=== PATIENT | male | born 1950 | race African-American/Black ===

== ENCOUNTER 2017-04-20 03:37 | Inpatient (IN) | payer MEDICARE, BC ==
[~2017-04-20] VITALS: Ht 170.2 cm; Wt 52.6 kg
[2017-04-20] VITALS (22 sets, daily range): BP systolic 77–125; BP diastolic 55–77
[~2017-04-20 03:37] MED LIST: ACET325T9 PO; ASPI325T8 GT; Baclofen PEG; CARV6.25 PO; CIPR500T94 PEG; FERR325T58 PO; Hydrocodone/Acetaminophen PEG; IBUP200C PO; IPRA3AMP NEB; MULT-658 PO; MULT1CAP15 GT; Metoprolol Tartrate PEG; NITR1PAT9 TD; NYST1POW2 PO; PANT40TA3 GT; PANT40TA5 PO; POTA20LI27 PO; QUET25TA PO; QUET25TA5 GT; Sulfamethoxazole/Trimethoprim PEG; TEMA15CA GT; TEMA15CA PO; TEMA22.5 PO; TEMA30CA GT; amlodipine besylate PEG; aspirin; baclofen; coreg; ferrous; hydrocodone PEG; protonix; seroquel; vistaril
[2017-04-20] MEDS ORDERED: IV NORMAL SALINE 1000ML BAG 1,000 ML IV SCH (04:00)
[2017-04-20 04:03] LABS: BASO % 0 % (0-3); EOS % 0 % (0-3); HEMATOCRIT 37.4 % (39.0-53.0); HEMOGLOBIN 12.1 g/dL (13.0-17.5); LYMPH # 0.6 x10^3/uL (1.0-4.8); LYMPH % 3 % (24-48); MEAN CORPUSCULAR HEMOGLOBIN 27 pg (25-35); MEAN CORPUSCULAR HGB CONC 32 g/dL (31-37); MEAN CORPUSCULAR VOLUME 84 fL (79-100); MONO % 7 % (0-9); NEUT % 90 % (31-73); PLATELET COUNT 348 x10^3/uL (140-400); RED BLOOD COUNT 4.45 x10^6/uL (4.30-5.70); RED CELL DISTRIBUTION WIDTH 16.5 % (11.5-14.5)
[2017-04-20 04:07] LABS: BILIRUBIN,URINE NEGATIVE (NEG); GLUCOSE,URINE NEGATIVE (NEG); NITRITE,URINE NEGATIVE (NEG); PH,URINE 6.5; PROTEIN,URINE 30 mg/dL (NEG-TRACE); UROBILINOGEN,URINE 0.2 mg/dL (0.2 mg/dL)
[2017-04-20 04:12] LABS: CALCIUM 9.8 mg/dL (8.5-10.1); CREATININE 1.1 mg/dL (0.7-1.3); GFR 81.5; POTASSIUM 4.9 mmol/L (3.5-5.1)
[2017-04-20 04:13] LABS: INR 1.2 (0.8-1.1); PROTHROMBIN TIME PATIENT 14.8 SEC (11.7-14.0)
[2017-04-20 04:17] LABS: BACTERIA,URINE MANY /HPF (0-FEW); SQUAMOUS EPITHELIAL CELL,UR OCC /LPF; WBC,URINE >40 /HPF (0-4)
[2017-04-20 04:18] LABS: ALBUMIN 3.1 g/dL (3.4-5.0); ALBUMIN/GLOBULIN RATIO 0.5 (1.0-1.7); TOTAL BILIRUBIN 0.5 mg/dL (0.2-1.0); TOTAL PROTEIN 9.3 g/dL (6.4-8.2)
[2017-04-20] MEDS ORDERED: VANCOMYCIN PER PHARMACY MC PRN (04:30)
[2017-04-20] MEDS ORDERED: IV NORMAL SALINE 500ML BAG 500 ML IV ONE (04:30)
[2017-04-20] MEDS ORDERED: VANCOMYCIN 1.25 GM in IV NORMAL SALINE 500ML BAG 500 ML IV ONE (05:00)
[2017-04-20 06:36] LABS: PLT ESTIMATE ADEQUATE (ADEQUATE)
[2017-04-20] MEDS ORDERED: NOREPINEPHRIN PREMIX 250 ML IV PRN (06:45)
[2017-04-20] MEDS ORDERED: IV DEXTROSE 5% - 0.9 % NACL 1,000 ML IV SCH (07:00)
--- NOTE | 2017-04-20 07:38 | RAD ---
Indication difficulty breathing. A single view of the chest was obtained. Comparison is made to an examination 11/15/2015. The heart and pulmonary vessels appear normal. The lungs are clear. There is no pleural fluid or pneumothorax. A right Port-A-Cath is noted. IMPRESSION: No acute or focal process is seen in the chest
--- NOTE | 2017-04-20 08:21 | PDOC2 ---
IM Consult Referring physician Dr Black for sepsis Date of Admission DATE: 04/20/17 TIME: 08:09 Chief Complaint Chief Complaint 66 yr o AA male with anoxic brain injury with persistant veg state, who is being taken care of by at home. She noted him to be having fever for 3 days , cough and then stopped breathing, she did brief CPR and he started breathing and was transported through ambulance. Had fever, leukocytosis, uti, lactic acidosis. Started on vanc, levaquin and now I added cefepime. D/w and d/w ER . Problems: Past Medical History Cardiovascular: AFIB, HTN, PR, Hyperlipidemia Pulmonary: No pertinent hx CENTRAL NERVOUS SYSTEM: CVA, Other GI: Other Heme/Onc: Other Musculoskeletal: Osteoarthritis, Other Rheumatologic: Other Renal/: UTI (anoxic brain injury/persistant veg state), Benign prostatic enlarg. Past Surgical History Past Surgical History: Colectomy, Other (rt aka) Past Family History Family History: Family History Unknown Past Social History PSH total care, done by at home Review of Symptoms Review of Symptoms unable to do Medications Current Medications Dextrose/Sodium Chloride 1,000 ml @ 150 mls/hr Q6H40M IV Last administered on 04/20/17 07:03; Start 04/20/17 at 07:00 Levofloxacin/ Dextrose 150 ml @ 100 mls/hr 1X ONCE IV Last administered on 04:34; Start 04/20/17 at 05:00; Stop 04/20/17 at 06:29; Status DC Norepinephrine Bitartrate 250 ml @ 0 mls/hr CONT PRN IV SEE I/O RECORD Last administered on 04/20/17 07:02; Start 04/20/17 at 06:45 Sodium Chloride 500 ml @ 500 mls/hr 1X ONCE IV Last administered on 04:34; Start 04/20/17 at 04:30; Stop 04/20/17 at 05:29; Status DC Sodium Chloride 1,000 ml @ 1,000 mls/hr Q1H IV Last administered on 04/20/17 03:45; Start 04/20/17 at 04:00; Stop 04/20/17 at 04:59; Status DC Vancomycin HCl 1 each 1X ONCE MC ; Start 04/22/17 at 04:30; Stop 04/22/17 at 04 :31 Vancomycin HCl (Vanco Per Pharmacy) 1 each PRN DAILY PRN MC SEE COMMENTS Last administered on 04/20/17 06:12; Start 04/20/17 at 04:30 Vancomycin HCl 1.25 gm/Sodium Chloride 500 ml @ 250 mls/hr 1X ONCE IV Last administered on 04/20/17 05:10; Start 04/20/17 at 05:00; Stop 04/20/17 at 06:59 ; Status DC Vancomycin HCl 750 mg/Sodium Chloride 250 ml @ 250 mls/hr Q24H IV ; Start 04/21 at 05:00 Allergy Allergies Coded Allergies Type Severity Reaction Last Updated Verified Penicillins Allergy Intermediate Hives, swelling, Can tolerate meropenem Yes simvastatin Allergy Intermediate per and Dr Black 11/12/15 Yes I S O L A T I O N *CONTACT* Allergy Unknown 11/12/15 Yes Iodinated Contrast- Oral and IV Dye Adverse Reaction Severe caregiver reports pt goes into renal failure 11/12/15 Yes Physical Exam Physical Exam General appearance - unresponsive not in distress Mental Status - unresponsive Head - normal Chest - clear to auscultation, no wheezes, rales or rhonchi, symmetric air entry Heart - S1 and S2 normal Abdomen - soft, nontender, nondistended, no masses or organomegaly Neurological - unresponsive Musculoskeletal - no muscular tenderness noted Extremities - no pedal edema Skin - warm and dry, minor breakdown at sacral area IV cv line at rt upper chest Labs Laboratory Tests Test 04/20/17 03:50 White Blood Count 23.0 x10^3/uL (4.0-11.0) Red Blood Count 4.45 x10^6/uL (4.30-5.70) Hemoglobin 12.1 g/dL (13.0-17.5) Hematocrit 37.4 % (39.0-53.0) Mean Corpuscular Volume 84 fL (79-100) Mean Corpuscular Hemoglobin 27 pg (25-35) Mean Corpuscular Hemoglobin Concent 32 g/dL (31-37) Red Cell Distribution Width 16.5 % (11.5-14.5) Platelet Count 348 x10^3/uL (140-400) Neutrophils (%) (Auto) 90 % (31-73) Lymphocytes (%) (Auto) 3 % (24-48) Monocytes (%) (Auto) 7 % (0-9) Eosinophils (%) (Auto) 0 % (0-3) Basophils (%) (Auto) 0 % (0-3) Neutrophils # (Auto) 20.7 x10^3uL (1.8-7.7) Lymphocytes # (Auto) 0.6 x10^3/uL (1.0-4.8) Monocytes # (Auto) 1.6 x10^3/uL (0.0-1.1) Eosinophils # (Auto) 0.1 x10^3/uL (0.0-0.7) Basophils # (Auto) 0.0 x10^3/uL (0.0-0.2) Segmented Neutrophils % 86 % (35-66) Band Neutrophils % 2 % (0-9) Lymphocytes % 6 % (24-48) Monocytes % 6 % (0-10) Platelet Estimate Adequate (ADEQUATE) Prothrombin Time 14.8 SEC (11.7-14.0) Prothromb Time International Ratio 1.2 (0.8-1.1) Activated Partial Thromboplast Time 32 SEC (24-38) Urine Collection Type U cath Urine Color Yellow Urine Clarity Cloudy Urine pH 6.5 Urine Specific [place] 1.020 Urine Protein 30 mg/dL (NEG-TRACE) Urine Glucose (UA) Negative mg/dL (NEG) Urine Ketones (Stick) Negative mg/dL (NEG) Urine Blood Moderate (NEG) Urine Nitrite Negative (NEG) Urine Bilirubin Negative (NEG) Urine Urobilinogen Dipstick 0.2 mg/dL (0.2 mg/dL) Urine Leukocyte Esterase Large (NEG) Urine RBC 1-2 /HPF (0-2) Urine WBC >40 /HPF (0-4) Urine Squamous Epithelial Cells Occ /LPF Urine Bacteria Many /HPF (0-FEW) Urine Hyaline Casts Occasional /HPF Sodium Level 136 mmol/L (136-145) Potassium Level 4.9 mmol/L (3.5-5.1) Chloride Level 101 mmol/L (98-107) Carbon Dioxide Level 20 mmol/L (21-32) Anion Gap 15 (6-14) Blood Urea Nitrogen 36 mg/dL (8-26) Creatinine 1.1 mg/dL (0.7-1.3) Estimated GFR (Cockcroft-Gault) 81.5 BUN/Creatinine Ratio 33 (6-20) Glucose Level 109 mg/dL (70-99) Lactic Acid Level 2.9 mmol/L (0.4-2.0) Calcium Level 9.8 mg/dL (8.5-10.1) Total Bilirubin 0.5 mg/dL (0.2-1.0) Aspartate Amino Transf (AST/SGOT) 30 U/L (15-37) Alanine Aminotransferase (ALT/SGPT) 32 U/L (16-63) Alkaline Phosphatase 107 U/L (46-116) Total Protein 9.3 g/dL (6.4-8.2) Albumin 3.1 g/dL (3.4-5.0) Albumin/Globulin Ratio 0.5 (1.0-1.7) Laboratory Tests Test 04/20/17 03:50 White Blood Count 23.0 x10^3/uL (4.0-11.0) Red Blood Count 4.45 x10^6/uL (4.30-5.70) Hemoglobin 12.1 g/dL (13.0-17.5) Hematocrit 37.4 % (39.0-53.0) Mean Corpuscular Volume 84 fL (79-100) Mean Corpuscular Hemoglobin 27 pg (25-35) Mean Corpuscular Hemoglobin Concent 32 g/dL (31-37) Red Cell Distribution Width 16.5 % (11.5-14.5) Platelet Count 348 x10^3/uL (140-400) Neutrophils (%) (Auto) 90 % (31-73) Lymphocytes (%) (Auto) 3 % (24-48) Monocytes (%) (Auto) 7 % (0-9) Eosinophils (%) (Auto) 0 % (0-3) Basophils (%) (Auto) 0 % (0-3) Neutrophils # (Auto) 20.7 x10^3uL (1.8-7.7) Lymphocytes # (Auto) 0.6 x10^3/uL (1.0-4.8) Monocytes # (Auto) 1.6 x10^3/uL (0.0-1.1) Eosinophils # (Auto) 0.1 x10^3/uL (0.0-0.7) Basophils # (Auto) 0.0 x10^3/uL (0.0-0.2) Segmented Neutrophils % 86 % (35-66) Band Neutrophils % 2 % (0-9) Lymphocytes % 6 % (24-48) Monocytes % 6 % (0-10) Platelet Estimate Adequate (ADEQUATE) Prothrombin Time 14.8 SEC (11.7-14.0) Prothromb Time International Ratio 1.2 (0.8-1.1) Activated Partial Thromboplast Time 32 SEC (24-38) Urine Collection Type U cath Urine Color Yellow Urine Clarity Cloudy Urine pH 6.5 Urine Specific [place] 1.020 Urine Protein 30 mg/dL (NEG-TRACE) Urine Glucose (UA) Negative mg/dL (NEG) Urine Ketones (Stick) Negative mg/dL (NEG) Urine Blood Moderate (NEG) Urine Nitrite Negative (NEG) Urine Bilirubin Negative (NEG) Urine Urobilinogen Dipstick 0.2 mg/dL (0.2 mg/dL) Urine Leukocyte Esterase Large (NEG) Urine RBC 1-2 /HPF (0-2) Urine WBC >40 /HPF (0-4) Urine Squamous Epithelial Cells Occ /LPF Urine Bacteria Many /HPF (0-FEW) Urine Hyaline Casts Occasional /HPF Sodium Level 136 mmol/L (136-145) Potassium Level 4.9 mmol/L (3.5-5.1) Chloride Level 101 mmol/L (98-107) Carbon Dioxide Level 20 mmol/L (21-32) Anion Gap 15 (6-14) Blood Urea Nitrogen 36 mg/dL (8-26) Creatinine 1.1 mg/dL (0.7-1.3) Estimated GFR (Cockcroft-Gault) 81.5 BUN/Creatinine Ratio 33 (6-20) Glucose Level 109 mg/dL (70-99) Lactic Acid Level 2.9 mmol/L (0.4-2.0) Calcium Level 9.8 mg/dL (8.5-10.1) Total Bilirubin 0.5 mg/dL (0.2-1.0) Aspartate Amino Transf (AST/SGOT) 30 U/L (15-37) Alanine Aminotransferase (ALT/SGPT) 32 U/L (16-63) Alkaline Phosphatase 107 U/L (46-116) Total Protein 9.3 g/dL (6.4-8.2) Albumin 3.1 g/dL (3.4-5.0) Albumin/Globulin Ratio 0.5 (1.0-1.7) U/A noted CXR neg Vitals Vital Signs Date Time Temp Pulse Resp B/P (MAP) Pulse Ox O2 Delivery O2 Flow Rate FiO2 04/20/17 07:00 82 16 79/64 (69) 97 Room Air 04/20/17 06:15 97.9 97.9 Assessment Assessment UTI with sepsis Fever Leukocytosis Anoxic brain injury Persistent veg state Plan Plan vanc, levaquin and cefepime check cultures and adjust supportive care fluids d/w in detail CATHY ELIAS MD Apr 20, 2017 08:21
[2017-04-20] MEDS ORDERED: IV NORMAL SALINE 1000ML BAG 1,000 ML IV ONE (09:00)
[2017-04-20] MEDS: CEFEPIME HCL 1 GM in IV NORMAL SALINE 50ML 50 ML IV SCH ×3 (09:26→21:48)
[2017-04-20] MEDS ORDERED: HYDR-2758 GT (10:26)
[2017-04-20] MEDS ORDERED: FERR-26 GT (10:26)
[2017-04-20] MEDS ORDERED: QUET25TA5 GT (10:26)
[2017-04-20] MEDS ORDERED: MUPI22OI2 TP (10:26)
[2017-04-20] MEDS ORDERED: ERYT1OIN6 OP (10:26)
[2017-04-20] MEDS ORDERED: QUEtiapine 25 MG TABLET. GT PRN (11:45)
[2017-04-20] MEDS: ASPIRIN 325 MG TABLET GT SCH (12:20)
[2017-04-20] MEDS ORDERED: FERROUS SULFATE 325 MG TABLET. PO SCH (12:30)
--- NOTE | 2017-04-20 12:46 | PDOC ---
Provider Note Provider Note history and physical dictated # [id number] ADRIANE ALAN MD Apr 20, 2017 12:46
--- NOTE | 2017-04-20 13:49 | EKG ---
[facility] [address] [place] [address] Test Date: 2017-04-20 Test Time: 13:44:34 Pat Name: TENA SCHAFFER Department: Room: 110 1 Gender: M Brush Sander: JUANITA : 1950 Requested By: ADRIANE ALAN Order Number: [id number] Reading MD: Clint Bates Measurements Intervals Amanda Rate: 63 P: 38 ME: 166 QRS: -53 QRSD: 108 T: -48 QT: 464 QTc: 478 Interpretive Statements SINUS RHYTHM ABNORMAL LEFT AXIS DEVIATION LEFT ANTERIOR FASCICULAR BLOCK LVH WITH REPOLARIZATION ABNORMALITY PROLONGED QT ABNORMAL ECG Electronically Signed On 04-30-2017 14:44:01 CDT by Clint Bates
[2017-04-20] MEDS ORDERED: BACLOFEN 10 MG TABLET. GT SCH (14:00)
[2017-04-20] MEDS: BACLOFEN 10 MG TABLET. GT SCH ×2 (16:03→20:46)
[2017-04-20] MEDS: IV NORMAL SALINE 1000ML BAG 1,000 ML IV SCH ×2 (16:51→20:46)
--- NOTE | 2017-04-20 19:07 | PHYS DOC ---
Past Medical History Past Medical History: Coagulopathy, Hypertension, NH, Seizure, Other Additional Past Medical Histor: metabolic encephalopathy, short bowel syndrome , lupus Past Surgical History: Colectomy, Other Additional Past Surgical Histo: g-tube placement, ileostomy Alcohol Use: None Drug Use: None Social History Pt currently resides at home with caring for pt. Last Hospitalization and infection with antibiotic was in 12/16 Adult General Chief Complaint Chief Complaint: SHORTNESS OF BREATH HPI HPI Patient is a 66 year old male with HX post cardiac arrest cerebral anoxic brain injury. Pt is nonverbal and history taken from EMS and family. cares for pt at home. who presents with hypoxic episode at home and stopped breathing per . She performed CPR for less that 1 min when EMS arrived. Pt was found at baseline mentation and no hypoxia but hypotension with initial pressure 84/55. Pt transported to ER. Per hx of elevated WBC out pt last week but no signs of infection then noticed yesterday poss purulent discharge from urethra. Pt hx of pulmonary mucous plugging in past. Review of Systems Review of Systems ROS from as pt is nonverbal Constitutional: Denies fever or chills HENT: Denies nasal congestion Respiratory: possible recent coughing episodes and hypoxia/resp arrest tonight Cardiovascular: No additional information not addressed in HPI GI: NO, vomiting, bloody stools, stool in colostomy bag normal/baseline :no hematuria, purulent discharge from urethra Integument: Pt has had skin breakdown area near portacath and presacral area, and L heel Neurologic:baseline mentation per Current Medications Current Medications Current Medications Medications (Trade) Dose Ordered Sig/Baljeet Start Time Stop Time Status Last Admin Dose Admin Sodium Chloride 500 ml @ 500 mls/hr 1X ONCE 04/20/17 04:30 04/20/17 05:29 DC 04/20/17 04:34 500 MLS/HR Vancomycin HCl (Vanco Per Pharmacy) 1 each PRN DAILY PRN 04/20/17 04:30 04/20/17 12:59 DC 04/20/17 06:12 1 EACH Allergies Allergies Allergies Coded Allergies Type Severity Reaction Last Updated Verified Penicillins Allergy Intermediate Hives, swelling, Can tolerate meropenem Yes simvastatin Allergy Intermediate per and Dr Black 11/12/15 Yes I S O L A T I O N *CONTACT* Allergy Unknown 11/12/15 Yes Iodinated Contrast- Oral and IV Dye Adverse Reaction Severe caregiver reports pt goes into renal failure 11/12/15 Yes Physical Exam Physical Exam Constitutional: Pt cachetic, neck flexed forward (baseline) nonverbal appears ill HENT: atraumatic, oropharynx dry mucous membranes no oral exudates, nose normal. [] Eyes: PERRLA, conjunctiva normal, no discharge. Neck: Neck flexed forward Cardiovascular: Tachycardic, no murmur Lungs & Thorax: Bilateral breath sounds clear to auscultation Portacath in place and inferior area open wound, no discharge but mild erythema Abdomen: Bowel sounds normal, soft, no tenderness, no masses, no pulsatile masses. Skin: Warm, dry, presacral decub and healing pressure sore heel of L foot Back: No tenderness, no CVA tenderness. Extremities: No tenderness, no cyanosis, AKA R leg Neurologic: Pt nonverbal non responsive but at baseline per Current Patient Data Vital Signs Vital Signs Date Time Temp Pulse Resp B/P (MAP) Pulse Ox O2 Delivery O2 Flow Rate FiO2 04/20/17 04:15 104 87/57 (67) 95 Room Air 04/20/17 03:38 102.0 20 102.0 Lab Values Laboratory Tests Test 04/20/17 03:50 White Blood Count 23.0 x10^3/uL (4.0-11.0) H Red Blood Count 4.45 x10^6/uL (4.30-5.70) Hemoglobin 12.1 g/dL (13.0-17.5) L Hematocrit 37.4 % (39.0-53.0) L Mean Corpuscular Volume 84 fL (79-100) Mean Corpuscular Hemoglobin 27 pg (25-35) Mean Corpuscular Hemoglobin Concent 32 g/dL (31-37) Red Cell Distribution Width 16.5 % (11.5-14.5) H Platelet Count 348 x10^3/uL (140-400) Neutrophils (%) (Auto) 90 % (31-73) H Lymphocytes (%) (Auto) 3 % (24-48) L Monocytes (%) (Auto) 7 % (0-9) Eosinophils (%) (Auto) 0 % (0-3) Basophils (%) (Auto) 0 % (0-3) Neutrophils # (Auto) 20.7 x10^3uL (1.8-7.7) H Lymphocytes # (Auto) 0.6 x10^3/uL (1.0-4.8) L Monocytes # (Auto) 1.6 x10^3/uL (0.0-1.1) H Eosinophils # (Auto) 0.1 x10^3/uL (0.0-0.7) Basophils # (Auto) 0.0 x10^3/uL (0.0-0.2) Segmented Neutrophils % 86 % (35-66) H Band Neutrophils % 2 % (0-9) Lymphocytes % 6 % (24-48) L Monocytes % 6 % (0-10) Platelet Estimate Adequate (ADEQUATE) Prothrombin Time 14.8 SEC (11.7-14.0) H Prothrombin Time INR 1.2 (0.8-1.1) H PTT 32 SEC (24-38) Urine Collection Type U cath Urine Color Yellow Urine Clarity Cloudy Urine pH 6.5 Urine Specific [place] 1.020 Urine Protein 30 mg/dL (NEG-TRACE) Urine Glucose (UA) Negative mg/dL (NEG) Urine Ketones (Stick) Negative mg/dL (NEG) Urine Blood Moderate (NEG) Urine Nitrite Negative (NEG) Urine Bilirubin Negative (NEG) Urine Urobilinogen Dipstick 0.2 mg/dL (0.2 mg/dL) Urine Leukocyte Esterase Large (NEG) Urine RBC 1-2 /HPF (0-2) Urine WBC >40 /HPF (0-4) Urine Squamous Epithelial Cells Occ /LPF Urine Bacteria Many /HPF (0-FEW) Urine Hyaline Casts Occasional /HPF Sodium Level 136 mmol/L (136-145) Potassium Level 4.9 mmol/L (3.5-5.1) Chloride Level 101 mmol/L (98-107) Carbon Dioxide Level 20 mmol/L (21-32) L Anion Gap 15 (6-14) H Blood Urea Nitrogen 36 mg/dL (8-26) H Creatinine 1.1 mg/dL (0.7-1.3) Estimated GFR (Cockcroft-Gault) 81.5 BUN/Creatinine Ratio 33 (6-20) H Glucose Level 109 mg/dL (70-99) H Lactic Acid Level 2.9 mmol/L (0.4-2.0) H Calcium Level 9.8 mg/dL (8.5-10.1) Total Bilirubin 0.5 mg/dL (0.2-1.0) Aspartate Amino Transferase (AST) 30 U/L (15-37) Alanine Aminotransferase (ALT) 32 U/L (16-63) Alkaline Phosphatase 107 U/L (46-116) Total Protein 9.3 g/dL (6.4-8.2) H Albumin 3.1 g/dL (3.4-5.0) L Albumin/Globulin Ratio 0.5 (1.0-1.7) L Laboratory Tests 04/20/17 03:50 Laboratory Tests 04/20/17 03:50 Microbiology 04/20/17 Blood Culture - Final, Complete EKG EKG [] Radiology/Procedures Radiology/Procedures Chest Xray portable AP--wet read when evaluated pt ---no consolidation, no CHF Impressions: Impression----Septic Shock with UTI, decub presacral area Admit to ICU discussed with Dr. Black and called in consult for Dr. Aburto (ID ) Pt elevated lactic acid and WBC with metabolic acidosi Pt given fluid bolus 30cc/kg approx 1500cc of NS in ER with some improvement of systolic BP to 102 on transfer to ICU Pt started on LEvaquin and VAncomycin in ER Pt allergy to PCN per is throat swelling Critical care time on management by me in ER with reviewing test and discussing pt care was 30 min. critical care Course & Med Decision Making Course & Med Decision Making Pertinent Labs and Imaging studies reviewed. (See chart for details) [] Dragon Disclaimer Dragon Disclaimer This electronic medical record was generated, in whole or in part, using a voice recognition dictation system. Departure Departure Impression: Primary Impression: Septic shock Additional Impression: UTI (urinary tract infection) Disposition: ADMITTED INPATIENT Admitting Physician: Shailesh Black Condition: CRITICAL Problem Qualifiers [place] BARNARD MD Apr 20, 2017 19:07
--- NOTE | 2017-04-20 19:58 | HP ---
ADMIT DATE: 04/20/2017 LOCATION: Intensive Care Unit in room 110. HISTORY OF PRESENT ILLNESS The patient is a 66-year-old -D[place] male with a history of an anoxic encephalopathy from a previous cardiopulmonary arrest with spastic quadriparesis and oropharyngeal dysphagia, maintained on gastrostomy tube feedings, who also had a small bowel resection in the past due to ischemia and has a short bowel syndrome and an ileostomy maintained on IV fluids at home as well as a gastrostomy tube feeding and who has a history of a right above-knee amputation, he is cared for by his at home, was admitted to [facility] through the Emergency Room on 04/20/2017 with 3-day history of fever and noted to have an episode of apnea at home. The did some CPR and he started breathing again and he was sent by EMT to the [facility] Emergency Room where he was noted to be in septic shock. His systolic blood pressure was low down to 79/64. He received IV fluid boluses. He is noted to have a leukocytosis and an elevated lactic acid and pyuria consistent with sepsis with shock: The patient is a full code. He was admitted to the Intensive Care Unit and was started on Levophed drip. History is obtained from the Emergency Room physician and also from the patient's . He is therefore admitted for further evaluation and treatment of his septic shock and suspected urinary tract infection. ALLERGIES AND INTOLERANCES: IV IODINE AND ORAL IODINE, PENICILLIN, AND SIMVASTATIN. MEDICATIONS: Prior to admission include aspirin 325 mg every day, baclofen 10 mg t.i.d., ferrous sulfate 325 mg every day, multiple vitamin once a day, [place] 10/325 one every day p.r.n., Seroquel 25 mg at bedtime and 12.5 mg every day p.r.n. for agitation and he is also on temazepam 45 mg at bedtime, Fibersource 110 mL an hour through his gastrostomy tube, water 250 mL every 6 hours through his gastrostomy tube and IV normal saline 125 mL an hour from 7 p.m. to 7 a.m. daily. PAST MEDICAL HISTORY: Significant for anoxic encephalopathy due to out of hospital cardiopulmonary arrest several years ago. He also has spastic quadriparesis and he is aphasic and has oropharyngeal dysphagia, maintained on gastrostomy tube feedings. He had ischemic bowel, requiring small bowel resection, leaving him with short bowel syndrome and also has an ileostomy. 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 He does have a gastrostomy tube. He had upper and lower extremity contractures and a colon polypectomy in the past. He had an antiphospholipid syndrome in the past and repeat test was negative subsequent to that. He had a cerebrovascular accident in 2013 with right-sided hemiparesis. SOCIAL HISTORY: He does not drink alcohol nor does he smoke cigarettes. He is cared for by his . FAMILY HISTORY: Noncontributory. REVIEW OF SYSTEMS: Unobtainable as the patient is aphasic. PHYSICAL EXAMINATION: VITAL SIGNS: Temperature is 97.9 degrees, apical pulse 82, respiratory rate is 20, blood pressure was 79/64 earlier, ____ was 102 systolic, on a Levophed drip, oxygen saturation 97% on room air. HEENT: Eyes are closed. He is in a contracted position with spastic quadriparesis. HEART: Reveals an S1, S2. There is no S3 or murmur. LUNGS: Clear anteriorly. ABDOMEN: Soft. He has got a gastrostomy tube and an ileostomy. EXTREMITIES: Lower extremity has got a right above-knee amputation. He is got a stage II very small superficial wound involving his left heel. SKIN: No rashes. LABORATORY DATA: His white count was 23,000, hemoglobin 12.1 with a platelet count 348,000, 90 polys and 3 lymphocytes and white cell differential. His INR was 1.2 with a PTT of 32. Serum sodium 136, potassium 4.9, chloride 101, total CO2 was 20, BUN 26, creatinine 1.1, blood sugar 109. Lactic acid level is 2.9. His albumin level is 3.1. Urinalysis showed greater than 40 white blood cells. He had a chest x-ray done which showed no acute abnormality, he has a Port-A-Cath in the right side. Electrocardiogram was not on the chart. ASSESSMENT: 1. Sepsis with shock. 2. Pyuria, suspected urinary tract infection. 3. Metabolic encephalopathy on top of anoxic encephalopathy. 4. Leukocytosis. 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 7. Ileostomy. 8. Oropharyngeal dysphagia, maintained on gastrostomy tube feedings. 9. Right above-knee amputation. 10. Aphasic. PLAN: At this time is to wait for blood and urine culture results. He has been seen by the Infectious Disease professional benefits sales consultant. We will continue with IV vancomycin, cefepime and Levaquin. Recheck his labs tomorrow. Continue with Levophed. Also continue with the IV normal saline. ADRIANE ALAN MD DR: MARILY/abram JOB#: [id number] / [id number]
[2017-04-20] MEDS ORDERED: FAMOTIDINE 20 MG TABLET. PEG SCH (21:00)
[2017-04-21] VITALS (20 sets, daily range): BP systolic 92–145; BP diastolic 57–83
--- NOTE | 2017-04-21 00:13 | ACF ---
Admission Forms Criteria URINARY COMPLICATIONS Clinical Indications for Inpatient Care (Place 'X' for any and all applicable criteria): Ongoing inpatient care may be indicated for urinary complications with ANY ONE of the following: [X]I. Urinary tract infection requiring inpatient care as indicated by ANY ONE of the following(8)(19)(20): [ ]a) Severe symptoms (eg, high fever, severe pain) [ ]b) Vomiting or dehydration requiring ongoing inpatient care [X]c) IV antibiotic needs that cannot be managed at lower level of care [ ]d) Hemodynamic instability [ ]e) Obstruction of collecting system by stone or tumor [ ]II. Urinary retention requiring drainage or surgery (3)(4)(5)(17)(18) [ ]III. Renal failure (Use Renal Failure Criteria for further information.) [ ]IV. Oliguria(30) [ ]V. Post obstructive diuresis requiring close monitoring of urine output and intravenous compensation for excessive fluid losses(33) Extended stay beyond goal length of stay for primary condition may be needed until ALL of the following are present(3)(4)(5)(8): [ ]a) Renal function (creatinine) at baseline, or daily decreases in creatinine consistent with renal function return [ ]b) Voiding adequately or with urinary catheter or percutaneous suprapubic tube and management regimen in place that is performable at lower level of care. [ ]c) Urine output adequate [ ]d) Fever absent or resolving [ ]e) Infection absent or treatable at next level of care The original [employer] content created by [employer] has been revised. The portions of the content which have been revised are identified through the use of italic text or in bold, and [facility] has neither reviewed nor approved the modified material. All other unmodified content is copyright [employer] Please see references footnoted in the original [employer] edition 2016 Admission Criteria Met?: Yes CAROLYN PAZ Apr 21, 2017 00:13
[2017-04-21] MEDS ORDERED: VANCOMYCIN 750 MG in IV NORMAL SALINE 250ML 250 ML IV SCH (05:00)
[2017-04-21] MEDS: CEFEPIME HCL 1 GM in IV NORMAL SALINE 50ML 50 ML IV SCH ×3 (05:46→21:06)
[2017-04-21] MEDS: IV NORMAL SALINE 1000ML BAG 1,000 ML IV SCH ×2 (05:46→21:06)
[2017-04-21 06:18] LABS: CALCIUM 8.5 mg/dL (8.5-10.1); CREATININE 0.6 mg/dL (0.7-1.3); GFR 164.1; POTASSIUM 3.7 mmol/L (3.5-5.1)
[2017-04-21 06:52] LABS: BASO % 0 % (0-3); EOS % 4 % (0-3); HEMATOCRIT 29.7 % (39.0-53.0); HEMOGLOBIN 9.6 g/dL (13.0-17.5); LYMPH # 1.1 x10^3/uL (1.0-4.8); LYMPH % 10 % (24-48); MEAN CORPUSCULAR HEMOGLOBIN 27 pg (25-35); MEAN CORPUSCULAR HGB CONC 33 g/dL (31-37); MEAN CORPUSCULAR VOLUME 84 fL (79-100); MONO % 8 % (0-9); NEUT % 78 % (31-73); PLATELET COUNT 275 x10^3/uL (140-400); RED BLOOD COUNT 3.52 x10^6/uL (4.30-5.70); RED CELL DISTRIBUTION WIDTH 16.7 % (11.5-14.5); WHITE BLOOD COUNT 10.9 x10^3/uL (4.0-11.0)
--- NOTE | 2017-04-21 08:21 | PDOC ---
Infectious Disease Note Subjective Subjective unresponsive ROS ROS unable to do Vital Sign Vital Signs Vital Signs Date Time Temp Pulse Resp B/P (MAP) Pulse Ox O2 Delivery O2 Flow Rate FiO2 04/21/17 08:00 99.3 77 17 115/72 (86) 97 Room Air 99.3 Physical Exam PHYSICAL EXAM General appearance - unresponsive not in distress Mental Status - unresponsive Head - normal Chest - clear to auscultation, no wheezes, rales or rhonchi, symmetric air entry Heart - S1 and S2 normal Abdomen - soft, nontender, nondistended, no masses or organomegaly Neurological - unresponsive Musculoskeletal - no muscular tenderness noted Extremities - no pedal edema Skin - warm and dry, minor breakdown at sacral area IV cv line at rt upper chest Labs Lab Laboratory Tests Test 04/20/17 09:10 04/20/17 17:15 04/21/17 05:00 Lactic Acid Level 1.3 mmol/L (0.4-2.0) 1.0 mmol/L (0.4-2.0) White Blood Count 10.9 x10^3/uL (4.0-11.0) Red Blood Count 3.52 x10^6/uL (4.30-5.70) Hemoglobin 9.6 g/dL (13.0-17.5) Hematocrit 29.7 % (39.0-53.0) Mean Corpuscular Volume 84 fL (79-100) Mean Corpuscular Hemoglobin 27 pg (25-35) Mean Corpuscular Hemoglobin Concent 33 g/dL (31-37) Red Cell Distribution Width 16.7 % (11.5-14.5) Platelet Count 275 x10^3/uL (140-400) Neutrophils (%) (Auto) 78 % (31-73) Lymphocytes (%) (Auto) 10 % (24-48) Monocytes (%) (Auto) 8 % (0-9) Eosinophils (%) (Auto) 4 % (0-3) Basophils (%) (Auto) 0 % (0-3) Neutrophils # (Auto) 8.6 x10^3uL (1.8-7.7) Lymphocytes # (Auto) 1.1 x10^3/uL (1.0-4.8) Monocytes # (Auto) 0.8 x10^3/uL (0.0-1.1) Eosinophils # (Auto) 0.4 x10^3/uL (0.0-0.7) Basophils # (Auto) 0.0 x10^3/uL (0.0-0.2) Sodium Level 145 mmol/L (136-145) Potassium Level 3.7 mmol/L (3.5-5.1) Chloride Level 112 mmol/L (98-107) Carbon Dioxide Level 22 mmol/L (21-32) Anion Gap 11 (6-14) Blood Urea Nitrogen 12 mg/dL (8-26) Creatinine 0.6 mg/dL (0.7-1.3) Estimated GFR (Cockcroft-Gault) 164.1 Glucose Level 111 mg/dL (70-99) Calcium Level 8.5 mg/dL (8.5-10.1) Micro BC with G neg viktoria Objective Assessment UTI with sepsis Fever Leukocytosis Anoxic brain injury Persistent veg state Sepsis G neg viktoria bacteremia Plan Plan of Care cont cefepime and levaquin for now check ID on G neg viktoria and adjust vanc d/c CATHY Lai MD Apr 21, 2017 08:21
[2017-04-21] MEDS ORDERED: FERROUS SULFATE ORAL 300 MG/5 ML SOLUTION. PO SCH (09:00)
[2017-04-21] MEDS: FERROUS SULFATE ORAL 300 MG/5 ML SOLUTION. GT SCH (09:13)
[2017-04-21] MEDS: MULTIVITAMINS,THERAPEUTIC 5 ML ORAL LIQUID. GT SCH (09:13)
[2017-04-21] MEDS: BACLOFEN 10 MG TABLET. GT SCH ×3 (09:13→21:05)
[2017-04-21] MEDS: ASPIRIN 325 MG TABLET GT SCH (09:13)
[2017-04-21] MEDS: FAMOTIDINE 20 MG TABLET. PEG SCH ×2 (09:18→21:05)
--- NOTE | 2017-04-21 10:55 | PDOC ---
PROGRESS NOTES Subjective Subjective discussed with family. more alert. off of levophed. labs reviewed. blood culture positive for GNR. urine culture pending. tolerates tube feeding Objective Objective Vital Signs Date Time Temp Pulse Resp B/P (MAP) Pulse Ox O2 Delivery O2 Flow Rate FiO2 04/21/17 10:00 68 16 109/70 (83) 96 Room Air 04/21/17 08:00 99.3 99.3 Intake and Output 04/21/17 07:00 Intake Total 6571 ml Output Total 425 ml Balance 6146 ml Intake IV Total 5537 ml Tube Feeding 834 ml Other 200 ml Output Stool Total 350 ml Gastric Drainage Total 75 ml # Voids 11 Physical Exam Abdomen: Soft, Other (g tube and ileostomy ) Heart: Regular rate, Normal S1, Normal S2 Extremities: No edema, Other (right AKA) General: Alert HEENT: Atraumatic Lungs: Clear to auscultation Neuro: Other (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 shock resolved 2. Pyuria, suspected urinary tract infection. urine culture pending 3. Metabolic encephalopathy improved on top of anoxic encephalopathy. 4. Leukocytosis. 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 7. Ileostomy. 8. Oropharyngeal dysphagia, maintained on gastrostomy tube feedings. 9. Right above-knee amputation. 10. Aphasic. Medical Problems: (1) Septic shock Status: Acute (2) UTI (urinary tract infection) Status: Acute Plan Plan of Care continue iv vancomycin and levaquin and cefepime decrease iv fluids increase tube feeding may transfer to monitored bed on medical floor if okay with ID await blood culture results labs tomorrow Comment Review of Relevant I have reviewed the following items ramon (where applicable) has been applied. Labs Laboratory Tests Test 04/20/17 03:50 04/20/17 06:20 04/20/17 09:10 04/20/17 17:15 White Blood Count 23.0 x10^3/uL (4.0-11.0) Red Blood Count 4.45 x10^6/uL (4.30-5.70) Hemoglobin 12.1 g/dL (13.0-17.5) Hematocrit 37.4 % (39.0-53.0) Mean Corpuscular Volume 84 fL (79-100) Mean Corpuscular Hemoglobin 27 pg (25-35) Mean Corpuscular Hemoglobin Concent 32 g/dL (31-37) Red Cell Distribution Width 16.5 % (11.5-14.5) Platelet Count 348 x10^3/uL (140-400) Neutrophils (%) (Auto) 90 % (31-73) Lymphocytes (%) (Auto) 3 % (24-48) Monocytes (%) (Auto) 7 % (0-9) Eosinophils (%) (Auto) 0 % (0-3) Basophils (%) (Auto) 0 % (0-3) Neutrophils # (Auto) 20.7 x10^3uL (1.8-7.7) Lymphocytes # (Auto) 0.6 x10^3/uL (1.0-4.8) Monocytes # (Auto) 1.6 x10^3/uL (0.0-1.1) Eosinophils # (Auto) 0.1 x10^3/uL (0.0-0.7) Basophils # (Auto) 0.0 x10^3/uL (0.0-0.2) Segmented Neutrophils % 86 % (35-66) Band Neutrophils % 2 % (0-9) Lymphocytes % 6 % (24-48) Monocytes % 6 % (0-10) Platelet Estimate Adequate (ADEQUATE) Prothrombin Time 14.8 SEC (11.7-14.0) Prothromb Time International Ratio 1.2 (0.8-1.1) Activated Partial Thromboplast Time 32 SEC (24-38) Urine Collection Type U cath Urine Color Yellow Urine Clarity Cloudy Urine pH 6.5 Urine Specific [place] 1.020 Urine Protein 30 mg/dL (NEG-TRACE) Urine Glucose (UA) Negative mg/dL (NEG) Urine Ketones (Stick) Negative mg/dL (NEG) Urine Blood Moderate (NEG) Urine Nitrite Negative (NEG) Urine Bilirubin Negative (NEG) Urine Urobilinogen Dipstick 0.2 mg/dL (0.2 mg/dL) Urine Leukocyte Esterase Large (NEG) Urine RBC 1-2 /HPF (0-2) Urine WBC >40 /HPF (0-4) Urine Squamous Epithelial Cells Occ /LPF Urine Bacteria Many /HPF (0-FEW) Urine Hyaline Casts Occasional /HPF Sodium Level 136 mmol/L (136-145) Potassium Level 4.9 mmol/L (3.5-5.1) Chloride Level 101 mmol/L (98-107) Carbon Dioxide Level 20 mmol/L (21-32) Anion Gap 15 (6-14) Blood Urea Nitrogen 36 mg/dL (8-26) Creatinine 1.1 mg/dL (0.7-1.3) Estimated GFR (Cockcroft-Gault) 81.5 BUN/Creatinine Ratio 33 (6-20) Glucose Level 109 mg/dL (70-99) Lactic Acid Level 2.9 mmol/L (0.4-2.0) 1.3 mmol/L (0.4-2.0) 1.0 mmol/L (0.4-2.0) Calcium Level 9.8 mg/dL (8.5-10.1) Total Bilirubin 0.5 mg/dL (0.2-1.0) Aspartate Amino Transf (AST/SGOT) 30 U/L (15-37) Alanine Aminotransferase (ALT/SGPT) 32 U/L (16-63) Alkaline Phosphatase 107 U/L (46-116) Total Protein 9.3 g/dL (6.4-8.2) Albumin 3.1 g/dL (3.4-5.0) Albumin/Globulin Ratio 0.5 (1.0-1.7) Nasal Screen MRSA (PCR) Negative (Negative) Test 04/21/17 05:00 White Blood Count 10.9 x10^3/uL (4.0-11.0) Red Blood Count 3.52 x10^6/uL (4.30-5.70) Hemoglobin 9.6 g/dL (13.0-17.5) Hematocrit 29.7 % (39.0-53.0) Mean Corpuscular Volume 84 fL (79-100) Mean Corpuscular Hemoglobin 27 pg (25-35) Mean Corpuscular Hemoglobin Concent 33 g/dL (31-37) Red Cell Distribution Width 16.7 % (11.5-14.5) Platelet Count 275 x10^3/uL (140-400) Neutrophils (%) (Auto) 78 % (31-73) Lymphocytes (%) (Auto) 10 % (24-48) Monocytes (%) (Auto) 8 % (0-9) Eosinophils (%) (Auto) 4 % (0-3) Basophils (%) (Auto) 0 % (0-3) Neutrophils # (Auto) 8.6 x10^3uL (1.8-7.7) Lymphocytes # (Auto) 1.1 x10^3/uL (1.0-4.8) Monocytes # (Auto) 0.8 x10^3/uL (0.0-1.1) Eosinophils # (Auto) 0.4 x10^3/uL (0.0-0.7) Basophils # (Auto) 0.0 x10^3/uL (0.0-0.2) Sodium Level 145 mmol/L (136-145) Potassium Level 3.7 mmol/L (3.5-5.1) Chloride Level 112 mmol/L (98-107) Carbon Dioxide Level 22 mmol/L (21-32) Anion Gap 11 (6-14) Blood Urea Nitrogen 12 mg/dL (8-26) Creatinine 0.6 mg/dL (0.7-1.3) Estimated GFR (Cockcroft-Gault) 164.1 Glucose Level 111 mg/dL (70-99) Calcium Level 8.5 mg/dL (8.5-10.1) Laboratory Tests Test 04/20/17 17:15 04/21/17 05:00 Lactic Acid Level 1.0 mmol/L (0.4-2.0) White Blood Count 10.9 x10^3/uL (4.0-11.0) Red Blood Count 3.52 x10^6/uL (4.30-5.70) Hemoglobin 9.6 g/dL (13.0-17.5) Hematocrit 29.7 % (39.0-53.0) Mean Corpuscular Volume 84 fL (79-100) Mean Corpuscular Hemoglobin 27 pg (25-35) Mean Corpuscular Hemoglobin Concent 33 g/dL (31-37) Red Cell Distribution Width 16.7 % (11.5-14.5) Platelet Count 275 x10^3/uL (140-400) Neutrophils (%) (Auto) 78 % (31-73) Lymphocytes (%) (Auto) 10 % (24-48) Monocytes (%) (Auto) 8 % (0-9) Eosinophils (%) (Auto) 4 % (0-3) Basophils (%) (Auto) 0 % (0-3) Neutrophils # (Auto) 8.6 x10^3uL (1.8-7.7) Lymphocytes # (Auto) 1.1 x10^3/uL (1.0-4.8) Monocytes # (Auto) 0.8 x10^3/uL (0.0-1.1) Eosinophils # (Auto) 0.4 x10^3/uL (0.0-0.7) Basophils # (Auto) 0.0 x10^3/uL (0.0-0.2) Sodium Level 145 mmol/L (136-145) Potassium Level 3.7 mmol/L (3.5-5.1) Chloride Level 112 mmol/L (98-107) Carbon Dioxide Level 22 mmol/L (21-32) Anion Gap 11 (6-14) Blood Urea Nitrogen 12 mg/dL (8-26) Creatinine 0.6 mg/dL (0.7-1.3) Estimated GFR (Cockcroft-Gault) 164.1 Glucose Level 111 mg/dL (70-99) Calcium Level 8.5 mg/dL (8.5-10.1) Microbiology 04/20/17 Blood Culture - Preliminary, Resulted NO GROWTH AFTER 1 DAY Medications Current Medications Sodium Chloride 1,000 ml @ 1,000 mls/hr Q1H IV Last administered on 04/20/17 03:45; Start 04/20/17 at 04:00; Stop 04/20/17 at 04:59; Status DC Sodium Chloride 500 ml @ 500 mls/hr 1X ONCE IV Last administered on 04:34; Start 04/20/17 at 04:30; Stop 04/20/17 at 05:29; Status DC Levofloxacin/ Dextrose 150 ml @ 100 mls/hr 1X ONCE IV Last administered on 04:34; Start 04/20/17 at 05:00; Stop 04/20/17 at 06:29; Status DC Vancomycin HCl 1.25 gm/Sodium Chloride 500 ml @ 250 mls/hr 1X ONCE IV Last administered on 04/20/17 05:10; Start 04/20/17 at 05:00; Stop 04/20/17 at 12:59 ; Status DC Vancomycin HCl (Vanco Per Pharmacy) 1 each PRN DAILY PRN MC SEE COMMENTS Last administered on 04/20/17 06:12; Start 04/20/17 at 04:30; Stop 04/20/17 at 12:59 ; Status DC Vancomycin HCl 750 mg/Sodium Chloride 250 ml @ 250 mls/hr Q24H IV ; Start 04/21 at 05:00; Stop 04/21/17 at 05:00; Status DC Vancomycin HCl 1 each 1X ONCE MC ; Start 04/22/17 at 04:30; Stop 04/22/17 at 04 :30; Status DC Dextrose/Sodium Chloride 1,000 ml @ 150 mls/hr Q6H40M IV Last administered on 04/20/17 07:03; Start 04/20/17 at 07:00; Stop 04/20/17 at 12:37; Status DC Norepinephrine Bitartrate 250 ml @ 0 mls/hr CONT PRN IV SEE I/O RECORD Last administered on 04/20/17 07:02; Start 04/20/17 at 06:45 Cefepime HCl 1 gm/ Sodium Chloride 50 ml @ 100 mls/hr Q8HRS IV Last administered on 04/21/17 05:46; Start 04/20/17 at 09:00 Sodium Chloride 1,000 ml @ 1,000 mls/hr 1X ONCE IV Last administered on 09:26; Start 04/20/17 at 09:00; Stop 04/20/17 at 09:59; Status DC Levofloxacin/ Dextrose 150 ml @ 100 mls/hr Q24H IV Last administered on 06:36; Start 04/21/17 at 07:00 Aspirin (Laura Aspirin) 325 mg DAILY GT Last administered on 04/21/17 09:13; Start 04/20/17 at 12:30 Ferrous Sulfate (Feosol) 325 mg DAILY PO Last administered on 04/20/17 12:20; Start 04/20/17 at 12:30; Stop 04/21/17 at 08:38; Status DC Quetiapine Fumarate (SEROquel) 25 mg PRN QHS PRN GT INSOMNIA; Start 04/20/17 at 11:45 Multivitamins (Thera-Plus) 5 ml DAILY GT Last administered on 04/21/17 09:13; Start 04/21/17 at 09:00 Baclofen (Lioresal) 5 mg TID GT ; Start 04/20/17 at 14:00; Stop 04/20/17 at 14: 00; Status DC Baclofen (Lioresal) 10 mg TID GT Last administered on 04/21/17 09:13; Start at 14:00 Sodium Chloride 1,000 ml @ 125 mls/hr Q8H IV Last administered on 04/21/17 05 :46; Start 04/20/17 at 12:30 Acetaminophen (Tylenol) 650 mg PRN Q6HRS PRN PEG MILD PAIN / TEMP; Start at 12:30 Famotidine (Pepcid) 20 mg QHS PEG Last administered on 04/20/17 20:46; Start 04/20/17 at 21:00; Stop 04/21/17 at 08:36; Status DC Famotidine (Pepcid) 20 mg BID PEG Last administered on 04/21/17 09:18; Start 04/21/17 at 09:00 Ferrous Sulfate 300 mg DAILY PO ; Start 04/21/17 at 09:00; Stop 04/21/17 at 09: 00; Status DC Ferrous Sulfate 300 mg DAILY GT Last administered on 04/21/17 09:13; Start at 09:00 Active Scripts Active [Baclofen] 10 MG Tablet 5 Mg PEG TID Reported Seroquel (Quetiapine Fumarate) 25 Mg Tablet 1.5 Tab GT QHS Mupirocin Ointment (Mupirocin) 22 Gm Oint...g. 1 Elena TP BID Hydrocodone-Apap 5-325 (Hydrocodone Bit/Acetaminophen) 1 Each Tablet 1 Tab GT PRN Q6HRS PRN Ferrous Sulfate 325 Mg Tablet 1 Tab GT DAILY Erythromycin (Erythromycin Base) 1 Gm Oint...g. 1 Gm OP Q6HRS Temazepam 30 Mg Capsule 30 Mg GT HS PRN Seroquel (Quetiapine Fumarate) 25 Mg Tablet 0.5 Tab GT PRN PRN Protonix (Pantoprazole Sodium) 40 Mg Tablet.dr 1 Tab GT DAILY Duoneb 0.5-3(2.5) Mg/3 Ml (Albuterol/Ipratropium) 3 Ml Ampul.neb 3 Ml NEB QID Multivitamins (Multivitamin) 1 Each Capsule 1 Each GT DAILY Temazepam 15 Mg Capsule 1 Cap GT QHS NITRO-DUR 0.4mg/hr (Nitroglycerin) 1 Each Patch.td24 1 Each TD Tylenol (Acetaminophen) 325 Mg Tablet 325 Mg PO Q4HRS PRN Aspirin 325 Mg Tablet 325 Mg GT DAILY Vitals/I & O Vital Sign - Last 24 Hours 04/20/17 04/20/17 04/20/17 04/20/17 11:00 12:00 12:00 13:00 Temp 99.1 99.1 Pulse 60 74 60 Resp 18 15 17 B/P (MAP) 118/73 (88) 99/65 (76) 112/77 (89) Pulse Ox 99 98 97 O2 Delivery Room Air Room Air Room Air Room Air 04/20/17 04/20/17 04/20/17 04/20/17 14:00 15:00 16:00 16:00 Temp 97.4 97.4 Pulse 64 63 Resp 21 15 B/P (MAP) 99/64 (76) 125/75 (92) Pulse Ox 98 99 O2 Delivery Room Air Room Air Room Air 04/20/17 04/20/17 04/20/17 04/20/17 16:00 17:00 18:00 19:00 Pulse 54 60 52 56 Resp 18 18 16 16 B/P (MAP) 119/71 (87) 83/55 (64) 104/66 (79) 123/71 (88) Pulse Ox 100 100 100 98 O2 Delivery Room Air Room Air Room Air Room Air 04/20/17 04/20/17 04/20/17 04/20/17 20:00 20:00 20:15 21:00 Temp 97.0 97.0 Pulse 54 56 Resp 14 15 B/P (MAP) 121/62 (81) 92/64 (73) 113/69 (84) Pulse Ox 99 99 O2 Delivery Room Air Room Air Room Air 04/20/17 04/20/17 04/20/17 04/20/17 21:30 22:00 23:00 23:59 Pulse 71 63 Resp 19 14 B/P (MAP) 87/60 (69) 89/64 (72) 101/64 (76) Pulse Ox 97 99 O2 Delivery Room Air Room Air Room Air 04/21/17 04/21/17 04/21/17 04/21/17 00:00 01:00 02:00 03:00 Temp 98.1 98.1 Pulse 65 64 67 64 Resp 16 15 14 16 B/P (MAP) 111/72 (85) 96/64 (75) 109/69 (82) 114/70 (85) Pulse Ox 100 98 97 98 O2 Delivery Room Air Room Air Room Air Room Air 04/21/17 04/21/17 04/21/17 04/21/17 04:00 04:00 04:30 05:00 Temp 98.4 98.4 Pulse 75 75 Resp 16 19 B/P (MAP) 107/69 (82) 109/82 (91) 137/83 (101) Pulse Ox 97 96 O2 Delivery Room Air Room Air Room Air 04/21/17 04/21/17 04/21/17 04/21/17 06:00 07:00 08:00 09:00 Temp 99.3 99.3 Pulse 82 76 77 83 Resp 18 16 17 20 B/P (MAP) 102/70 (81) 116/70 (85) 115/72 (86) 132/79 (96) Pulse Ox 97 97 97 97 O2 Delivery Room Air Room Air Room Air Room Air 04/21/17 10:00 Pulse 68 Resp 16 B/P (MAP) 109/70 (83) Pulse Ox 96 O2 Delivery Room Air Intake and Output 04/20/17 04/20/17 04/21/17 15:00 23:00 07:00 Intake Total 250 ml 4452 ml 1869 ml Output Total 75 ml 350 ml Balance 250 ml 4377 ml 1519 ml Nutrition Consultation Dietary Evaluation: Comments: Rec. resume home TF order as medically appropriate: Fibersource HN, goal rate 110 ml/hr Flushes 250 cc q6h P/U to the coccyx- rec. a daily MVT and 500 mg Vitamin C/day to aide with wound healing Expected Outcomes/Goals: TF initiation tolerate TF's at goal rate Malnutrition Findings: Weight Status: Underweight ADRIANE ALAN MD Apr 21, 2017 10:55
[2017-04-22] VITALS (7 sets, daily range): BP systolic 95–144; BP diastolic 52–81
[2017-04-22] MEDS: CEFEPIME HCL 1 GM in IV NORMAL SALINE 50ML 50 ML IV SCH ×3 (05:58→20:56)
[2017-04-22 06:31] LABS: CREATININE 0.6 mg/dL (0.7-1.3); GFR 164.1; POTASSIUM 3.4 mmol/L (3.5-5.1)
[2017-04-22 06:42] LABS: BASO % 1 % (0-3); EOS % 4 % (0-3); HEMATOCRIT 26.9 % (39.0-53.0); HEMOGLOBIN 8.9 g/dL (13.0-17.5); LYMPH # 1.2 x10^3/uL (1.0-4.8); LYMPH % 14 % (24-48); MEAN CORPUSCULAR HEMOGLOBIN 27 pg (25-35); MEAN CORPUSCULAR HGB CONC 33 g/dL (31-37); MEAN CORPUSCULAR VOLUME 83 fL (79-100); MONO % 7 % (0-9); NEUT % 74 % (31-73); PLATELET COUNT 280 x10^3/uL (140-400); RED BLOOD COUNT 3.25 x10^6/uL (4.30-5.70); RED CELL DISTRIBUTION WIDTH 17.1 % (11.5-14.5); WHITE BLOOD COUNT 8.6 x10^3/uL (4.0-11.0)
[2017-04-22] MEDS: FERROUS SULFATE ORAL 300 MG/5 ML SOLUTION. GT SCH (08:22)
[2017-04-22] MEDS: BACLOFEN 10 MG TABLET. GT SCH ×3 (08:22→20:18)
[2017-04-22] MEDS: FAMOTIDINE 20 MG TABLET. PEG SCH ×2 (08:22→20:18)
[2017-04-22] MEDS: ASPIRIN 325 MG TABLET GT SCH (08:22)
[2017-04-22] MEDS: MULTIVITAMINS,THERAPEUTIC 5 ML ORAL LIQUID. GT SCH (08:22)
--- NOTE | 2017-04-22 09:55 | PDOC ---
PROGRESS NOTES Subjective Subjective he is alert and slept poorly. discussed with his . tolerates tube feeding. afebrile. lab reviewed. urine culture grew 25-50K staph aureus and blood culture growing GNR. Objective Objective Vital Signs Date Time Temp Pulse Resp B/P (MAP) Pulse Ox O2 Delivery O2 Flow Rate FiO2 04/22/17 07:40 Room Air 04/22/17 07:37 98.2 67 16 102/62 (75) 96 98.2 Intake and Output 04/22/17 06:59 Intake Total 4340.1 ml Output Total 650 ml Balance 3690.1 ml Intake Oral 0 ml IV Total 2012.1 ml Tube Feeding 2078 ml Other 250 ml Output Stool Total 650 ml Gastric Drainage Total 0 ml # Voids 5 Physical Exam Abdomen: Soft, Other (peg and ileostomy) Heart: Regular rate, Normal S1, Normal S2 Extremities: No edema, Other (right AKA) General: Alert HEENT: Atraumatic Lungs: Clear to auscultation Neuro: Other (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 sepsis and shock resolved 2. staph aureus in urine 3. Metabolic encephalopathy improved on top of anoxic encephalopathy. 4. Leukocytosis.resolved 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 7. Ileostomy. 8. Oropharyngeal dysphagia, maintained on gastrostomy tube feedings. 9. Right above-knee amputation. 10. Aphasic. Medical Problems: (1) Septic shock Status: Acute (2) UTI (urinary tract infection) Status: Acute Plan Plan of Care antibiotics per ID continue iv zosyn and levaquin increase tube feeding decrease iv fluids resume hs seroquel and temazepam transfer to medical floor Comment Review of Relevant I have reviewed the following items ramon (where applicable) has been applied. Labs Laboratory Tests Test 04/20/17 17:15 04/21/17 05:00 04/21/17 07:25 04/22/17 06:00 Lactic Acid Level 1.0 mmol/L (0.4-2.0) White Blood Count 10.9 x10^3/uL (4.0-11.0) 8.6 x10^3/uL (4.0-11.0) Red Blood Count 3.52 x10^6/uL (4.30-5.70) 3.25 x10^6/uL (4.30-5.70) Hemoglobin 9.6 g/dL (13.0-17.5) 8.9 g/dL (13.0-17.5) Hematocrit 29.7 % (39.0-53.0) 26.9 % (39.0-53.0) Mean Corpuscular Volume 84 fL (79-100) 83 fL (79-100) Mean Corpuscular Hemoglobin 27 pg (25-35) 27 pg (25-35) Mean Corpuscular Hemoglobin Concent 33 g/dL (31-37) 33 g/dL (31-37) Red Cell Distribution Width 16.7 % (11.5-14.5) 17.1 % (11.5-14.5) Platelet Count 275 x10^3/uL (140-400) 280 x10^3/uL (140-400) Neutrophils (%) (Auto) 78 % (31-73) 74 % (31-73) Lymphocytes (%) (Auto) 10 % (24-48) 14 % (24-48) Monocytes (%) (Auto) 8 % (0-9) 7 % (0-9) Eosinophils (%) (Auto) 4 % (0-3) 4 % (0-3) Basophils (%) (Auto) 0 % (0-3) 1 % (0-3) Neutrophils # (Auto) 8.6 x10^3uL (1.8-7.7) 6.4 x10^3uL (1.8-7.7) Lymphocytes # (Auto) 1.1 x10^3/uL (1.0-4.8) 1.2 x10^3/uL (1.0-4.8) Monocytes # (Auto) 0.8 x10^3/uL (0.0-1.1) 0.6 x10^3/uL (0.0-1.1) Eosinophils # (Auto) 0.4 x10^3/uL (0.0-0.7) 0.3 x10^3/uL (0.0-0.7) Basophils # (Auto) 0.0 x10^3/uL (0.0-0.2) 0.0 x10^3/uL (0.0-0.2) Sodium Level 145 mmol/L (136-145) 146 mmol/L (136-145) Potassium Level 3.7 mmol/L (3.5-5.1) 3.4 mmol/L (3.5-5.1) Chloride Level 112 mmol/L (98-107) 114 mmol/L (98-107) Carbon Dioxide Level 22 mmol/L (21-32) 23 mmol/L (21-32) Anion Gap 11 (6-14) 9 (6-14) Blood Urea Nitrogen 12 mg/dL (8-26) 8 mg/dL (8-26) Creatinine 0.6 mg/dL (0.7-1.3) 0.6 mg/dL (0.7-1.3) Estimated GFR (Cockcroft-Gault) 164.1 164.1 Glucose Level 111 mg/dL (70-99) 113 mg/dL (70-99) Calcium Level 8.5 mg/dL (8.5-10.1) 8.0 mg/dL (8.5-10.1) Nasal Screen MRSA (PCR) Negative (Negative) Laboratory Tests Test 04/22/17 06:00 White Blood Count 8.6 x10^3/uL (4.0-11.0) Red Blood Count 3.25 x10^6/uL (4.30-5.70) Hemoglobin 8.9 g/dL (13.0-17.5) Hematocrit 26.9 % (39.0-53.0) Mean Corpuscular Volume 83 fL (79-100) Mean Corpuscular Hemoglobin 27 pg (25-35) Mean Corpuscular Hemoglobin Concent 33 g/dL (31-37) Red Cell Distribution Width 17.1 % (11.5-14.5) Platelet Count 280 x10^3/uL (140-400) Neutrophils (%) (Auto) 74 % (31-73) Lymphocytes (%) (Auto) 14 % (24-48) Monocytes (%) (Auto) 7 % (0-9) Eosinophils (%) (Auto) 4 % (0-3) Basophils (%) (Auto) 1 % (0-3) Neutrophils # (Auto) 6.4 x10^3uL (1.8-7.7) Lymphocytes # (Auto) 1.2 x10^3/uL (1.0-4.8) Monocytes # (Auto) 0.6 x10^3/uL (0.0-1.1) Eosinophils # (Auto) 0.3 x10^3/uL (0.0-0.7) Basophils # (Auto) 0.0 x10^3/uL (0.0-0.2) Sodium Level 146 mmol/L (136-145) Potassium Level 3.4 mmol/L (3.5-5.1) Chloride Level 114 mmol/L (98-107) Carbon Dioxide Level 23 mmol/L (21-32) Anion Gap 9 (6-14) Blood Urea Nitrogen 8 mg/dL (8-26) Creatinine 0.6 mg/dL (0.7-1.3) Estimated GFR (Cockcroft-Gault) 164.1 Glucose Level 113 mg/dL (70-99) Calcium Level 8.0 mg/dL (8.5-10.1) Microbiology 04/20/17 Blood Culture - Preliminary, Resulted 04/20/17 Blood Culture Result 1 (JAMISON) - Preliminary, Resulted 04/20/17 Urine Culture - Preliminary, Resulted 04/20/17 Urine Culture Result 1 (JAMISON) - Preliminary, Resulted Medications Current Medications Sodium Chloride 1,000 ml @ 1,000 mls/hr Q1H IV Last administered on 04/20/17 03:45; Start 04/20/17 at 04:00; Stop 04/20/17 at 04:59; Status DC Sodium Chloride 500 ml @ 500 mls/hr 1X ONCE IV Last administered on 04:34; Start 04/20/17 at 04:30; Stop 04/20/17 at 05:29; Status DC Levofloxacin/ Dextrose 150 ml @ 100 mls/hr 1X ONCE IV Last administered on 04:34; Start 04/20/17 at 05:00; Stop 04/20/17 at 06:29; Status DC Vancomycin HCl 1.25 gm/Sodium Chloride 500 ml @ 250 mls/hr 1X ONCE IV Last administered on 04/20/17 05:10; Start 04/20/17 at 05:00; Stop 04/20/17 at 12:59 ; Status DC Vancomycin HCl (Vanco Per Pharmacy) 1 each PRN DAILY PRN MC SEE COMMENTS Last administered on 04/20/17 06:12; Start 04/20/17 at 04:30; Stop 04/20/17 at 12:59 ; Status DC Vancomycin HCl 750 mg/Sodium Chloride 250 ml @ 250 mls/hr Q24H IV ; Start 04/21 at 05:00; Stop 04/21/17 at 05:00; Status DC Vancomycin HCl 1 each 1X ONCE MC ; Start 04/22/17 at 04:30; Stop 04/22/17 at 04 :30; Status DC Dextrose/Sodium Chloride 1,000 ml @ 150 mls/hr Q6H40M IV Last administered on 04/20/17 07:03; Start 04/20/17 at 07:00; Stop 04/20/17 at 12:37; Status DC Norepinephrine Bitartrate 250 ml @ 0 mls/hr CONT PRN IV SEE I/O RECORD Last administered on 04/20/17 07:02; Start 04/20/17 at 06:45; Stop 04/21/17 at 10:56 ; Status DC Cefepime HCl 1 gm/ Sodium Chloride 50 ml @ 100 mls/hr Q8HRS IV Last administered on 04/22/17 05:58; Start 04/20/17 at 09:00 Sodium Chloride 1,000 ml @ 1,000 mls/hr 1X ONCE IV Last administered on 09:26; Start 04/20/17 at 09:00; Stop 04/20/17 at 09:59; Status DC Levofloxacin/ Dextrose 150 ml @ 100 mls/hr Q24H IV Last administered on 08:22; Start 04/21/17 at 07:00 Aspirin (Laura Aspirin) 325 mg DAILY GT Last administered on 04/22/17 08:22; Start 04/20/17 at 12:30 Ferrous Sulfate (Feosol) 325 mg DAILY PO Last administered on 04/20/17 12:20; Start 04/20/17 at 12:30; Stop 04/21/17 at 08:38; Status DC Quetiapine Fumarate (SEROquel) 25 mg PRN QHS PRN GT INSOMNIA Last administered on 04/21/17 21:05; Start 04/20/17 at 11:45 Multivitamins (Thera-Plus) 5 ml DAILY GT Last administered on 04/22/17 08:22; Start 04/21/17 at 09:00 Baclofen (Lioresal) 5 mg TID GT ; Start 04/20/17 at 14:00; Stop 04/20/17 at 14: 00; Status DC Baclofen (Lioresal) 10 mg TID GT Last administered on 04/22/17 08:22; Start at 14:00 Sodium Chloride 1,000 ml @ 80 mls/hr [id number] IV Last administered on 21:06; Start 04/20/17 at 12:30 Acetaminophen (Tylenol) 650 mg PRN Q6HRS PRN PEG MILD PAIN / TEMP; Start at 12:30 Famotidine (Pepcid) 20 mg QHS PEG Last administered on 04/20/17 20:46; Start 04/20/17 at 21:00; Stop 04/21/17 at 08:36; Status DC Famotidine (Pepcid) 20 mg BID PEG Last administered on 04/22/17 08:22; Start 04/21/17 at 09:00 Ferrous Sulfate 300 mg DAILY PO ; Start 04/21/17 at 09:00; Stop 04/21/17 at 09: 00; Status DC Ferrous Sulfate 300 mg DAILY GT Last administered on 04/22/17 08:22; Start at 09:00 Active Scripts Active [Baclofen] 10 MG Tablet 5 Mg PEG TID Reported Seroquel (Quetiapine Fumarate) 25 Mg Tablet 1.5 Tab GT QHS Mupirocin Ointment (Mupirocin) 22 Gm Oint...g. 1 Elena TP BID Hydrocodone-Apap 5-325 (Hydrocodone Bit/Acetaminophen) 1 Each Tablet 1 Tab GT PRN Q6HRS PRN Ferrous Sulfate 325 Mg Tablet 1 Tab GT DAILY Erythromycin (Erythromycin Base) 1 Gm Oint...g. 1 Gm OP Q6HRS Temazepam 30 Mg Capsule 30 Mg GT HS PRN Seroquel (Quetiapine Fumarate) 25 Mg Tablet 0.5 Tab GT PRN PRN Protonix (Pantoprazole Sodium) 40 Mg Tablet. 1 Tab GT DAILY Duoneb 0.5-3(2.5) Mg/3 Ml (Albuterol/Ipratropium) 3 Ml Ampul.neb 3 Ml NEB QID Multivitamins (Multivitamin) 1 Each Capsule 1 Each GT DAILY Temazepam 15 Mg Capsule 1 Cap GT QHS NITRO-DUR 0.4mg/hr (Nitroglycerin) 1 Each Patch.td24 1 Each TD Tylenol (Acetaminophen) 325 Mg Tablet 325 Mg PO Q4HRS PRN Aspirin 325 Mg Tablet 325 Mg GT DAILY Vitals/I & O Vital Sign - Last 24 Hours 04/21/17 04/21/17 04/21/17 04/21/17 10:00 11:00 12:00 13:00 Pulse 68 57 74 66 Resp 16 24 18 20 B/P (MAP) 109/70 (83) 145/57 (86) 114/74 (87) 97/62 (74) Pulse Ox 96 96 98 98 O2 Delivery Room Air Room Air Room Air Room Air 04/21/17 04/21/17 04/21/17 04/21/17 14:00 15:00 16:00 17:00 Temp 99.2 99.2 Pulse 66 64 66 68 Resp 12 15 15 14 B/P (MAP) 96/62 (73) 121/82 (95) 92/60 (71) 111/67 (82) Pulse Ox 98 98 98 98 O2 Delivery Room Air Room Air Room Air Room Air 04/21/17 04/22/17 04/22/17 04/22/17 20:00 00:00 04:00 07:37 Temp 98.8 98.2 98.4 98.2 98.8 98.2 98.4 98.2 Pulse 65 59 74 67 Resp 15 16 16 16 B/P (MAP) 106/63 (77) 101/63 (76) 95/60 (72) 102/62 (75) Pulse Ox 97 98 100 96 O2 Delivery Room Air Room Air Room Air Room Air 04/22/17 07:40 O2 Delivery Room Air Intake and Output 04/21/17 04/21/17 04/22/17 14:59 22:59 06:59 Intake Total 500 ml 1788 ml 2052.1 ml Output Total 400 ml 250 ml 0 ml Balance 100 ml 1538 ml 2052.1 ml Nutrition Consultation Dietary Evaluation: Comments: Rec. continue current TF order as medically appropriate and as tolerated: Fibersource HN, goal rate 40 ml/hr IVF's Rec. flushes of 175 cc q4h if no IVF's P/U to the coccyx- rec. continue the daily MVT and 500 mg Vitamin C/day to aide with wound healing Expected Outcomes/Goals: tolerate TF's at goal rate - met meet 75% estimated nutrition needs- met Malnutrition Findings: Weight Status: Underweight ADRIANE ALAN MD Apr 22, 2017 09:55
[2017-04-22] MEDS: ACETAMINOPHEN 650 MG/20.3 ML SOLUTION. PEG PRN ×2 (10:26→13:51)
--- NOTE | 2017-04-22 11:26 | PDOC ---
Infectious Disease Note Subjective Subjective None No fever ROS ROS unobtainable Vital Sign Vital Signs Vital Signs Date Time Temp Pulse Resp B/P (MAP) Pulse Ox O2 Delivery O2 Flow Rate FiO2 04/22/17 07:40 Room Air 04/22/17 07:37 98.2 67 16 102/62 (75) 96 98.2 Physical Exam PHYSICAL EXAM GENERAL: eyes are open, NAD LUNGS: Clear HEART: S1S2, no gallop, no murmur ABD: Soft, ostomy : Brief EXT: No edema, no cyanosis; Previous right AKA unremarkable ACCESS DEVELOPER: noncommunicative SKIN: No rash Port clean Labs Lab Laboratory Tests Test 04/22/17 06:00 White Blood Count 8.6 x10^3/uL (4.0-11.0) Red Blood Count 3.25 x10^6/uL (4.30-5.70) Hemoglobin 8.9 g/dL (13.0-17.5) Hematocrit 26.9 % (39.0-53.0) Mean Corpuscular Volume 83 fL (79-100) Mean Corpuscular Hemoglobin 27 pg (25-35) Mean Corpuscular Hemoglobin Concent 33 g/dL (31-37) Red Cell Distribution Width 17.1 % (11.5-14.5) Platelet Count 280 x10^3/uL (140-400) Neutrophils (%) (Auto) 74 % (31-73) Lymphocytes (%) (Auto) 14 % (24-48) Monocytes (%) (Auto) 7 % (0-9) Eosinophils (%) (Auto) 4 % (0-3) Basophils (%) (Auto) 1 % (0-3) Neutrophils # (Auto) 6.4 x10^3uL (1.8-7.7) Lymphocytes # (Auto) 1.2 x10^3/uL (1.0-4.8) Monocytes # (Auto) 0.6 x10^3/uL (0.0-1.1) Eosinophils # (Auto) 0.3 x10^3/uL (0.0-0.7) Basophils # (Auto) 0.0 x10^3/uL (0.0-0.2) Sodium Level 146 mmol/L (136-145) Potassium Level 3.4 mmol/L (3.5-5.1) Chloride Level 114 mmol/L (98-107) Carbon Dioxide Level 23 mmol/L (21-32) Anion Gap 9 (6-14) Blood Urea Nitrogen 8 mg/dL (8-26) Creatinine 0.6 mg/dL (0.7-1.3) Estimated GFR (Cockcroft-Gault) 164.1 Glucose Level 113 mg/dL (70-99) Calcium Level 8.0 mg/dL (8.5-10.1) Micro BLD CULT RESULT 1 Preliminary Pseudomonas species Recovered from aerobic bottle only. GROWTH IN 1 SET FROM LINE BLD CULT RESULT 1 Final Klebsiella pneumoniae Recovered from aerobic and anaerobic bottles. GROWTH IN 1 OF 2 SETS Antibiotic RSLT#1 Amoxicillin/Clavulanic Acid S Ampicillin R Cefepime S Ceftriaxone S Cefuroxime S Cephalothin S Ciprofloxacin S Ertapenem S Gentamicin S Imipenem S Levofloxacin S Nitrofurantoin I Piperacillin S Tetracycline S Tobramycin S Trimethoprim/Sulfa S URINE CULTURE RES 1 Preliminary Staphylococcus aureus 25,000-50,000 colony forming units per mL Objective Assessment PSA (line) and klebsiella sepsis, POA., 04/20 UTI POA, 04/20. Staph aureus in the urine, not typically a uropathogen Fever, improved Leukocytosis, improved Anoxic brain injury Persistent veg state Plan Plan of Care cont cefepime and Levaquin for now. Awaiting sensitivities Repeat BC for bacterial clearance The port will need to be removed. D/w Patient seen and examined. Chart reviewed. Case discussed with EARLY CHILDHOOD EDUCATION COORDINATOR. Agree with above plan. CATY JO APRN Apr 22, 2017 11:26 BRYAN ANGUIANO MD Apr 22, 2017 16:52
[2017-04-22] MEDS: QUEtiapine 25 MG TABLET. GT SCH (20:18)
[2017-04-22] MEDS: TEMAZEPAM 15 MG CAPSULE PO SCH (20:18)
[2017-04-22] MEDS: IV NORMAL SALINE 1000ML BAG 1,000 ML IV SCH (20:55)
[2017-04-23 03:02] VITALS: BP 112/61
[2017-04-23] MEDS: CEFEPIME HCL 1 GM in IV NORMAL SALINE 50ML 50 ML IV SCH ×3 (05:56→20:40)
[2017-04-23 06:19] LABS: BASO % 0 % (0-3); EOS % 5 % (0-3); HEMOGLOBIN 9.1 g/dL (13.0-17.5); LYMPH # 1.1 x10^3/uL (1.0-4.8); LYMPH % 14 % (24-48); MEAN CORPUSCULAR HEMOGLOBIN 27 pg (25-35); MEAN CORPUSCULAR HGB CONC 33 g/dL (31-37); MEAN CORPUSCULAR VOLUME 84 fL (79-100); MONO % 7 % (0-9); NEUT % 75 % (31-73); PLATELET COUNT 282 x10^3/uL (140-400); RED BLOOD COUNT 3.32 x10^6/uL (4.30-5.70); RED CELL DISTRIBUTION WIDTH 17.1 % (11.5-14.5); WHITE BLOOD COUNT 8.4 x10^3/uL (4.0-11.0)
[2017-04-23 06:33] LABS: CALCIUM 8.4 mg/dL (8.5-10.1); CREATININE 0.6 mg/dL (0.7-1.3); GFR 164.1; POTASSIUM 3.3 mmol/L (3.5-5.1)
[2017-04-23 08:00] VITALS: BP 131/52
[2017-04-23] MEDS: IV NORMAL SALINE 1000ML BAG 1,000 ML IV SCH ×2 (08:36→20:38)
[2017-04-23] MEDS: ASPIRIN 325 MG TABLET GT SCH (09:05)
[2017-04-23] MEDS: FERROUS SULFATE ORAL 300 MG/5 ML SOLUTION. GT SCH (09:05)
[2017-04-23] MEDS: FAMOTIDINE 20 MG TABLET. PEG SCH ×2 (09:05→20:42)
[2017-04-23] MEDS: MULTIVITAMINS,THERAPEUTIC 5 ML ORAL LIQUID. GT SCH (09:05)
[2017-04-23] MEDS: BACLOFEN 10 MG TABLET. GT SCH ×3 (09:05→20:42)
[2017-04-23] MEDS ORDERED: POTASSIUM CHLORIDE 20 MEQ/15 ML ORAL LIQUID. PEG ONE (09:30)
--- NOTE | 2017-04-23 09:35 | PDOC ---
PROGRESS NOTES Subjective Subjective discussed with afebrile. discussed bacteremia and port removal tomorrow. lab reviewed. potassium low Objective Objective Vital Signs Date Time Temp Pulse Resp B/P (MAP) Pulse Ox O2 Delivery O2 Flow Rate FiO2 04/23/17 08:00 98.1 66 20 131/52 (78) 99 Room Air 98.1 Intake and Output 04/23/17 07:00 Intake Total 7783 ml Output Total 2550 ml Balance 5233 ml Intake Oral 555 ml IV Total 1066 ml Tube Feeding 5812 ml Blood Product IV Normal Saline Flush 250 ml Other 100 ml Output Stool Total 2550 ml # Voids 5 Physical Exam Abdomen: Soft, Other (gastrostomy and ileostomy) Heart: Regular rate, Normal S1, Normal S2 Extremities: No edema, Other (right AKA) General: Alert HEENT: Atraumatic Lungs: Clear to auscultation Neuro: Other (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) Psych/Mental Status: Mood NL Skin: No rashes Assessment Assessment Problems klebisiella bacteremia pseudomonas bacteremia spastic quadriplegia oropharyngeal dysphagia maintained on gastrostomy tube feeding short bowel syndrome maintained on daily iv fluids at home ileostomy aphasia anoxic encephalopathy right AKA hypokalemia Medical Problems: (1) Septic shock Status: Acute (2) UTI (urinary tract infection) Status: Acute Plan Plan of Care continue iv cefepime and levaquin d/c port tomorrow via IR and will need peripheral IV will need port replaced when repeat blood cultures are negative continue tube feeding and iv fluids replete kcl Comment Review of Relevant I have reviewed the following items ramon (where applicable) has been applied. Labs Laboratory Tests Test 04/22/17 06:00 04/23/17 06:00 White Blood Count 8.6 x10^3/uL (4.0-11.0) 8.4 x10^3/uL (4.0-11.0) Red Blood Count 3.25 x10^6/uL (4.30-5.70) 3.32 x10^6/uL (4.30-5.70) Hemoglobin 8.9 g/dL (13.0-17.5) 9.1 g/dL (13.0-17.5) Hematocrit 26.9 % (39.0-53.0) 28.0 % (39.0-53.0) Mean Corpuscular Volume 83 fL (79-100) 84 fL (79-100) Mean Corpuscular Hemoglobin 27 pg (25-35) 27 pg (25-35) Mean Corpuscular Hemoglobin Concent 33 g/dL (31-37) 33 g/dL (31-37) Red Cell Distribution Width 17.1 % (11.5-14.5) 17.1 % (11.5-14.5) Platelet Count 280 x10^3/uL (140-400) 282 x10^3/uL (140-400) Neutrophils (%) (Auto) 74 % (31-73) 75 % (31-73) Lymphocytes (%) (Auto) 14 % (24-48) 14 % (24-48) Monocytes (%) (Auto) 7 % (0-9) 7 % (0-9) Eosinophils (%) (Auto) 4 % (0-3) 5 % (0-3) Basophils (%) (Auto) 1 % (0-3) 0 % (0-3) Neutrophils # (Auto) 6.4 x10^3uL (1.8-7.7) 6.2 x10^3uL (1.8-7.7) Lymphocytes # (Auto) 1.2 x10^3/uL (1.0-4.8) 1.1 x10^3/uL (1.0-4.8) Monocytes # (Auto) 0.6 x10^3/uL (0.0-1.1) 0.6 x10^3/uL (0.0-1.1) Eosinophils # (Auto) 0.3 x10^3/uL (0.0-0.7) 0.4 x10^3/uL (0.0-0.7) Basophils # (Auto) 0.0 x10^3/uL (0.0-0.2) 0.0 x10^3/uL (0.0-0.2) Sodium Level 146 mmol/L (136-145) 146 mmol/L (136-145) Potassium Level 3.4 mmol/L (3.5-5.1) 3.3 mmol/L (3.5-5.1) Chloride Level 114 mmol/L (98-107) 113 mmol/L (98-107) Carbon Dioxide Level 23 mmol/L (21-32) 26 mmol/L (21-32) Anion Gap 9 (6-14) 7 (6-14) Blood Urea Nitrogen 8 mg/dL (8-26) 8 mg/dL (8-26) Creatinine 0.6 mg/dL (0.7-1.3) 0.6 mg/dL (0.7-1.3) Estimated GFR (Cockcroft-Gault) 164.1 164.1 Glucose Level 113 mg/dL (70-99) 112 mg/dL (70-99) Calcium Level 8.0 mg/dL (8.5-10.1) 8.4 mg/dL (8.5-10.1) Laboratory Tests Test 04/23/17 06:00 White Blood Count 8.4 x10^3/uL (4.0-11.0) Red Blood Count 3.32 x10^6/uL (4.30-5.70) Hemoglobin 9.1 g/dL (13.0-17.5) Hematocrit 28.0 % (39.0-53.0) Mean Corpuscular Volume 84 fL (79-100) Mean Corpuscular Hemoglobin 27 pg (25-35) Mean Corpuscular Hemoglobin Concent 33 g/dL (31-37) Red Cell Distribution Width 17.1 % (11.5-14.5) Platelet Count 282 x10^3/uL (140-400) Neutrophils (%) (Auto) 75 % (31-73) Lymphocytes (%) (Auto) 14 % (24-48) Monocytes (%) (Auto) 7 % (0-9) Eosinophils (%) (Auto) 5 % (0-3) Basophils (%) (Auto) 0 % (0-3) Neutrophils # (Auto) 6.2 x10^3uL (1.8-7.7) Lymphocytes # (Auto) 1.1 x10^3/uL (1.0-4.8) Monocytes # (Auto) 0.6 x10^3/uL (0.0-1.1) Eosinophils # (Auto) 0.4 x10^3/uL (0.0-0.7) Basophils # (Auto) 0.0 x10^3/uL (0.0-0.2) Sodium Level 146 mmol/L (136-145) Potassium Level 3.3 mmol/L (3.5-5.1) Chloride Level 113 mmol/L (98-107) Carbon Dioxide Level 26 mmol/L (21-32) Anion Gap 7 (6-14) Blood Urea Nitrogen 8 mg/dL (8-26) Creatinine 0.6 mg/dL (0.7-1.3) Estimated GFR (Cockcroft-Gault) 164.1 Glucose Level 112 mg/dL (70-99) Calcium Level 8.4 mg/dL (8.5-10.1) Microbiology 04/20/17 Blood Culture - Preliminary, Resulted 04/20/17 Blood Culture Result 1 (JAMISON) - Preliminary, Resulted 04/20/17 Urine Culture - Final, Complete 04/20/17 Urine Culture Result 1 (JAMISON) - Final, Complete 04/20/17 Urine Culture Result 2 (JAMISON) - Final, Complete 04/20/17 Antimicrobic Susceptibility - Final, Complete Medications Current Medications Sodium Chloride 1,000 ml @ 1,000 mls/hr Q1H IV Last administered on 04/20/17 03:45; Start 04/20/17 at 04:00; Stop 04/20/17 at 04:59; Status DC Sodium Chloride 500 ml @ 500 mls/hr 1X ONCE IV Last administered on 04:34; Start 04/20/17 at 04:30; Stop 04/20/17 at 05:29; Status DC Levofloxacin/ Dextrose 150 ml @ 100 mls/hr 1X ONCE IV Last administered on 04:34; Start 04/20/17 at 05:00; Stop 04/20/17 at 06:29; Status DC Vancomycin HCl 1.25 gm/Sodium Chloride 500 ml @ 250 mls/hr 1X ONCE IV Last administered on 04/20/17 05:10; Start 04/20/17 at 05:00; Stop 04/20/17 at 12:59 ; Status DC Vancomycin HCl (Vanco Per Pharmacy) 1 each PRN DAILY PRN MC SEE COMMENTS Last administered on 04/20/17 06:12; Start 04/20/17 at 04:30; Stop 04/20/17 at 12:59 ; Status DC Vancomycin HCl 750 mg/Sodium Chloride 250 ml @ 250 mls/hr Q24H IV ; Start 04/21 at 05:00; Stop 04/21/17 at 05:00; Status DC Vancomycin HCl 1 each 1X ONCE MC ; Start 04/22/17 at 04:30; Stop 04/22/17 at 04 :30; Status DC Dextrose/Sodium Chloride 1,000 ml @ 150 mls/hr Q6H40M IV Last administered on 04/20/17 07:03; Start 04/20/17 at 07:00; Stop 04/20/17 at 12:37; Status DC Norepinephrine Bitartrate 250 ml @ 0 mls/hr CONT PRN IV SEE I/O RECORD Last administered on 04/20/17 07:02; Start 04/20/17 at 06:45; Stop 04/21/17 at 10:56 ; Status DC Cefepime HCl 1 gm/ Sodium Chloride 50 ml @ 100 mls/hr Q8HRS IV Last administered on 04/23/17 05:56; Start 04/20/17 at 09:00 Sodium Chloride 1,000 ml @ 1,000 mls/hr 1X ONCE IV Last administered on 09:26; Start 04/20/17 at 09:00; Stop 04/20/17 at 09:59; Status DC Levofloxacin/ Dextrose 150 ml @ 100 mls/hr Q24H IV Last administered on 05:56; Start 04/21/17 at 07:00 Aspirin (Laura Aspirin) 325 mg DAILY GT Last administered on 04/23/17 09:05; Start 04/20/17 at 12:30 Ferrous Sulfate (Feosol) 325 mg DAILY PO Last administered on 04/20/17 12:20; Start 04/20/17 at 12:30; Stop 04/21/17 at 08:38; Status DC Quetiapine Fumarate (SEROquel) 25 mg PRN QHS PRN GT INSOMNIA Last administered on 04/21/17 21:05; Start 04/20/17 at 11:45; Stop 04/22/17 at 21:00; Status DC Multivitamins (Thera-Plus) 5 ml DAILY GT Last administered on 04/23/17 09:05; Start 04/21/17 at 09:00 Baclofen (Lioresal) 5 mg TID GT ; Start 04/20/17 at 14:00; Stop 04/20/17 at 14: 00; Status DC Baclofen (Lioresal) 10 mg TID GT Last administered on 04/23/17 09:05; Start at 14:00 Sodium Chloride 1,000 ml @ 60 mls/hr [id number] IV Last administered on 20:55; Start 04/20/17 at 12:30 Acetaminophen (Tylenol) 650 mg PRN Q6HRS PRN PEG MILD PAIN / TEMP Last administered on 04/22/17 13:51; Start 04/20/17 at 12:30 Famotidine (Pepcid) 20 mg QHS PEG Last administered on 04/20/17 20:46; Start 04/20/17 at 21:00; Stop 04/21/17 at 08:36; Status DC Famotidine (Pepcid) 20 mg BID PEG Last administered on 04/23/17 09:05; Start 04/21/17 at 09:00 Ferrous Sulfate 300 mg DAILY PO ; Start 04/21/17 at 09:00; Stop 04/21/17 at 09: 00; Status DC Ferrous Sulfate 300 mg DAILY GT Last administered on 04/23/17 09:05; Start at 09:00 Quetiapine Fumarate (SEROquel) 25 mg QHS GT Last administered on 04/22/17 20: 18; Start 04/22/17 at 21:00 Temazepam (Restoril) 45 mg QHS PO Last administered on 04/22/17 20:18; Start 04/22/17 at 21:00 Active Scripts Active [Baclofen] 10 MG Tablet 5 Mg PEG TID Reported Seroquel (Quetiapine Fumarate) 25 Mg Tablet 1.5 Tab GT QHS Mupirocin Ointment (Mupirocin) 22 Gm Oint...g. 1 Elena TP BID Hydrocodone-Apap 5-325 (Hydrocodone Bit/Acetaminophen) 1 Each Tablet 1 Tab GT PRN Q6HRS PRN Ferrous Sulfate 325 Mg Tablet 1 Tab GT DAILY Erythromycin (Erythromycin Base) 1 Gm Oint...g. 1 Gm OP Q6HRS Temazepam 30 Mg Capsule 30 Mg GT HS PRN Seroquel (Quetiapine Fumarate) 25 Mg Tablet 0.5 Tab GT PRN PRN Protonix (Pantoprazole Sodium) 40 Mg Tablet. 1 Tab GT DAILY Duoneb 0.5-3(2.5) Mg/3 Ml (Albuterol/Ipratropium) 3 Ml Ampul.neb 3 Ml NEB QID Multivitamins (Multivitamin) 1 Each Capsule 1 Each GT DAILY Temazepam 15 Mg Capsule 1 Cap GT QHS NITRO-DUR 0.4mg/hr (Nitroglycerin) 1 Each Patch.td24 1 Each TD Tylenol (Acetaminophen) 325 Mg Tablet 325 Mg PO Q4HRS PRN Aspirin 325 Mg Tablet 325 Mg GT DAILY Vitals/I & O Vital Sign - Last 24 Hours 04/22/17 04/22/17 04/22/17 04/22/17 12:00 16:15 19:00 20:00 Temp 98.1 98.1 98.6 98.1 98.1 98.6 Pulse 49 56 68 Resp 16 16 18 B/P (MAP) 96/52 (67) 110/52 (71) 144/81 (102) Pulse Ox 92 92 95 O2 Delivery Room Air Room Air Room Air Room Air 04/22/17 04/23/17 04/23/17 23:00 03:02 08:00 Temp 98.6 97.5 98.1 98.6 97.5 98.1 Pulse 61 64 66 Resp 18 18 20 B/P (MAP) 103/61 (75) 112/61 (78) 131/52 (78) Pulse Ox 96 97 99 O2 Delivery Room Air Room Air Room Air Intake and Output 04/22/17 04/22/17 04/23/17 15:00 23:00 07:00 Intake Total 210 ml 4775 ml 2798 ml Output Total 1450 ml 1100 ml Balance -1240 ml 3675 ml 2798 ml Nutrition Consultation Dietary Evaluation: Comments: Rec. continue current TF order as medically appropriate and as tolerated: Fibersource HN, goal rate 40 ml/hr IVF's Rec. flushes of 175 cc q4h if no IVF's P/U to the coccyx- rec. continue the daily MVT and 500 mg Vitamin C/day to aide with wound healing Expected Outcomes/Goals: tolerate TF's at goal rate - met meet 75% estimated nutrition needs- met Malnutrition Findings: Weight Status: Underweight ADRIANE ALAN MD Apr 23, 2017 09:35
[2017-04-23 11:00] VITALS: BP 124/75
--- NOTE | 2017-04-23 11:03 | PDOC ---
Infectious Disease Note Subjective Subjective Transferred to med floor No fever Vital Sign Vital Signs Vital Signs Date Time Temp Pulse Resp B/P (MAP) Pulse Ox O2 Delivery O2 Flow Rate FiO2 04/23/17 08:00 98.1 66 20 131/52 (78) 99 Room Air 98.1 Physical Exam PHYSICAL EXAM GENERAL: eyes are open, NAD LUNGS: Clear HEART: S1S2, no gallop, no murmur ABD: Soft, ostomy : Brief EXT: No edema, no cyanosis; Previous right AKA unremarkable TITLE AGENT: noncommunicative SKIN: No rash Port clean Labs Lab Laboratory Tests Test 04/23/17 06:00 White Blood Count 8.4 x10^3/uL (4.0-11.0) Red Blood Count 3.32 x10^6/uL (4.30-5.70) Hemoglobin 9.1 g/dL (13.0-17.5) Hematocrit 28.0 % (39.0-53.0) Mean Corpuscular Volume 84 fL (79-100) Mean Corpuscular Hemoglobin 27 pg (25-35) Mean Corpuscular Hemoglobin Concent 33 g/dL (31-37) Red Cell Distribution Width 17.1 % (11.5-14.5) Platelet Count 282 x10^3/uL (140-400) Neutrophils (%) (Auto) 75 % (31-73) Lymphocytes (%) (Auto) 14 % (24-48) Monocytes (%) (Auto) 7 % (0-9) Eosinophils (%) (Auto) 5 % (0-3) Basophils (%) (Auto) 0 % (0-3) Neutrophils # (Auto) 6.2 x10^3uL (1.8-7.7) Lymphocytes # (Auto) 1.1 x10^3/uL (1.0-4.8) Monocytes # (Auto) 0.6 x10^3/uL (0.0-1.1) Eosinophils # (Auto) 0.4 x10^3/uL (0.0-0.7) Basophils # (Auto) 0.0 x10^3/uL (0.0-0.2) Sodium Level 146 mmol/L (136-145) Potassium Level 3.3 mmol/L (3.5-5.1) Chloride Level 113 mmol/L (98-107) Carbon Dioxide Level 26 mmol/L (21-32) Anion Gap 7 (6-14) Blood Urea Nitrogen 8 mg/dL (8-26) Creatinine 0.6 mg/dL (0.7-1.3) Estimated GFR (Cockcroft-Gault) 164.1 Glucose Level 112 mg/dL (70-99) Calcium Level 8.4 mg/dL (8.5-10.1) Micro BLD CULT RESULT 1 Preliminary Pseudomonas species Recovered from aerobic bottle only. GROWTH IN 1 SET FROM LINE BLD CULT RESULT 1 Final Klebsiella pneumoniae Recovered from aerobic and anaerobic bottles. GROWTH IN 1 OF 2 SETS Antibiotic RSLT#1 Amoxicillin/Clavulanic Acid S Ampicillin R Cefepime S Ceftriaxone S Cefuroxime S Cephalothin S Ciprofloxacin S Ertapenem S Gentamicin S Imipenem S Levofloxacin S Nitrofurantoin I Piperacillin S Tetracycline S Tobramycin S Trimethoprim/Sulfa S URINE CULTURE RES 1 Preliminary Staphylococcus aureus 25,000-50,000 colony forming units per mL Objective Assessment PSA (line) and klebsiella sepsis, POA., 04/20 UTI POA, 04/20. MRSA in the urine, not typically a uropathogen Fever, improved Leukocytosis, improved Anoxic brain injury Persistent veg state Plan Plan of Care cont cefepime and Levaquin for now. Awaiting sensitivities Repeat BC for bacterial clearance pending The port scheduled to be removed tomorrow D/w Patient seen and examined. Chart reviewed in detail. Case discussed with SUPERVISOR ELECTRIC. Agree with above CATY JO APRN Apr 23, 2017 11:03 BRYAN ANGUIANO MD Apr 23, 2017 17:46
[2017-04-23] MEDS: ACETAMINOPHEN 650 MG/20.3 ML SOLUTION. PEG PRN (13:05)
[2017-04-23 15:00] VITALS: BP 106/54
[2017-04-23 19:00] VITALS: BP 130/79
[2017-04-23] MEDS: QUEtiapine 25 MG TABLET. GT SCH (20:41)
[2017-04-23] MEDS: TEMAZEPAM 15 MG CAPSULE PO SCH (20:42)
[2017-04-23 23:00] VITALS: BP 102/61
[2017-04-24 03:00] VITALS: BP 135/79
[2017-04-24 04:54] LABS: BASO % 1 % (0-3); EOS % 5 % (0-3); HEMATOCRIT 28.5 % (39.0-53.0); HEMOGLOBIN 9.3 g/dL (13.0-17.5); LYMPH # 1.5 x10^3/uL (1.0-4.8); LYMPH % 17 % (24-48); MEAN CORPUSCULAR HEMOGLOBIN 28 pg (25-35); MEAN CORPUSCULAR HGB CONC 33 g/dL (31-37); MEAN CORPUSCULAR VOLUME 85 fL (79-100); MONO % 7 % (0-9); NEUT % 71 % (31-73); PLATELET COUNT 300 x10^3/uL (140-400); RED BLOOD COUNT 3.37 x10^6/uL (4.30-5.70); RED CELL DISTRIBUTION WIDTH 17.4 % (11.5-14.5); WHITE BLOOD COUNT 8.9 x10^3/uL (4.0-11.0)
[2017-04-24] MEDS: CEFEPIME HCL 1 GM in IV NORMAL SALINE 50ML 50 ML IV SCH ×3 (05:05→20:54)
[2017-04-24 05:15] LABS: CALCIUM 7.9 mg/dL (8.5-10.1); CREATININE 0.6 mg/dL (0.7-1.3); GFR 164.1; MAGNESIUM 1.5 mg/dL (1.8-2.4); POTASSIUM 3.7 mmol/L (3.5-5.1)
[2017-04-24 07:00] VITALS: BP 131/77
[2017-04-24] MEDS: FAMOTIDINE 20 MG TABLET. PEG SCH ×2 (09:00→20:55)
[2017-04-24] MEDS: ASPIRIN 325 MG TABLET GT SCH (09:00)
[2017-04-24] MEDS: FERROUS SULFATE ORAL 300 MG/5 ML SOLUTION. GT SCH (09:00)
[2017-04-24] MEDS: MULTIVITAMINS,THERAPEUTIC 5 ML ORAL LIQUID. GT SCH (09:00)
[2017-04-24] MEDS: BACLOFEN 10 MG TABLET. GT SCH ×3 (09:00→20:55)
[2017-04-24] MEDS ORDERED: LIDOCAINE 1%/EPI 1:100,000 20 ML VIAL. ONE ×2 (09:03→12:11)
--- NOTE | 2017-04-24 09:03 | PDOC ---
PROGRESS NOTES Subjective Subjective sleeping. discussed with . lab reviewed. magnesium level low 1.5. sodium level 147. Objective Objective Vital Signs Date Time Temp Pulse Resp B/P (MAP) Pulse Ox O2 Delivery O2 Flow Rate FiO2 04/24/17 07:00 96.4 66 18 131/77 (95) 99 Room Air 96.4 Intake and Output 04/24/17 07:00 Intake Total 4124 ml Output Total 650 ml Balance 3474 ml Intake Oral 0 ml Tube Feeding 3874 ml Other 250 ml Output Stool Total 650 ml Gastric Drainage Total 0 ml # Voids 6 # Bowel Movements 1 Physical Exam Abdomen: Soft Heart: Regular rate, Normal S1, Normal S2 Extremities: No edema, Other (rigiht AKA) General: Alert HEENT: Atraumatic Lungs: Clear to auscultation Neuro: Other (sleeping) Psych/Mental Status: Other (sleeping) Skin: No rashes Assessment Assessment Problems klebisiella bacteremia pseudomonas bacteremia spastic quadriplegia oropharyngeal dysphagia maintained on gastrostomy tube feeding short bowel syndrome maintained on daily iv fluids at home ileostomy aphasia anoxic encephalopathy right AKA right hypernatremia hypomagnesemia Medical Problems: (1) Septic shock Status: Acute (2) UTI (urinary tract infection) Status: Acute Plan Plan of Care iv magneisium change IV to 1/2 NS d/c port continue iv antibiotics continue tube feeding Comment Review of Relevant I have reviewed the following items ramon (where applicable) has been applied. Labs Laboratory Tests Test 04/23/17 06:00 04/24/17 03:40 White Blood Count 8.4 x10^3/uL (4.0-11.0) 8.9 x10^3/uL (4.0-11.0) Red Blood Count 3.32 x10^6/uL (4.30-5.70) 3.37 x10^6/uL (4.30-5.70) Hemoglobin 9.1 g/dL (13.0-17.5) 9.3 g/dL (13.0-17.5) Hematocrit 28.0 % (39.0-53.0) 28.5 % (39.0-53.0) Mean Corpuscular Volume 84 fL (79-100) 85 fL (79-100) Mean Corpuscular Hemoglobin 27 pg (25-35) 28 pg (25-35) Mean Corpuscular Hemoglobin Concent 33 g/dL (31-37) 33 g/dL (31-37) Red Cell Distribution Width 17.1 % (11.5-14.5) 17.4 % (11.5-14.5) Platelet Count 282 x10^3/uL (140-400) 300 x10^3/uL (140-400) Neutrophils (%) (Auto) 75 % (31-73) 71 % (31-73) Lymphocytes (%) (Auto) 14 % (24-48) 17 % (24-48) Monocytes (%) (Auto) 7 % (0-9) 7 % (0-9) Eosinophils (%) (Auto) 5 % (0-3) 5 % (0-3) Basophils (%) (Auto) 0 % (0-3) 1 % (0-3) Neutrophils # (Auto) 6.2 x10^3uL (1.8-7.7) 6.4 x10^3uL (1.8-7.7) Lymphocytes # (Auto) 1.1 x10^3/uL (1.0-4.8) 1.5 x10^3/uL (1.0-4.8) Monocytes # (Auto) 0.6 x10^3/uL (0.0-1.1) 0.6 x10^3/uL (0.0-1.1) Eosinophils # (Auto) 0.4 x10^3/uL (0.0-0.7) 0.4 x10^3/uL (0.0-0.7) Basophils # (Auto) 0.0 x10^3/uL (0.0-0.2) 0.0 x10^3/uL (0.0-0.2) Sodium Level 146 mmol/L (136-145) 147 mmol/L (136-145) Potassium Level 3.3 mmol/L (3.5-5.1) 3.7 mmol/L (3.5-5.1) Chloride Level 113 mmol/L (98-107) 113 mmol/L (98-107) Carbon Dioxide Level 26 mmol/L (21-32) 25 mmol/L (21-32) Anion Gap 7 (6-14) 9 (6-14) Blood Urea Nitrogen 8 mg/dL (8-26) 10 mg/dL (8-26) Creatinine 0.6 mg/dL (0.7-1.3) 0.6 mg/dL (0.7-1.3) Estimated GFR (Cockcroft-Gault) 164.1 164.1 Glucose Level 112 mg/dL (70-99) 80 mg/dL (70-99) Calcium Level 8.4 mg/dL (8.5-10.1) 7.9 mg/dL (8.5-10.1) Magnesium Level 1.5 mg/dL (1.8-2.4) Laboratory Tests Test 04/24/17 03:40 White Blood Count 8.9 x10^3/uL (4.0-11.0) Red Blood Count 3.37 x10^6/uL (4.30-5.70) Hemoglobin 9.3 g/dL (13.0-17.5) Hematocrit 28.5 % (39.0-53.0) Mean Corpuscular Volume 85 fL (79-100) Mean Corpuscular Hemoglobin 28 pg (25-35) Mean Corpuscular Hemoglobin Concent 33 g/dL (31-37) Red Cell Distribution Width 17.4 % (11.5-14.5) Platelet Count 300 x10^3/uL (140-400) Neutrophils (%) (Auto) 71 % (31-73) Lymphocytes (%) (Auto) 17 % (24-48) Monocytes (%) (Auto) 7 % (0-9) Eosinophils (%) (Auto) 5 % (0-3) Basophils (%) (Auto) 1 % (0-3) Neutrophils # (Auto) 6.4 x10^3uL (1.8-7.7) Lymphocytes # (Auto) 1.5 x10^3/uL (1.0-4.8) Monocytes # (Auto) 0.6 x10^3/uL (0.0-1.1) Eosinophils # (Auto) 0.4 x10^3/uL (0.0-0.7) Basophils # (Auto) 0.0 x10^3/uL (0.0-0.2) Sodium Level 147 mmol/L (136-145) Potassium Level 3.7 mmol/L (3.5-5.1) Chloride Level 113 mmol/L (98-107) Carbon Dioxide Level 25 mmol/L (21-32) Anion Gap 9 (6-14) Blood Urea Nitrogen 10 mg/dL (8-26) Creatinine 0.6 mg/dL (0.7-1.3) Estimated GFR (Cockcroft-Gault) 164.1 Glucose Level 80 mg/dL (70-99) Calcium Level 7.9 mg/dL (8.5-10.1) Magnesium Level 1.5 mg/dL (1.8-2.4) Microbiology 04/23/17 Blood Culture - Preliminary, Resulted NO GROWTH AFTER 1 DAY 04/20/17 Urine Culture - Final, Complete 04/20/17 Urine Culture Result 1 (JAMISON) - Final, Complete 04/20/17 Urine Culture Result 2 (JAMISON) - Final, Complete 04/20/17 Antimicrobic Susceptibility - Final, Complete Medications Current Medications Sodium Chloride 1,000 ml @ 1,000 mls/hr Q1H IV Last administered on 04/20/17 03:45; Start 04/20/17 at 04:00; Stop 04/20/17 at 04:59; Status DC Sodium Chloride 500 ml @ 500 mls/hr 1X ONCE IV Last administered on 04:34; Start 04/20/17 at 04:30; Stop 04/20/17 at 05:29; Status DC Levofloxacin/ Dextrose 150 ml @ 100 mls/hr 1X ONCE IV Last administered on 04:34; Start 04/20/17 at 05:00; Stop 04/20/17 at 06:29; Status DC Vancomycin HCl 1.25 gm/Sodium Chloride 500 ml @ 250 mls/hr 1X ONCE IV Last administered on 04/20/17 05:10; Start 04/20/17 at 05:00; Stop 04/20/17 at 12:59 ; Status DC Vancomycin HCl (Vanco Per Pharmacy) 1 each PRN DAILY PRN MC SEE COMMENTS Last administered on 04/20/17 06:12; Start 04/20/17 at 04:30; Stop 04/20/17 at 12:59 ; Status DC Vancomycin HCl 750 mg/Sodium Chloride 250 ml @ 250 mls/hr Q24H IV ; Start 04/21 at 05:00; Stop 04/21/17 at 05:00; Status DC Vancomycin HCl 1 each 1X ONCE MC ; Start 04/22/17 at 04:30; Stop 04/22/17 at 04 :30; Status DC Dextrose/Sodium Chloride 1,000 ml @ 150 mls/hr Q6H40M IV Last administered on 04/20/17 07:03; Start 04/20/17 at 07:00; Stop 04/20/17 at 12:37; Status DC Norepinephrine Bitartrate 250 ml @ 0 mls/hr CONT PRN IV SEE I/O RECORD Last administered on 04/20/17 07:02; Start 04/20/17 at 06:45; Stop 04/21/17 at 10:56 ; Status DC Cefepime HCl 1 gm/ Sodium Chloride 50 ml @ 100 mls/hr Q8HRS IV Last administered on 04/24/17 05:05; Start 04/20/17 at 09:00 Sodium Chloride 1,000 ml @ 1,000 mls/hr 1X ONCE IV Last administered on 09:26; Start 04/20/17 at 09:00; Stop 04/20/17 at 09:59; Status DC Levofloxacin/ Dextrose 150 ml @ 100 mls/hr Q24H IV Last administered on 05:05; Start 04/21/17 at 07:00 Aspirin (Laura Aspirin) 325 mg DAILY GT Last administered on 04/23/17 09:05; Start 04/20/17 at 12:30 Ferrous Sulfate (Feosol) 325 mg DAILY PO Last administered on 04/20/17 12:20; Start 04/20/17 at 12:30; Stop 04/21/17 at 08:38; Status DC Quetiapine Fumarate (SEROquel) 25 mg PRN QHS PRN GT INSOMNIA Last administered on 04/21/17 21:05; Start 04/20/17 at 11:45; Stop 04/22/17 at 21:00; Status DC Multivitamins (Thera-Plus) 5 ml DAILY GT Last administered on 04/23/17 09:05; Start 04/21/17 at 09:00 Baclofen (Lioresal) 5 mg TID GT ; Start 04/20/17 at 14:00; Stop 04/20/17 at 14: 00; Status DC Baclofen (Lioresal) 10 mg TID GT Last administered on 04/23/17 20:42; Start at 14:00 Sodium Chloride 1,000 ml @ 60 mls/hr [id number] IV Last administered on 20:38; Start 04/20/17 at 12:30 Acetaminophen (Tylenol) 650 mg PRN Q6HRS PRN PEG MILD PAIN / TEMP Last administered on 04/23/17 13:05; Start 04/20/17 at 12:30 Famotidine (Pepcid) 20 mg QHS PEG Last administered on 04/20/17 20:46; Start 04/20/17 at 21:00; Stop 04/21/17 at 08:36; Status DC Famotidine (Pepcid) 20 mg BID PEG Last administered on 04/23/17 20:42; Start 04/21/17 at 09:00 Ferrous Sulfate 300 mg DAILY PO ; Start 04/21/17 at 09:00; Stop 04/21/17 at 09: 00; Status DC Ferrous Sulfate 300 mg DAILY GT Last administered on 04/23/17 09:05; Start at 09:00 Quetiapine Fumarate (SEROquel) 25 mg QHS GT Last administered on 04/23/17 20: 41; Start 04/22/17 at 21:00 Temazepam (Restoril) 45 mg QHS PO Last administered on 04/23/17 20:42; Start 04/22/17 at 21:00 Potassium Chloride (KCl Oral Soln) 40 meq 1X ONCE PEG Last administered on 13:05; Start 04/23/17 at 09:30; Stop 04/23/17 at 09:36; Status DC Active Scripts Active [Baclofen] 10 MG Tablet 5 Mg PEG TID Reported Seroquel (Quetiapine Fumarate) 25 Mg Tablet 1.5 Tab GT QHS Mupirocin Ointment (Mupirocin) 22 Gm Oint...g. 1 Elena TP BID Hydrocodone-Apap 5-325 (Hydrocodone Bit/Acetaminophen) 1 Each Tablet 1 Tab GT PRN Q6HRS PRN Ferrous Sulfate 325 Mg Tablet 1 Tab GT DAILY Erythromycin (Erythromycin Base) 1 Gm Oint...g. 1 Gm OP Q6HRS Temazepam 30 Mg Capsule 30 Mg GT HS PRN Seroquel (Quetiapine Fumarate) 25 Mg Tablet 0.5 Tab GT PRN PRN Protonix (Pantoprazole Sodium) 40 Mg Tablet.dr 1 Tab GT DAILY Duoneb 0.5-3(2.5) Mg/3 Ml (Albuterol/Ipratropium) 3 Ml Ampul.neb 3 Ml NEB QID Multivitamins (Multivitamin) 1 Each Capsule 1 Each GT DAILY Temazepam 15 Mg Capsule 1 Cap GT QHS NITRO-DUR 0.4mg/hr (Nitroglycerin) 1 Each Patch.td24 1 Each TD Tylenol (Acetaminophen) 325 Mg Tablet 325 Mg PO Q4HRS PRN Aspirin 325 Mg Tablet 325 Mg GT DAILY Vitals/I & O Vital Sign - Last 24 Hours 04/23/17 04/23/17 04/23/17 04/23/17 11:00 15:00 19:00 20:00 Temp 98.3 97.5 98.4 98.3 97.5 98.4 Pulse 62 63 68 Resp 20 20 20 B/P (MAP) 124/75 (91) 106/54 (71) 130/79 (96) Pulse Ox 96 98 91 O2 Delivery Room Air Room Air Room Air Room Air 04/23/17 04/24/17 04/24/17 23:00 03:00 07:00 Temp 98.9 97.9 96.4 98.9 97.9 96.4 Pulse 71 72 66 Resp 20 20 18 B/P (MAP) 102/61 (75) 135/79 (97) 131/77 (95) Pulse Ox 92 93 99 O2 Delivery Room Air Room Air Room Air Intake and Output 04/23/17 04/23/17 04/24/17 15:00 23:00 07:00 Intake Total 1000 ml 2174 ml 950 ml Output Total 0 ml 200 ml 450 ml Balance 1000 ml 1974 ml 500 ml Nutrition Consultation Dietary Evaluation: Comments: Rec. continue current TF order as medically appropriate and as tolerated: Fibersource HN, goal rate 40 ml/hr IVF's Rec. flushes of 175 cc q4h if no IVF's P/U to the coccyx- rec. continue the daily MVT and 500 mg Vitamin C/day to aide with wound healing Expected Outcomes/Goals: tolerate TF's at goal rate - met meet 75% estimated nutrition needs- met Malnutrition Findings: Weight Status: Underweight ADRIANE ALAN MD Apr 24, 2017 09:03
[2017-04-24] MEDS ORDERED: MAGNESIUM SULFATE 2GM 50 ML IV ONE (09:15)
--- NOTE | 2017-04-24 10:59 | PDOC ---
Infectious Disease Note Subjective Subjective No acute changes No fever Vital Sign Vital Signs Vital Signs Date Time Temp Pulse Resp B/P (MAP) Pulse Ox O2 Delivery O2 Flow Rate FiO2 04/24/17 07:00 96.4 66 18 131/77 (95) 99 Room Air 96.4 Physical Exam PHYSICAL EXAM GENERAL: NAD LUNGS: Clear HEART: S1S2 ABD: Soft, ostomy EXT: No edema, no cyanosis; Previous right AKA unremarkable STABLE ATTENDANT: noncommunicative SKIN: No rash Port clean Labs Lab Laboratory Tests Test 04/24/17 03:40 White Blood Count 8.9 x10^3/uL (4.0-11.0) Red Blood Count 3.37 x10^6/uL (4.30-5.70) Hemoglobin 9.3 g/dL (13.0-17.5) Hematocrit 28.5 % (39.0-53.0) Mean Corpuscular Volume 85 fL (79-100) Mean Corpuscular Hemoglobin 28 pg (25-35) Mean Corpuscular Hemoglobin Concent 33 g/dL (31-37) Red Cell Distribution Width 17.4 % (11.5-14.5) Platelet Count 300 x10^3/uL (140-400) Neutrophils (%) (Auto) 71 % (31-73) Lymphocytes (%) (Auto) 17 % (24-48) Monocytes (%) (Auto) 7 % (0-9) Eosinophils (%) (Auto) 5 % (0-3) Basophils (%) (Auto) 1 % (0-3) Neutrophils # (Auto) 6.4 x10^3uL (1.8-7.7) Lymphocytes # (Auto) 1.5 x10^3/uL (1.0-4.8) Monocytes # (Auto) 0.6 x10^3/uL (0.0-1.1) Eosinophils # (Auto) 0.4 x10^3/uL (0.0-0.7) Basophils # (Auto) 0.0 x10^3/uL (0.0-0.2) Sodium Level 147 mmol/L (136-145) Potassium Level 3.7 mmol/L (3.5-5.1) Chloride Level 113 mmol/L (98-107) Carbon Dioxide Level 25 mmol/L (21-32) Anion Gap 9 (6-14) Blood Urea Nitrogen 10 mg/dL (8-26) Creatinine 0.6 mg/dL (0.7-1.3) Estimated GFR (Cockcroft-Gault) 164.1 Glucose Level 80 mg/dL (70-99) Calcium Level 7.9 mg/dL (8.5-10.1) Magnesium Level 1.5 mg/dL (1.8-2.4) Micro BLD CULT RESULT 1 Preliminary Pseudomonas aeruginosa Recovered from aerobic bottle only. GROWTH IN 1 SET FROM LINE Antibiotic RSLT#1 Amikacin S Cefepime S Ceftazidime S Ciprofloxacin S Gentamicin S Imipenem S Levofloxacin S Meropenem S Piperacillin S Ticarcillin S Tobramycin S BLD CULT RESULT 1 Final Klebsiella pneumoniae Recovered from aerobic and anaerobic bottles. GROWTH IN 1 OF 2 SETS Antibiotic RSLT#1 Amoxicillin/Clavulanic Acid S Ampicillin R Cefepime S Ceftriaxone S Cefuroxime S Cephalothin S Ciprofloxacin S Ertapenem S Gentamicin S Imipenem S Levofloxacin S Nitrofurantoin I Piperacillin S Tetracycline S Tobramycin S Trimethoprim/Sulfa S URINE CULTURE RES 1 Preliminary Staphylococcus aureus 25,000-50,000 colony forming units per mL Objective Assessment PSA (line) and klebsiella sepsis, POA., 04/20. Repeat BC from 04/23 NGTD UTI POA, 04/20. MRSA in the urine, not typically considered an uropathogen Fever, improved Leukocytosis, improved Anoxic brain injury Persistent veg state Plan Plan of Care Cefepime and Levaquin Await port removal today f/u BC D/w Attending Co-Sign The patient was seen and interviewed as well as examined at the bedside. The chart was reviewed. The case was discussed. Agree with the plan of care. CATY JO APRN Apr 24, 2017 10:59 CATHY ELIAS MD Apr 24, 2017 16:02
[2017-04-24 11:00] VITALS: BP 118/178
[2017-04-24] MEDS: IV 1/2 NORMAL SALINE 1,000 ML IV SCH (11:22)
[2017-04-24] MEDS ORDERED: LIDOCAINE 1%/EPI 1:100,000 20 ML VIAL. INJ ONE (13:00)
--- NOTE | 2017-04-24 13:44 | RAD ---
Removal of right internal jugular power port 04/24/2017 Indication: Possible port infection Comparison study: Chest radiograph April 20, 2017 Consent: The procedure was explained in its entirety to the patient or the patients designated dealer compliance representative by a member of the treatment team, including a discussion of the risks, benefits and commonly accepted alternatives to the procedure, as well as the expected consequences of no therapy whatsoever. Discussion of the risks included, but was not limited to, those that are most frequent and those that are rare but possibly severe or life-threatening, as well as the possibility of unforeseen complications. Sterility: All elements of maximal sterile barrier technique including the use of a cap, mask, sterile gown, sterile gloves, large sterile sheet, appropriate hand hygiene, and 2% chlorhexidine for cutaneous antisepsis (or acceptable alternative antiseptic per current guidelines) were followed for this procedure. Technique and Findings: Following informed consent, the patient was prepped and draped in the usual sterile fashion. A timeout procedure was performed. 1% lidocaine with epinephrine was administered overlying the port reservoir. A small incision overlying the reservoir was made. Using sharp and blunt dissection the reservoir and catheter were freed and removed intact. This was confirmed with fluoroscopy. Balloon was closed in layers using 4-0 Vicryl suture. A sterile dressing was applied. No complications were identified. Fluoroscopy time 0.1 minutes Dose area product 0.4 Gycm2 Exposures: 2 Impression: Successful removal of right internal jugular power port. Catheter tip was sent for culture per ordering physician request.
[2017-04-24 15:00] VITALS: BP 115/76
[2017-04-24 19:00] VITALS: BP 157/77
[2017-04-24] MEDS: TEMAZEPAM 15 MG CAPSULE PO SCH (20:55)
[2017-04-24] MEDS: QUEtiapine 25 MG TABLET. GT SCH (20:55)
[2017-04-24] MEDS: ACETAMINOPHEN 650 MG/20.3 ML SOLUTION. PEG PRN (20:55)
[2017-04-24 23:00] VITALS: BP 86/60
[2017-04-25 03:09] VITALS: BP 111/70
[2017-04-25] MEDS: CEFEPIME HCL 1 GM in IV NORMAL SALINE 50ML 50 ML IV SCH ×3 (05:00→21:25)
[2017-04-25] MEDS: IV 1/2 NORMAL SALINE 1,000 ML IV SCH ×2 (05:00→18:35)
[2017-04-25 06:19] LABS: BASO % 1 % (0-3); EOS % 4 % (0-3); HEMATOCRIT 29.1 % (39.0-53.0); HEMOGLOBIN 9.6 g/dL (13.0-17.5); LYMPH # 1.7 x10^3/uL (1.0-4.8); LYMPH % 16 % (24-48); MEAN CORPUSCULAR HEMOGLOBIN 27 pg (25-35); MEAN CORPUSCULAR HGB CONC 33 g/dL (31-37); MEAN CORPUSCULAR VOLUME 83 fL (79-100); MONO % 6 % (0-9); NEUT % 73 % (31-73); PLATELET COUNT 312 x10^3/uL (140-400); RED BLOOD COUNT 3.51 x10^6/uL (4.30-5.70); RED CELL DISTRIBUTION WIDTH 17.2 % (11.5-14.5); WHITE BLOOD COUNT 10.4 x10^3/uL (4.0-11.0)
[2017-04-25 06:42] LABS: CALCIUM 8.5 mg/dL (8.5-10.1); CREATININE 0.6 mg/dL (0.7-1.3); GFR 164.1; MAGNESIUM 1.9 mg/dL (1.8-2.4); POTASSIUM 3.7 mmol/L (3.5-5.1)
[2017-04-25 07:45] VITALS: BP 129/78
[2017-04-25] MEDS: FERROUS SULFATE ORAL 300 MG/5 ML SOLUTION. GT SCH (09:22)
[2017-04-25] MEDS: ASPIRIN 325 MG TABLET GT SCH (09:22)
[2017-04-25] MEDS: BACLOFEN 10 MG TABLET. GT SCH ×3 (09:22→21:25)
[2017-04-25] MEDS: FAMOTIDINE 20 MG TABLET. PEG SCH ×2 (09:23→21:25)
[2017-04-25] MEDS: MULTIVITAMINS,THERAPEUTIC 5 ML ORAL LIQUID. GT SCH (09:23)
--- NOTE | 2017-04-25 09:50 | PDOC ---
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 ASSOCIATE: Awake SKIN: No rash Previous port site-bandaged Labs Lab Laboratory Tests Test 04/25/17 05:20 White Blood Count 10.4 x10^3/uL (4.0-11.0) Red Blood Count 3.51 x10^6/uL (4.30-5.70) Hemoglobin 9.6 g/dL (13.0-17.5) Hematocrit 29.1 % (39.0-53.0) Mean Corpuscular Volume 83 fL (79-100) Mean Corpuscular Hemoglobin 27 pg (25-35) Mean Corpuscular Hemoglobin Concent 33 g/dL (31-37) Red Cell Distribution Width 17.2 % (11.5-14.5) Platelet Count 312 x10^3/uL (140-400) Neutrophils (%) (Auto) 73 % (31-73) Lymphocytes (%) (Auto) 16 % (24-48) Monocytes (%) (Auto) 6 % (0-9) Eosinophils (%) (Auto) 4 % (0-3) Basophils (%) (Auto) 1 % (0-3) Neutrophils # (Auto) 7.6 x10^3uL (1.8-7.7) Lymphocytes # (Auto) 1.7 x10^3/uL (1.0-4.8) Monocytes # (Auto) 0.6 x10^3/uL (0.0-1.1) Eosinophils # (Auto) 0.4 x10^3/uL (0.0-0.7) Basophils # (Auto) 0.0 x10^3/uL (0.0-0.2) Sodium Level 141 mmol/L (136-145) Potassium Level 3.7 mmol/L (3.5-5.1) Chloride Level 108 mmol/L (98-107) Carbon Dioxide Level 26 mmol/L (21-32) Anion Gap 7 (6-14) Blood Urea Nitrogen 13 mg/dL (8-26) Creatinine 0.6 mg/dL (0.7-1.3) Estimated GFR (Cockcroft-Gault) 164.1 Glucose Level 121 mg/dL (70-99) Calcium Level 8.5 mg/dL (8.5-10.1) Magnesium Level 1.9 mg/dL (1.8-2.4) Micro 04/23. BLOOD CULTURE Preliminary NO GROWTH AFTER 2 DAYS BLD CULT RESULT 1 Preliminary Pseudomonas aeruginosa Recovered from aerobic bottle only. GROWTH IN 1 SET FROM LINE Antibiotic RSLT#1 Amikacin S Cefepime S Ceftazidime S Ciprofloxacin S Gentamicin S Imipenem S Levofloxacin S Meropenem S Piperacillin S Ticarcillin S Tobramycin S BLD CULT RESULT 1 Final Klebsiella pneumoniae Recovered from aerobic and anaerobic bottles. GROWTH IN 1 OF 2 SETS Antibiotic RSLT#1 Amoxicillin/Clavulanic Acid S Ampicillin R Cefepime S Ceftriaxone S Cefuroxime S Cephalothin S Ciprofloxacin S Ertapenem S Gentamicin S Imipenem S Levofloxacin S Nitrofurantoin I Piperacillin S Tetracycline S Tobramycin S Trimethoprim/Sulfa S URINE CULTURE RES 1 Preliminary Staphylococcus aureus 25,000-50,000 colony forming units per mL Objective Assessment PSA (line) and klebsiella sepsis, POA., 04/20. Repeat BC from 04/23 NGTD UTI POA, 04/20. MRSA in the urine, not typically considered an uropathogen Fever, improved Leukocytosis, improved Anoxic brain injury Persistent veg state Plan Plan of Care Cefepime and Levaquin for now- deescalate to g-tube soon anticipate port placement tomorrow Repeat BC from 04/23 no growth so far D/w Attending Co-Sign The patient was seen and interviewed as well as examined at the bedside. The chart was reviewed. The case was discussed. Agree with the plan of care. CATY JO APRN Apr 25, 2017 09:50 CATHY ELIAS MD Apr 25, 2017 14:48
[2017-04-25 10:30] VITALS: BP 110/72
--- NOTE | 2017-04-25 10:35 | PDOC ---
PROGRESS NOTES Subjective Subjective discussed with . afebrile. lab reviewed. doing well. port removed yesterday. repeat blood cultures neg so far,. 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) Psych/Mental Status: Mood NL Skin: No rashes Assessment Assessment Problemsroblems klebisiella bacteremia pseudomonas bacteremia spastic quadriplegia oropharyngeal dysphagia maintained on gastrostomy tube feeding short bowel syndrome maintained on daily iv fluids at home ileostomy aphasia anoxic encephalopathy right AKA hypernatremia resolved hypomagnesemia treated Medical Problems: (1) Septic shock Status: Acute (2) UTI (urinary tract infection) Status: Acute Plan Plan of Care continue iv cefepime and levaquin new port tomorrow continue tube feeding continue iv fluids Comment Review of Relevant I have reviewed the following items ramon (where applicable) has been applied. Labs Laboratory Tests Test 04/24/17 03:40 04/25/17 05:20 White Blood Count 8.9 x10^3/uL (4.0-11.0) 10.4 x10^3/uL (4.0-11.0) Red Blood Count 3.37 x10^6/uL (4.30-5.70) 3.51 x10^6/uL (4.30-5.70) Hemoglobin 9.3 g/dL (13.0-17.5) 9.6 g/dL (13.0-17.5) Hematocrit 28.5 % (39.0-53.0) 29.1 % (39.0-53.0) Mean Corpuscular Volume 85 fL (79-100) 83 fL (79-100) Mean Corpuscular Hemoglobin 28 pg (25-35) 27 pg (25-35) Mean Corpuscular Hemoglobin Concent 33 g/dL (31-37) 33 g/dL (31-37) Red Cell Distribution Width 17.4 % (11.5-14.5) 17.2 % (11.5-14.5) Platelet Count 300 x10^3/uL (140-400) 312 x10^3/uL (140-400) Neutrophils (%) (Auto) 71 % (31-73) 73 % (31-73) Lymphocytes (%) (Auto) 17 % (24-48) 16 % (24-48) Monocytes (%) (Auto) 7 % (0-9) 6 % (0-9) Eosinophils (%) (Auto) 5 % (0-3) 4 % (0-3) Basophils (%) (Auto) 1 % (0-3) 1 % (0-3) Neutrophils # (Auto) 6.4 x10^3uL (1.8-7.7) 7.6 x10^3uL (1.8-7.7) Lymphocytes # (Auto) 1.5 x10^3/uL (1.0-4.8) 1.7 x10^3/uL (1.0-4.8) Monocytes # (Auto) 0.6 x10^3/uL (0.0-1.1) 0.6 x10^3/uL (0.0-1.1) Eosinophils # (Auto) 0.4 x10^3/uL (0.0-0.7) 0.4 x10^3/uL (0.0-0.7) Basophils # (Auto) 0.0 x10^3/uL (0.0-0.2) 0.0 x10^3/uL (0.0-0.2) Sodium Level 147 mmol/L (136-145) 141 mmol/L (136-145) Potassium Level 3.7 mmol/L (3.5-5.1) 3.7 mmol/L (3.5-5.1) Chloride Level 113 mmol/L (98-107) 108 mmol/L (98-107) Carbon Dioxide Level 25 mmol/L (21-32) 26 mmol/L (21-32) Anion Gap 9 (6-14) 7 (6-14) Blood Urea Nitrogen 10 mg/dL (8-26) 13 mg/dL (8-26) Creatinine 0.6 mg/dL (0.7-1.3) 0.6 mg/dL (0.7-1.3) Estimated GFR (Cockcroft-Gault) 164.1 164.1 Glucose Level 80 mg/dL (70-99) 121 mg/dL (70-99) Calcium Level 7.9 mg/dL (8.5-10.1) 8.5 mg/dL (8.5-10.1) Magnesium Level 1.5 mg/dL (1.8-2.4) 1.9 mg/dL (1.8-2.4) Laboratory Tests Test 04/25/17 05:20 White Blood Count 10.4 x10^3/uL (4.0-11.0) Red Blood Count 3.51 x10^6/uL (4.30-5.70) Hemoglobin 9.6 g/dL (13.0-17.5) Hematocrit 29.1 % (39.0-53.0) Mean Corpuscular Volume 83 fL (79-100) Mean Corpuscular Hemoglobin 27 pg (25-35) Mean Corpuscular Hemoglobin Concent 33 g/dL (31-37) Red Cell Distribution Width 17.2 % (11.5-14.5) Platelet Count 312 x10^3/uL (140-400) Neutrophils (%) (Auto) 73 % (31-73) Lymphocytes (%) (Auto) 16 % (24-48) Monocytes (%) (Auto) 6 % (0-9) Eosinophils (%) (Auto) 4 % (0-3) Basophils (%) (Auto) 1 % (0-3) Neutrophils # (Auto) 7.6 x10^3uL (1.8-7.7) Lymphocytes # (Auto) 1.7 x10^3/uL (1.0-4.8) Monocytes # (Auto) 0.6 x10^3/uL (0.0-1.1) Eosinophils # (Auto) 0.4 x10^3/uL (0.0-0.7) Basophils # (Auto) 0.0 x10^3/uL (0.0-0.2) Sodium Level 141 mmol/L (136-145) Potassium Level 3.7 mmol/L (3.5-5.1) Chloride Level 108 mmol/L (98-107) Carbon Dioxide Level 26 mmol/L (21-32) Anion Gap 7 (6-14) Blood Urea Nitrogen 13 mg/dL (8-26) Creatinine 0.6 mg/dL (0.7-1.3) Estimated GFR (Cockcroft-Gault) 164.1 Glucose Level 121 mg/dL (70-99) Calcium Level 8.5 mg/dL (8.5-10.1) Magnesium Level 1.9 mg/dL (1.8-2.4) Microbiology 04/23/17 Blood Culture - Preliminary, Resulted NO GROWTH AFTER 2 DAYS 04/20/17 Urine Culture - Final, Complete 04/20/17 Urine Culture Result 1 (JAMISON) - Final, Complete 04/20/17 Urine Culture Result 2 (JAMISON) - Final, Complete 04/20/17 Antimicrobic Susceptibility - Final, Complete 04/24/17 Gram Stain - Final, Complete Medications Current Medications Sodium Chloride 1,000 ml @ 1,000 mls/hr Q1H IV Last administered on 04/20/17 03:45; Start 04/20/17 at 04:00; Stop 04/20/17 at 04:59; Status DC Sodium Chloride 500 ml @ 500 mls/hr 1X ONCE IV Last administered on 04:34; Start 04/20/17 at 04:30; Stop 04/20/17 at 05:29; Status DC Levofloxacin/ Dextrose 150 ml @ 100 mls/hr 1X ONCE IV Last administered on 04:34; Start 04/20/17 at 05:00; Stop 04/20/17 at 06:29; Status DC Vancomycin HCl 1.25 gm/Sodium Chloride 500 ml @ 250 mls/hr 1X ONCE IV Last administered on 04/20/17 05:10; Start 04/20/17 at 05:00; Stop 04/20/17 at 12:59 ; Status DC Vancomycin HCl (Vanco Per Pharmacy) 1 each PRN DAILY PRN MC SEE COMMENTS Last administered on 04/20/17 06:12; Start 04/20/17 at 04:30; Stop 04/20/17 at 12:59 ; Status DC Vancomycin HCl 750 mg/Sodium Chloride 250 ml @ 250 mls/hr Q24H IV ; Start 04/21 at 05:00; Stop 04/21/17 at 05:00; Status DC Vancomycin HCl 1 each 1X ONCE MC ; Start 04/22/17 at 04:30; Stop 04/22/17 at 04 :30; Status DC Dextrose/Sodium Chloride 1,000 ml @ 150 mls/hr [id number] IV Last administered on 04/20/17 07:03; Start 04/20/17 at 07:00; Stop 04/20/17 at 12:37; Status DC Norepinephrine Bitartrate 250 ml @ 0 mls/hr CONT PRN IV SEE I/O RECORD Last administered on 04/20/17 07:02; Start 04/20/17 at 06:45; Stop 04/21/17 at 10:56 ; Status DC Cefepime HCl 1 gm/ Sodium Chloride 50 ml @ 100 mls/hr Q8HRS IV Last administered on 04/25/17 05:00; Start 04/20/17 at 09:00 Sodium Chloride 1,000 ml @ 1,000 mls/hr 1X ONCE IV Last administered on 09:26; Start 04/20/17 at 09:00; Stop 04/20/17 at 09:59; Status DC Levofloxacin/ Dextrose 150 ml @ 100 mls/hr Q24H IV Last administered on 05:45; Start 04/21/17 at 07:00 Aspirin (Laura Aspirin) 325 mg DAILY GT Last administered on 04/25/17 09:22; Start 04/20/17 at 12:30 Ferrous Sulfate (Feosol) 325 mg DAILY PO Last administered on 04/20/17 12:20; Start 04/20/17 at 12:30; Stop 04/21/17 at 08:38; Status DC Quetiapine Fumarate (SEROquel) 25 mg PRN QHS PRN GT INSOMNIA Last administered on 04/21/17 21:05; Start 04/20/17 at 11:45; Stop 04/22/17 at 21:00; Status DC Multivitamins (Thera-Plus) 5 ml DAILY GT Last administered on 04/25/17 09:23; Start 04/21/17 at 09:00 Baclofen (Lioresal) 5 mg TID GT ; Start 04/20/17 at 14:00; Stop 04/20/17 at 14: 00; Status DC Baclofen (Lioresal) 10 mg TID GT Last administered on 04/25/17 09:22; Start at 14:00 Sodium Chloride 1,000 ml @ 60 mls/hr [id number] IV Last administered on 20:38; Start 04/20/17 at 12:30; Stop 04/24/17 at 09:05; Status DC Acetaminophen (Tylenol) 650 mg PRN Q6HRS PRN PEG MILD PAIN / TEMP Last administered on 04/24/17 20:55; Start 04/20/17 at 12:30 Famotidine (Pepcid) 20 mg QHS PEG Last administered on 04/20/17 20:46; Start 04/20/17 at 21:00; Stop 04/21/17 at 08:36; Status DC Famotidine (Pepcid) 20 mg BID PEG Last administered on 04/25/17 09:23; Start 04/21/17 at 09:00 Ferrous Sulfate 300 mg DAILY PO ; Start 04/21/17 at 09:00; Stop 04/21/17 at 09: 00; Status DC Ferrous Sulfate 300 mg DAILY GT Last administered on 04/25/17 09:22; Start at 09:00 Quetiapine Fumarate (SEROquel) 25 mg QHS GT Last administered on 04/24/17 20: 55; Start 04/22/17 at 21:00 Temazepam (Restoril) 45 mg QHS PO Last administered on 04/24/17 20:55; Start 04/22/17 at 21:00 Potassium Chloride (KCl Oral Soln) 40 meq 1X ONCE PEG Last administered on 13:05; Start 04/23/17 at 09:30; Stop 04/23/17 at 09:36; Status DC Lidocaine/ Epinephrine (Xylocaine 1%-Epi 1:100,000) 20 ml STK-MED ONCE .ROUTE ; Start 04/24/17 at 09:03; Stop 04/24/17 at 09:04; Status DC Magnesium Sulfate/ Dextrose 50 ml @ 25 mls/hr 1X ONCE IV Last administered on 04/24/17 11:22; Start 04/24/17 at 09:15; Stop 04/24/17 at 11:14; Status DC Sodium Chloride 1,000 ml @ 60 mls/hr [id number] IV Last administered on 05:00; Start 04/24/17 at 09:15 Lidocaine/ Epinephrine (Xylocaine 1%-Epi 1:100,000) 20 ml STK-MED ONCE .ROUTE ; Start 04/24/17 at 12:11; Stop 04/24/17 at 12:12; Status DC Lidocaine/ Epinephrine (Xylocaine 1%-Epi 1:100,000) 20 ml 1X ONCE INJ Last administered on 04/24/17 12:50; Start 04/24/17 at 13:00; Stop 04/24/17 at 13:01 ; Status DC Active Scripts Active [Baclofen] 10 MG Tablet 5 Mg PEG TID Reported Seroquel (Quetiapine Fumarate) 25 Mg Tablet 1.5 Tab GT QHS Mupirocin Ointment (Mupirocin) 22 Gm Oint...g. 1 Elena TP BID Hydrocodone-Apap 5-325 (Hydrocodone Bit/Acetaminophen) 1 Each Tablet 1 Tab GT PRN Q6HRS PRN Ferrous Sulfate 325 Mg Tablet 1 Tab GT DAILY Erythromycin (Erythromycin Base) 1 Gm Oint...g. 1 Gm OP Q6HRS Temazepam 30 Mg Capsule 30 Mg GT HS PRN Seroquel (Quetiapine Fumarate) 25 Mg Tablet 0.5 Tab GT PRN PRN Protonix (Pantoprazole Sodium) 40 Mg Tablet.dr 1 Tab GT DAILY Duoneb 0.5-3(2.5) Mg/3 Ml (Albuterol/Ipratropium) 3 Ml Ampul.neb 3 Ml NEB QID Multivitamins (Multivitamin) 1 Each Capsule 1 Each GT DAILY Temazepam 15 Mg Capsule 1 Cap GT QHS NITRO-DUR 0.4mg/hr (Nitroglycerin) 1 Each Patch.td24 1 Each TD Tylenol (Acetaminophen) 325 Mg Tablet 325 Mg PO Q4HRS PRN Aspirin 325 Mg Tablet 325 Mg GT DAILY Vitals/I & O Vital Sign - Last 24 Hours 04/24/17 04/24/17 04/24/17 04/24/17 11:00 15:00 19:00 20:00 Temp 99.2 98.3 99.0 99.2 98.3 99.0 Pulse 65 65 81 Resp 16 16 20 B/P (MAP) 118/178 (158) 115/76 (89) 157/77 (103) Pulse Ox 94 99 98 O2 Delivery Room Air Room Air Room Air Room Air 04/24/17 04/25/17 04/25/17 04/25/17 23:00 03:09 07:45 08:00 Temp 98.5 98.2 97.9 98.5 98.2 97.9 Pulse 73 65 78 Resp 20 20 20 B/P (MAP) 86/60 (69) 111/70 (84) 129/78 (95) Pulse Ox 96 98 96 O2 Delivery Room Air Nasal Cannula Room Air Room Air Intake and Output 04/24/17 04/24/17 04/25/17 14:59 22:59 06:59 Intake Total 310 ml 310 ml 2826 ml Output Total 0 ml 800 ml Balance 310 ml 310 ml 2026 ml Nutrition Consultation Dietary Evaluation: Comments: Rec. continue TF order as medically appropriate and as tolerated: increase TF 10 ml q 8 hr to goal rate of 60 ml/hr REC Flushes of 100 cc q6h if no IVF's running left foot wound: rec. continue the daily MVI and 500 mg Vitamin C/day to aide with wound healing Expected Outcomes/Goals: tolerate TF's at goal rate - on going - goal increased improved left foot wound Malnutrition Findings: Body Fat Depletion (Non Severe: Mod to Severe Weight Status: Underweight ADRIANE ALAN MD Apr 25, 2017 10:35
[2017-04-25 14:42] VITALS: BP 117/71
[2017-04-25] MEDS: ACETAMINOPHEN 650 MG/20.3 ML SOLUTION. PEG PRN (18:25)
[2017-04-25] MEDS ORDERED: HYDROcodone/APAP 10/325 1 TAB TABLET PO PRN (20:45)
[2017-04-25] MEDS: QUEtiapine 25 MG TABLET. GT SCH (21:25)
[2017-04-25] MEDS: TEMAZEPAM 15 MG CAPSULE PO SCH (21:25)
[2017-04-25 23:00] VITALS: BP 91/61
[2017-04-26 03:00] VITALS: BP 110/78
[2017-04-26] MEDS: CEFEPIME HCL 1 GM in IV NORMAL SALINE 50ML 50 ML IV SCH ×3 (05:36→20:51)
[2017-04-26 06:04] LABS: BASO % 0 % (0-3); EOS % 4 % (0-3); HEMATOCRIT 29.1 % (39.0-53.0); HEMOGLOBIN 9.4 g/dL (13.0-17.5); LYMPH # 1.8 x10^3/uL (1.0-4.8); LYMPH % 14 % (24-48); MEAN CORPUSCULAR HEMOGLOBIN 27 pg (25-35); MEAN CORPUSCULAR HGB CONC 32 g/dL (31-37); MEAN CORPUSCULAR VOLUME 85 fL (79-100); MONO % 5 % (0-9); NEUT % 77 % (31-73); PLATELET COUNT 290 x10^3/uL (140-400); RED BLOOD COUNT 3.44 x10^6/uL (4.30-5.70); WHITE BLOOD COUNT 12.5 x10^3/uL (4.0-11.0)
[2017-04-26 06:18] LABS: CALCIUM 8.6 mg/dL (8.5-10.1); CREATININE 0.6 mg/dL (0.7-1.3); GFR 164.1
[2017-04-26 07:00] VITALS: BP 105/60
[2017-04-26] MEDS: BACLOFEN 10 MG TABLET. GT SCH ×3 (09:00→20:50)
[2017-04-26] MEDS: ASPIRIN 325 MG TABLET GT SCH (09:00)
--- NOTE | 2017-04-26 09:06 | PDOC ---
PROGRESS NOTES Subjective Subjective sleeping. afebrile. lab reviewed. 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) Psych/Mental Status: Mood NL, Other Skin: No rashes Assessment Assessment Problems klebisiella bacteremia pseudomonas bacteremia spastic quadriplegia oropharyngeal dysphagia maintained on gastrostomy tube feeding short bowel syndrome maintained on daily iv fluids at home ileostomy aphasia anoxic encephalopathy right AKA hypernatremia resolved hypomagnesemia treated Medical Problems: (1) Septic shock Status: Acute (2) UTI (urinary tract infection) Status: Acute Plan Plan of Care replace port today continue iv levaquin and cefepime continue tube feeding and iv fluids lab tomorrow Comment Review of Relevant I have reviewed the following items ramon (where applicable) has been applied. Labs Laboratory Tests Test 04/25/17 05:20 04/26/17 05:50 White Blood Count 10.4 x10^3/uL (4.0-11.0) 12.5 x10^3/uL (4.0-11.0) Red Blood Count 3.51 x10^6/uL (4.30-5.70) 3.44 x10^6/uL (4.30-5.70) Hemoglobin 9.6 g/dL (13.0-17.5) 9.4 g/dL (13.0-17.5) Hematocrit 29.1 % (39.0-53.0) 29.1 % (39.0-53.0) Mean Corpuscular Volume 83 fL (79-100) 85 fL (79-100) Mean Corpuscular Hemoglobin 27 pg (25-35) 27 pg (25-35) Mean Corpuscular Hemoglobin Concent 33 g/dL (31-37) 32 g/dL (31-37) Red Cell Distribution Width 17.2 % (11.5-14.5) 17.0 % (11.5-14.5) Platelet Count 312 x10^3/uL (140-400) 290 x10^3/uL (140-400) Neutrophils (%) (Auto) 73 % (31-73) 77 % (31-73) Lymphocytes (%) (Auto) 16 % (24-48) 14 % (24-48) Monocytes (%) (Auto) 6 % (0-9) 5 % (0-9) Eosinophils (%) (Auto) 4 % (0-3) 4 % (0-3) Basophils (%) (Auto) 1 % (0-3) 0 % (0-3) Neutrophils # (Auto) 7.6 x10^3uL (1.8-7.7) 9.5 x10^3uL (1.8-7.7) Lymphocytes # (Auto) 1.7 x10^3/uL (1.0-4.8) 1.8 x10^3/uL (1.0-4.8) Monocytes # (Auto) 0.6 x10^3/uL (0.0-1.1) 0.6 x10^3/uL (0.0-1.1) Eosinophils # (Auto) 0.4 x10^3/uL (0.0-0.7) 0.5 x10^3/uL (0.0-0.7) Basophils # (Auto) 0.0 x10^3/uL (0.0-0.2) 0.0 x10^3/uL (0.0-0.2) Sodium Level 141 mmol/L (136-145) 140 mmol/L (136-145) Potassium Level 3.7 mmol/L (3.5-5.1) 4.0 mmol/L (3.5-5.1) Chloride Level 108 mmol/L (98-107) 107 mmol/L (98-107) Carbon Dioxide Level 26 mmol/L (21-32) 25 mmol/L (21-32) Anion Gap 7 (6-14) 8 (6-14) Blood Urea Nitrogen 13 mg/dL (8-26) 10 mg/dL (8-26) Creatinine 0.6 mg/dL (0.7-1.3) 0.6 mg/dL (0.7-1.3) Estimated GFR (Cockcroft-Gault) 164.1 164.1 Glucose Level 121 mg/dL (70-99) 79 mg/dL (70-99) Calcium Level 8.5 mg/dL (8.5-10.1) 8.6 mg/dL (8.5-10.1) Magnesium Level 1.9 mg/dL (1.8-2.4) Laboratory Tests Test 04/26/17 05:50 White Blood Count 12.5 x10^3/uL (4.0-11.0) Red Blood Count 3.44 x10^6/uL (4.30-5.70) Hemoglobin 9.4 g/dL (13.0-17.5) Hematocrit 29.1 % (39.0-53.0) Mean Corpuscular Volume 85 fL (79-100) Mean Corpuscular Hemoglobin 27 pg (25-35) Mean Corpuscular Hemoglobin Concent 32 g/dL (31-37) Red Cell Distribution Width 17.0 % (11.5-14.5) Platelet Count 290 x10^3/uL (140-400) Neutrophils (%) (Auto) 77 % (31-73) Lymphocytes (%) (Auto) 14 % (24-48) Monocytes (%) (Auto) 5 % (0-9) Eosinophils (%) (Auto) 4 % (0-3) Basophils (%) (Auto) 0 % (0-3) Neutrophils # (Auto) 9.5 x10^3uL (1.8-7.7) Lymphocytes # (Auto) 1.8 x10^3/uL (1.0-4.8) Monocytes # (Auto) 0.6 x10^3/uL (0.0-1.1) Eosinophils # (Auto) 0.5 x10^3/uL (0.0-0.7) Basophils # (Auto) 0.0 x10^3/uL (0.0-0.2) Sodium Level 140 mmol/L (136-145) Potassium Level 4.0 mmol/L (3.5-5.1) Chloride Level 107 mmol/L (98-107) Carbon Dioxide Level 25 mmol/L (21-32) Anion Gap 8 (6-14) Blood Urea Nitrogen 10 mg/dL (8-26) Creatinine 0.6 mg/dL (0.7-1.3) Estimated GFR (Cockcroft-Gault) 164.1 Glucose Level 79 mg/dL (70-99) Calcium Level 8.6 mg/dL (8.5-10.1) Microbiology 04/23/17 Blood Culture - Preliminary, Resulted NO GROWTH AFTER 3 DAYS 04/20/17 Urine Culture - Final, Complete 04/20/17 Urine Culture Result 1 (JAMISON) - Final, Complete 04/20/17 Urine Culture Result 2 (JAMISON) - Final, Complete 04/20/17 Antimicrobic Susceptibility - Final, Complete 04/24/17 Gram Stain - Final, Complete Medications Current Medications Sodium Chloride 1,000 ml @ 1,000 mls/hr Q1H IV Last administered on 04/20/17 03:45; Start 04/20/17 at 04:00; Stop 04/20/17 at 04:59; Status DC Sodium Chloride 500 ml @ 500 mls/hr 1X ONCE IV Last administered on 04:34; Start 04/20/17 at 04:30; Stop 04/20/17 at 05:29; Status DC Levofloxacin/ Dextrose 150 ml @ 100 mls/hr 1X ONCE IV Last administered on 04:34; Start 04/20/17 at 05:00; Stop 04/20/17 at 06:29; Status DC Vancomycin HCl 1.25 gm/Sodium Chloride 500 ml @ 250 mls/hr 1X ONCE IV Last administered on 04/20/17 05:10; Start 04/20/17 at 05:00; Stop 04/20/17 at 12:59 ; Status DC Vancomycin HCl (Vanco Per Pharmacy) 1 each PRN DAILY PRN MC SEE COMMENTS Last administered on 04/20/17 06:12; Start 04/20/17 at 04:30; Stop 04/20/17 at 12:59 ; Status DC Vancomycin HCl 750 mg/Sodium Chloride 250 ml @ 250 mls/hr Q24H IV ; Start 04/21 at 05:00; Stop 04/21/17 at 05:00; Status DC Vancomycin HCl 1 each 1X ONCE MC ; Start 04/22/17 at 04:30; Stop 04/22/17 at 04 :30; Status DC Dextrose/Sodium Chloride 1,000 ml @ 150 mls/hr Q6H40M IV Last administered on 04/20/17 07:03; Start 04/20/17 at 07:00; Stop 04/20/17 at 12:37; Status DC Norepinephrine Bitartrate 250 ml @ 0 mls/hr CONT PRN IV SEE I/O RECORD Last administered on 04/20/17 07:02; Start 04/20/17 at 06:45; Stop 04/21/17 at 10:56 ; Status DC Cefepime HCl 1 gm/ Sodium Chloride 50 ml @ 100 mls/hr Q8HRS IV Last administered on 04/26/17 05:36; Start 04/20/17 at 09:00 Sodium Chloride 1,000 ml @ 1,000 mls/hr 1X ONCE IV Last administered on 09:26; Start 04/20/17 at 09:00; Stop 04/20/17 at 09:59; Status DC Levofloxacin/ Dextrose 150 ml @ 100 mls/hr Q24H IV Last administered on 06:15; Start 04/21/17 at 07:00 Aspirin (Laura Aspirin) 325 mg DAILY GT Last administered on 04/25/17 09:22; Start 04/20/17 at 12:30 Ferrous Sulfate (Feosol) 325 mg DAILY PO Last administered on 04/20/17 12:20; Start 04/20/17 at 12:30; Stop 04/21/17 at 08:38; Status DC Quetiapine Fumarate (SEROquel) 25 mg PRN QHS PRN GT INSOMNIA Last administered on 04/21/17 21:05; Start 04/20/17 at 11:45; Stop 04/22/17 at 21:00; Status DC Multivitamins (Thera-Plus) 5 ml DAILY GT Last administered on 04/25/17 09:23; Start 04/21/17 at 09:00 Baclofen (Lioresal) 5 mg TID GT ; Start 04/20/17 at 14:00; Stop 04/20/17 at 14: 00; Status DC Baclofen (Lioresal) 10 mg TID GT Last administered on 04/25/17 21:25; Start at 14:00 Sodium Chloride 1,000 ml @ 60 mls/hr [id number] IV Last administered on 20:38; Start 04/20/17 at 12:30; Stop 04/24/17 at 09:05; Status DC Acetaminophen (Tylenol) 650 mg PRN Q6HRS PRN PEG MILD PAIN / TEMP Last administered on 04/25/17 18:25; Start 04/20/17 at 12:30 Famotidine (Pepcid) 20 mg QHS PEG Last administered on 04/20/17 20:46; Start 04/20/17 at 21:00; Stop 04/21/17 at 08:36; Status DC Famotidine (Pepcid) 20 mg BID PEG Last administered on 04/25/17 21:25; Start 04/21/17 at 09:00 Ferrous Sulfate 300 mg DAILY PO ; Start 04/21/17 at 09:00; Stop 04/21/17 at 09: 00; Status DC Ferrous Sulfate 300 mg DAILY GT Last administered on 04/25/17 09:22; Start at 09:00 Quetiapine Fumarate (SEROquel) 25 mg QHS GT Last administered on 04/25/17 21: 25; Start 04/22/17 at 21:00 Temazepam (Restoril) 45 mg QHS PO Last administered on 04/25/17 21:25; Start 04/22/17 at 21:00 Potassium Chloride (KCl Oral Soln) 40 meq 1X ONCE PEG Last administered on 13:05; Start 04/23/17 at 09:30; Stop 04/23/17 at 09:36; Status DC Lidocaine/ Epinephrine (Xylocaine 1%-Epi 1:100,000) 20 ml STK-MED ONCE .ROUTE ; Start 04/24/17 at 09:03; Stop 04/24/17 at 09:04; Status DC Magnesium Sulfate/ Dextrose 50 ml @ 25 mls/hr 1X ONCE IV Last administered on 04/24/17 11:22; Start 04/24/17 at 09:15; Stop 04/24/17 at 11:14; Status DC Sodium Chloride 1,000 ml @ 60 mls/hr [id number] IV Last administered on 18:35; Start 04/24/17 at 09:15 Lidocaine/ Epinephrine (Xylocaine 1%-Epi 1:100,000) 20 ml STK-MED ONCE .ROUTE ; Start 04/24/17 at 12:11; Stop 04/24/17 at 12:12; Status DC Lidocaine/ Epinephrine (Xylocaine 1%-Epi 1:100,000) 20 ml 1X ONCE INJ Last administered on 04/24/17 12:50; Start 04/24/17 at 13:00; Stop 04/24/17 at 13:01 ; Status DC Acetaminophen/ Hydrocodone Bitart (Lortab 10/325) 1 tab PRN Q6HRS PRN PO SEVERE PAIN Last administered on 04/25/17 21:25; Start 04/25/17 at 20:45 Active Scripts Active [Baclofen] 10 MG Tablet 5 Mg PEG TID Reported Seroquel (Quetiapine Fumarate) 25 Mg Tablet 1.5 Tab GT QHS Mupirocin Ointment (Mupirocin) 22 Gm Oint...g. 1 Elena TP BID Hydrocodone-Apap 5-325 (Hydrocodone Bit/Acetaminophen) 1 Each Tablet 1 Tab GT PRN Q6HRS PRN Ferrous Sulfate 325 Mg Tablet 1 Tab GT DAILY Erythromycin (Erythromycin Base) 1 Gm Oint...g. 1 Gm OP Q6HRS Temazepam 30 Mg Capsule 30 Mg GT HS PRN Seroquel (Quetiapine Fumarate) 25 Mg Tablet 0.5 Tab GT PRN PRN Protonix (Pantoprazole Sodium) 40 Mg Tablet.dr 1 Tab GT DAILY Duoneb 0.5-3(2.5) Mg/3 Ml (Albuterol/Ipratropium) 3 Ml Ampul.neb 3 Ml NEB QID Multivitamins (Multivitamin) 1 Each Capsule 1 Each GT DAILY Temazepam 15 Mg Capsule 1 Cap GT QHS NITRO-DUR 0.4mg/hr (Nitroglycerin) 1 Each Patch.td24 1 Each TD Tylenol (Acetaminophen) 325 Mg Tablet 325 Mg PO Q4HRS PRN Aspirin 325 Mg Tablet 325 Mg GT DAILY Vitals/I & O Vital Sign - Last 24 Hours 04/25/17 04/25/17 04/25/17 04/25/17 10:30 14:42 19:00 20:00 Temp 97.9 98.2 97.9 98.2 Pulse 69 20 Resp 20 20 B/P (MAP) 110/72 (85) 117/71 (86) Pulse Ox 98 99 O2 Delivery Room Air Room Air Room Air Room Air 04/25/17 04/25/17 04/25/17 04/26/17 21:25 22:25 23:00 03:00 Temp 97.3 97.5 97.3 97.5 Pulse 71 66 Resp 19 19 B/P (MAP) 91/61 (71) 110/78 (89) Pulse Ox 99 99 99 97 O2 Delivery Room Air Room Air Room Air Room Air 04/26/17 07:00 Temp 97.7 97.7 Pulse 56 Resp 18 B/P (MAP) 105/60 (75) Pulse Ox 99 O2 Delivery Room Air Intake and Output 04/25/17 04/25/17 04/26/17 15:00 23:00 07:00 Intake Total 250 ml 120 ml 710 ml Output Total 1150 ml Balance -900 ml 120 ml 710 ml Nutrition Consultation Dietary Evaluation: Comments: Rec. continue TF order as medically appropriate and as tolerated: increase TF 10 ml q 8 hr to goal rate of 60 ml/hr REC Flushes of 100 cc q6h if no IVF's running left foot wound: rec. continue the daily MVI and 500 mg Vitamin C/day to aide with wound healing Expected Outcomes/Goals: tolerate TF's at goal rate - on going - goal increased improved left foot wound Malnutrition Findings: Body Fat Depletion (Non Severe: Mod to Severe Weight Status: Underweight ADRIANE ALAN MD Apr 26, 2017 09:06
[2017-04-26 11:00] VITALS: BP 114/66
--- NOTE | 2017-04-26 11:23 | PDOC ---
Infectious Disease Note Subjective Subjective Noncommunicative No fever No increase ostomy output per Vital Sign Vital Signs Vital Signs Date Time Temp Pulse Resp B/P (MAP) Pulse Ox O2 Delivery O2 Flow Rate FiO2 04/26/17 07:00 97.7 56 18 105/60 (75) 99 Room Air 97.7 Physical Exam PHYSICAL EXAM GENERAL: NAD LUNGS: Clear anteriorly, nonlabored HEART: S1S2 ABD: Soft, g-tube, ostomy EXT: No edema, PERIODONTIST: Eyes closed SKIN: No rash Previous port site-bandaged Labs Lab Laboratory Tests Test 04/26/17 05:50 White Blood Count 12.5 x10^3/uL (4.0-11.0) Red Blood Count 3.44 x10^6/uL (4.30-5.70) Hemoglobin 9.4 g/dL (13.0-17.5) Hematocrit 29.1 % (39.0-53.0) Mean Corpuscular Volume 85 fL (79-100) Mean Corpuscular Hemoglobin 27 pg (25-35) Mean Corpuscular Hemoglobin Concent 32 g/dL (31-37) Red Cell Distribution Width 17.0 % (11.5-14.5) Platelet Count 290 x10^3/uL (140-400) Neutrophils (%) (Auto) 77 % (31-73) Lymphocytes (%) (Auto) 14 % (24-48) Monocytes (%) (Auto) 5 % (0-9) Eosinophils (%) (Auto) 4 % (0-3) Basophils (%) (Auto) 0 % (0-3) Neutrophils # (Auto) 9.5 x10^3uL (1.8-7.7) Lymphocytes # (Auto) 1.8 x10^3/uL (1.0-4.8) Monocytes # (Auto) 0.6 x10^3/uL (0.0-1.1) Eosinophils # (Auto) 0.5 x10^3/uL (0.0-0.7) Basophils # (Auto) 0.0 x10^3/uL (0.0-0.2) Sodium Level 140 mmol/L (136-145) Potassium Level 4.0 mmol/L (3.5-5.1) Chloride Level 107 mmol/L (98-107) Carbon Dioxide Level 25 mmol/L (21-32) Anion Gap 8 (6-14) Blood Urea Nitrogen 10 mg/dL (8-26) Creatinine 0.6 mg/dL (0.7-1.3) Estimated GFR (Cockcroft-Gault) 164.1 Glucose Level 79 mg/dL (70-99) Calcium Level 8.6 mg/dL (8.5-10.1) Micro 04/23. BLOOD CULTURE Preliminary NO GROWTH AFTER 3 DAYS Cath tip AEROBIC RES 1 Preliminary No growth in 48 hours. BLD CULT RESULT 1 Preliminary Pseudomonas aeruginosa Recovered from aerobic bottle only. GROWTH IN 1 SET FROM LINE Antibiotic RSLT#1 Amikacin S Cefepime S Ceftazidime S Ciprofloxacin S Gentamicin S Imipenem S Levofloxacin S Meropenem S Piperacillin S Ticarcillin S Tobramycin S BLD CULT RESULT 1 Final Klebsiella pneumoniae Recovered from aerobic and anaerobic bottles. GROWTH IN 1 OF 2 SETS Antibiotic RSLT#1 Amoxicillin/Clavulanic Acid S Ampicillin R Cefepime S Ceftriaxone S Cefuroxime S Cephalothin S Ciprofloxacin S Ertapenem S Gentamicin S Imipenem S Levofloxacin S Nitrofurantoin I Piperacillin S Tetracycline S Tobramycin S Trimethoprim/Sulfa S URINE CULTURE RES 1 MRSA Objective Assessment PSA (line) and klebsiella sepsis, POA., 04/20. Repeat BC from 04/23 NGTD UTI POA, 04/20. MRSA in the urine, not typically considered an uropathogen s/p port removal 04/24 Fever, improved Leukocytosis Anoxic brain injury Persistent veg state Plan Plan of Care Cefepime and Levaquin for now- deescalate to g-tube soon Await port placement today f/u am labs D/w D/w Dr. Black Attending Co-Sign The patient was seen and interviewed as well as examined at the bedside. The chart was reviewed. The case was discussed. Agree with the plan of care. CATY JO APRN Apr 26, 2017 11:23 CATHY ELIAS MD Apr 26, 2017 13:22
[2017-04-26] MEDS ORDERED: VANCOMYCIN 1GM IVPB FOR OMNI 250 ML ONE (12:43)
[2017-04-26] MEDS ORDERED: LIDOCAINE 1%/EPI 1:200,000 30 ML VIAL. ONE (12:43)
[2017-04-26] MEDS ORDERED: HEPARIN PF 500 UNIT/5 ML DISP.SYRIN. IV ONE ×2 (12:44→13:45)
[2017-04-26] MEDS ORDERED: CLINDAMYCIN 600MG PREMIX 50 ML IV ONE ×2 (13:01→13:45)
[2017-04-26] MEDS ORDERED: MIDAZOLAM HCL/PF 2 MG/2 ML VIAL. ONE (13:02)
[2017-04-26] MEDS ORDERED: fentaNYL PF VIAL 100 MCG/2 ML VIAL ONE (13:02)
[2017-04-26] MEDS ORDERED: MIDAZOLAM HCL/PF 2 MG/2 ML VIAL. IV ONE (13:45)
[2017-04-26] MEDS ORDERED: LIDOCAINE 1%/EPI 1:100,000 20 ML VIAL. INJ ONE (13:45)
[2017-04-26] MEDS ORDERED: fentaNYL PF VIAL 100 MCG/2 ML VIAL IV ONE (13:45)
[2017-04-26 15:00] VITALS: BP 105/69
[2017-04-26] MEDS: FERROUS SULFATE ORAL 300 MG/5 ML SOLUTION. GT SCH (15:20)
[2017-04-26] MEDS: FAMOTIDINE 20 MG TABLET. PEG SCH ×2 (15:21→20:50)
[2017-04-26] MEDS: MULTIVITAMINS,THERAPEUTIC 5 ML ORAL LIQUID. GT SCH (15:21)
--- NOTE | 2017-04-26 15:23 | RAD ---
Procedure: Ultrasound and fluoroscopically guided placement of right internal jugular power port.. 04/26/2017 3:17 PM Clinical Indication: care home ivf Sedation: Conscious sedation was administered for 30 minutes. The patient was monitored by a qualified independent observer throughout the time of sedation. Please refer to the medical record for exact doses of medications utilized to achieve moderate sedation. Fluoroscopy time: 10.9 minutes Dose area product: 11 Gycm2 Consent: The procedure was explained in its entirety to the patient or the patients designated renewals representative by a member of the treatment team, including a discussion of the risks, benefits and commonly accepted alternatives to the procedure, as well as the expected consequences of no therapy whatsoever. Discussion of the risks included, but was not limited to, those that are most frequent and those that are rare but possibly severe or life-threatening, as well as the possibility of unforeseen complications. Technique and Findings: All elements of maximal sterile barrier technique including the use of a cap, mask, sterile gown, sterile gloves, large sterile sheet, appropriate hand hygiene, and 2% chlorhexidine for cutaneous antisepsis (or acceptable alternative antiseptic per current guidelines) were followed for this procedure. Following informed consent, and a timeout procedure, the patient was prepped and draped in the usual sterile fashion. Ultrasound interrogation of the right neck revealed a small but apparently patent jugular vein. This vein was accessed with a micropuncture needle however the microwire would not extend inferiorly despite multiple attempts maneuvering. This access was abandoned. A large collateral vein, possibly an external jugular collateral was accessed using micropuncture technique, and a guidewire advanced into the inferior vena cava. A hard copy ultrasound image was recorded. The needle was exchanged over a wire for a sheath. A 1 inch incision was made several centimeters inferior to the sternotomy site. A catheter was tunneled from this site dermatotomy site in the neck. Catheter was advanced through peel-away sheath such that its tip was in the proximal right atrium with the patient supine. The catheter was trimmed to length and connected to the port reservoir. The port was found to flush and aspirate normally. The wound was closed in layers using 4-0 Vicryl suture. Sterile dressings were applied. Impression: Successful ultrasound and fluoroscopically guided placement of a right internal jugular PowerPort
[2017-04-26] MEDS: IV 1/2 NORMAL SALINE 1,000 ML IV SCH (16:24)
[2017-04-26 19:00] VITALS: BP 113/72
[2017-04-26] MEDS: TEMAZEPAM 15 MG CAPSULE PO SCH (20:50)
[2017-04-26] MEDS: QUEtiapine 25 MG TABLET. GT SCH (20:50)
[2017-04-26 23:00] VITALS: BP 94/62
[2017-04-27 03:00] VITALS: BP 95/77
[2017-04-27] MEDS: CEFEPIME HCL 1 GM in IV NORMAL SALINE 50ML 50 ML IV SCH (05:10)
[2017-04-27] MEDS: IV 1/2 NORMAL SALINE 1,000 ML IV SCH (06:15)
[2017-04-27 07:00] VITALS: BP 97/71
[2017-04-27 07:40] LABS: BASO % 0 % (0-3); EOS % 3 % (0-3); HEMATOCRIT 30.1 % (39.0-53.0); HEMOGLOBIN 9.8 g/dL (13.0-17.5); LYMPH # 1.3 x10^3/uL (1.0-4.8); LYMPH % 10 % (24-48); MEAN CORPUSCULAR HEMOGLOBIN 27 pg (25-35); MEAN CORPUSCULAR HGB CONC 32 g/dL (31-37); MEAN CORPUSCULAR VOLUME 84 fL (79-100); MONO % 5 % (0-9); NEUT % 82 % (31-73); PLATELET COUNT 308 x10^3/uL (140-400); RED BLOOD COUNT 3.57 x10^6/uL (4.30-5.70); RED CELL DISTRIBUTION WIDTH 17.5 % (11.5-14.5); WHITE BLOOD COUNT 12.5 x10^3/uL (4.0-11.0)
[2017-04-27 07:51] LABS: CREATININE 0.7 mg/dL (0.7-1.3); GFR 137.4; POTASSIUM 3.8 mmol/L (3.5-5.1)
[2017-04-27] MEDS: FAMOTIDINE 20 MG TABLET. PEG SCH (09:00)
[2017-04-27] MEDS: BACLOFEN 10 MG TABLET. GT SCH ×2 (09:00→13:09)
[2017-04-27] MEDS: FERROUS SULFATE ORAL 300 MG/5 ML SOLUTION. GT SCH (09:00)
[2017-04-27] MEDS: MULTIVITAMINS,THERAPEUTIC 5 ML ORAL LIQUID. GT SCH (09:00)
[2017-04-27] MEDS: ASPIRIN 325 MG TABLET GT SCH (09:00)
[2017-04-27 10:59] VITALS: BP 127/71
--- NOTE | 2017-04-27 11:37 | PDOC ---
PROGRESS NOTES Subjective Subjective power picc replaced. afebrile. discussed with . discussed with dr. florence walker and ready for dismissal.lab reviewed. 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) Psych/Mental Status: Mood NL Skin: No rashes Assessment Assessment Problems klebisiella bacteremia pseudomonas bacteremia spastic quadriplegia oropharyngeal dysphagia maintained on gastrostomy tube feeding 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 Labs Laboratory Tests Test 04/26/17 05:50 04/27/17 07:20 White Blood Count 12.5 x10^3/uL (4.0-11.0) 12.5 x10^3/uL (4.0-11.0) Red Blood Count 3.44 x10^6/uL (4.30-5.70) 3.57 x10^6/uL (4.30-5.70) Hemoglobin 9.4 g/dL (13.0-17.5) 9.8 g/dL (13.0-17.5) Hematocrit 29.1 % (39.0-53.0) 30.1 % (39.0-53.0) Mean Corpuscular Volume 85 fL (79-100) 84 fL (79-100) Mean Corpuscular Hemoglobin 27 pg (25-35) 27 pg (25-35) Mean Corpuscular Hemoglobin Concent 32 g/dL (31-37) 32 g/dL (31-37) Red Cell Distribution Width 17.0 % (11.5-14.5) 17.5 % (11.5-14.5) Platelet Count 290 x10^3/uL (140-400) 308 x10^3/uL (140-400) Neutrophils (%) (Auto) 77 % (31-73) 82 % (31-73) Lymphocytes (%) (Auto) 14 % (24-48) 10 % (24-48) Monocytes (%) (Auto) 5 % (0-9) 5 % (0-9) Eosinophils (%) (Auto) 4 % (0-3) 3 % (0-3) Basophils (%) (Auto) 0 % (0-3) 0 % (0-3) Neutrophils # (Auto) 9.5 x10^3uL (1.8-7.7) 10.2 x10^3uL (1.8-7.7) Lymphocytes # (Auto) 1.8 x10^3/uL (1.0-4.8) 1.3 x10^3/uL (1.0-4.8) Monocytes # (Auto) 0.6 x10^3/uL (0.0-1.1) 0.6 x10^3/uL (0.0-1.1) Eosinophils # (Auto) 0.5 x10^3/uL (0.0-0.7) 0.4 x10^3/uL (0.0-0.7) Basophils # (Auto) 0.0 x10^3/uL (0.0-0.2) 0.0 x10^3/uL (0.0-0.2) Sodium Level 140 mmol/L (136-145) 139 mmol/L (136-145) Potassium Level 4.0 mmol/L (3.5-5.1) 3.8 mmol/L (3.5-5.1) Chloride Level 107 mmol/L (98-107) 105 mmol/L (98-107) Carbon Dioxide Level 25 mmol/L (21-32) 26 mmol/L (21-32) Anion Gap 8 (6-14) 8 (6-14) Blood Urea Nitrogen 10 mg/dL (8-26) 13 mg/dL (8-26) Creatinine 0.6 mg/dL (0.7-1.3) 0.7 mg/dL (0.7-1.3) Estimated GFR (Cockcroft-Gault) 164.1 137.4 Glucose Level 79 mg/dL (70-99) 173 mg/dL (70-99) Calcium Level 8.6 mg/dL (8.5-10.1) 9.0 mg/dL (8.5-10.1) Laboratory Tests Test 04/27/17 07:20 White Blood Count 12.5 x10^3/uL (4.0-11.0) Red Blood Count 3.57 x10^6/uL (4.30-5.70) Hemoglobin 9.8 g/dL (13.0-17.5) Hematocrit 30.1 % (39.0-53.0) Mean Corpuscular Volume 84 fL (79-100) Mean Corpuscular Hemoglobin 27 pg (25-35) Mean Corpuscular Hemoglobin Concent 32 g/dL (31-37) Red Cell Distribution Width 17.5 % (11.5-14.5) Platelet Count 308 x10^3/uL (140-400) Neutrophils (%) (Auto) 82 % (31-73) Lymphocytes (%) (Auto) 10 % (24-48) Monocytes (%) (Auto) 5 % (0-9) Eosinophils (%) (Auto) 3 % (0-3) Basophils (%) (Auto) 0 % (0-3) Neutrophils # (Auto) 10.2 x10^3uL (1.8-7.7) Lymphocytes # (Auto) 1.3 x10^3/uL (1.0-4.8) Monocytes # (Auto) 0.6 x10^3/uL (0.0-1.1) Eosinophils # (Auto) 0.4 x10^3/uL (0.0-0.7) Basophils # (Auto) 0.0 x10^3/uL (0.0-0.2) Sodium Level 139 mmol/L (136-145) Potassium Level 3.8 mmol/L (3.5-5.1) Chloride Level 105 mmol/L (98-107) Carbon Dioxide Level 26 mmol/L (21-32) Anion Gap 8 (6-14) Blood Urea Nitrogen 13 mg/dL (8-26) Creatinine 0.7 mg/dL (0.7-1.3) Estimated GFR (Cockcroft-Gault) 137.4 Glucose Level 173 mg/dL (70-99) Calcium Level 9.0 mg/dL (8.5-10.1) Microbiology 04/23/17 Blood Culture - Preliminary, Resulted NO GROWTH AFTER 4 DAYS 04/20/17 Urine Culture - Final, Complete 04/20/17 Urine Culture Result 1 (JAMISON) - Final, Complete 04/20/17 Urine Culture Result 2 (JAMISON) - Final, Complete 04/20/17 Antimicrobic Susceptibility - Final, Complete 04/24/17 Gram Stain - Final, Complete Medications Current Medications Sodium Chloride 1,000 ml @ 1,000 mls/hr Q1H IV Last administered on 04/20/17 03:45; Start 04/20/17 at 04:00; Stop 04/20/17 at 04:59; Status DC Sodium Chloride 500 ml @ 500 mls/hr 1X ONCE IV Last administered on 04:34; Start 04/20/17 at 04:30; Stop 04/20/17 at 05:29; Status DC Levofloxacin/ Dextrose 150 ml @ 100 mls/hr 1X ONCE IV Last administered on 04:34; Start 04/20/17 at 05:00; Stop 04/20/17 at 06:29; Status DC Vancomycin HCl 1.25 gm/Sodium Chloride 500 ml @ 250 mls/hr 1X ONCE IV Last administered on 04/20/17 05:10; Start 04/20/17 at 05:00; Stop 04/20/17 at 12:59 ; Status DC Vancomycin HCl (Vanco Per Pharmacy) 1 each PRN DAILY PRN MC SEE COMMENTS Last administered on 04/20/17 06:12; Start 04/20/17 at 04:30; Stop 04/20/17 at 12:59 ; Status DC Vancomycin HCl 750 mg/Sodium Chloride 250 ml @ 250 mls/hr Q24H IV ; Start 04/21 at 05:00; Stop 04/21/17 at 05:00; Status DC Vancomycin HCl 1 each 1X ONCE MC ; Start 04/22/17 at 04:30; Stop 04/22/17 at 04 :30; Status DC Dextrose/Sodium Chloride 1,000 ml @ 150 mls/hr Q6H40M IV Last administered on 04/20/17 07:03; Start 04/20/17 at 07:00; Stop 04/20/17 at 12:37; Status DC Norepinephrine Bitartrate 250 ml @ 0 mls/hr CONT PRN IV SEE I/O RECORD Last administered on 04/20/17 07:02; Start 04/20/17 at 06:45; Stop 04/21/17 at 10:56 ; Status DC Cefepime HCl 1 gm/ Sodium Chloride 50 ml @ 100 mls/hr Q8HRS IV Last administered on 04/27/17 05:10; Start 04/20/17 at 09:00 Sodium Chloride 1,000 ml @ 1,000 mls/hr 1X ONCE IV Last administered on 09:26; Start 04/20/17 at 09:00; Stop 04/20/17 at 09:59; Status DC Levofloxacin/ Dextrose 150 ml @ 100 mls/hr Q24H IV Last administered on 06:15; Start 04/21/17 at 07:00 Aspirin (Laura Aspirin) 325 mg DAILY GT Last administered on 04/27/17 09:00; Start 04/20/17 at 12:30 Ferrous Sulfate (Feosol) 325 mg DAILY PO Last administered on 04/20/17 12:20; Start 04/20/17 at 12:30; Stop 04/21/17 at 08:38; Status DC Quetiapine Fumarate (SEROquel) 25 mg PRN QHS PRN GT INSOMNIA Last administered on 04/21/17 21:05; Start 04/20/17 at 11:45; Stop 04/22/17 at 21:00; Status DC Multivitamins (Thera-Plus) 5 ml DAILY GT Last administered on 04/27/17 09:00; Start 04/21/17 at 09:00 Baclofen (Lioresal) 5 mg TID GT ; Start 04/20/17 at 14:00; Stop 04/20/17 at 14: 00; Status DC Baclofen (Lioresal) 10 mg TID GT Last administered on 04/27/17 09:00; Start at 14:00 Sodium Chloride 1,000 ml @ 60 mls/hr [id number] IV Last administered on 20:38; Start 04/20/17 at 12:30; Stop 04/24/17 at 09:05; Status DC Acetaminophen (Tylenol) 650 mg PRN Q6HRS PRN PEG MILD PAIN / TEMP Last administered on 04/25/17 18:25; Start 04/20/17 at 12:30 Famotidine (Pepcid) 20 mg QHS PEG Last administered on 04/20/17 20:46; Start 04/20/17 at 21:00; Stop 04/21/17 at 08:36; Status DC Famotidine (Pepcid) 20 mg BID PEG Last administered on 04/27/17 09:00; Start 04/21/17 at 09:00 Ferrous Sulfate 300 mg DAILY PO ; Start 04/21/17 at 09:00; Stop 04/21/17 at 09: 00; Status DC Ferrous Sulfate 300 mg DAILY GT Last administered on 04/27/17 09:00; Start at 09:00 Quetiapine Fumarate (SEROquel) 25 mg QHS GT Last administered on 04/26/17 20: 50; Start 04/22/17 at 21:00 Temazepam (Restoril) 45 mg QHS PO Last administered on 04/26/17 20:50; Start 04/22/17 at 21:00 Potassium Chloride (KCl Oral Soln) 40 meq 1X ONCE PEG Last administered on 13:05; Start 04/23/17 at 09:30; Stop 04/23/17 at 09:36; Status DC Lidocaine/ Epinephrine (Xylocaine 1%-Epi 1:100,000) 20 ml STK-MED ONCE .ROUTE ; Start 04/24/17 at 09:03; Stop 04/24/17 at 09:04; Status DC Magnesium Sulfate/ Dextrose 50 ml @ 25 mls/hr 1X ONCE IV Last administered on 04/24/17 11:22; Start 04/24/17 at 09:15; Stop 04/24/17 at 11:14; Status DC Sodium Chloride 1,000 ml @ 60 mls/hr [id number] IV Last administered on 06:15; Start 04/24/17 at 09:15 Lidocaine/ Epinephrine (Xylocaine 1%-Epi 1:100,000) 20 ml STK-MED ONCE .ROUTE ; Start 04/24/17 at 12:11; Stop 04/24/17 at 12:12; Status DC Lidocaine/ Epinephrine (Xylocaine 1%-Epi 1:100,000) 20 ml 1X ONCE INJ Last administered on 04/24/17 12:50; Start 04/24/17 at 13:00; Stop 04/24/17 at 13:01 ; Status DC Acetaminophen/ Hydrocodone Bitart (Lortab 10/325) 1 tab PRN Q6HRS PRN PO SEVERE PAIN Last administered on 04/25/17 21:25; Start 04/25/17 at 20:45 Heparin Sodium/ Sodium Chloride 500 ml @ As Directed STK-MED ONCE .ROUTE ; Start 04/26/17 at 12:43; Stop 04/26/17 at 12:44; Status DC Vancomycin HCl 250 ml @ As Directed STK-MED ONCE .ROUTE ; Start 04/26/17 at 12: 43; Stop 04/26/17 at 12:44; Status DC Lidocaine/ Epinephrine (Xylocaine 1%-Epi 1:200,000) 30 ml STK-MED ONCE .ROUTE ; Start 04/26/17 at 12:43; Stop 04/26/17 at 12:44; Status DC Heparin Sodium (Porcine) (Hep Lock Adult) 500 unit STK-MED ONCE IV ; Start 04/26 at 12:44; Stop 04/26/17 at 12:45; Status DC Clindamycin Phosphate 50 ml @ As Directed STK-MED ONCE IV ; Start 04/26/17 at 13 :01; Stop 04/26/17 at 13:02; Status DC Fentanyl Citrate (Fentanyl 2ml Vial) 100 mcg STK-MED ONCE .ROUTE ; Start at 13:02; Stop 04/26/17 at 13:03; Status DC Midazolam HCl (Versed) 2 mg STK-MED ONCE .ROUTE ; Start 04/26/17 at 13:02; Stop 04/26/17 at 13:03; Status DC Heparin Sodium/ Sodium Chloride 1,000 unit 1X ONCE IART Last administered on 14:42; Start 04/26/17 at 13:45; Stop 04/26/17 at 13:46; Status DC Midazolam HCl (Versed) 2 mg 1X ONCE IV Last administered on 04/26/17 14:43; Start 04/26/17 at 13:45; Stop 04/26/17 at 13:46; Status DC Fentanyl Citrate (Fentanyl 2ml Vial) 100 mcg 1X ONCE IV Last administered on 14:44; Start 04/26/17 at 13:45; Stop 04/26/17 at 13:46; Status DC Lidocaine/ Epinephrine (Xylocaine 1%-Epi 1:100,000) 20 ml 1X ONCE INJ ; Start 04/26/17 at 13:45; Stop 04/26/17 at 13:46; Status DC Heparin Sodium (Porcine) (Hep Lock Adult) 500 unit 1X ONCE IV Last administered on 04/26/17 14:45; Start 04/26/17 at 13:45; Stop 04/26/17 at 13:46 ; Status DC Clindamycin Phosphate 50 ml @ 100 mls/hr 1X ONCE IV Last administered on 04/26 14:47; Start 04/26/17 at 13:45; Stop 04/26/17 at 14:14; Status DC Active Scripts Active [Baclofen] 10 MG Tablet 5 Mg PEG TID Reported Seroquel (Quetiapine Fumarate) 25 Mg Tablet 1.5 Tab GT QHS Mupirocin Ointment (Mupirocin) 22 Gm Oint...g. 1 Elena TP BID Hydrocodone-Apap 5-325 (Hydrocodone Bit/Acetaminophen) 1 Each Tablet 1 Tab GT PRN Q6HRS PRN Ferrous Sulfate 325 Mg Tablet 1 Tab GT DAILY Erythromycin (Erythromycin Base) 1 Gm Oint...g. 1 Gm OP Q6HRS Temazepam 30 Mg Capsule 30 Mg GT HS PRN Seroquel (Quetiapine Fumarate) 25 Mg Tablet 0.5 Tab GT PRN PRN Protonix (Pantoprazole Sodium) 40 Mg Tablet.dr 1 Tab GT DAILY Duoneb 0.5-3(2.5) Mg/3 Ml (Albuterol/Ipratropium) 3 Ml Ampul.neb 3 Ml NEB QID Multivitamins (Multivitamin) 1 Each Capsule 1 Each GT DAILY Temazepam 15 Mg Capsule 1 Cap GT QHS NITRO-DUR 0.4mg/hr (Nitroglycerin) 1 Each Patch.td24 1 Each TD Tylenol (Acetaminophen) 325 Mg Tablet 325 Mg PO Q4HRS PRN Aspirin 325 Mg Tablet 325 Mg GT DAILY Vitals/I & O Vital Sign - Last 24 Hours 04/26/17 04/26/17 04/26/17 04/26/17 14:44 15:00 19:00 19:41 Temp 97.7 98.7 97.7 98.7 Pulse 68 77 Resp 16 17 18 B/P (MAP) 105/69 (81) 113/72 (86) Pulse Ox 96 97 96 O2 Delivery Nasal Cannula Room Air Room Air Room Air O2 Flow Rate 4.0 4.0 04/26/17 04/27/17 04/27/17 04/27/17 23:00 03:00 07:00 08:00 Temp 98.0 97.9 98.5 98.0 97.9 98.5 Pulse 71 67 89 Resp 18 18 18 B/P (MAP) 94/62 (73) 95/77 (83) 97/71 (80) Pulse Ox 94 96 98 O2 Delivery Room Air Room Air Room Air Room Air 04/27/17 10:59 Temp 98.1 98.1 Pulse 78 Resp 18 B/P (MAP) 127/71 (89) O2 Delivery Room Air Intake and Output 04/26/17 04/26/17 04/27/17 15:00 23:00 07:00 Intake Total 550 ml 1525 ml Output Total 400 ml 350 ml Balance 150 ml 1175 ml Nutrition Consultation Dietary Evaluation: Comments: Rec. continue TF order as medically appropriate and as tolerated: increase TF 10 ml q 8 hr to goal rate of 60 ml/hr REC Flushes of 100 cc q6h if no IVF's running left foot wound: rec. continue the daily MVI and 500 mg Vitamin C/day to aide with wound healing Expected Outcomes/Goals: tolerate TF's at goal rate - on going - goal increased improved left foot wound Malnutrition Findings: Body Fat Depletion (Non Severe: Mod to Severe Weight Status: Underweight ADRIANE ALAN MD Apr 27, 2017 11:37
--- NOTE | 2017-04-27 11:43 | DISCH ---
DISCHARGE INSTRUCTIONS Condition on Discharge Condition on Discharge: Stable Activity After Discharge Activity Instructions for Disc: Resume previous activity Diet after Discharge Diet after Discharge: No Added Sugar Additional Diet Restrictions: npo. fibersource 110cc/hr.water 250cc q 6 hrs Contacting the DRSylvia after DC Call your doctor for: If your condition worsens Follow-Up Follow up with: dr. alan next week ADRIANE ALAN MD Apr 27, 2017 11:43
[2017-04-27] MEDS ORDERED: QUET25TA GT (11:47)
[2017-04-27] MEDS ORDERED: BACL10TA GT (11:47)
[2017-04-27] MEDS ORDERED: HYDR-2766 PO (11:47)
[2017-04-27] MEDS ORDERED: FAMO20TA5 PEG (11:47)
[2017-04-27] MEDS ORDERED: LEVO500T59 PEG (11:47)
--- NOTE | 2017-04-27 11:52 | PDOC ---
Provider Note Provider Note discharge summary dictated # [id number] ADRIANE ALAN MD Apr 27, 2017 11:52
--- NOTE | 2017-04-27 21:49 | DS ---
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 Markel Aburto. FINAL DIAGNOSES: 1. Sepsis with shock due to Klebsiella and pseudomonas bacteremia. The suspected source was the PICC line. 2. Pyuria, but no urinary tract infection. 3. Metabolic encephalopathy on top of anoxic encephalopathy. 4. Leukocytosis. 5. Short bowel syndrome with an ileostomy. 6. 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 7. Oropharyngeal dysphagia, maintained on gastrostomy tube feedings. 8. History of right above-knee amputation. 9. Aphasia. PROCEDURE: Removal of his port and replacement of the PowerPICC. HOSPITAL COURSE: The patient is a 66-year-old -[place] male with a history of anoxic encephalopathy from previous cardiopulmonary arrest outside the hospital with spastic quadriparesis and oropharyngeal dysphagia, maintained on gastrostomy tube feedings and aphasia who had a small bowel resection due to ischemia and has a short bowel syndrome and ileostomy, maintained on gastrostomy tube feedings and home IV fluids, who has a history of right above-knee amputation, cared for by his at home, admitted to [facility] through the Emergency Room on 04/20/2017 with 3-day history of fever and apnea at home. did some brief CPR and the patient was sent by EMT to the [facility] Emergency Room where he was noted to be in septic shock and received IV fluids and also was noted to have lactic acidosis and leukocytosis, started on IV antibiotics and he is a full code, also was started on pressors including Levophed drip. The patient eventually was weaned off the Levophed drip. His blood pressure normalized. He was started on his tube feedings, which was advanced. Blood cultures were positive for Klebsiella and pseudomonas and was felt it was from the PICC line or actually the port that he has. So, the Port-A-Cath was removed and his blood cultures were subsequently negative and his PowerPICC replaced. He did have some mild hypernatremia, also which was resolved with changing of IV fluids ____ normal saline. I discussed the case with Dr. Markel Aburto today and his IV antibiotics, which consisted of IV cefepime, IV Levaquin will be changed to Levaquin 500 mg daily for 7 days through gastrostomy tube that will be dismissed today with home health and have a CBC and BMP in one week and every 2 weeks. He will be dismissed on aspirin 325 mg every day, baclofen 10 mg t.i.d., ferrous sulfate 325 mg every day, multiple vitamin every day, [place] 10/325 one tablet everyday p.r.n., Seroquel 25 mg at bedtime and 12.5 mg every day p.r.n., temazepam 45 mg at bedtime, Fibersource at 110 mL an hour through his gastrostomy tube ____ mL every 6 hours through his gastrostomy tube. He will be dismissed on IV normal saline 125 mL an hour from 7 p.m. to 7 a.m. daily. The patient's was told to see Dr. Black in the office next week and will be followed by home health as mentioned. ADRIANE BLACK MD DR: MARILY/abram JOB#: [id number] / [id number]
== END 2017-04-27 14:40 | disposition home health service (06) | DRG 286 ==
LOC: ER 03:37 → 1 WEST ICU 04:38 → 5 NORTH 04-22 18:51
PROVIDERS: ADMIT Internal Medicine; ATTEND Internal Medicine
PROC: 05PYX3Z Removal of Infusion Device from Upper Vein, External Approach (ICD-10-PCS; 2017-04-23)
PROC: 0JPT3WZ Removal of Totally Implantable Vascular Access Device from Trunk Subcutaneous Tissue and Fascia, Percutaneous Approach (ICD-10-PCS; 2017-04-23)
PROC: 02H633Z Insertion of Infusion Device into Right Atrium, Percutaneous Approach (ICD-10-PCS; principal; 2017-04-26)
PROC: B2141ZZ Fluoroscopy of Right Heart using Low Osmolar Contrast (ICD-10-PCS; 2017-04-26)
PROC: B244ZZZ Ultrasonography of Right Heart (ICD-10-PCS; 2017-04-26)
DX: T80.211A Bloodstream infection due to central venous catheter, initial encounter (principal); G93.41 Metabolic encephalopathy; G82.50 Quadriplegia, unspecified; R65.21 Severe sepsis with septic shock; A41.52 Sepsis due to Pseudomonas; A41.89 Other specified sepsis; E87.0 Hyperosmolality and hypernatremia; G93.1 Anoxic brain damage, not elsewhere classified; N39.0 Urinary tract infection, site not specified; R40.3 Persistent vegetative state; I69.351 Hemiplegia and hemiparesis following cerebral infarction affecting right dominant side; K91.2 Postsurgical malabsorption, not elsewhere classified; R47.01 Aphasia; E87.6 Hypokalemia; I10 Essential (primary) hypertension; E83.42 Hypomagnesemia; R13.12 Dysphagia, oropharyngeal phase; M19.90 Unspecified osteoarthritis, unspecified site; R56.9 Unspecified convulsions; E78.5 Hyperlipidemia, unspecified; I48.91 Unspecified atrial fibrillation; Z79.82 Long term (current) use of aspirin; Z79.899 Other long term (current) drug therapy; Z86.74 Personal history of sudden cardiac arrest; Z89.611 Acquired absence of right leg above knee; Z93.1 Gastrostomy status; Z90.49 Acquired absence of other specified parts of digestive tract; Z88.0 Allergy status to penicillin; Z88.8 Allergy status to other drugs, medicaments and biological substances; Z91.041 Radiographic dye allergy status
CPT/HCPCS: 36415; 36561; 36590; 51701; 71010; 76937; 77001; 80048; 80053; 81001; 83605; 83735; 85007; 85027; 85610; 85730; 87040; 87070; 87086; 87186; 87205; 87641; 93005; 96361; 96365; 96368; 99152; 99153; C1751; C1769; C1892; C1894; J0692; J1644; J1956; J2250; J3010; J3370; J3490; J7030; J7040; J7042; J7060; 99285-25

== ENCOUNTER 2017-06-27 13:12 | Inpatient (IN) | payer MEDICARE, BC ==
[~2017-06-27] VITALS: Ht 188 cm; Wt 54.9 kg
[~2017-06-27 13:12] MED LIST changes: +BACL10TA GT; +ERYT1OIN6 OP; +FAMO20TA5 PEG; +FERR-26 GT; +HYDR-2758 GT; +HYDR-2766 PO; +LEVO500T59 PEG; +MUPI22OI2 TP; +QUET25TA GT
[2017-06-27] MEDS ORDERED: ACETAMINOPHEN 650 MG/20.3 ML SOLUTION. PEG ONE (13:30)
[2017-06-27] MEDS ORDERED: IV NORMAL SALINE 1000ML BAG 1,000 ML IV ONE ×2 (13:30→15:15)
[2017-06-27 13:35] LABS: BASO % 0 % (0-3); EOS % 2 % (0-3); HEMATOCRIT 34.3 % (39.0-53.0); HEMOGLOBIN 10.9 g/dL (13.0-17.5); LYMPH % 5 % (24-48); MEAN CORPUSCULAR HEMOGLOBIN 28 pg (25-35); MEAN CORPUSCULAR HGB CONC 32 g/dL (31-37); MEAN CORPUSCULAR VOLUME 89 fL (79-100); MONO % 8 % (0-9); NEUT % 85 % (31-73); PLATELET COUNT 268 x10^3/uL (140-400); RED BLOOD COUNT 3.87 x10^6/uL (4.30-5.70); RED CELL DISTRIBUTION WIDTH 16.2 % (11.5-14.5); WHITE BLOOD COUNT 19.8 x10^3/uL (4.0-11.0)
[2017-06-27 13:49] LABS: CALCIUM 8.6 mg/dL (8.5-10.1); CREATININE 0.8 mg/dL (0.7-1.3); GFR 117.4; POTASSIUM 3.9 mmol/L (3.5-5.1)
[2017-06-27 13:55] LABS: ALBUMIN 2.5 g/dL (3.4-5.0); ALBUMIN/GLOBULIN RATIO 0.5 (1.0-1.7); INR 1.2 (0.8-1.1); MAGNESIUM 1.7 mg/dL (1.8-2.4); PROTHROMBIN TIME PATIENT 14.4 SEC (11.7-14.0); TOTAL BILIRUBIN 0.4 mg/dL (0.2-1.0); TOTAL PROTEIN 7.9 g/dL (6.4-8.2)
[2017-06-27] MEDS ORDERED: CEFEPIME HCL 2 GM in IV NORMAL SALINE 100ML 100 ML IV SCH (14:00)
[2017-06-27] MEDS ORDERED: VANCOMYCIN PER PHARMACY MC PRN (14:00)
[2017-06-27] MEDS ORDERED: VANCOMYCIN 1.25 GM in IV NORMAL SALINE 250ML 250 ML IV ONE (14:00)
[2017-06-27] MEDS ORDERED: CEFEPIME HCL 2 GM in IV NORMAL SALINE 100ML 100 ML IV ONE (14:00)
--- NOTE | 2017-06-27 14:14 | RAD ---
EXAM: Chest, single view. HISTORY: Sepsis. COMPARISON: 04/20/2017. FINDINGS: A frontal view of the chest is obtained. There is no infiltrate, effusion or pneumothorax. The heart is normal in size. There is a port catheter with the tip in the superior vena cava. IMPRESSION: No acute pulmonary finding.
[2017-06-27 14:20] LABS: BILIRUBIN,URINE NEGATIVE (NEG); GLUCOSE,URINE NEGATIVE (NEG); NITRITE,URINE POSITIVE (NEG); PROTEIN,URINE NEGATIVE (NEG-TRACE); UROBILINOGEN,URINE 0.2 mg/dL (0.2 mg/dL)
[2017-06-27 14:42] LABS: RBC,URINE >40 /HPF (0-2)
[2017-06-27 14:43] LABS: BACTERIA,URINE MANY /HPF (0-FEW); WBC,URINE TNTC /HPF (0-4)
[2017-06-27 14:49] LABS: % EOS 2 % (0-5); PLT ESTIMATE ADEQUATE (ADEQUATE)
--- NOTE | 2017-06-27 15:14 | PHYS DOC ---
Past Medical History Past Medical History: Bronchitis, Coagulopathy, Hypertension, MA, Seizure, Other Additional Past Medical Histor: metabolic encephalopathy, short bowel syndrome , lupus, aphagia, tetraplegia Past Surgical History: Colectomy, Other Additional Past Surgical Histo: g-tube placement, ileostomy Alcohol Use: None Drug Use: None Adult General Chief Complaint Chief Complaint: SHORTNESS OF BREATH HPI HPI Patient is a 67 year old male who presents with reports of hypoxia at home. Pt with h/o CVA nonverbal lives with who total EMS she checked his O2 sat never was in the 80s. EMS reported that it was primarily in the mid to upper 90s. He otherwise had stable vitals with mild tachycardia. Upon arrival the patient shows no signs of distress, he does not answer any questions or follow any commands. Patient has a fever upon arrival is tachycardic. Review of Systems Review of Systems Unable to obtain due to medical condition Current Medications Current Medications Current Medications Medications (Trade) Dose Ordered Sig/Baljeet Start Time Stop Time Status Last Admin Dose Admin Acetaminophen (Tylenol) 650 mg 1X ONCE 06/27/17 13:30 06/27/17 13:31 DC 06/27/17 14:04 650 MG Cefepime HCl 2 gm/ Sodium Chloride 100 ml @ 200 mls/hr ONCE ONCE 06/27/17 14:00 06/27/17 14:29 DC 06/27/17 14:34 200 MLS/HR Sodium Chloride 1,000 ml @ 125 mls/hr 1X ONCE 06/27/17 15:15 06/27/17 23:14 Vancomycin HCl (Vanco Per Pharmacy) 1 each PRN DAILY PRN 06/27/17 14:00 UNV Vancomycin HCl 1.25 gm/Sodium Chloride 250 ml @ 166.667 mls/hr 1X ONCE 06/27/17 14:00 06/27/17 15:29 06/27/17 15:09 166.667 MLS/HR Allergies Allergies Allergies Coded Allergies Type Severity Reaction Last Updated Verified Penicillins Allergy Intermediate Hives, swelling, Can tolerate meropenem, CEFEPIME 06/27/17 Yes simvastatin Allergy Intermediate per and Dr Black 11/12/15 Yes Iodinated Contrast- Oral and IV Dye Adverse Reaction Severe caregiver reports pt goes into renal failure 11/12/15 Yes Physical Exam Physical Exam Constitutional: Elderly, thin, nonverbal, contracted extremities the upper extremities HENT: Normocephalic, atraumatic, bilateral external ears normal, oropharynx moist and drooling no oral exudates, nose normal. [] Eyes: PERRLA, EOMI, conjunctiva normal, no discharge. [] Neck: Pt with chronic stiff neck to the left and leaning Cardiovascular:Heart rate tachycardic with regular rhythm, no murmur [] Lungs & Thorax: Bilateral breath sounds no tachypnea or crackles appreciated. Abdomen: soft, no tenderness, no masses, no pulsatile masses, stool and air in colostomy back Skin: Warm, dry, no erythema, no rash. [] Back: No tenderness Extremities: No tenderness, no cyanosis, no clubbing, LLE amputee Neurologic: awake, chronic changes/weakness/contracted upper extremities, doesn' t follow commands. Current Patient Data Vital Signs Vital Signs Date Time Temp Pulse Resp B/P (MAP) Pulse Ox O2 Delivery O2 Flow Rate FiO2 06/27/17 15:12 87 20 95/61 (72) 96 Room Air 06/27/17 13:15 101.9 101.9 Lab Values Laboratory Tests Test 06/27/17 13:20 06/27/17 13:54 White Blood Count 19.8 x10^3/uL (4.0-11.0) H Red Blood Count 3.87 x10^6/uL (4.30-5.70) L Hemoglobin 10.9 g/dL (13.0-17.5) L Hematocrit 34.3 % (39.0-53.0) L Mean Corpuscular Volume 89 fL (79-100) Mean Corpuscular Hemoglobin 28 pg (25-35) Mean Corpuscular Hemoglobin Concent 32 g/dL (31-37) Red Cell Distribution Width 16.2 % (11.5-14.5) H Platelet Count 268 x10^3/uL (140-400) Neutrophils (%) (Auto) 85 % (31-73) H Lymphocytes (%) (Auto) 5 % (24-48) L Monocytes (%) (Auto) 8 % (0-9) Eosinophils (%) (Auto) 2 % (0-3) Basophils (%) (Auto) 0 % (0-3) Neutrophils # (Auto) 16.7 x10^3uL (1.8-7.7) H Lymphocytes # (Auto) 1.0 x10^3/uL (1.0-4.8) Monocytes # (Auto) 1.6 x10^3/uL (0.0-1.1) H Eosinophils # (Auto) 0.4 x10^3/uL (0.0-0.7) Basophils # (Auto) 0.0 x10^3/uL (0.0-0.2) Segmented Neutrophils % 86 % (35-66) H Band Neutrophils % 2 % (0-9) Lymphocytes % 6 % (24-48) L Monocytes % 4 % (0-10) Eosinophils % 2 % (0-5) Platelet Estimate Adequate (ADEQUATE) Prothrombin Time 14.4 SEC (11.7-14.0) H Prothrombin Time INR 1.2 (0.8-1.1) H Sodium Level 148 mmol/L (136-145) H Potassium Level 3.9 mmol/L (3.5-5.1) Chloride Level 113 mmol/L (98-107) H Carbon Dioxide Level 27 mmol/L (21-32) Anion Gap 8 (6-14) Blood Urea Nitrogen 17 mg/dL (8-26) Creatinine 0.8 mg/dL (0.7-1.3) Estimated GFR (Cockcroft-Gault) 117.4 BUN/Creatinine Ratio 21 (6-20) H Glucose Level 108 mg/dL (70-99) H Lactic Acid Level 2.2 mmol/L (0.4-2.0) H Calcium Level 8.6 mg/dL (8.5-10.1) Magnesium Level 1.7 mg/dL (1.8-2.4) L Total Bilirubin 0.4 mg/dL (0.2-1.0) Aspartate Amino Transferase (AST) 19 U/L (15-37) Alanine Aminotransferase (ALT) 26 U/L (16-63) Alkaline Phosphatase 73 U/L (46-116) Total Protein 7.9 g/dL (6.4-8.2) Albumin 2.5 g/dL (3.4-5.0) L Albumin/Globulin Ratio 0.5 (1.0-1.7) L Urine Collection Type U cath Urine Color Yellow Urine Clarity Clear Urine pH 6.0 Urine Specific [place] 1.015 Urine Protein Negative mg/dL (NEG-TRACE) Urine Glucose (UA) Negative mg/dL (NEG) Urine Ketones (Stick) Negative mg/dL (NEG) Urine Blood Large (NEG) Urine Nitrite Positive (NEG) Urine Bilirubin Negative (NEG) Urine Urobilinogen Dipstick 0.2 mg/dL (0.2 mg/dL) Urine Leukocyte Esterase Large (NEG) Urine RBC >40 /HPF (0-2) Urine WBC Tntc /HPF (0-4) Urine Bacteria Many /HPF (0-FEW) Laboratory Tests 06/27/17 13:20 Laboratory Tests 06/27/17 13:20 EKG EKG []threat monitoring analyst shows sinus tach in 110s Radiology/Procedures Radiology/Procedures CXR: IMPRESSION: No acute pulmonary finding. Course & Med Decision Making Course & Med Decision Making Pertinent Labs and Imaging studies reviewed. (See chart for details) Pt with fever, tachy, appears septic. Initiated IV fluids, blood cultures, lactic acid ordered. With reports of hypoxia, possible pneumonia and IV vanc and cefepime ordered. No clear pna on XRAy but pt has UTI. HR improved to 86, additional IV fluids ordered. contacted Dr. black for admission. Repeat lactic acid and consult for Dr. Aburto ordered. Dragon Disclaimer Dragon Disclaimer This electronic medical record was generated, in whole or in part, using a voice recognition dictation system. Departure Departure Impression: Primary Impression: Sepsis Additional Impression: UTI (urinary tract infection) Disposition: ADMITTED INPATIENT Admitting Physician: Shailesh Black Condition: GUARDED Referrals: SHAILESH BLACK MD (PCP) Problem Qualifiers SHAYNA CALLE MD Jun 27, 2017 15:14
[2017-06-27] MEDS ORDERED: ONDANSETRON PF 4 MG/2 ML VIAL. IV PRN (15:30)
[2017-06-27] MEDS ORDERED: ACETAMINOPHEN 650 MG/20.3 ML SOLUTION. PEG PRN (16:30)
[2017-06-27] MEDS ORDERED: HYDROcodone/APAP 10/325 1 TAB TABLET PEG PRN (16:30)
--- NOTE | 2017-06-27 16:52 | PDOC ---
Provider Note Provider Note history and physical dictated # [id number] ADRIANE ALAN MD Jun 27, 2017 16:52
[2017-06-27] MEDS ORDERED: MAGNESIUM SULFATE 2GM 50 ML IV ONE (17:00)
--- NOTE | 2017-06-27 17:28 | HP ---
ADMIT DATE: 06/27/2017 HISTORY OF PRESENT ILLNESS: The patient is a 67-year-old -[place] male with history of anoxic encephalopathy with oropharyngeal dysphagia, maintained on gastrostomy tube feedings with spastic quadriplegia and a right above-knee amputation and maintained on gastrostomy tube feedings at home and cared for by his . He was noted to be hypoxic at home and [facility] where he was not hypoxic, but he was noted to be febrile, tachycardic, has had a leukocytosis and pyuria consistent with urinary tract infection and sepsis. The patient received IV vancomycin and cefepime in the Emergency Room, blood and urine cultures were ordered. He received IV fluids and his sinus tachycardia resolved and he was maintaining sinus rhythm. He is a full code and the case was discussed with his at bedside. He has not had any cough. There has been no cough. He does not have a Llamas catheter. He is therefore admitted for further evaluation and treatment of his UTI and sepsis. ALLERGIES AND INTOLERANCES: Include IV IODINE and ORAL IODINE, PENICILLIN, SIMVASTATIN. MEDICATIONS: Prior to admission include aspirin 325 mg every day, baclofen 10 mg t.i.d., multiple vitamin once a day, hydrocodone 10/325 mg 1 every 6 hours p.r.n., Protonix 40 mg every day, Seroquel 37.5 mg at bedtime, temazepam 45 mg at bedtime, Jevity 1.2 at 110 mL an hour with water and 250 mL every 6 hours through his PEG and he receives IV normal saline, which was changed to 1/2 normal saline recently at 125 mL an hour from 7 p.m. to 7 a.m. PAST MEDICAL HISTORY: Significant for anoxic encephalopathy due to an out of hospital cardiac arrest and he also has oropharyngeal dysphagia, maintained on gastrostomy tube feedings and also has spastic quadriplegia. He also has a history of right above-knee amputation. He has had a small bowel resection and has a short bowel syndrome with an ileostomy maintained on IV fluids. In addition, he also has history of a gastrostomy tube as mentioned. He also has aphasia in addition to his oropharyngeal dysphagia related to the anoxic encephalopathy. He also has a history of an antiphospholipid antibody in the past. 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 As mentioned, he has a short gut syndrome. He has had hypertension and hyperlipidemia in the past. His blood pressure has not been an issue lately. SOCIAL HISTORY: He does not drink alcohol nor does he smoke cigarettes. He is confined to bed in a chair and is cared for by his . FAMILY HISTORY: Mother, diabetes mellitus; sister, diabetes mellitus. REVIEW OF SYSTEMS: Unobtainable due to his aphasia. PHYSICAL EXAMINATION: VITAL SIGNS: His temperature is 101.9 degrees, pulse 82, respiratory rate 20, blood pressure 110/71, oxygen saturation 95% on room air. HEENT: Eyes: Gaze is conjugate. Mouth is symmetrical. NECK: No cervical lymphadenopathy. HEART: Reveals an S1, S2. There is no S3 or murmur. LUNGS: Clear anteriorly. ABDOMEN: Soft. He has got an ileostomy that is functioning and a gastrostomy tube. Abdomen is not distended. EXTREMITIES: Lower extremities without edema. He has got a right above-knee amputation. He has got a stage 2 wound involving his left heel. SKIN: No rashes. NEUROLOGIC: He is aphasic with spastic quadriplegia. REVIEW OF HIS LABS: His white count is 19.8, hemoglobin 10.9, platelet count 268,000, 85 polys and 5 lymphocytes. INR 1.2. Sodium 148, potassium 3.9, chloride 113. Total CO2 27, BUN 17, creatinine 0.8, lactic acid was elevated at 2.2, magnesium level 1.7. Liver function tests were normal. Albumin was 2.5. Chest x-ray was unremarkable. There was no lung infiltrate and he apparently had an EKG, but I do not see it on the chart. Telemetry shows a heart rate of 84 when I was in the room, sinus rhythm. ASSESSMENT: 1. Urinary tract infection with sepsis. 2. Leukocytosis. 3. Hypernatremia. 4. Anoxic encephalopathy with aphasia. 5. Spastic quadriplegia. 6. Oropharyngeal dysphagia, maintained on gastrostomy tube feedings. 7. Short gut syndrome with an ileostomy. 8. Right above-knee amputation. 9. Left heel wound. 10. Hypomagnesemia. PLAN: At this time is to consult Dr. Markel Aburto. Wait for the blood and urine culture results. Continue with IV vancomycin and cefepime. I spoke with the pharmacist. We will decrease cefepime to 1 gram IV q.8 hours and continue with his home medications, tube feeding, water flushes. We will put him on some IV one-half normal saline at 60 an hour as serum sodium is 148. Given 2 g of magnesium sulfate IV. I will have the wound care nurse see him for his left heel wound. Wait for his blood and urine culture results to come back. Repeat a CBC, BMP and magnesium tomorrow. Continue with his home medications. He is a full code. ADRIANE ALAN MD DR: MARILY/abram JOB#: [id number] / [id number]
[2017-06-27 17:30] VITALS: BP 105/66
[2017-06-27 19:00] VITALS: BP 107/68
[2017-06-27] MEDS: IV 1/2 NORMAL SALINE 1,000 ML IV SCH (19:12)
[2017-06-27 20:33] VITALS: BP 105/66
--- NOTE | 2017-06-27 20:55 | EKG ---
[facility] [address] [place] [address] Test Date: 2017-06-27 Test Time: 20:51:12 Pat Name: TENA SCHAFFER Department: Room: 510 Gender: M Poly Area Supervisor: SONYA : 1950 Requested By: ADRIANE ALAN Order Number: [id number] Reading MD: Measurements Intervals [place] Rate: 91 P: 29 MA: 152 QRS: -64 QRSD: 124 T: 48 QT: 388 QTc: 479 Interpretive Statements SINUS RHYTHM ABNORMAL LEFT AXIS DEVIATION LEFT BUNDLE BRANCH BLOCK ABNORMAL ECG RI6.01 Unconfirmed report Compared to ECG 04/20/2017 13:44:34 Left bundle-branch block now present Left anterior fascicular block no longer present Left ventricular hypertrophy no longer present Early repolarization no longer present Prolonged QT interval no longer present
[2017-06-27] MEDS: TEMAZEPAM 15 MG CAPSULE PO SCH (21:08)
[2017-06-27] MEDS: QUEtiapine 25 MG TABLET. PEG SCH (21:08)
[2017-06-27] MEDS: BACLOFEN 10 MG TABLET. PEG SCH (21:08)
[2017-06-27] MEDS: CEFEPIME HCL 1 GM in IV NORMAL SALINE 50ML 50 ML IV SCH (21:09)
[2017-06-27 23:00] VITALS: BP 90/56
[2017-06-28 03:00] VITALS: BP 94/59
[2017-06-28] MEDS ORDERED: VANCOMYCIN 750 MG in IV NORMAL SALINE 250ML 250 ML IV SCH (03:00)
[2017-06-28] MEDS: CEFEPIME HCL 1 GM in IV NORMAL SALINE 50ML 50 ML IV SCH ×3 (05:48→21:00)
[2017-06-28 06:17] LABS: BASO % 0 % (0-3); EOS % 4 % (0-3); HEMATOCRIT 29.3 % (39.0-53.0); HEMOGLOBIN 9.6 g/dL (13.0-17.5); LYMPH # 1.2 x10^3/uL (1.0-4.8); LYMPH % 8 % (24-48); MEAN CORPUSCULAR HEMOGLOBIN 29 pg (25-35); MEAN CORPUSCULAR HGB CONC 33 g/dL (31-37); MEAN CORPUSCULAR VOLUME 88 fL (79-100); MONO % 7 % (0-9); NEUT % 81 % (31-73); PLATELET COUNT 260 x10^3/uL (140-400); RED BLOOD COUNT 3.33 x10^6/uL (4.30-5.70); RED CELL DISTRIBUTION WIDTH 16.5 % (11.5-14.5); WHITE BLOOD COUNT 14.8 x10^3/uL (4.0-11.0)
[2017-06-28 06:39] LABS: CALCIUM 8.1 mg/dL (8.5-10.1); CREATININE 0.7 mg/dL (0.7-1.3); GFR 136.9; MAGNESIUM 2.1 mg/dL (1.8-2.4); POTASSIUM 3.7 mmol/L (3.5-5.1)
[2017-06-28 07:00] VITALS: BP 101/57
--- NOTE | 2017-06-28 08:58 | PDOC ---
PROGRESS NOTES Subjective Subjective blood culture growing GNR. urine culture pending. sleeping.k wbc lower 14.8. serum sodium 145. discussed with .. afebrile Objective Objective Vital Signs Date Time Temp Pulse Resp B/P (MAP) Pulse Ox O2 Delivery O2 Flow Rate FiO2 06/28/17 07:00 98.8 84 22 101/57 (72) 97 Room Air 98.8 Physical Exam Abdomen: Soft, Other (g tube and ileostomy) Heart: Regular rate, Normal S1, Normal S2 Extremities: No edema, Other (right aka) General: Alert HEENT: Atraumatic Lungs: Clear to auscultation Neuro: Other (aphasic with spastic quadriplegia) Psych/Mental Status: Mood NL Skin: No rashes Assessment Assessment Problems Medical Problems:1. GNR bacteremia with pyuria. .suspect uti with sepsis 2. Leukocytosis. better 3. Hypernatremia. resolved 4. Anoxic encephalopathy with aphasia. 5. Spastic quadriplegia. 6. Oropharyngeal dysphagia, maintained on gastrostomy tube feedings. 7. Short gut syndrome with an ileostomy. 8. Right above-knee amputation. 9. Left heel wound. 10. Hypomagnesemia.treated (1) Sepsis Status: Acute (2) UTI (urinary tract infection) Status: Acute Plan Plan of Care continue iv cefepime d/c vancomycin await blood and urine cultures ID consult continue tube feeding continue iv fluids lab tomorrow Comment Review of Relevant I have reviewed the following items ramon (where applicable) has been applied. Labs Laboratory Tests Test 06/27/17 13:20 06/27/17 13:54 06/27/17 17:50 06/28/17 05:45 White Blood Count 19.8 x10^3/uL (4.0-11.0) 14.8 x10^3/uL (4.0-11.0) Red Blood Count 3.87 x10^6/uL (4.30-5.70) 3.33 x10^6/uL (4.30-5.70) Hemoglobin 10.9 g/dL (13.0-17.5) 9.6 g/dL (13.0-17.5) Hematocrit 34.3 % (39.0-53.0) 29.3 % (39.0-53.0) Mean Corpuscular Volume 89 fL (79-100) 88 fL (79-100) Mean Corpuscular Hemoglobin 28 pg (25-35) 29 pg (25-35) Mean Corpuscular Hemoglobin Concent 32 g/dL (31-37) 33 g/dL (31-37) Red Cell Distribution Width 16.2 % (11.5-14.5) 16.5 % (11.5-14.5) Platelet Count 268 x10^3/uL (140-400) 260 x10^3/uL (140-400) Neutrophils (%) (Auto) 85 % (31-73) 81 % (31-73) Lymphocytes (%) (Auto) 5 % (24-48) 8 % (24-48) Monocytes (%) (Auto) 8 % (0-9) 7 % (0-9) Eosinophils (%) (Auto) 2 % (0-3) 4 % (0-3) Basophils (%) (Auto) 0 % (0-3) 0 % (0-3) Neutrophils # (Auto) 16.7 x10^3uL (1.8-7.7) 12.0 x10^3uL (1.8-7.7) Lymphocytes # (Auto) 1.0 x10^3/uL (1.0-4.8) 1.2 x10^3/uL (1.0-4.8) Monocytes # (Auto) 1.6 x10^3/uL (0.0-1.1) 1.0 x10^3/uL (0.0-1.1) Eosinophils # (Auto) 0.4 x10^3/uL (0.0-0.7) 0.6 x10^3/uL (0.0-0.7) Basophils # (Auto) 0.0 x10^3/uL (0.0-0.2) 0.0 x10^3/uL (0.0-0.2) Segmented Neutrophils % 86 % (35-66) Band Neutrophils % 2 % (0-9) Lymphocytes % 6 % (24-48) Monocytes % 4 % (0-10) Eosinophils % 2 % (0-5) Platelet Estimate Adequate (ADEQUATE) Prothrombin Time 14.4 SEC (11.7-14.0) Prothromb Time International Ratio 1.2 (0.8-1.1) Sodium Level 148 mmol/L (136-145) 145 mmol/L (136-145) Potassium Level 3.9 mmol/L (3.5-5.1) 3.7 mmol/L (3.5-5.1) Chloride Level 113 mmol/L (98-107) 112 mmol/L (98-107) Carbon Dioxide Level 27 mmol/L (21-32) 27 mmol/L (21-32) Anion Gap 8 (6-14) 6 (6-14) Blood Urea Nitrogen 17 mg/dL (8-26) 15 mg/dL (8-26) Creatinine 0.8 mg/dL (0.7-1.3) 0.7 mg/dL (0.7-1.3) Estimated GFR (Cockcroft-Gault) 117.4 136.9 BUN/Creatinine Ratio 21 (6-20) Glucose Level 108 mg/dL (70-99) 109 mg/dL (70-99) Lactic Acid Level 2.2 mmol/L (0.4-2.0) 1.3 mmol/L (0.4-2.0) Calcium Level 8.6 mg/dL (8.5-10.1) 8.1 mg/dL (8.5-10.1) Magnesium Level 1.7 mg/dL (1.8-2.4) 2.1 mg/dL (1.8-2.4) Total Bilirubin 0.4 mg/dL (0.2-1.0) Aspartate Amino Transf (AST/SGOT) 19 U/L (15-37) Alanine Aminotransferase (ALT/SGPT) 26 U/L (16-63) Alkaline Phosphatase 73 U/L (46-116) Total Protein 7.9 g/dL (6.4-8.2) Albumin 2.5 g/dL (3.4-5.0) Albumin/Globulin Ratio 0.5 (1.0-1.7) Urine Collection Type U cath Urine Color Yellow Urine Clarity Clear Urine pH 6.0 Urine Specific [place] 1.015 Urine Protein Negative mg/dL (NEG-TRACE) Urine Glucose (UA) Negative mg/dL (NEG) Urine Ketones (Stick) Negative mg/dL (NEG) Urine Blood Large (NEG) Urine Nitrite Positive (NEG) Urine Bilirubin Negative (NEG) Urine Urobilinogen Dipstick 0.2 mg/dL (0.2 mg/dL) Urine Leukocyte Esterase Large (NEG) Urine RBC >40 /HPF (0-2) Urine WBC Tntc /HPF (0-4) Urine Bacteria Many /HPF (0-FEW) Laboratory Tests Test 06/27/17 13:20 06/27/17 13:54 06/27/17 17:50 06/28/17 05:45 White Blood Count 19.8 x10^3/uL (4.0-11.0) 14.8 x10^3/uL (4.0-11.0) Red Blood Count 3.87 x10^6/uL (4.30-5.70) 3.33 x10^6/uL (4.30-5.70) Hemoglobin 10.9 g/dL (13.0-17.5) 9.6 g/dL (13.0-17.5) Hematocrit 34.3 % (39.0-53.0) 29.3 % (39.0-53.0) Mean Corpuscular Volume 89 fL (79-100) 88 fL (79-100) Mean Corpuscular Hemoglobin 28 pg (25-35) 29 pg (25-35) Mean Corpuscular Hemoglobin Concent 32 g/dL (31-37) 33 g/dL (31-37) Red Cell Distribution Width 16.2 % (11.5-14.5) 16.5 % (11.5-14.5) Platelet Count 268 x10^3/uL (140-400) 260 x10^3/uL (140-400) Neutrophils (%) (Auto) 85 % (31-73) 81 % (31-73) Lymphocytes (%) (Auto) 5 % (24-48) 8 % (24-48) Monocytes (%) (Auto) 8 % (0-9) 7 % (0-9) Eosinophils (%) (Auto) 2 % (0-3) 4 % (0-3) Basophils (%) (Auto) 0 % (0-3) 0 % (0-3) Neutrophils # (Auto) 16.7 x10^3uL (1.8-7.7) 12.0 x10^3uL (1.8-7.7) Lymphocytes # (Auto) 1.0 x10^3/uL (1.0-4.8) 1.2 x10^3/uL (1.0-4.8) Monocytes # (Auto) 1.6 x10^3/uL (0.0-1.1) 1.0 x10^3/uL (0.0-1.1) Eosinophils # (Auto) 0.4 x10^3/uL (0.0-0.7) 0.6 x10^3/uL (0.0-0.7) Basophils # (Auto) 0.0 x10^3/uL (0.0-0.2) 0.0 x10^3/uL (0.0-0.2) Segmented Neutrophils % 86 % (35-66) Band Neutrophils % 2 % (0-9) Lymphocytes % 6 % (24-48) Monocytes % 4 % (0-10) Eosinophils % 2 % (0-5) Platelet Estimate Adequate (ADEQUATE) Prothrombin Time 14.4 SEC (11.7-14.0) Prothromb Time International Ratio 1.2 (0.8-1.1) Sodium Level 148 mmol/L (136-145) 145 mmol/L (136-145) Potassium Level 3.9 mmol/L (3.5-5.1) 3.7 mmol/L (3.5-5.1) Chloride Level 113 mmol/L (98-107) 112 mmol/L (98-107) Carbon Dioxide Level 27 mmol/L (21-32) 27 mmol/L (21-32) Anion Gap 8 (6-14) 6 (6-14) Blood Urea Nitrogen 17 mg/dL (8-26) 15 mg/dL (8-26) Creatinine 0.8 mg/dL (0.7-1.3) 0.7 mg/dL (0.7-1.3) Estimated GFR (Cockcroft-Gault) 117.4 136.9 BUN/Creatinine Ratio 21 (6-20) Glucose Level 108 mg/dL (70-99) 109 mg/dL (70-99) Lactic Acid Level 2.2 mmol/L (0.4-2.0) 1.3 mmol/L (0.4-2.0) Calcium Level 8.6 mg/dL (8.5-10.1) 8.1 mg/dL (8.5-10.1) Magnesium Level 1.7 mg/dL (1.8-2.4) 2.1 mg/dL (1.8-2.4) Total Bilirubin 0.4 mg/dL (0.2-1.0) Aspartate Amino Transf (AST/SGOT) 19 U/L (15-37) Alanine Aminotransferase (ALT/SGPT) 26 U/L (16-63) Alkaline Phosphatase 73 U/L (46-116) Total Protein 7.9 g/dL (6.4-8.2) Albumin 2.5 g/dL (3.4-5.0) Albumin/Globulin Ratio 0.5 (1.0-1.7) Urine Collection Type U cath Urine Color Yellow Urine Clarity Clear Urine pH 6.0 Urine Specific [place] 1.015 Urine Protein Negative mg/dL (NEG-TRACE) Urine Glucose (UA) Negative mg/dL (NEG) Urine Ketones (Stick) Negative mg/dL (NEG) Urine Blood Large (NEG) Urine Nitrite Positive (NEG) Urine Bilirubin Negative (NEG) Urine Urobilinogen Dipstick 0.2 mg/dL (0.2 mg/dL) Urine Leukocyte Esterase Large (NEG) Urine RBC >40 /HPF (0-2) Urine WBC Tntc /HPF (0-4) Urine Bacteria Many /HPF (0-FEW) Microbiology 06/27/17 Blood Culture - Final, Complete Medications Current Medications Acetaminophen (Tylenol) 650 mg 1X ONCE PEG Last administered on 06/27/17 14: 04; Start 06/27/17 at 13:30; Stop 06/27/17 at 13:31; Status DC Sodium Chloride 1,000 ml @ 1,000 mls/hr 1X ONCE IV Last administered on 14:01; Start 06/27/17 at 13:30; Stop 06/27/17 at 14:29; Status DC Vancomycin HCl (Vanco Per Pharmacy) 1 each PRN DAILY PRN MC SEE COMMENTS Last administered on 06/27/17 16:48; Start 06/27/17 at 14:00 Cefepime HCl 2 gm/ Sodium Chloride 100 ml @ 200 mls/hr Q8HRS IV ; Start at 14:00; Status UNV Vancomycin HCl 1.25 gm/Sodium Chloride 250 ml @ 166.667 mls/hr 1X ONCE IV Last administered on 06/27/17 15:09; Start 06/27/17 at 14:00; Stop 06/27/17 at 15:29; Status DC Cefepime HCl 2 gm/ Sodium Chloride 100 ml @ 200 mls/hr ONCE ONCE IV Last administered on 06/27/17 14:34; Start 06/27/17 at 14:00; Stop 06/27/17 at 14:29 ; Status DC Sodium Chloride 1,000 ml @ 125 mls/hr 1X ONCE IV Last administered on 15:15; Start 06/27/17 at 15:15; Stop 06/27/17 at 23:14; Status DC Ondansetron HCl (Zofran) 4 mg PRN Q8HRS PRN IV NAUSEA/VOMITING; Start 06/27/17 at 15:30; Stop 06/28/17 at 15:29 Magnesium Sulfate/ Dextrose 50 ml @ 25 mls/hr 1X ONCE IV Last administered on 06/27/17 19:13; Start 06/27/17 at 17:00; Stop 06/27/17 at 18:59; Status DC Sodium Chloride 1,000 ml @ 60 mls/hr [id number] IV Last administered on 19:12; Start 06/27/17 at 16:30 Temazepam (Restoril) 45 mg QHS PO Last administered on 06/27/17 21:08; Start 06/27/17 at 21:00 Quetiapine Fumarate (SEROquel) 37.5 mg QHS PEG Last administered on 06/27/17 21:08; Start 06/27/17 at 21:00 Lansoprazole (Prevacid) 30 mg DAILY PO ; Start 06/28/17 at 09:00 Acetaminophen/ Hydrocodone Bitart (Lortab 10/325) 1 tab PRN Q6HRS PRN PEG PAIN ; Start 06/27/17 at 16:30 Multivitamins (Thera-Plus) 5 ml DAILY PEG ; Start 06/28/17 at 09:00 Baclofen (Lioresal) 10 mg TID PEG Last administered on 06/27/17 21:08; Start 06/27/17 at 21:00 Aspirin (Laura Aspirin) 325 mg [id number] PEG ; Start 06/28/17 at 08:00 Acetaminophen (Tylenol) 650 mg Q4HRS PRN PEG MILD PAIN / TEMP; Start 06/27/17 at 16:30 Cefepime HCl 1 gm/ Sodium Chloride 50 ml @ 100 mls/hr Q8HRS IV Last administered on 06/28/17 05:48; Start 06/27/17 at 22:00 Vancomycin HCl 750 mg/Sodium Chloride 250 ml @ 250 mls/hr Q12H IV Last administered on 06/28/17 02:38; Start 06/28/17 at 03:00 Vancomycin HCl 1 each 1X ONCE MC ; Start 06/29/17 at 02:30; Stop 06/29/17 at 02 :31 Active Scripts Active Famotidine 20 Mg Tablet 20 Mg PEG BID 30 Days Hydrocodone-Apap 10-325 (Hydrocodone Bit/Acetaminophen) 1 Each Tablet 1 Tab PO PRN Q6HRS PRN 30 Days Quetiapine Fumarate 25 Mg Tablet 25 Mg GT QHS 30 Days Baclofen 10 Mg Tablet 10 Mg GT TID 30 Days Reported Ferrous Sulfate 325 Mg Tablet 1 Tab GT DAILY Temazepam 30 Mg Capsule 30 Mg GT HS PRN Multivitamins (Multivitamin) 1 Each Capsule 1 Each GT DAILY Temazepam 15 Mg Capsule 1 Cap GT QHS Tylenol (Acetaminophen) 325 Mg Tablet 325 Mg PO Q4HRS PRN Aspirin 325 Mg Tablet 325 Mg GT DAILY Vitals/I & O Vital Sign - Last 24 Hours 06/27/17 06/27/17 06/27/17 06/27/17 13:15 14:36 15:12 16:26 Temp 101.9 101.9 Pulse 107 95 87 82 Resp 18 20 20 20 B/P (MAP) 111/70 (84) 106/70 (82) 95/61 (72) 110/71 (84) Pulse Ox 96 96 96 95 O2 Delivery Room Air Room Air Room Air Room Air 06/27/17 06/27/17 06/27/17 06/27/17 17:30 19:00 19:51 20:00 Temp 98.2 98.2 98.2 98.2 Pulse 76 78 Resp 20 18 B/P (MAP) 105/66 (79) 107/68 (81) Pulse Ox 95 97 O2 Delivery Room Air Room Air Room Air Room Air 06/27/17 06/27/17 06/28/17 06/28/17 20:33 23:00 03:00 07:00 Temp 98.2 97.9 98.8 98.8 98.2 97.9 98.8 98.8 Pulse 76 73 78 84 Resp 20 18 18 22 B/P (MAP) 105/66 (79) 90/56 (67) 94/59 (71) 101/57 (72) Pulse Ox 95 97 98 97 O2 Delivery Room Air Room Air Room Air Room Air ADRIANE ALAN MD Jun 28, 2017 08:58
[2017-06-28] MEDS: LANSOPRAZOLE 30 MG TAB.RAP.DR PO SCH (09:01)
[2017-06-28] MEDS: MULTIVITAMINS,THERAPEUTIC 5 ML ORAL LIQUID. PEG SCH (09:01)
[2017-06-28] MEDS: ASPIRIN 325 MG TABLET PEG SCH (09:01)
[2017-06-28] MEDS: BACLOFEN 10 MG TABLET. PEG SCH ×3 (09:01→20:27)
--- NOTE | 2017-06-28 10:54 | PDOC ---
Infectious Disease Note Vital Sign Vital Signs Vital Signs Date Time Temp Pulse Resp B/P (MAP) Pulse Ox O2 Delivery O2 Flow Rate FiO2 06/28/17 08:30 Room Air 06/28/17 07:00 98.8 84 22 101/57 (72) 97 98.8 Labs Lab Laboratory Tests Test 06/27/17 13:20 06/27/17 13:54 06/27/17 17:50 06/28/17 05:45 White Blood Count 19.8 x10^3/uL (4.0-11.0) 14.8 x10^3/uL (4.0-11.0) Red Blood Count 3.87 x10^6/uL (4.30-5.70) 3.33 x10^6/uL (4.30-5.70) Hemoglobin 10.9 g/dL (13.0-17.5) 9.6 g/dL (13.0-17.5) Hematocrit 34.3 % (39.0-53.0) 29.3 % (39.0-53.0) Mean Corpuscular Volume 89 fL (79-100) 88 fL (79-100) Mean Corpuscular Hemoglobin 28 pg (25-35) 29 pg (25-35) Mean Corpuscular Hemoglobin Concent 32 g/dL (31-37) 33 g/dL (31-37) Red Cell Distribution Width 16.2 % (11.5-14.5) 16.5 % (11.5-14.5) Platelet Count 268 x10^3/uL (140-400) 260 x10^3/uL (140-400) Neutrophils (%) (Auto) 85 % (31-73) 81 % (31-73) Lymphocytes (%) (Auto) 5 % (24-48) 8 % (24-48) Monocytes (%) (Auto) 8 % (0-9) 7 % (0-9) Eosinophils (%) (Auto) 2 % (0-3) 4 % (0-3) Basophils (%) (Auto) 0 % (0-3) 0 % (0-3) Neutrophils # (Auto) 16.7 x10^3uL (1.8-7.7) 12.0 x10^3uL (1.8-7.7) Lymphocytes # (Auto) 1.0 x10^3/uL (1.0-4.8) 1.2 x10^3/uL (1.0-4.8) Monocytes # (Auto) 1.6 x10^3/uL (0.0-1.1) 1.0 x10^3/uL (0.0-1.1) Eosinophils # (Auto) 0.4 x10^3/uL (0.0-0.7) 0.6 x10^3/uL (0.0-0.7) Basophils # (Auto) 0.0 x10^3/uL (0.0-0.2) 0.0 x10^3/uL (0.0-0.2) Segmented Neutrophils % 86 % (35-66) Band Neutrophils % 2 % (0-9) Lymphocytes % 6 % (24-48) Monocytes % 4 % (0-10) Eosinophils % 2 % (0-5) Platelet Estimate Adequate (ADEQUATE) Prothrombin Time 14.4 SEC (11.7-14.0) Prothromb Time International Ratio 1.2 (0.8-1.1) Sodium Level 148 mmol/L (136-145) 145 mmol/L (136-145) Potassium Level 3.9 mmol/L (3.5-5.1) 3.7 mmol/L (3.5-5.1) Chloride Level 113 mmol/L (98-107) 112 mmol/L (98-107) Carbon Dioxide Level 27 mmol/L (21-32) 27 mmol/L (21-32) Anion Gap 8 (6-14) 6 (6-14) Blood Urea Nitrogen 17 mg/dL (8-26) 15 mg/dL (8-26) Creatinine 0.8 mg/dL (0.7-1.3) 0.7 mg/dL (0.7-1.3) Estimated GFR (Cockcroft-Gault) 117.4 136.9 BUN/Creatinine Ratio 21 (6-20) Glucose Level 108 mg/dL (70-99) 109 mg/dL (70-99) Lactic Acid Level 2.2 mmol/L (0.4-2.0) 1.3 mmol/L (0.4-2.0) Calcium Level 8.6 mg/dL (8.5-10.1) 8.1 mg/dL (8.5-10.1) Magnesium Level 1.7 mg/dL (1.8-2.4) 2.1 mg/dL (1.8-2.4) Total Bilirubin 0.4 mg/dL (0.2-1.0) Aspartate Amino Transf (AST/SGOT) 19 U/L (15-37) Alanine Aminotransferase (ALT/SGPT) 26 U/L (16-63) Alkaline Phosphatase 73 U/L (46-116) Total Protein 7.9 g/dL (6.4-8.2) Albumin 2.5 g/dL (3.4-5.0) Albumin/Globulin Ratio 0.5 (1.0-1.7) Urine Collection Type U cath Urine Color Yellow Urine Clarity Clear Urine pH 6.0 Urine Specific [place] 1.015 Urine Protein Negative mg/dL (NEG-TRACE) Urine Glucose (UA) Negative mg/dL (NEG) Urine Ketones (Stick) Negative mg/dL (NEG) Urine Blood Large (NEG) Urine Nitrite Positive (NEG) Urine Bilirubin Negative (NEG) Urine Urobilinogen Dipstick 0.2 mg/dL (0.2 mg/dL) Urine Leukocyte Esterase Large (NEG) Urine RBC >40 /HPF (0-2) Urine WBC Tntc /HPF (0-4) Urine Bacteria Many /HPF (0-FEW) Objective Assessment Fever Leukocytosis G neg bacteremia/sepsis Persistent veg state Plan Plan of Care cefepime d/c vanc supportive care check culture and adjust d/w CATHY ELIAS MD Jun 28, 2017 10:54
[2017-06-28 11:00] VITALS: BP 105/63
[2017-06-28 15:00] VITALS: BP 108/64
[2017-06-28] MEDS: IV 1/2 NORMAL SALINE 1,000 ML IV SCH (17:35)
[2017-06-28 19:00] VITALS: BP 99/68
[2017-06-28] MEDS: TEMAZEPAM 15 MG CAPSULE PO SCH (20:26)
[2017-06-28] MEDS: QUEtiapine 25 MG TABLET. PEG SCH (20:27)
[2017-06-28 23:00] VITALS: BP 88/62
--- NOTE | 2017-06-29 00:57 | CONS ---
DATE OF CONSULTATION: 06/28/2017 REQUESTING PHYSICIAN: Shailesh Black MD REASON FOR CONSULTATION: Sepsis. HISTORY OF PRESENT ILLNESS: This is a 67-year-old -[place] gentleman with persistent vegetative state, who was taken care of by who was brought in because he was breathing fast, was sweating and had a fever. The patient was found to have had leukocytosis, temperature up to 101.9 and the blood culture is positive with gram-negative viktoria. The patient has been put on cefepime and vancomycin and consult has been requested. The patient is not able to provide any information. All information was obtained through chart review and discussing with the patient's at the bedside. She does excellent job in taking care of him at home, although the patient is in a persistent vegetative state after anoxic brain injury. 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 SOCIAL HISTORY: Negative for smoking, alcohol, illicit drug use. The patient is total care taken care of by at home. ALLERGIES: Listed as allergic to PENICILLIN, unclear what happen. CURRENT MEDICATIONS: Reviewed. REVIEW OF SYSTEMS: As per HPI. All other systems reviewed are negative through the . PHYSICAL EXAMINATION: GENERAL: Unresponsive gentleman, not in distress. VITAL SIGNS: Stable, afebrile. HEENT: NAD. NECK: Supple. LUNGS: Clear. HEART: S1, S2 regular. ABDOMEN: Benign. EXTREMITIES: No edema or cyanosis. The patient has contractures. The patient has cachexia. PEG tube in place, ileostomy in place as well as a right above-knee amputation. SKIN: Rest of the skin examination even though patient has no muscle mass left is intact. The patient does have a port in the right upper chest. LABORATORY DATA: White count is 14,000. BUN and creatinine is normal. Urinalysis was abnormal with too numerous to count wbc's. Urine culture is pending. Blood culture is showing gram-negative viktoria. IMAGING: Chest x-ray, no acute findings. IMPRESSION: 1. Gram-negative viktoria bacteremia with sepsis. 2. Fever and leukocytosis. 3. Urinary tract infection with sepsis. 4. Persistent vegetative state. RECOMMENDATION: Would continue cefepime. We will discontinue vancomycin. The patient has had pansensitive pseudomonas about 2 months ago, and before then was Klebsiella. For the time being, we will continue with this and adjust as more information is available and we will continue to follow. Thank you very much, Dr. Black, for giving me the opportunity to participate in this patient's care. CATHY ELIAS MD DR: SKYLER/abram JOB#: [id number] / [id number]
[2017-06-29 03:00] VITALS: BP 99/74
[2017-06-29] MEDS: IV 1/2 NORMAL SALINE 1,000 ML IV SCH ×2 (05:14→21:53)
[2017-06-29] MEDS: CEFEPIME HCL 1 GM in IV NORMAL SALINE 50ML 50 ML IV SCH ×3 (05:14→21:37)
[2017-06-29 05:23] LABS: BASO % 0 % (0-3); EOS % 6 % (0-3); HEMOGLOBIN 9.9 g/dL (13.0-17.5); LYMPH # 1.9 x10^3/uL (1.0-4.8); LYMPH % 14 % (24-48); MEAN CORPUSCULAR HEMOGLOBIN 28 pg (25-35); MEAN CORPUSCULAR HGB CONC 32 g/dL (31-37); MEAN CORPUSCULAR VOLUME 88 fL (79-100); MONO % 7 % (0-9); NEUT % 72 % (31-73); PLATELET COUNT 295 x10^3/uL (140-400); RED BLOOD COUNT 3.51 x10^6/uL (4.30-5.70); RED CELL DISTRIBUTION WIDTH 16.1 % (11.5-14.5)
[2017-06-29 05:41] LABS: CALCIUM 8.6 mg/dL (8.5-10.1); CREATININE 0.7 mg/dL (0.7-1.3); GFR 136.9; MAGNESIUM 1.9 mg/dL (1.8-2.4)
[2017-06-29 07:00] VITALS: BP 126/81
[2017-06-29] MEDS: LANSOPRAZOLE 30 MG TAB.RAP.DR PO SCH (08:58)
[2017-06-29] MEDS: ASPIRIN 325 MG TABLET PEG SCH (08:58)
[2017-06-29] MEDS: MULTIVITAMINS,THERAPEUTIC 5 ML ORAL LIQUID. PEG SCH (08:58)
[2017-06-29] MEDS: BACLOFEN 10 MG TABLET. PEG SCH ×3 (08:58→21:40)
--- NOTE | 2017-06-29 10:31 | PDOC ---
Infectious Disease Note Subjective Subjective pt unchanged, breathing comfortably ROS ROS unable to do Vital Sign Vital Signs Vital Signs Date Time Temp Pulse Resp B/P (MAP) Pulse Ox O2 Delivery O2 Flow Rate FiO2 06/29/17 08:30 Room Air 06/29/17 07:00 97.9 80 18 126/81 (96) 98 97.9 Physical Exam PHYSICAL EXAM GENERAL: NAD, , contracted, unresponsive HEENT: PERRL, OC/OP NECK: Supple, no JVD, no LN LUNGS: Clear HEART: S1S2, no gallop, no murmur ABD: Soft, NT, no organomegaly, no rebound EXT: No edema, no cyanosis [employer]: unresponsive, contracted SKIN: No rash IV: ok Labs Lab Laboratory Tests Test 06/29/17 05:10 White Blood Count 13.0 x10^3/uL (4.0-11.0) Red Blood Count 3.51 x10^6/uL (4.30-5.70) Hemoglobin 9.9 g/dL (13.0-17.5) Hematocrit 31.0 % (39.0-53.0) Mean Corpuscular Volume 88 fL (79-100) Mean Corpuscular Hemoglobin 28 pg (25-35) Mean Corpuscular Hemoglobin Concent 32 g/dL (31-37) Red Cell Distribution Width 16.1 % (11.5-14.5) Platelet Count 295 x10^3/uL (140-400) Neutrophils (%) (Auto) 72 % (31-73) Lymphocytes (%) (Auto) 14 % (24-48) Monocytes (%) (Auto) 7 % (0-9) Eosinophils (%) (Auto) 6 % (0-3) Basophils (%) (Auto) 0 % (0-3) Neutrophils # (Auto) 9.4 x10^3uL (1.8-7.7) Lymphocytes # (Auto) 1.9 x10^3/uL (1.0-4.8) Monocytes # (Auto) 0.9 x10^3/uL (0.0-1.1) Eosinophils # (Auto) 0.8 x10^3/uL (0.0-0.7) Basophils # (Auto) 0.0 x10^3/uL (0.0-0.2) Sodium Level 144 mmol/L (136-145) Potassium Level 4.0 mmol/L (3.5-5.1) Chloride Level 109 mmol/L (98-107) Carbon Dioxide Level 27 mmol/L (21-32) Anion Gap 8 (6-14) Blood Urea Nitrogen 13 mg/dL (8-26) Creatinine 0.7 mg/dL (0.7-1.3) Estimated GFR (Cockcroft-Gault) 136.9 Glucose Level 119 mg/dL (70-99) Calcium Level 8.6 mg/dL (8.5-10.1) Magnesium Level 1.9 mg/dL (1.8-2.4) Micro BC g neg viktoria, id pending Objective Assessment Fever Leukocytosis G neg bacteremia/sepsis Persistent veg state Plan Plan of Care cefepime supportive care check culture and adjust d/w CATHY ELIAS MD Jun 29, 2017 10:31
[2017-06-29 11:00] VITALS: BP 109/74
--- NOTE | 2017-06-29 11:32 | PDOC ---
PROGRESS NOTES Subjective Subjective sleeping. lab reviewed. discussed with . Objective Objective Vital Signs Date Time Temp Pulse Resp B/P (MAP) Pulse Ox O2 Delivery O2 Flow Rate FiO2 06/29/17 11:00 97.9 82 18 109/74 (86) 98 Room Air 97.9 Intake and Output 06/30/17 07:00 Intake Total 1391 ml Output Total 300 ml Balance 1091 ml Tube Feeding 350 ml Other 1041 ml Stool Total 300 ml # Voids 1 Physical Exam Abdomen: Soft Heart: Normal S1, Normal S2 Extremities: No edema, Other (right AKA) General: Other (sleeping) HEENT: Atraumatic Lungs: Clear to auscultation Neuro: Other (spastic quadriplegia) Psych/Mental Status: Other (sleeping) Skin: No rashes Assessment Assessment Problems1. GNR bacteremia with pyuria. .suspect uti with sepsis 2. Leukocytosis. better 3. Hypernatremia. resolved 4. Anoxic encephalopathy with aphasia. 5. Spastic quadriplegia. 6. Oropharyngeal dysphagia, maintained on gastrostomy tube feedings. 7. Short gut syndrome with an ileostomy. 8. Right above-knee amputation. 9. Left heel wound. 10. Hypomagnesemia.treated Medical Problems: (1) Sepsis Status: Acute (2) UTI (urinary tract infection) Status: Acute Plan Plan of Care continue iv cefepime await blood culture and urine culture results continue tube feeding and iv fluids lab tomorrow Comment Review of Relevant I have reviewed the following items ramon (where applicable) has been applied. Labs Laboratory Tests Test 06/27/17 13:20 06/27/17 13:54 06/27/17 17:50 06/28/17 05:45 White Blood Count 19.8 x10^3/uL (4.0-11.0) 14.8 x10^3/uL (4.0-11.0) Red Blood Count 3.87 x10^6/uL (4.30-5.70) 3.33 x10^6/uL (4.30-5.70) Hemoglobin 10.9 g/dL (13.0-17.5) 9.6 g/dL (13.0-17.5) Hematocrit 34.3 % (39.0-53.0) 29.3 % (39.0-53.0) Mean Corpuscular Volume 89 fL (79-100) 88 fL (79-100) Mean Corpuscular Hemoglobin 28 pg (25-35) 29 pg (25-35) Mean Corpuscular Hemoglobin Concent 32 g/dL (31-37) 33 g/dL (31-37) Red Cell Distribution Width 16.2 % (11.5-14.5) 16.5 % (11.5-14.5) Platelet Count 268 x10^3/uL (140-400) 260 x10^3/uL (140-400) Neutrophils (%) (Auto) 85 % (31-73) 81 % (31-73) Lymphocytes (%) (Auto) 5 % (24-48) 8 % (24-48) Monocytes (%) (Auto) 8 % (0-9) 7 % (0-9) Eosinophils (%) (Auto) 2 % (0-3) 4 % (0-3) Basophils (%) (Auto) 0 % (0-3) 0 % (0-3) Neutrophils # (Auto) 16.7 x10^3uL (1.8-7.7) 12.0 x10^3uL (1.8-7.7) Lymphocytes # (Auto) 1.0 x10^3/uL (1.0-4.8) 1.2 x10^3/uL (1.0-4.8) Monocytes # (Auto) 1.6 x10^3/uL (0.0-1.1) 1.0 x10^3/uL (0.0-1.1) Eosinophils # (Auto) 0.4 x10^3/uL (0.0-0.7) 0.6 x10^3/uL (0.0-0.7) Basophils # (Auto) 0.0 x10^3/uL (0.0-0.2) 0.0 x10^3/uL (0.0-0.2) Segmented Neutrophils % 86 % (35-66) Band Neutrophils % 2 % (0-9) Lymphocytes % 6 % (24-48) Monocytes % 4 % (0-10) Eosinophils % 2 % (0-5) Platelet Estimate Adequate (ADEQUATE) Prothrombin Time 14.4 SEC (11.7-14.0) Prothromb Time International Ratio 1.2 (0.8-1.1) Sodium Level 148 mmol/L (136-145) 145 mmol/L (136-145) Potassium Level 3.9 mmol/L (3.5-5.1) 3.7 mmol/L (3.5-5.1) Chloride Level 113 mmol/L (98-107) 112 mmol/L (98-107) Carbon Dioxide Level 27 mmol/L (21-32) 27 mmol/L (21-32) Anion Gap 8 (6-14) 6 (6-14) Blood Urea Nitrogen 17 mg/dL (8-26) 15 mg/dL (8-26) Creatinine 0.8 mg/dL (0.7-1.3) 0.7 mg/dL (0.7-1.3) Estimated GFR (Cockcroft-Gault) 117.4 136.9 BUN/Creatinine Ratio 21 (6-20) Glucose Level 108 mg/dL (70-99) 109 mg/dL (70-99) Lactic Acid Level 2.2 mmol/L (0.4-2.0) 1.3 mmol/L (0.4-2.0) Calcium Level 8.6 mg/dL (8.5-10.1) 8.1 mg/dL (8.5-10.1) Magnesium Level 1.7 mg/dL (1.8-2.4) 2.1 mg/dL (1.8-2.4) Total Bilirubin 0.4 mg/dL (0.2-1.0) Aspartate Amino Transf (AST/SGOT) 19 U/L (15-37) Alanine Aminotransferase (ALT/SGPT) 26 U/L (16-63) Alkaline Phosphatase 73 U/L (46-116) Total Protein 7.9 g/dL (6.4-8.2) Albumin 2.5 g/dL (3.4-5.0) Albumin/Globulin Ratio 0.5 (1.0-1.7) Urine Collection Type U cath Urine Color Yellow Urine Clarity Clear Urine pH 6.0 Urine Specific [place] 1.015 Urine Protein Negative mg/dL (NEG-TRACE) Urine Glucose (UA) Negative mg/dL (NEG) Urine Ketones (Stick) Negative mg/dL (NEG) Urine Blood Large (NEG) Urine Nitrite Positive (NEG) Urine Bilirubin Negative (NEG) Urine Urobilinogen Dipstick 0.2 mg/dL (0.2 mg/dL) Urine Leukocyte Esterase Large (NEG) Urine RBC >40 /HPF (0-2) Urine WBC Tntc /HPF (0-4) Urine Bacteria Many /HPF (0-FEW) Test 06/29/17 05:10 White Blood Count 13.0 x10^3/uL (4.0-11.0) Red Blood Count 3.51 x10^6/uL (4.30-5.70) Hemoglobin 9.9 g/dL (13.0-17.5) Hematocrit 31.0 % (39.0-53.0) Mean Corpuscular Volume 88 fL (79-100) Mean Corpuscular Hemoglobin 28 pg (25-35) Mean Corpuscular Hemoglobin Concent 32 g/dL (31-37) Red Cell Distribution Width 16.1 % (11.5-14.5) Platelet Count 295 x10^3/uL (140-400) Neutrophils (%) (Auto) 72 % (31-73) Lymphocytes (%) (Auto) 14 % (24-48) Monocytes (%) (Auto) 7 % (0-9) Eosinophils (%) (Auto) 6 % (0-3) Basophils (%) (Auto) 0 % (0-3) Neutrophils # (Auto) 9.4 x10^3uL (1.8-7.7) Lymphocytes # (Auto) 1.9 x10^3/uL (1.0-4.8) Monocytes # (Auto) 0.9 x10^3/uL (0.0-1.1) Eosinophils # (Auto) 0.8 x10^3/uL (0.0-0.7) Basophils # (Auto) 0.0 x10^3/uL (0.0-0.2) Sodium Level 144 mmol/L (136-145) Potassium Level 4.0 mmol/L (3.5-5.1) Chloride Level 109 mmol/L (98-107) Carbon Dioxide Level 27 mmol/L (21-32) Anion Gap 8 (6-14) Blood Urea Nitrogen 13 mg/dL (8-26) Creatinine 0.7 mg/dL (0.7-1.3) Estimated GFR (Cockcroft-Gault) 136.9 Glucose Level 119 mg/dL (70-99) Calcium Level 8.6 mg/dL (8.5-10.1) Magnesium Level 1.9 mg/dL (1.8-2.4) Laboratory Tests Test 06/29/17 05:10 White Blood Count 13.0 x10^3/uL (4.0-11.0) Red Blood Count 3.51 x10^6/uL (4.30-5.70) Hemoglobin 9.9 g/dL (13.0-17.5) Hematocrit 31.0 % (39.0-53.0) Mean Corpuscular Volume 88 fL (79-100) Mean Corpuscular Hemoglobin 28 pg (25-35) Mean Corpuscular Hemoglobin Concent 32 g/dL (31-37) Red Cell Distribution Width 16.1 % (11.5-14.5) Platelet Count 295 x10^3/uL (140-400) Neutrophils (%) (Auto) 72 % (31-73) Lymphocytes (%) (Auto) 14 % (24-48) Monocytes (%) (Auto) 7 % (0-9) Eosinophils (%) (Auto) 6 % (0-3) Basophils (%) (Auto) 0 % (0-3) Neutrophils # (Auto) 9.4 x10^3uL (1.8-7.7) Lymphocytes # (Auto) 1.9 x10^3/uL (1.0-4.8) Monocytes # (Auto) 0.9 x10^3/uL (0.0-1.1) Eosinophils # (Auto) 0.8 x10^3/uL (0.0-0.7) Basophils # (Auto) 0.0 x10^3/uL (0.0-0.2) Sodium Level 144 mmol/L (136-145) Potassium Level 4.0 mmol/L (3.5-5.1) Chloride Level 109 mmol/L (98-107) Carbon Dioxide Level 27 mmol/L (21-32) Anion Gap 8 (6-14) Blood Urea Nitrogen 13 mg/dL (8-26) Creatinine 0.7 mg/dL (0.7-1.3) Estimated GFR (Cockcroft-Gault) 136.9 Glucose Level 119 mg/dL (70-99) Calcium Level 8.6 mg/dL (8.5-10.1) Magnesium Level 1.9 mg/dL (1.8-2.4) Microbiology 06/27/17 Blood Culture - Preliminary, Resulted 06/27/17 Blood Culture Result 1 (JAMISON) - Preliminary, Resulted Medications Current Medications Acetaminophen (Tylenol) 650 mg 1X ONCE PEG Last administered on 06/27/17 14: 04; Start 06/27/17 at 13:30; Stop 06/27/17 at 13:31; Status DC Sodium Chloride 1,000 ml @ 1,000 mls/hr 1X ONCE IV Last administered on 14:01; Start 06/27/17 at 13:30; Stop 06/27/17 at 14:29; Status DC Vancomycin HCl (Vanco Per Pharmacy) 1 each PRN DAILY PRN MC SEE COMMENTS Last administered on 06/27/17 16:48; Start 06/27/17 at 14:00; Stop 06/28/17 at 09:01 ; Status DC Cefepime HCl 2 gm/ Sodium Chloride 100 ml @ 200 mls/hr Q8HRS IV ; Start at 14:00; Status UNV Vancomycin HCl 1.25 gm/Sodium Chloride 250 ml @ 166.667 mls/hr 1X ONCE IV Last administered on 06/27/17 15:09; Start 06/27/17 at 14:00; Stop 06/27/17 at 15:29; Status DC Cefepime HCl 2 gm/ Sodium Chloride 100 ml @ 200 mls/hr ONCE ONCE IV Last administered on 06/27/17 14:34; Start 06/27/17 at 14:00; Stop 06/27/17 at 14:29 ; Status DC Sodium Chloride 1,000 ml @ 125 mls/hr 1X ONCE IV Last administered on 15:15; Start 06/27/17 at 15:15; Stop 06/27/17 at 23:14; Status DC Ondansetron HCl (Zofran) 4 mg PRN Q8HRS PRN IV NAUSEA/VOMITING; Start 06/27/17 at 15:30; Stop 06/28/17 at 15:29; Status DC Magnesium Sulfate/ Dextrose 50 ml @ 25 mls/hr 1X ONCE IV Last administered on 06/27/17 19:13; Start 06/27/17 at 17:00; Stop 06/27/17 at 18:59; Status DC Sodium Chloride 1,000 ml @ 60 mls/hr [id number] IV Last administered on 05:14; Start 06/27/17 at 16:30 Temazepam (Restoril) 45 mg QHS PO Last administered on 06/28/17 20:26; Start 06/27/17 at 21:00 Quetiapine Fumarate (SEROquel) 37.5 mg QHS PEG Last administered on 06/28/17 20:27; Start 06/27/17 at 21:00 Lansoprazole (Prevacid) 30 mg DAILY PO Last administered on 06/29/17 08:58; Start 06/28/17 at 09:00 Acetaminophen/ Hydrocodone Bitart (Lortab 10/325) 1 tab PRN Q6HRS PRN PEG PAIN ; Start 06/27/17 at 16:30 Multivitamins (Thera-Plus) 5 ml DAILY PEG Last administered on 06/29/17 08:58 ; Start 06/28/17 at 09:00 Baclofen (Lioresal) 10 mg TID PEG Last administered on 06/29/17 08:58; Start 06/27/17 at 21:00 Aspirin (Laura Aspirin) 325 mg [id number] PEG Last administered on 06/29/17 08 :58; Start 06/28/17 at 08:00 Acetaminophen (Tylenol) 650 mg Q4HRS PRN PEG MILD PAIN / TEMP; Start 06/27/17 at 16:30 Cefepime HCl 1 gm/ Sodium Chloride 50 ml @ 100 mls/hr Q8HRS IV Last administered on 06/29/17 05:14; Start 06/27/17 at 22:00 Vancomycin HCl 750 mg/Sodium Chloride 250 ml @ 250 mls/hr Q12H IV Last administered on 06/28/17 02:38; Start 06/28/17 at 03:00; Stop 06/28/17 at 09:00 ; Status DC Vancomycin HCl 1 each 1X ONCE MC ; Start 06/29/17 at 02:30; Stop 06/29/17 at 02 :30; Status DC Active Scripts Active Famotidine 20 Mg Tablet 20 Mg PEG BID 30 Days Hydrocodone-Apap 10-325 (Hydrocodone Bit/Acetaminophen) 1 Each Tablet 1 Tab PO PRN Q6HRS PRN 30 Days Quetiapine Fumarate 25 Mg Tablet 25 Mg GT QHS 30 Days Baclofen 10 Mg Tablet 10 Mg GT TID 30 Days Reported Ferrous Sulfate 325 Mg Tablet 1 Tab GT DAILY Temazepam 30 Mg Capsule 30 Mg GT HS PRN Multivitamins (Multivitamin) 1 Each Capsule 1 Each GT DAILY Temazepam 15 Mg Capsule 1 Cap GT QHS Tylenol (Acetaminophen) 325 Mg Tablet 325 Mg PO Q4HRS PRN Aspirin 325 Mg Tablet 325 Mg GT DAILY Vitals/I & O Vital Sign - Last 24 Hours 06/28/17 06/28/17 06/28/17 06/28/17 15:00 19:00 19:46 23:00 Temp 97.9 98.6 99.5 97.9 98.6 99.5 Pulse 78 79 77 Resp 20 20 20 B/P (MAP) 108/64 (79) 99/68 (78) 88/62 (71) Pulse Ox 98 91 95 O2 Delivery Room Air Room Air Room Air 06/29/17 06/29/17 06/29/17 06/29/17 03:00 07:00 08:30 11:00 Temp 99.1 97.9 97.9 99.1 97.9 97.9 Pulse 77 80 82 Resp 20 18 18 B/P (MAP) 99/74 (82) 126/81 (96) 109/74 (86) Pulse Ox 98 98 98 O2 Delivery Room Air Room Air Room Air Room Air Intake and Output 06/29/17 06/29/17 06/30/17 15:00 23:00 07:00 Intake Total 1391 ml Output Total 300 ml Balance 1091 ml Nutrition Consultation Dietary Evaluation: Comments: continue home regimen TF Expected Outcomes/Goals: to tolerate TF Malnutrition Findings: Body Fat Depletion (Non Severe: Mod to Severe Weight Status: Underweight ADRIANE ALAN MD Jun 29, 2017 11:32
[2017-06-29 15:00] VITALS: BP 115/79
[2017-06-29 19:00] VITALS: BP 110/67
[2017-06-29] MEDS: QUEtiapine 25 MG TABLET. PEG SCH (21:39)
[2017-06-29] MEDS: TEMAZEPAM 15 MG CAPSULE PO SCH (21:40)
[2017-06-29 23:00] VITALS: BP 95/66
[2017-06-30 03:05] VITALS: BP 93/72
[2017-06-30] MEDS: CEFEPIME HCL 1 GM in IV NORMAL SALINE 50ML 50 ML IV SCH (05:26)
[2017-06-30 05:52] LABS: BASO % 0 % (0-3); EOS % 6 % (0-3); HEMATOCRIT 30.3 % (39.0-53.0); HEMOGLOBIN 10.1 g/dL (13.0-17.5); LYMPH # 1.7 x10^3/uL (1.0-4.8); LYMPH % 16 % (24-48); MEAN CORPUSCULAR HEMOGLOBIN 29 pg (25-35); MEAN CORPUSCULAR HGB CONC 33 g/dL (31-37); MEAN CORPUSCULAR VOLUME 86 fL (79-100); MONO % 6 % (0-9); NEUT % 71 % (31-73); PLATELET COUNT 307 x10^3/uL (140-400); RED BLOOD COUNT 3.51 x10^6/uL (4.30-5.70); RED CELL DISTRIBUTION WIDTH 16.5 % (11.5-14.5); WHITE BLOOD COUNT 10.4 x10^3/uL (4.0-11.0)
[2017-06-30 06:48] LABS: CALCIUM 8.5 mg/dL (8.5-10.1); CREATININE 0.7 mg/dL (0.7-1.3); GFR 136.9; MAGNESIUM 1.8 mg/dL (1.8-2.4); POTASSIUM 3.9 mmol/L (3.5-5.1)
[2017-06-30 07:00] VITALS: BP 123/73
--- NOTE | 2017-06-30 08:49 | PDOC ---
PROGRESS NOTES Subjective Subjective blood culture grew klebsiella sensitive to levaquin. lab reviewed. repeat blood culture 10/05 GPC in clusters and is a contaminant discussed with dr. florence walker and . Objective Objective Vital Signs Date Time Temp Pulse Resp B/P (MAP) Pulse Ox O2 Delivery O2 Flow Rate FiO2 06/30/17 03:05 98.8 88 20 93/72 (79) 98 Room Air 98.8 Physical Exam Abdomen: Soft, Other (gastrostomy tube and ileostomy) Heart: Regular rate, Normal S1, Normal S2 Extremities: No edema, Other (right aka) General: Other (sleeping) HEENT: Atraumatic Lungs: Clear to auscultation Neuro: Other (aphasic with spastic quadriparesis) Psych/Mental Status: Mood NL Skin: No rashes Assessment Assessment Problems. klebsiella bacteremia. suspect urinary tract though urine culture not sent 2. Leukocytosis. better 3. Hypernatremia. resolved 4. Anoxic encephalopathy with aphasia. 5. Spastic quadriplegia. 6. Oropharyngeal dysphagia, maintained on gastrostomy tube feedings. 7. Short gut syndrome with an ileostomy. 8. Right above-knee amputation. 9. Left heel wound. 10. Hypomagnesemia.treated Medical Problems: (1) Sepsis Status: Acute (2) UTI (urinary tract infection) Status: Acute Plan Plan of Care switch to cipro discussed with dr. florence walker dismiss today Comment Review of Relevant I have reviewed the following items ramon (where applicable) has been applied. Labs Laboratory Tests Test 06/29/17 05:10 06/30/17 04:50 White Blood Count 13.0 x10^3/uL (4.0-11.0) 10.4 x10^3/uL (4.0-11.0) Red Blood Count 3.51 x10^6/uL (4.30-5.70) 3.51 x10^6/uL (4.30-5.70) Hemoglobin 9.9 g/dL (13.0-17.5) 10.1 g/dL (13.0-17.5) Hematocrit 31.0 % (39.0-53.0) 30.3 % (39.0-53.0) Mean Corpuscular Volume 88 fL (79-100) 86 fL (79-100) Mean Corpuscular Hemoglobin 28 pg (25-35) 29 pg (25-35) Mean Corpuscular Hemoglobin Concent 32 g/dL (31-37) 33 g/dL (31-37) Red Cell Distribution Width 16.1 % (11.5-14.5) 16.5 % (11.5-14.5) Platelet Count 295 x10^3/uL (140-400) 307 x10^3/uL (140-400) Neutrophils (%) (Auto) 72 % (31-73) 71 % (31-73) Lymphocytes (%) (Auto) 14 % (24-48) 16 % (24-48) Monocytes (%) (Auto) 7 % (0-9) 6 % (0-9) Eosinophils (%) (Auto) 6 % (0-3) 6 % (0-3) Basophils (%) (Auto) 0 % (0-3) 0 % (0-3) Neutrophils # (Auto) 9.4 x10^3uL (1.8-7.7) 7.4 x10^3uL (1.8-7.7) Lymphocytes # (Auto) 1.9 x10^3/uL (1.0-4.8) 1.7 x10^3/uL (1.0-4.8) Monocytes # (Auto) 0.9 x10^3/uL (0.0-1.1) 0.7 x10^3/uL (0.0-1.1) Eosinophils # (Auto) 0.8 x10^3/uL (0.0-0.7) 0.6 x10^3/uL (0.0-0.7) Basophils # (Auto) 0.0 x10^3/uL (0.0-0.2) 0.0 x10^3/uL (0.0-0.2) Sodium Level 144 mmol/L (136-145) 140 mmol/L (136-145) Potassium Level 4.0 mmol/L (3.5-5.1) 3.9 mmol/L (3.5-5.1) Chloride Level 109 mmol/L (98-107) 106 mmol/L (98-107) Carbon Dioxide Level 27 mmol/L (21-32) 26 mmol/L (21-32) Anion Gap 8 (6-14) 8 (6-14) Blood Urea Nitrogen 13 mg/dL (8-26) 13 mg/dL (8-26) Creatinine 0.7 mg/dL (0.7-1.3) 0.7 mg/dL (0.7-1.3) Estimated GFR (Cockcroft-Gault) 136.9 136.9 Glucose Level 119 mg/dL (70-99) 132 mg/dL (70-99) Calcium Level 8.6 mg/dL (8.5-10.1) 8.5 mg/dL (8.5-10.1) Magnesium Level 1.9 mg/dL (1.8-2.4) 1.8 mg/dL (1.8-2.4) Laboratory Tests Test 06/30/17 04:50 White Blood Count 10.4 x10^3/uL (4.0-11.0) Red Blood Count 3.51 x10^6/uL (4.30-5.70) Hemoglobin 10.1 g/dL (13.0-17.5) Hematocrit 30.3 % (39.0-53.0) Mean Corpuscular Volume 86 fL (79-100) Mean Corpuscular Hemoglobin 29 pg (25-35) Mean Corpuscular Hemoglobin Concent 33 g/dL (31-37) Red Cell Distribution Width 16.5 % (11.5-14.5) Platelet Count 307 x10^3/uL (140-400) Neutrophils (%) (Auto) 71 % (31-73) Lymphocytes (%) (Auto) 16 % (24-48) Monocytes (%) (Auto) 6 % (0-9) Eosinophils (%) (Auto) 6 % (0-3) Basophils (%) (Auto) 0 % (0-3) Neutrophils # (Auto) 7.4 x10^3uL (1.8-7.7) Lymphocytes # (Auto) 1.7 x10^3/uL (1.0-4.8) Monocytes # (Auto) 0.7 x10^3/uL (0.0-1.1) Eosinophils # (Auto) 0.6 x10^3/uL (0.0-0.7) Basophils # (Auto) 0.0 x10^3/uL (0.0-0.2) Sodium Level 140 mmol/L (136-145) Potassium Level 3.9 mmol/L (3.5-5.1) Chloride Level 106 mmol/L (98-107) Carbon Dioxide Level 26 mmol/L (21-32) Anion Gap 8 (6-14) Blood Urea Nitrogen 13 mg/dL (8-26) Creatinine 0.7 mg/dL (0.7-1.3) Estimated GFR (Cockcroft-Gault) 136.9 Glucose Level 132 mg/dL (70-99) Calcium Level 8.5 mg/dL (8.5-10.1) Magnesium Level 1.8 mg/dL (1.8-2.4) Microbiology 06/29/17 Blood Culture - Final, Complete Medications Current Medications Acetaminophen (Tylenol) 650 mg 1X ONCE PEG Last administered on 06/27/17 14: 04; Start 06/27/17 at 13:30; Stop 06/27/17 at 13:31; Status DC Sodium Chloride 1,000 ml @ 1,000 mls/hr 1X ONCE IV Last administered on 14:01; Start 06/27/17 at 13:30; Stop 06/27/17 at 14:29; Status DC Vancomycin HCl (Vanco Per Pharmacy) 1 each PRN DAILY PRN MC SEE COMMENTS Last administered on 06/27/17 16:48; Start 06/27/17 at 14:00; Stop 06/28/17 at 09:01 ; Status DC Cefepime HCl 2 gm/ Sodium Chloride 100 ml @ 200 mls/hr Q8HRS IV ; Start at 14:00; Status UNV Vancomycin HCl 1.25 gm/Sodium Chloride 250 ml @ 166.667 mls/hr 1X ONCE IV Last administered on 06/27/17 15:09; Start 06/27/17 at 14:00; Stop 06/27/17 at 15:29; Status DC Cefepime HCl 2 gm/ Sodium Chloride 100 ml @ 200 mls/hr ONCE ONCE IV Last administered on 06/27/17 14:34; Start 06/27/17 at 14:00; Stop 06/27/17 at 14:29 ; Status DC Sodium Chloride 1,000 ml @ 125 mls/hr 1X ONCE IV Last administered on 15:15; Start 06/27/17 at 15:15; Stop 06/27/17 at 23:14; Status DC Ondansetron HCl (Zofran) 4 mg PRN Q8HRS PRN IV NAUSEA/VOMITING; Start 06/27/17 at 15:30; Stop 06/28/17 at 15:29; Status DC Magnesium Sulfate/ Dextrose 50 ml @ 25 mls/hr 1X ONCE IV Last administered on 06/27/17 19:13; Start 06/27/17 at 17:00; Stop 06/27/17 at 18:59; Status DC Sodium Chloride 1,000 ml @ 60 mls/hr [id number] IV Last administered on 21:53; Start 06/27/17 at 16:30 Temazepam (Restoril) 45 mg QHS PO Last administered on 06/29/17 21:40; Start 06/27/17 at 21:00 Quetiapine Fumarate (SEROquel) 37.5 mg QHS PEG Last administered on 06/29/17 21:39; Start 06/27/17 at 21:00 Lansoprazole (Prevacid) 30 mg DAILY PO Last administered on 06/29/17 08:58; Start 06/28/17 at 09:00 Acetaminophen/ Hydrocodone Bitart (Lortab 10/325) 1 tab PRN Q6HRS PRN PEG PAIN ; Start 06/27/17 at 16:30 Multivitamins (Thera-Plus) 5 ml DAILY PEG Last administered on 06/29/17 08:58 ; Start 06/28/17 at 09:00 Baclofen (Lioresal) 10 mg TID PEG Last administered on 06/29/17 21:40; Start 06/27/17 at 21:00 Aspirin (Laura Aspirin) 325 mg [id number] PEG Last administered on 06/29/17 08 :58; Start 06/28/17 at 08:00 Acetaminophen (Tylenol) 650 mg Q4HRS PRN PEG MILD PAIN / TEMP; Start 06/27/17 at 16:30 Cefepime HCl 1 gm/ Sodium Chloride 50 ml @ 100 mls/hr Q8HRS IV Last administered on 06/30/17 05:26; Start 06/27/17 at 22:00 Vancomycin HCl 750 mg/Sodium Chloride 250 ml @ 250 mls/hr Q12H IV Last administered on 06/28/17t 02:38; Start 06/28/17 at 03:00; Stop 06/28/17 at 09:00 ; Status DC Vancomycin HCl 1 each 1X ONCE MC ; Start 06/29/17 at 02:30; Stop 06/29/17 at 02 :30; Status DC Active Scripts Active Famotidine 20 Mg Tablet 20 Mg PEG BID 30 Days Hydrocodone-Apap 10-325 (Hydrocodone Bit/Acetaminophen) 1 Each Tablet 1 Tab PO PRN Q6HRS PRN 30 Days Quetiapine Fumarate 25 Mg Tablet 25 Mg GT QHS 30 Days Baclofen 10 Mg Tablet 10 Mg GT TID 30 Days Reported Ferrous Sulfate 325 Mg Tablet 1 Tab GT DAILY Temazepam 30 Mg Capsule 30 Mg GT HS PRN Multivitamins (Multivitamin) 1 Each Capsule 1 Each GT DAILY Temazepam 15 Mg Capsule 1 Cap GT QHS Tylenol (Acetaminophen) 325 Mg Tablet 325 Mg PO Q4HRS PRN Aspirin 325 Mg Tablet 325 Mg GT DAILY Vitals/I & O Vital Sign - Last 24 Hours 06/29/17 06/29/17 06/29/17 06/29/17 11:00 15:00 19:00 20:00 Temp 97.9 97.9 99.3 97.9 97.9 99.3 Pulse 82 79 75 Resp 18 18 20 B/P (MAP) 109/74 (86) 115/79 (91) 110/67 (81) Pulse Ox 98 99 98 O2 Delivery Room Air Room Air Room Air Room Air 06/29/17 06/30/17 23:00 03:05 Temp 99.1 98.8 99.1 98.8 Pulse 84 88 Resp 20 20 B/P (MAP) 95/66 (76) 93/72 (79) Pulse Ox 98 98 O2 Delivery Room Air Room Air Nutrition Consultation Dietary Evaluation: Comments: continue home regimen TF Expected Outcomes/Goals: to tolerate TF Malnutrition Findings: Body Fat Depletion (Non Severe: Mod to Severe Weight Status: Underweight ADRIANE ALAN MD Jun 30, 2017 08:49
[2017-06-30] MEDS: LANSOPRAZOLE 30 MG TAB.RAP.DR PO SCH (08:50)
[2017-06-30] MEDS: BACLOFEN 10 MG TABLET. PEG SCH (08:50)
[2017-06-30] MEDS: MULTIVITAMINS,THERAPEUTIC 5 ML ORAL LIQUID. PEG SCH (08:50)
[2017-06-30] MEDS: ASPIRIN 325 MG TABLET PEG SCH (08:50)
--- NOTE | 2017-06-30 08:51 | PDOC ---
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: unresponsive SKIN: No rash IV: ok Labs Lab Laboratory Tests Test 06/30/17 04:50 White Blood Count 10.4 x10^3/uL (4.0-11.0) Red Blood Count 3.51 x10^6/uL (4.30-5.70) Hemoglobin 10.1 g/dL (13.0-17.5) Hematocrit 30.3 % (39.0-53.0) Mean Corpuscular Volume 86 fL (79-100) Mean Corpuscular Hemoglobin 29 pg (25-35) Mean Corpuscular Hemoglobin Concent 33 g/dL (31-37) Red Cell Distribution Width 16.5 % (11.5-14.5) Platelet Count 307 x10^3/uL (140-400) Neutrophils (%) (Auto) 71 % (31-73) Lymphocytes (%) (Auto) 16 % (24-48) Monocytes (%) (Auto) 6 % (0-9) Eosinophils (%) (Auto) 6 % (0-3) Basophils (%) (Auto) 0 % (0-3) Neutrophils # (Auto) 7.4 x10^3uL (1.8-7.7) Lymphocytes # (Auto) 1.7 x10^3/uL (1.0-4.8) Monocytes # (Auto) 0.7 x10^3/uL (0.0-1.1) Eosinophils # (Auto) 0.6 x10^3/uL (0.0-0.7) Basophils # (Auto) 0.0 x10^3/uL (0.0-0.2) Sodium Level 140 mmol/L (136-145) Potassium Level 3.9 mmol/L (3.5-5.1) Chloride Level 106 mmol/L (98-107) Carbon Dioxide Level 26 mmol/L (21-32) Anion Gap 8 (6-14) Blood Urea Nitrogen 13 mg/dL (8-26) Creatinine 0.7 mg/dL (0.7-1.3) Estimated GFR (Cockcroft-Gault) 136.9 Glucose Level 132 mg/dL (70-99) Calcium Level 8.5 mg/dL (8.5-10.1) Magnesium Level 1.8 mg/dL (1.8-2.4) Micro BLOOD CULTURE PRL Preliminary Preliminary report BLD CULT RESULT 1 Preliminary Klebsiella pneumoniae Recovered from anaerobic bottle only. ANTIMICROBIAL SUSCEPTIBILITY Preliminary Comment S = Susceptible; I = Intermediate; R = Resistant P = Positive; N = Negative MICS are expressed in micrograms per mL Antibiotic RSLT#1 RSLT#2 RSLT#3 RSLT#4 Amoxicillin/Clavulanic Acid S Ampicillin R Cefepime S Ceftriaxone S Cefuroxime S Cephalothin S Ciprofloxacin S Ertapenem S Gentamicin S Imipenem S Levofloxacin S Nitrofurantoin I Piperacillin S Tetracycline S Tobramycin S Trimethoprim/Sulfa S Performed at: [address] [id number] Boat Cleaner: Kathleen Boyer MD, Phone: [phone] BLOOD CULTURE Final GRAM POSITIVE COCCI IN CLUSTERS, SUGGESTIVE OF STAPH, IN 1 OF 4 BOTTLES, TWO SETS DRAWN. THIS SET WAS DRAWN FROM THE LINE. CALLED TO NICHOL SKAGGS RN ON 5N AT 8:00 ON 06/30/17 DW MT SENT TO LAB ANG FOR FURTHER WORKUP. Objective Assessment Fever Leukocytosis G neg bacteremia/sepsis Persistent veg state Plan Plan of Care d/c ok on cipro and doxy d/w ,, may be related to port, but since two deferent organism , less likely , G + cocci 1/4 likely contaminant d/w , possibility of failure and need to remove port , but he is running out of options d/w CATHY Mendez MD Jun 30, 2017 08:51
--- NOTE | 2017-06-30 08:52 | DISCH ---
DISCHARGE INSTRUCTIONS Condition on Discharge Condition on Discharge: Stable Activity After Discharge Activity Instructions for Disc: Bedrest today Diet after Discharge Diet after Discharge: Regular Additional Diet Restrictions: npo. tube feeding Contacting the DRSylvia after DC Call your doctor for: If your condition worsens Follow-Up Follow up with: dr. alan next week ADRIANE ALAN MD Jun 30, 2017 08:52
[2017-06-30] MEDS ORDERED: CIPR250T30 GT (08:54)
[2017-06-30] MEDS ORDERED: QUET25TA PEG (08:54)
[2017-06-30] MEDS ORDERED: CIPROFLOXACIN HCL 250 MG TABLET. GT SCH (09:00)
--- NOTE | 2017-06-30 09:02 | PDOC ---
Provider Note Provider Note discharge summary dictated # [id number] ADRIANE ALAN MD Jun 30, 2017 09:02
[2017-06-30 11:00] VITALS: BP 110/69
[2017-06-30] MEDS: IV 1/2 NORMAL SALINE 1,000 ML IV SCH (11:10)
--- NOTE | 2017-06-30 21:29 | DS ---
DATE OF DISCHARGE: 06/30/2017 MOBILE SALES CONSULTANT: Markel Aburto MD FINAL DIAGNOSES: 1. Klebsiella bacteremia with sepsis, suspected secondary to urinary tract infection. 2. Leukocytosis. 3. Hypernatremia. 4. Anoxic encephalopathy. 5. Expressive global aphasia. 6. Spastic quadriplegia. 7. History of anoxic encephalopathy. 8. Oropharyngeal dysphagia, maintaining gastrostomy tube feedings. 9. Short gut syndrome with an ileostomy. 10. Right above-knee amputation. 11. Left heel wound. 12. Hypomagnesemia. HOSPITAL COURSE: The patient is a 67-year-old male with a history of anoxic encephalopathy and oropharyngeal dysphagia with aphasia and spastic quadriplegia and maintained on gastrostomy tube feedings who has a short gut syndrome, maintained on IV fluids every 12 hours a day at home and also maintained on gastrostomy tube feedings and water flushes. The patient was noted to be hypoxic at home per his and would send him to the [facility] Emergency Room, was noted to have a fever and tachycardia and was not hypoxic, but he did have pyuria and leukocytosis consistent with urinary tract infection and sepsis. Started on IV vancomycin and cefepime. Blood cultures grew gram-negative viktoria and vancomycin was discontinued and gram-negative viktoria was Klebsiella and was sensitive to Levaquin. IV cefepime was discontinued and the patient was started on ciprofloxacin as it was also sensitive to Cipro. The patient's central line/port will be maintained per Dr. Markel Aburto. Repeat blood culture on 06/29 is growing 1 out 4 gram-positive cocci in clusters and is felt to be a contaminant. The patient's hypomagnesemia and hypernatremia resolved with IV fluids. His sodium is 140, potassium 3.9, chloride 106 and total CO2 26. BUN 13 and creatinine 0.7. Blood sugar 132 with the magnesium of 1.8. His white count was 10.4; hemoglobin 10.1 with the platelet count 307,000; 71 polys and 16 lymphocytes. Therefore, he will be dismissed to home with home health and will be dismissed on Tylenol 650 mg every 4 hours p.r.n., aspirin 325 mg every day, baclofen 10 mg t.i.d., Strunk 10-325 one every 6 hours p.r.n., Protonix 40 mg every day, multiple vitamin every day, Seroquel 37.5 mg at bedtime, temazepam 45 mg at bedtime, ciprofloxacin 500 mg b.i.d. for 7 days. Jevity 1.2 at 110 mL an hour per hour through his PEG with water and 250 mL every 6 hours through the PEG if he is n.p.o. Cipro 500 mg b.i.d. for 7 days through his PEG. IV one half normal saline 125 mL an hour from 7:00 p.m. to 7:00 a.m. and then have CBC and BMP in 1 week and every 2 weeks. He will be followed by home health and make an appointment to see Dr. Black in the office in 1 week and will be dismissed today to home. ADRIANE BLACK MD DR: MARILY/abram JOB#: [id number] / [id number]
== END 2017-06-30 14:56 | disposition home health service (06) | DRG 871 ==
LOC: ER 13:12 → 5 NORTH 15:20
PROVIDERS: ADMIT Internal Medicine; ATTEND Internal Medicine
DX: A41.59 Other Gram-negative sepsis (principal); G82.50 Quadriplegia, unspecified; G93.1 Anoxic brain damage, not elsewhere classified; R40.3 Persistent vegetative state; K91.2 Postsurgical malabsorption, not elsewhere classified; D68.9 Coagulation defect, unspecified; R47.01 Aphasia; N39.0 Urinary tract infection, site not specified; E87.0 Hyperosmolality and hypernatremia; R13.12 Dysphagia, oropharyngeal phase; E78.5 Hyperlipidemia, unspecified; E83.42 Hypomagnesemia; I10 Essential (primary) hypertension; S91.302A Unspecified open wound, left foot, initial encounter; X58.XXXA Exposure to other specified factors, initial encounter; R56.9 Unspecified convulsions; D64.9 Anemia, unspecified; Z93.1 Gastrostomy status; I69.965 Other paralytic syndrome following unspecified cerebrovascular disease, bilateral; Z89.611 Acquired absence of right leg above knee; Z86.74 Personal history of sudden cardiac arrest; Z88.0 Allergy status to penicillin; Z83.3 Family history of diabetes mellitus; Z79.899 Other long term (current) drug therapy; Z79.82 Long term (current) use of aspirin; Z74.01 Bed confinement status; Y93.89 Activity, other specified; Y92.89 Other specified places as the place of occurrence of the external cause; Y99.8 Other external cause status
CPT/HCPCS: 36415; 51701; 71010; 80048; 80053; 81001; 83605; 83735; 85007; 85025; 85610; 87040; 87205; 93005; 96365; 96366; 96367; J0692; J3370; J7030; J7050; J7060; 99285-25

== ENCOUNTER 2017-09-12 14:48 | Inpatient (IN) | payer MEDICARE, BC ==
[~2017-09-12] VITALS: Ht 190.5 cm; Wt 44.9 kg
[~2017-09-12 14:48] MED LIST changes: +CIPR250T30 GT; +FERR-36 PO; +PANT40TA3 PO; +QUET25TA PEG
[2017-09-12] MEDS ORDERED: IV NORMAL SALINE 500ML BAG 500 ML IV ONE (15:30)
--- NOTE | 2017-09-12 15:51 | PHYS DOC ---
Past Medical History Past Medical History: Bronchitis, Coagulopathy, Hypertension, MT, Seizure, Other Additional Past Medical Histor: metabolic encephalopathy, short bowel syndrome , lupus, aphagia, tetraplegia Past Surgical History: Colectomy, Other Additional Past Surgical Histo: g-tube placement, ileostomy Alcohol Use: None Drug Use: None Adult General Chief Complaint Chief Complaint: ABNORMAL LABS [facility] HPI Patient is a 67 year old male who presents with who presents with referred to the emergency Department due to a white blood cell count that was significantly elevated at around 25,000 that was drawn 4 days ago; patient is status post severe anoxic brain injury is nonverbal contractures bedridden with a G-tube and colostomy; possible subjective fever; has evidently had some skin breakdown in the sacral area of the right foot or ankle and posterior left shoulder. Recent cough no vomiting. History, physical, review of systems are limited by patient's anoxic brain injury status. Review of Systems Review of Systems Constitutional: Denies fever or chills [] Eyes: Denies change in visual acuity, redness, or eye pain [] HENT: Denies nasal congestion or sore throat [] Respiratory: Denies cough or shortness of breath [] Cardiovascular: No additional information not addressed in HPI [] GI: Denies abdominal pain, nausea, vomiting, bloody stools or diarrhea [] : Denies dysuria or hematuria [] Musculoskeletal: Denies back pain or joint pain [] Integument: Denies rash or skin lesions [] Neurologic: Denies headache, focal weakness or sensory changes [] Endocrine: Denies polyuria or polydipsia [] All other systems were reviewed and found to be within normal limits, except as documented in this note. Current Medications Current Medications Current Medications Medications (Trade) Dose Ordered Sig/Baljeet Start Time Stop Time Status Last Admin Dose Admin Morphine Sulfate 2 mg PRN Q2HR PRN 09/12/17 17:15 09/13/17 17:14 Ondansetron HCl (Zofran) 4 mg PRN Q8HRS PRN 09/12/17 17:15 09/13/17 17:14 Sodium Chloride (NORMAL SALINE FLUSH for STERILE FIELD) 10 ml STK-MED ONCE 09/12/17 15:56 09/12/17 15:57 DC Vancomycin HCl 1.75 gm/Sodium Chloride 500 ml @ 250 mls/hr 1X ONCE 09/12/17 17:15 09/12/17 19:14 UNV Allergies Allergies Allergies Coded Allergies Type Severity Reaction Last Updated Verified Penicillins Allergy Intermediate Hives, swelling, Can tolerate meropenem, CEFEPIME 06/27/17 Yes simvastatin Allergy Intermediate per and Dr Black 11/12/15 Yes Iodinated Contrast- Oral and IV Dye Adverse Reaction Severe caregiver reports pt goes into renal failure 11/12/15 Yes Physical Exam Physical Exam Constitutional: Somewhat emaciated with contractures, no acute distress, non- toxic appearance. [] HENT: Normocephalic, atraumatic, bilateral external ears normal, oropharynx moist, no oral exudates, nose normal. [] Eyes: PERRLA, EOMI, conjunctiva normal, no discharge. [] Neck: Normal range of motion, no tenderness, supple, no stridor. [] Cardiovascular:Heart rate regular rhythm, no murmur [] Lungs & Thorax: Bilateral breath sounds clear to auscultation [] Abdomen: Bowel sounds normal, soft, no tenderness, no masses, no pulsatile masses. [] Skin: Warm, dry, no erythema, no rash. [] Back: No tenderness, no CVA tenderness. Small pressure ulcer right sacrum[] Extremities: No tenderness, no cyanosis, no clubbing, , no edema. Severe contractures of the upper extremities bilaterally in the left leg; status post right leg amputation. Left leg has a pressure ulcer with foul smelling drainage on the left heel and posterior Achilles area[] Neurologic: Nonverbal eyes open not following commands status post hypoxic brain injury at baseline Psychologic: Unable to assess due to anoxic brain injury[] Current Patient Data Vital Signs Vital Signs Date Time Temp Pulse Resp B/P (MAP) Pulse Ox O2 Delivery O2 Flow Rate FiO2 09/12/17 15:05 99.0 104 30 115/75 (88) 93 99.0 Lab Values Laboratory Tests Test 09/12/17 15:35 09/12/17 16:10 Urine Collection Type U cath Urine Color Yellow Urine Clarity Clear Urine pH 6.5 Urine Specific [place] 1.015 Urine Protein Negative mg/dL (NEG-TRACE) Urine Glucose (UA) Negative mg/dL (NEG) Urine Ketones (Stick) Negative mg/dL (NEG) Urine Blood Large (NEG) Urine Nitrite Positive (NEG) Urine Bilirubin Negative (NEG) Urine Urobilinogen Dipstick 0.2 mg/dL (0.2 mg/dL) Urine Leukocyte Esterase Large (NEG) Urine RBC 1-2 /HPF (0-2) Urine WBC 5-10 /HPF (0-4) Urine Squamous Epithelial Cells None /LPF Urine Amorphous Sediment Present /HPF Urine Bacteria Few /HPF (0-FEW) White Blood Count 17.6 x10^3/uL (4.0-11.0) H Red Blood Count 4.19 x10^6/uL (4.30-5.70) L Hemoglobin 11.3 g/dL (13.0-17.5) L Hematocrit 36.2 % (39.0-53.0) L Mean Corpuscular Volume 86 fL (79-100) Mean Corpuscular Hemoglobin 27 pg (25-35) Mean Corpuscular Hemoglobin Concent 31 g/dL (31-37) Red Cell Distribution Width 16.3 % (11.5-14.5) H Platelet Count 359 x10^3/uL (140-400) Neutrophils (%) (Auto) 84 % (31-73) H Lymphocytes (%) (Auto) 8 % (24-48) L Monocytes (%) (Auto) 7 % (0-9) Eosinophils (%) (Auto) 1 % (0-3) Basophils (%) (Auto) 0 % (0-3) Neutrophils # (Auto) 14.8 x10^3uL (1.8-7.7) H Lymphocytes # (Auto) 1.3 x10^3/uL (1.0-4.8) Monocytes # (Auto) 1.3 x10^3/uL (0.0-1.1) H Eosinophils # (Auto) 0.2 x10^3/uL (0.0-0.7) Basophils # (Auto) 0.0 x10^3/uL (0.0-0.2) Segmented Neutrophils % 75 % (35-66) H Band Neutrophils % 6 % (0-9) Lymphocytes % 9 % (24-48) L Monocytes % 6 % (0-10) Eosinophils % 3 % (0-5) Basophils % 1 % (0-3) Toxic Granulation Slight Platelet Estimate Adequate (ADEQUATE) Polychromasia Slight Sodium Level 142 mmol/L (136-145) Potassium Level 4.5 mmol/L (3.5-5.1) Chloride Level 105 mmol/L (98-107) Carbon Dioxide Level 24 mmol/L (21-32) Anion Gap 13 (6-14) Blood Urea Nitrogen 38 mg/dL (8-26) H Creatinine 0.9 mg/dL (0.7-1.3) Estimated GFR (Cockcroft-Gault) 102.5 BUN/Creatinine Ratio 42 (6-20) H Glucose Level 113 mg/dL (70-99) H Lactic Acid Level 1.9 mmol/L (0.4-2.0) Calcium Level 9.1 mg/dL (8.5-10.1) Total Bilirubin 0.5 mg/dL (0.2-1.0) Aspartate Amino Transferase (AST) 72 U/L (15-37) H Alanine Aminotransferase (ALT) 61 U/L (16-63) Alkaline Phosphatase 139 U/L (46-116) H Total Protein 8.9 g/dL (6.4-8.2) H Albumin 2.5 g/dL (3.4-5.0) L Albumin/Globulin Ratio 0.4 (1.0-1.7) L Laboratory Tests 09/12/17 16:10 Laboratory Tests 09/12/17 16:10 EKG EKG EKG sinus rhythm rate of 100 no STEMI QTC 449 my interpretation[] Radiology/Procedures Radiology/Procedures Chest x-ray[ no infiltrates and no cardiomegaly imaging limited by patient's severe kyphosis contractures and I have reviewed the radiologist report] Course & Med Decision Making Course & Med Decision Making Pertinent Labs and Imaging studies reviewed. (See chart for details) [Urinalysis appears positive for UTI. Left heel demonstrated a nasty draining ulcer. Patient was placed on broad-spectrum antibiotics after discussion with the admitting doctor Dr. Black. Patient was placed on vancomycin and cefepime. ] Dragon Disclaimer Dragon Disclaimer This electronic medical record was generated, in whole or in part, using a voice recognition dictation system. Departure Departure Impression: Primary Impression: Leukocytosis Additional Impressions: Urinary tract infection Pressure ulcer of left ankle Infected pressure ulcer Disposition: ADMITTED INPATIENT Condition: STABLE Referrals: ADRIANE BLACK MD (PCP) Problem Qualifiers BEVERLY CORDON MD Sep 12, 2017 15:50
[2017-09-12] MEDS ORDERED: 0.9 % SOD CHL for STERILE FIELD 10 ML DISP.SYRIN. ONE (15:56)
[2017-09-12 16:06] LABS: BILIRUBIN,URINE NEGATIVE (NEG); GLUCOSE,URINE NEGATIVE (NEG); NITRITE,URINE POSITIVE (NEG); PH,URINE 6.5; PROTEIN,URINE NEGATIVE (NEG-TRACE); UROBILINOGEN,URINE 0.2 mg/dL (0.2 mg/dL)
--- NOTE | 2017-09-12 16:10 | RAD ---
Portable chest, 09/12/2017: History: Fever, high white blood cell count Comparison is made to a study from 07/28/2017. The patient positioning is kyphotic and rotated with upper extremities overlying the lung bases. The right Port-A-Cath has been removed. A left-sided Port-A-Cath is now in place extending into the superior aspect of the right atrium. The heart size and pulmonary vascularity are normal. There is obscuration of left hemidiaphragm suggesting left basilar atelectasis and/or pneumonitis. No right lung infiltrate is seen. An oblique line overlying the left upper chest is most likely due to a skin fold. A pneumothorax is less likely. IMPRESSION: 1. Moderate left basilar atelectasis and/or pneumonitis. 2. A linear density projected over the left upper chest is probably a skinfold. A pneumothorax is less likely. Radiographic follow-up is suggested for confirmation.
[2017-09-12 16:22] LABS: BACTERIA,URINE FEW /HPF (0-FEW)
[2017-09-12 16:30] LABS: BASO % 0 % (0-3); EOS % 1 % (0-3); HEMATOCRIT 36.2 % (39.0-53.0); HEMOGLOBIN 11.3 g/dL (13.0-17.5); LYMPH # 1.3 x10^3/uL (1.0-4.8); LYMPH % 8 % (24-48); MEAN CORPUSCULAR HEMOGLOBIN 27 pg (25-35); MEAN CORPUSCULAR HGB CONC 31 g/dL (31-37); MEAN CORPUSCULAR VOLUME 86 fL (79-100); MONO % 7 % (0-9); NEUT % 84 % (31-73); PLATELET COUNT 359 x10^3/uL (140-400); RED BLOOD COUNT 4.19 x10^6/uL (4.30-5.70); RED CELL DISTRIBUTION WIDTH 16.3 % (11.5-14.5); WHITE BLOOD COUNT 17.6 x10^3/uL (4.0-11.0)
[2017-09-12 16:49] LABS: CALCIUM 9.1 mg/dL (8.5-10.1); CREATININE 0.9 mg/dL (0.7-1.3); GFR 102.5; POTASSIUM 4.5 mmol/L (3.5-5.1)
[2017-09-12 16:54] LABS: ALBUMIN 2.5 g/dL (3.4-5.0); ALBUMIN/GLOBULIN RATIO 0.4 (1.0-1.7); TOTAL BILIRUBIN 0.5 mg/dL (0.2-1.0); TOTAL PROTEIN 8.9 g/dL (6.4-8.2)
[2017-09-12] MEDS ORDERED: VANCOMYCIN 1.75 GM in IV NORMAL SALINE 500ML BAG 500 ML IV ONE (17:15)
[2017-09-12] MEDS ORDERED: MORPHINE SULFATE 2 MG/ML DISP.SYRIN. IV PRN (17:15)
[2017-09-12] MEDS ORDERED: ONDANSETRON PF 4 MG/2 ML VIAL. IV PRN (17:15)
[2017-09-12] MEDS ORDERED: CEFEPIME HCL IV Push 1 GM VIAL. IVP ONE (17:30)
[2017-09-12 17:53] LABS: % BASOS 1 % (0-3); % EOS 3 % (0-5)
[2017-09-12 17:56] LABS: PLT ESTIMATE ADEQUATE (ADEQUATE); POLYCHROMASIA SLIGHT; TOXIC GRANULATION SLIGHT
[2017-09-12] MEDS ORDERED: VANCOMYCIN 1 GM in IV NORMAL SALINE 250ML 250 ML IV ONE (18:00)
[2017-09-12] MEDS ORDERED: QUEtiapine 25 MG TABLET. PEG PRN (18:00)
--- NOTE | 2017-09-12 18:34 | PDOC ---
Provider Note Provider Note history and physical dictated # [id number] ADRIANE ALAN MD Sep 12, 2017 18:34
[2017-09-12] MEDS: VANCOMYCIN PER PHARMACY MC PRN (18:46)
--- NOTE | 2017-09-12 18:49 | EKG ---
[facility] [address] [place] [address] Test Date: 2017-09-12 Test Time: 18:16:55 Pat Name: TENA SCHAFFER Department: Room: 416 Gender: Male Cmo: : [id number] Requested By: ADRIANE ALAN Order Number: [id number] Reading MD: Surjit Marshall MD Measurements Intervals [place] Rate: 100 P: 41 AR: 136 QRS: -66 QRSD: 108 T: 54 QT: 346 QTc: 449 Interpretive Statements SINUS RHYTHM LAD POOR R-WAVE PROGRESSION Electronically Signed On 09-19-2017 14:10:08 LEARNING CENTER INSTRUCTOR by Surjit Marshall MD
[2017-09-12 19:00] VITALS: BP 119/69
--- NOTE | 2017-09-12 19:17 | HP ---
ADMIT DATE: 09/12/2017 LOCATION: He is in room 416. HISTORY OF PRESENT ILLNESS: The patient is a 67-year-old male who has a history of anoxic encephalopathy from an out of hospital cardiopulmonary arrest who has spastic quadriplegia and oropharyngeal dysphagia maintained on gastrostomy tube feedings as well as a short gut syndrome, maintained on IV fluids at home who has history of an ileostomy and a right above-knee amputation, was noted to have leukocytosis of 25,000 done on his weekly blood tests and the patient's was notified to take him to the Emergency Room. The says he had a fever of over 103 degrees a couple of days ago. He has had an occasional cough. He does not have a Llamas catheter in. The Emergency Room physician noted that he had foul smelling of wound involving his left heel hospital. Blood and urine cultures were ordered as well and his chest x-ray showed a possible left lower lobe atelectasis versus infiltrate. He was started on IV vancomycin and cefepime in the Emergency Room. He is a full code. ALLERGIES AND INTOLERANCES: INCLUDE IV AND ORAL IODINE, PENICILLIN, SIMVASTATIN. MEDICATIONS: Include aspirin 325 mg every day, baclofen 10 mg t.i.d. Fibersource HN 1.2 110 mL an hour, water 250 mL every 6 hours, multiple vitamin every day, [place] 10/325 mg 1 every 6 hours p.r.n., Protonix 40 mg every day, Seroquel 37.5 mg at bedtime and 12.5 mg every 8 hours p.r.n., temazepam 40 mg at bedtime. PAST MEDICAL HISTORY: Significant for anoxic encephalopathy secondary to an out of hospital cardiopulmonary arrest several years ago. He also has spastic quadriplegia and neurogenic dysphagia, maintained on gastrostomy tube feedings. He has a short gut syndrome and has an ileostomy due to small bowel resection related to ischemic bowel. He had a cardiac catheterization in 2004 that was normal, benign colon polypectomy in 2004, small bowel resection with ileostomy was in 2012 due to ischemic bowel. 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 He has a history of hypertension and hyperlipidemia. He has a spastic quadriplegia as mentioned. He has a right above-knee amputation. PHYSICAL EXAMINATION: VITAL SIGNS: His temperature is 99 degrees, pulse 104, respiratory rate was 30 initially, but it is currently about 24, blood pressure is 115/75, oxygen saturation 93%. HEENT: Eyes are closed. NECK: There is no cervical lymphadenopathy. CHEST: He has got a port in the left side. HEART: Reveals an S1, S2. There is no S3 or murmur. LUNGS: Clear anteriorly. ABDOMEN: Soft. He has an ileostomy and gastrostomy tube. LOWER EXTREMITIES: He has got a right above-knee amputation. Examination of his left lower extremity shows that he has got a foul smelling wound involving the left heel. He has some superficial drainage noted. NEUROLOGIC: He has got spastic quadriplegia. SKIN: No rashes. LABORATORY TESTS: White count was 17.6, hemoglobin 11.3, platelet count was 359,000, 75 polys and 6 bands. His sodium is 142, potassium 4.5, chloride 105, total CO2 24, BUN 38, creatinine 0.9, blood sugar 113, lactic acid 1.9. SGOT of 72, SGPT of 61, alkaline phosphatase 139, total bilirubin was 0.5, albumin was 2.5. Urinalysis showed 5-10 white cells and 1-2 red blood cells. His chest x-ray showed moderate left basilar atelectasis versus pneumonitis. IMPRESSION: 1. Fever. 2. Leukocytosis with a left shift. Certainly need to be concerned about the pneumonia or urinary tract infection or a port infection. 3. Left foot wound. 4. Spastic quadriplegia. 5. Anoxic encephalopathy. 6. Oropharyngeal dysphagia, maintained on gastrostomy tube feedings. 7. Short gut syndrome. 8. Ileostomy. 9. Right above-knee amputation. PLAN: At this time is consult Dr. Markel Aburto. We will continue with his IV vancomycin and cefepime. Wait for the blood and urine cultures and left heel wound cultures and consult the wound care nurse and admitted to the hospital. He is a full code. Continue with his home medicines TPN and IV fluids. Recheck his labs tomorrow. ADRIANE ALAN MD DR: MARILY/abram JOB#: [id number] / [id number]
[2017-09-12] MEDS: IV 1/2 NORMAL SALINE 1,000 ML IV SCH (20:31)
[2017-09-12] MEDS ORDERED: TEMAZEPAM 15 MG CAPSULE PO SCH (21:00)
[2017-09-12] MEDS: QUEtiapine 25 MG TABLET. GT SCH (21:16)
[2017-09-12] MEDS: BACLOFEN 10 MG TABLET. GT SCH (21:16)
[2017-09-12] MEDS: TEMAZEPAM 15 MG CAPSULE PO SCH (21:17)
[2017-09-12] MEDS ORDERED: CEFEPIME HCL 1 GM in IV DEXTROSE 5% 50 ML IV SCH (22:00)
[2017-09-12 23:00] VITALS: BP 86/61
[2017-09-13 03:00] VITALS: BP 120/81
[2017-09-13 05:55] LABS: BASO % 0 % (0-3); EOS % 2 % (0-3); HEMATOCRIT 33.5 % (39.0-53.0); HEMOGLOBIN 10.7 g/dL (13.0-17.5); LYMPH % 5 % (24-48); MEAN CORPUSCULAR HEMOGLOBIN 28 pg (25-35); MEAN CORPUSCULAR HGB CONC 32 g/dL (31-37); MEAN CORPUSCULAR VOLUME 86 fL (79-100); MONO % 5 % (0-9); NEUT % 87 % (31-73); PLATELET COUNT 363 x10^3/uL (140-400); RED BLOOD COUNT 3.91 x10^6/uL (4.30-5.70); RED CELL DISTRIBUTION WIDTH 16.6 % (11.5-14.5); WHITE BLOOD COUNT 18.3 x10^3/uL (4.0-11.0)
[2017-09-13 06:22] LABS: CALCIUM 8.5 mg/dL (8.5-10.1); GFR 90.7; POTASSIUM 4.4 mmol/L (3.5-5.1)
[2017-09-13 07:15] VITALS: BP 116/79
[2017-09-13] MEDS: PANTOPRAZOLE 40 MG TABLET.DR. PO SCH (07:30)
[2017-09-13] MEDS ORDERED: CEFEPIME HCL IV Push 1 GM VIAL. IVP SCH (09:00)
[2017-09-13] MEDS: ASPIRIN 325 MG TABLET GT SCH (09:00)
[2017-09-13] MEDS: MULTIVITAMIN with MINERAL TABLET. PO SCH (09:00)
[2017-09-13] MEDS: BACLOFEN 10 MG TABLET. GT SCH ×3 (09:00→21:42)
--- NOTE | 2017-09-13 10:05 | RAD ---
Portable chest, 09/13/2017: History: Shortness of breath, follow-up chest abnormality Comparison is made to yesterday's study. A left Port-A-Cath extends into the superior aspect of the right atrium. The heart size and pulmonary vascularity are normal. There is a persistent moderate retrocardiac opacity partially obscuring the hemidiaphragm and descending thoracic aorta. The appearance suggests left lower lobe atelectasis/consolidation. There are mild bilateral parenchymal scars. No right lung consolidation is seen. There is no evidence of pneumothorax or significant pleural fluid. IMPRESSION: Ongoing moderate atelectasis/consolidation in the left lower lobe.
[2017-09-13] MEDS: ASCORBIC ACID 500 MG TABLET PO SCH ×2 (10:15→21:42)
--- NOTE | 2017-09-13 10:24 | PDOC ---
Infectious Disease Note Vital Sign Vital Signs Vital Signs Date Time Temp Pulse Resp B/P (MAP) Pulse Ox O2 Delivery O2 Flow Rate FiO2 09/13/17 07:15 99.2 119 20 116/79 (91) 96 Nasal Cannula 2.0 99.2 Labs Lab Laboratory Tests Test 09/12/17 15:35 09/12/17 16:10 09/13/17 05:37 Urine Collection Type U cath Urine Color Yellow Urine Clarity Clear Urine pH 6.5 Urine Specific [place] 1.015 Urine Protein Negative mg/dL (NEG-TRACE) Urine Glucose (UA) Negative mg/dL (NEG) Urine Ketones (Stick) Negative mg/dL (NEG) Urine Blood Large (NEG) Urine Nitrite Positive (NEG) Urine Bilirubin Negative (NEG) Urine Urobilinogen Dipstick 0.2 mg/dL (0.2 mg/dL) Urine Leukocyte Esterase Large (NEG) Urine RBC 1-2 /HPF (0-2) Urine WBC 5-10 /HPF (0-4) Urine Squamous Epithelial Cells None /LPF Urine Amorphous Sediment Present /HPF Urine Bacteria Few /HPF (0-FEW) White Blood Count 17.6 x10^3/uL (4.0-11.0) 18.3 x10^3/uL (4.0-11.0) Red Blood Count 4.19 x10^6/uL (4.30-5.70) 3.91 x10^6/uL (4.30-5.70) Hemoglobin 11.3 g/dL (13.0-17.5) 10.7 g/dL (13.0-17.5) Hematocrit 36.2 % (39.0-53.0) 33.5 % (39.0-53.0) Mean Corpuscular Volume 86 fL (79-100) 86 fL (79-100) Mean Corpuscular Hemoglobin 27 pg (25-35) 28 pg (25-35) Mean Corpuscular Hemoglobin Concent 31 g/dL (31-37) 32 g/dL (31-37) Red Cell Distribution Width 16.3 % (11.5-14.5) 16.6 % (11.5-14.5) Platelet Count 359 x10^3/uL (140-400) 363 x10^3/uL (140-400) Neutrophils (%) (Auto) 84 % (31-73) 87 % (31-73) Lymphocytes (%) (Auto) 8 % (24-48) 5 % (24-48) Monocytes (%) (Auto) 7 % (0-9) 5 % (0-9) Eosinophils (%) (Auto) 1 % (0-3) 2 % (0-3) Basophils (%) (Auto) 0 % (0-3) 0 % (0-3) Neutrophils # (Auto) 14.8 x10^3uL (1.8-7.7) 15.9 x10^3uL (1.8-7.7) Lymphocytes # (Auto) 1.3 x10^3/uL (1.0-4.8) 1.0 x10^3/uL (1.0-4.8) Monocytes # (Auto) 1.3 x10^3/uL (0.0-1.1) 0.9 x10^3/uL (0.0-1.1) Eosinophils # (Auto) 0.2 x10^3/uL (0.0-0.7) 0.4 x10^3/uL (0.0-0.7) Basophils # (Auto) 0.0 x10^3/uL (0.0-0.2) 0.0 x10^3/uL (0.0-0.2) Segmented Neutrophils % 75 % (35-66) Band Neutrophils % 6 % (0-9) Lymphocytes % 9 % (24-48) Monocytes % 6 % (0-10) Eosinophils % 3 % (0-5) Basophils % 1 % (0-3) Toxic Granulation Slight Platelet Estimate Adequate (ADEQUATE) Polychromasia Slight Sodium Level 142 mmol/L (136-145) 144 mmol/L (136-145) Potassium Level 4.5 mmol/L (3.5-5.1) 4.4 mmol/L (3.5-5.1) Chloride Level 105 mmol/L (98-107) 109 mmol/L (98-107) Carbon Dioxide Level 24 mmol/L (21-32) 22 mmol/L (21-32) Anion Gap 13 (6-14) 13 (6-14) Blood Urea Nitrogen 38 mg/dL (8-26) 36 mg/dL (8-26) Creatinine 0.9 mg/dL (0.7-1.3) 1.0 mg/dL (0.7-1.3) Estimated GFR (Cockcroft-Gault) 102.5 90.7 BUN/Creatinine Ratio 42 (6-20) Glucose Level 113 mg/dL (70-99) 157 mg/dL (70-99) Lactic Acid Level 1.9 mmol/L (0.4-2.0) Calcium Level 9.1 mg/dL (8.5-10.1) 8.5 mg/dL (8.5-10.1) Total Bilirubin 0.5 mg/dL (0.2-1.0) Aspartate Amino Transf (AST/SGOT) 72 U/L (15-37) Alanine Aminotransferase (ALT/SGPT) 61 U/L (16-63) Alkaline Phosphatase 139 U/L (46-116) Total Protein 8.9 g/dL (6.4-8.2) Albumin 2.5 g/dL (3.4-5.0) Albumin/Globulin Ratio 0.4 (1.0-1.7) Objective Assessment Fever Leukocytosis Respiratory failure Likely aspiration Sepsis Left foot wound Persistent veg state Plan Plan of Care vanc and meropenem and diflucan check cultures supportive care fluids d/w d/w CATHY Mendez MD Sep 13, 2017 10:24
--- NOTE | 2017-09-13 10:39 | PDOC ---
PROGRESS NOTES Subjective Subjective he is tachypneic. cxr report noted. discussed with dr. florence walker and patients . lab reviewed. Objective Objective Vital Signs Date Time Temp Pulse Resp B/P (MAP) Pulse Ox O2 Delivery O2 Flow Rate FiO2 09/13/17 07:15 99.2 119 20 116/79 (91) 96 Nasal Cannula 2.0 99.2 Intake and Output 09/13/17 07:00 Intake Total 2760 ml Balance 2760 ml Intake IV Total 980 ml Tube Feeding 800 ml Other 980 ml # Voids 3 Physical Exam Abdomen: Soft, Other (g tube and ileostomy) Heart: Normal S1, Normal S2 Extremities: No edema, Other (right aka and left foot wound with dressing) General: Other (eyes closed) HEENT: Atraumatic Lungs: Other (clear anteriorly) Neuro: Other (aphasic with spastic quadriplegia) Psych/Mental Status: Mood NL Skin: No rashes Assessment Assessment Problems1. sepsis 2. Leukocytosis 3. Left foot wound. 4. Spastic quadriplegia. 5. Anoxic encephalopathy. 6. Oropharyngeal dysphagia, maintained on gastrostomy tube feedings. 7. Short gut syndrome. 8. Ileostomy. 9. Right above-knee amputation. pyuria lung infiltrate per radiologist Medical Problems: (1) Infected pressure ulcer Status: Acute (2) Pressure ulcer of left ankle Status: Acute (3) Urinary tract infection Status: Acute Plan Plan of Care iv vancomycin and meropenem and diflucan blood and urine and wound cultures pending consult dr. omi ACE lactic acid level continue tube feeding and iv fluids telemetry Comment Review of Relevant I have reviewed the following items ramon (where applicable) has been applied. Labs Laboratory Tests Test 09/12/17 15:35 09/12/17 16:10 09/13/17 05:37 Urine Collection Type U cath Urine Color Yellow Urine Clarity Clear Urine pH 6.5 Urine Specific [place] 1.015 Urine Protein Negative mg/dL (NEG-TRACE) Urine Glucose (UA) Negative mg/dL (NEG) Urine Ketones (Stick) Negative mg/dL (NEG) Urine Blood Large (NEG) Urine Nitrite Positive (NEG) Urine Bilirubin Negative (NEG) Urine Urobilinogen Dipstick 0.2 mg/dL (0.2 mg/dL) Urine Leukocyte Esterase Large (NEG) Urine RBC 1-2 /HPF (0-2) Urine WBC 5-10 /HPF (0-4) Urine Squamous Epithelial Cells None /LPF Urine Amorphous Sediment Present /HPF Urine Bacteria Few /HPF (0-FEW) White Blood Count 17.6 x10^3/uL (4.0-11.0) 18.3 x10^3/uL (4.0-11.0) Red Blood Count 4.19 x10^6/uL (4.30-5.70) 3.91 x10^6/uL (4.30-5.70) Hemoglobin 11.3 g/dL (13.0-17.5) 10.7 g/dL (13.0-17.5) Hematocrit 36.2 % (39.0-53.0) 33.5 % (39.0-53.0) Mean Corpuscular Volume 86 fL (79-100) 86 fL (79-100) Mean Corpuscular Hemoglobin 27 pg (25-35) 28 pg (25-35) Mean Corpuscular Hemoglobin Concent 31 g/dL (31-37) 32 g/dL (31-37) Red Cell Distribution Width 16.3 % (11.5-14.5) 16.6 % (11.5-14.5) Platelet Count 359 x10^3/uL (140-400) 363 x10^3/uL (140-400) Neutrophils (%) (Auto) 84 % (31-73) 87 % (31-73) Lymphocytes (%) (Auto) 8 % (24-48) 5 % (24-48) Monocytes (%) (Auto) 7 % (0-9) 5 % (0-9) Eosinophils (%) (Auto) 1 % (0-3) 2 % (0-3) Basophils (%) (Auto) 0 % (0-3) 0 % (0-3) Neutrophils # (Auto) 14.8 x10^3uL (1.8-7.7) 15.9 x10^3uL (1.8-7.7) Lymphocytes # (Auto) 1.3 x10^3/uL (1.0-4.8) 1.0 x10^3/uL (1.0-4.8) Monocytes # (Auto) 1.3 x10^3/uL (0.0-1.1) 0.9 x10^3/uL (0.0-1.1) Eosinophils # (Auto) 0.2 x10^3/uL (0.0-0.7) 0.4 x10^3/uL (0.0-0.7) Basophils # (Auto) 0.0 x10^3/uL (0.0-0.2) 0.0 x10^3/uL (0.0-0.2) Segmented Neutrophils % 75 % (35-66) Band Neutrophils % 6 % (0-9) Lymphocytes % 9 % (24-48) Monocytes % 6 % (0-10) Eosinophils % 3 % (0-5) Basophils % 1 % (0-3) Toxic Granulation Slight Platelet Estimate Adequate (ADEQUATE) Polychromasia Slight Sodium Level 142 mmol/L (136-145) 144 mmol/L (136-145) Potassium Level 4.5 mmol/L (3.5-5.1) 4.4 mmol/L (3.5-5.1) Chloride Level 105 mmol/L (98-107) 109 mmol/L (98-107) Carbon Dioxide Level 24 mmol/L (21-32) 22 mmol/L (21-32) Anion Gap 13 (6-14) 13 (6-14) Blood Urea Nitrogen 38 mg/dL (8-26) 36 mg/dL (8-26) Creatinine 0.9 mg/dL (0.7-1.3) 1.0 mg/dL (0.7-1.3) Estimated GFR (Cockcroft-Gault) 102.5 90.7 BUN/Creatinine Ratio 42 (6-20) Glucose Level 113 mg/dL (70-99) 157 mg/dL (70-99) Lactic Acid Level 1.9 mmol/L (0.4-2.0) Calcium Level 9.1 mg/dL (8.5-10.1) 8.5 mg/dL (8.5-10.1) Total Bilirubin 0.5 mg/dL (0.2-1.0) Aspartate Amino Transf (AST/SGOT) 72 U/L (15-37) Alanine Aminotransferase (ALT/SGPT) 61 U/L (16-63) Alkaline Phosphatase 139 U/L (46-116) Total Protein 8.9 g/dL (6.4-8.2) Albumin 2.5 g/dL (3.4-5.0) Albumin/Globulin Ratio 0.4 (1.0-1.7) Laboratory Tests Test 09/12/17 15:35 09/12/17 16:10 09/13/17 05:37 Urine Collection Type U cath Urine Color Yellow Urine Clarity Clear Urine pH 6.5 Urine Specific [place] 1.015 Urine Protein Negative mg/dL (NEG-TRACE) Urine Glucose (UA) Negative mg/dL (NEG) Urine Ketones (Stick) Negative mg/dL (NEG) Urine Blood Large (NEG) Urine Nitrite Positive (NEG) Urine Bilirubin Negative (NEG) Urine Urobilinogen Dipstick 0.2 mg/dL (0.2 mg/dL) Urine Leukocyte Esterase Large (NEG) Urine RBC 1-2 /HPF (0-2) Urine WBC 5-10 /HPF (0-4) Urine Squamous Epithelial Cells None /LPF Urine Amorphous Sediment Present /HPF Urine Bacteria Few /HPF (0-FEW) White Blood Count 17.6 x10^3/uL (4.0-11.0) 18.3 x10^3/uL (4.0-11.0) Red Blood Count 4.19 x10^6/uL (4.30-5.70) 3.91 x10^6/uL (4.30-5.70) Hemoglobin 11.3 g/dL (13.0-17.5) 10.7 g/dL (13.0-17.5) Hematocrit 36.2 % (39.0-53.0) 33.5 % (39.0-53.0) Mean Corpuscular Volume 86 fL (79-100) 86 fL (79-100) Mean Corpuscular Hemoglobin 27 pg (25-35) 28 pg (25-35) Mean Corpuscular Hemoglobin Concent 31 g/dL (31-37) 32 g/dL (31-37) Red Cell Distribution Width 16.3 % (11.5-14.5) 16.6 % (11.5-14.5) Platelet Count 359 x10^3/uL (140-400) 363 x10^3/uL (140-400) Neutrophils (%) (Auto) 84 % (31-73) 87 % (31-73) Lymphocytes (%) (Auto) 8 % (24-48) 5 % (24-48) Monocytes (%) (Auto) 7 % (0-9) 5 % (0-9) Eosinophils (%) (Auto) 1 % (0-3) 2 % (0-3) Basophils (%) (Auto) 0 % (0-3) 0 % (0-3) Neutrophils # (Auto) 14.8 x10^3uL (1.8-7.7) 15.9 x10^3uL (1.8-7.7) Lymphocytes # (Auto) 1.3 x10^3/uL (1.0-4.8) 1.0 x10^3/uL (1.0-4.8) Monocytes # (Auto) 1.3 x10^3/uL (0.0-1.1) 0.9 x10^3/uL (0.0-1.1) Eosinophils # (Auto) 0.2 x10^3/uL (0.0-0.7) 0.4 x10^3/uL (0.0-0.7) Basophils # (Auto) 0.0 x10^3/uL (0.0-0.2) 0.0 x10^3/uL (0.0-0.2) Segmented Neutrophils % 75 % (35-66) Band Neutrophils % 6 % (0-9) Lymphocytes % 9 % (24-48) Monocytes % 6 % (0-10) Eosinophils % 3 % (0-5) Basophils % 1 % (0-3) Toxic Granulation Slight Platelet Estimate Adequate (ADEQUATE) Polychromasia Slight Sodium Level 142 mmol/L (136-145) 144 mmol/L (136-145) Potassium Level 4.5 mmol/L (3.5-5.1) 4.4 mmol/L (3.5-5.1) Chloride Level 105 mmol/L (98-107) 109 mmol/L (98-107) Carbon Dioxide Level 24 mmol/L (21-32) 22 mmol/L (21-32) Anion Gap 13 (6-14) 13 (6-14) Blood Urea Nitrogen 38 mg/dL (8-26) 36 mg/dL (8-26) Creatinine 0.9 mg/dL (0.7-1.3) 1.0 mg/dL (0.7-1.3) Estimated GFR (Cockcroft-Gault) 102.5 90.7 BUN/Creatinine Ratio 42 (6-20) Glucose Level 113 mg/dL (70-99) 157 mg/dL (70-99) Lactic Acid Level 1.9 mmol/L (0.4-2.0) Calcium Level 9.1 mg/dL (8.5-10.1) 8.5 mg/dL (8.5-10.1) Total Bilirubin 0.5 mg/dL (0.2-1.0) Aspartate Amino Transf (AST/SGOT) 72 U/L (15-37) Alanine Aminotransferase (ALT/SGPT) 61 U/L (16-63) Alkaline Phosphatase 139 U/L (46-116) Total Protein 8.9 g/dL (6.4-8.2) Albumin 2.5 g/dL (3.4-5.0) Albumin/Globulin Ratio 0.4 (1.0-1.7) Medications Current Medications Sodium Chloride 500 ml @ 500 mls/hr 1X ONCE IV Last administered on t 16:24; Start 09/12/17 at 15:30; Stop 09/12/17 at 16:29; Status DC Sodium Chloride (NORMAL SALINE FLUSH for STERILE FIELD) 10 ml TURN8-MED ONCE .ROUTE ; Start 09/12/17 at 15:56; Stop 09/12/17 at 15:57; Status DC Vancomycin HCl 1.75 gm/Sodium Chloride 500 ml @ 250 mls/hr 1X ONCE IV ; Start 09/12/17 at 17:15; Stop 09/12/17 at 19:14; Status UNV Cefepime HCl 1 gm/ Dextrose 50 ml @ 100 mls/hr Q8HRS IV ; Start 09/12/17 at 22 :00; Status UNV Ondansetron HCl (Zofran) 4 mg PRN Q8HRS PRN IV NAUSEA/VOMITING; Start at 17:15; Stop 09/13/17 at 17:14 Morphine Sulfate 2 mg PRN Q2HR PRN IV PAIN; Start 09/12/17 at 17:15; Stop at 17:14 Cefepime HCl (Maxipime) 1 gm 1X ONCE IVP Last administered on 09/12/17 17:41 ; Start 09/12/17 at 17:30; Stop 09/12/17 at 17:31; Status DC Vancomycin HCl 1 gm/Sodium Chloride 250 ml @ 250 mls/hr 1X ONCE IV Last administered on 09/12/17 17:49; Start 09/12/17 at 18:00; Stop 09/12/17 at 18 :59; Status DC Cefepime HCl (Maxipime) 1 gm Q12HR IVP ; Start 09/13/17 at 09:00 Vancomycin HCl (Vanco Per Pharmacy) 1 each PRN DAILY PRN MC SEE COMMENTS Last administered on 09/12/17 18:46; Start 09/12/17 at 18:00 Acetaminophen (Tylenol) 650 mg PRN Q4HRS PRN PEG MILD PAIN / TEMP; Start 09/12 at 18:00 Aspirin (Laura Aspirin) 325 mg DAILY GT ; Start 09/13/17 at 09:00 Baclofen (Lioresal) 10 mg TID GT Last administered on 09/12/17 21:16; Start 09/12/17 at 21:00 Multivitamins (Thera M Plus) 1 tab DAILY PO ; Start 09/13/17 at 09:00 Acetaminophen/ Hydrocodone Bitart (Lortab 10/325) 1 tab PRN Q6HRS PRN GT SEVERE PAIN; Start 09/12/17 at 18:00 Pantoprazole Sodium (Protonix) 40 mg DAILYAC PO ; Start 09/13/17 at 07:30 Quetiapine Fumarate (SEROquel) 37.5 mg QHS GT Last administered on 09/12/17 21:16; Start 09/12/17 at 21:00 Quetiapine Fumarate (SEROquel) 12.5 mg PRN Q8HRS PRN PEG AGITATION; Start 09/17 at 18:00 Temazepam (Restoril) 30 mg QHS PO ; Start 09/12/17 at 21:00; Stop 09/12/17 at 21:00; Status DC Sodium Chloride 1,000 ml @ 60 mls/hr [id number] IV Last administered on 20:31; Start 09/12/17 at 18:30 Temazepam (Restoril) 45 mg QHS PO Last administered on 12/12/17at 21:17; Start 09/12/17 at 21:00 Vancomycin HCl 750 mg/Dextrose/ Sodium Chloride 250 ml @ 250 mls/hr Q18H IV ; Start 09/13/17 at 12:00 Vancomycin HCl 1 each 1X ONCE MC ; Start 09/14/17 at 05:30; Stop 09/14/17 at 05:31 Ascorbic Acid (Vitamin C) 500 mg BID PO ; Start 09/13/17 at 10:15 Active Scripts Active Protonix (Pantoprazole Sodium) 40 Mg Tablet.dr 40 Mg PO DAILY 30 Days Quetiapine Fumarate 25 Mg Tablet 37.5 Mg PEG QHS 30 Days Hydrocodone-Apap 10-325 (Hydrocodone Bit/Acetaminophen) 1 Each Tablet 1 Tab PO PRN Q6HRS PRN 30 Days Baclofen 10 Mg Tablet 10 Mg GT TID 30 Days Reported Temazepam 30 Mg Capsule 30 Mg GT HS PRN Multivitamins (Multivitamin) 1 Each Capsule 1 Each GT DAILY Temazepam 15 Mg Capsule 1 Cap GT QHS Tylenol (Acetaminophen) 325 Mg Tablet 650 Mg PO Q4HRS PRN Aspirin 325 Mg Tablet 325 Mg GT DAILY Vitals/I & O Vital Sign - Last 24 Hours 09/12/17 09/12/17 09/12/17 09/12/17 15:00 15:05 16:30 17:30 Temp 99.0 99.0 Pulse 100 104 104 102 Resp 30 B/P (MAP) 115/75 (88) 115/75 (88) 116/80 (92) 122/79 (93) Pulse Ox 100 93 96 97 O2 Delivery Room Air Room Air Room Air 09/12/17 09/12/17 09/12/17 09/13/17 19:00 21:30 23:00 03:00 Temp 98.7 99.6 100.2 98.7 99.6 100.2 Pulse 99 104 116 Resp 20 18 22 B/P (MAP) 119/69 (86) 86/61 (69) 120/81 (94) Pulse Ox 93 97 93 O2 Delivery Nasal Cannula Nasal Cannula Nasal Cannula Nasal Cannula O2 Flow Rate 2.0 2.0 2.0 2.0 09/13/17 07:15 Temp 99.2 99.2 Pulse 119 Resp 20 B/P (MAP) 116/79 (91) Pulse Ox 96 O2 Delivery Nasal Cannula O2 Flow Rate 2.0 Intake and Output 09/12/17 09/12/17 09/13/17 15:00 23:00 07:00 Intake Total 500 ml 2260 ml Balance 500 ml 2260 ml ADRIANE ALAN MD Sep 13, 2017 10:38
[2017-09-13 11:01] VITALS: BP 109/72
[2017-09-13] MEDS: FLUCONAZOLE 200MG/100ML PREMIX 100 ML IV SCH (11:57)
[2017-09-13] MEDS: IV 1/2 NORMAL SALINE 1,000 ML IV SCH (12:01)
[2017-09-13] MEDS: VANCOMYCIN PER PHARMACY MC PRN (12:37)
[2017-09-13 12:44] LABS: HCO3 ABG 19 mmol/L (21-28); PCO2 ABG 29 mmHg (35-46); PH ABG 7.43 (7.35-7.45); PO2 ABG 69 mmHg (65-108); SAT O2 ABG 93 % (92-99)
--- NOTE | 2017-09-13 13:10 | CONS ---
DATE OF CONSULTATION: ATTENDING PHYSICIAN: Dr. Black. REASON FOR CONSULTATION: Tachypnea. HISTORY OF PRESENT ILLNESS: The patient is a 67-year-old -[place] male who has history of anoxic encephalopathy from out of hospital cardiac arrest 4 years ago, he has a spastic quadriplegia and dysphagia. He has gastrostomy tube feedings, has a history of short gut syndrome and has ileostomy. He was brought into the hospital due to outpatient labs showing increasing leukocytosis of 25,000. There was also noted to have a fever of 103. He does not have a chronic Llamas. In the Emergency Room, they noted a foul-smelling wound on his left heel. His blood cultures and urine cultures have been obtained. His chest x-ray showed some retrocardiac infiltrate versus atelectasis. He was started on broad spectrum antibiotics. He has been tachypneic. His T-max was 100.2 this morning. He is requiring only 2 liters of oxygen with 97% saturation. His is at the bedside. PAST MEDICAL HISTORY: Significant for anoxic encephalopathy secondary to out of hospital cardiac arrest 4 years ago, history of spastic quadriplegia and neurogenic dysphagia, history of PEG tube, history of short gut syndrome, history of ileostomy due to small bowel resection from ischemic bowel, history of cardiac catheterization in 2004 which was normal, history of colon polypectomy history of left-sided CVA and right-sided hemiparesis in 2012, history of hypertension, hyperlipidemia. ALLERGIES: IV DYE. PENICILLIN and SIMVASTATIN. MEDICATIONS: Reviewed as listed in the MRAD. REVIEW OF SYSTEMS: Unable to obtain system review. PHYSICAL EXAMINATION: VITAL SIGNS: Reviewed. Blood pressure 109/72. His pressure was 86 yesterday. T-max of 100.2, pulse ox 97% on 2 liters. HEENT: He is tachypneic. NECK: Supple. LUNGS: With diminished breath sounds. CARDIOVASCULAR: Tachycardia. ABDOMEN: Soft. PEG tube is in place. Ileostomy in place. EXTREMITIES: Right AKA and wound on his left heel. LABORATORY DATA: Reviewed. White cell count 18.3, hemoglobin 10.7 and platelets are 363. BUN 36 and creatinine 1.0. Albumin 2.5. IMPRESSION: 1. Sepsis syndrome, sources are multifactorial and suspect a combination of heel ulcer, possible urinary tract infection and suspected aspiration pneumonia. He did vomit last week. 2. History of anoxic encephalopathy with spastic quadriplegia. 3. History of dysphagia, status post PEG tube placement. 4. Short gut syndrome, history of ileostomy for ischemic bowel. 5. Previous multiple hospitalizations for infectious etiologies. 6. History of cerebrovascular accident. RECOMMENDATIONS: 1. Discussed with Infectious Disease. Will continue with broad-spectrum antibiotics. 2. Follow all cultures. 3. Repeat chest x-ray post-IV hydration. 4. Sepsis protocol and give another liter of IV fluids. 5. Follow BUN and creatinine. 6. Follow the fever pattern. 7. Continue enteral nutrition. 8. Discussed with the patient's . JUANITO TORRES MD DR: VADIM/abram JOB#: [id number] / [id number]
--- NOTE | 2017-09-13 13:16 | CONS ---
DATE OF CONSULTATION: 09/13/2017 REQUESTING PHYSICIAN: Dr. Black. REASON FOR CONSULTATION: Sepsis. HISTORY OF PRESENT ILLNESS: This is a 67-year-old -[place] gentleman with anoxic brain injury, who has been in persistent vegetative state, taken care of by . She brought him in with increased respirations that started just yesterday. The patient has had low-grade fever, leukocytosis and breathing at around 36 per minute. The patient's lactic acid so far is negative. The patient had evidence by BUN and creatinine criteria as dehydration. The patient was started on vancomycin and cefepime, and consult has been requested. The patient is not able to provide any information, has never been able to. is at the bedside. All the information was obtained through chart review, discussing with the . There is no nausea, vomiting or diarrhea, she reported. PAST MEDICAL HISTORY: Positive for anoxic encephalopathy after cardiopulmonary arrest. The patient has contractures with quadriplegia, has a gastrostomy tube and ileostomy. The patient also has a tunnel catheter into the left upper chest. SOCIAL HISTORY: The patient is a total care, taken care of by at home. CURRENT MEDICATIONS: Reviewed. The patient is on vancomycin and cefepime. REVIEW OF SYSTEMS: As per HPI. We cannot do through the patient. Review of systems as I mentioned through the patient's nurse and the patient's . PHYSICAL EXAMINATION: GENERAL: Unresponsive gentleman, in moderate respiratory distress. VITAL SIGNS: The patient is breathing at around 30. Temperature max is 100.2, pulse is 119, blood pressure is 116/79. HEENT: Both pupils are round and reacting. No conjunctival lesion. Oral is dry mucosa. NECK: Supple. LUNGS: Decreased breath sounds bilaterally. HEART: S1, S2 regular. No gallop or murmur. ABDOMEN: Soft, nontender. Ileostomy in place. EXTREMITIES: Contractures, complete loss of muscle mass. A wound on the left lateral malleolus. NEUROLOGIC: The patient is totally unresponsive neurologically. LABORATORY DATA: White count is 18,000, platelets are normal. BUN and creatinine are 36 and 1, which was 38 yesterday. Urinalysis showed 5-10 wbc's. Cultures are pending. Chest x-ray is reportedly showing left lower lobe infiltrate. IMPRESSION: 1. Sepsis with fever, leukocytosis and increased respiratory rate. 2. Dehydration. 3. Pneumonia, likely aspiration. 4. Left foot wound. 5. Persistent vegetative state. RECOMMENDATIONS: I would continue vancomycin, change cefepime to meropenem and also add Diflucan. We will check cultures, supportive care, fluids. Discussed with Dr. Black as well as discussed with the patient's . Thank you very much, Dr. Black, for giving me the opportunity to participate in this patient's care. CATHY ELIAS MD DR: SKYLER/abram JOB#: [id number] / [id number]
[2017-09-13] MEDS: VANCOMYCIN 750 MG in IV DEXTROSE 5 %-0.2 % NACL 250 ML IV SCH (13:44)
[2017-09-13] MEDS: MEROPENEM IV Push 500 MG VIAL. IVP SCH ×2 (14:00→21:43)
[2017-09-13] MEDS ORDERED: MEROPENEM 500 MG in IV NORMAL SALINE 50ML 50 ML IV SCH (14:00)
[2017-09-13 15:09] VITALS: BP 105/65
--- NOTE | 2017-09-13 15:29 | RAD ---
Indication: Nonhealing lateral malleolus wound. Technique: 3 views of the left foot are submitted for review. No comparison is available. Findings: Positioning is suboptimal. No fracture or dislocation is apparent. There is bone demineralization. There is no gross bone destruction. There is soft tissue swelling which is greater laterally. There is a small plantar calcaneal spur. Impression: No radiographic evidence of osteomyelitis. If there is strong clinical suspicion, consider MRI.
[2017-09-13 19:00] VITALS: BP 111/79
[2017-09-13] MEDS: TEMAZEPAM 15 MG CAPSULE PO SCH (21:41)
[2017-09-13] MEDS: QUEtiapine 25 MG TABLET. GT SCH (21:42)
[2017-09-13 23:00] VITALS: BP 96/66
[2017-09-14 03:00] VITALS: BP 101/71
[2017-09-14] MEDS: MEROPENEM IV Push 500 MG VIAL. IVP SCH ×3 (06:00→21:24)
[2017-09-14 06:02] LABS: BASO # 0.1 x10^3/uL (0.0-0.2); BASO % 0 % (0-3); EOS % 6 % (0-3); HEMATOCRIT 31.9 % (39.0-53.0); HEMOGLOBIN 9.7 g/dL (13.0-17.5); LYMPH # 1.6 x10^3/uL (1.0-4.8); LYMPH % 9 % (24-48); MEAN CORPUSCULAR HEMOGLOBIN 27 pg (25-35); MEAN CORPUSCULAR HGB CONC 30 g/dL (31-37); MEAN CORPUSCULAR VOLUME 87 fL (79-100); MONO % 9 % (0-9); NEUT % 75 % (31-73); PLATELET COUNT 364 x10^3/uL (140-400); RED BLOOD COUNT 3.66 x10^6/uL (4.30-5.70); RED CELL DISTRIBUTION WIDTH 16.4 % (11.5-14.5); WHITE BLOOD COUNT 16.5 x10^3/uL (4.0-11.0)
[2017-09-14] MEDS: IV 1/2 NORMAL SALINE 1,000 ML IV SCH ×2 (06:08→21:19)
[2017-09-14 06:21] LABS: CALCIUM 8.4 mg/dL (8.5-10.1); CREATININE 0.7 mg/dL (0.7-1.3); GFR 136.9; MAGNESIUM 1.8 mg/dL (1.8-2.4); POTASSIUM 4.2 mmol/L (3.5-5.1)
[2017-09-14] MEDS: VANCOMYCIN PER PHARMACY MC PRN (06:39)
[2017-09-14 07:00] VITALS: BP 99/68
[2017-09-14] MEDS: VANCOMYCIN 750 MG in IV DEXTROSE 5 %-0.2 % NACL 250 ML IV SCH (07:15)
[2017-09-14] MEDS: BACLOFEN 10 MG TABLET. GT SCH ×3 (09:41→21:22)
[2017-09-14] MEDS: PANTOPRAZOLE 40 MG TABLET.DR. PO SCH (09:41)
[2017-09-14] MEDS: MULTIVITAMIN with MINERAL TABLET. PO SCH (09:41)
[2017-09-14] MEDS: ASCORBIC ACID 500 MG TABLET PO SCH ×2 (09:41→21:22)
[2017-09-14] MEDS: ASPIRIN 325 MG TABLET GT SCH (09:41)
[2017-09-14] MEDS: ACETAMINOPHEN 650 MG/20.3 ML SOLUTION. PEG PRN ×2 (09:41→18:35)
--- NOTE | 2017-09-14 10:07 | RAD ---
Portable chest, 09/14/2017: History: Pneumonia, sepsis Comparison is made to yesterday's study. A left Port-A-Cath extends into the superior aspect of the right atrium. The heart size and pulmonary vascularity are normal. There is moderate ongoing left lower lobe atelectasis and consolidation. Faint air bronchograms are evident. No new pulmonary abnormality is seen. No pleural fluid is evident. A tube overlying the left upper quadrant of the abdomen is probably a gastrostomy tube. IMPRESSION: Moderate ongoing left lower lobe atelectasis/consolidation, compatible with pneumonia.
[2017-09-14] MEDS: FLUCONAZOLE 200MG/100ML PREMIX 100 ML IV SCH (10:11)
--- NOTE | 2017-09-14 10:52 | PDOC ---
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, SKIN: No rash,, left lateral malleolus with black eschar with some drainage IV: ok Labs Lab Laboratory Tests Test 09/13/17 11:10 09/13/17 12:23 09/14/17 05:35 Lactic Acid Level 2.2 mmol/L (0.4-2.0) O2 Saturation 93 % (92-99) Arterial Blood pH 7.43 (7.35-7.45) Arterial Blood pCO2 at Patient Temp 29 mmHg (35-46) Arterial Blood pO2 at Patient Temp 69 mmHg (65-108) Arterial Blood HCO3 19 mmol/L (21-28) Arterial Blood Base Excess -4 mmol/L (-3-3) FiO2 21.0 White Blood Count 16.5 x10^3/uL (4.0-11.0) Red Blood Count 3.66 x10^6/uL (4.30-5.70) Hemoglobin 9.7 g/dL (13.0-17.5) Hematocrit 31.9 % (39.0-53.0) Mean Corpuscular Volume 87 fL (79-100) Mean Corpuscular Hemoglobin 27 pg (25-35) Mean Corpuscular Hemoglobin Concent 30 g/dL (31-37) Red Cell Distribution Width 16.4 % (11.5-14.5) Platelet Count 364 x10^3/uL (140-400) Neutrophils (%) (Auto) 75 % (31-73) Lymphocytes (%) (Auto) 9 % (24-48) Monocytes (%) (Auto) 9 % (0-9) Eosinophils (%) (Auto) 6 % (0-3) Basophils (%) (Auto) 0 % (0-3) Neutrophils # (Auto) 12.4 x10^3uL (1.8-7.7) Lymphocytes # (Auto) 1.6 x10^3/uL (1.0-4.8) Monocytes # (Auto) 1.5 x10^3/uL (0.0-1.1) Eosinophils # (Auto) 1.0 x10^3/uL (0.0-0.7) Basophils # (Auto) 0.1 x10^3/uL (0.0-0.2) Sodium Level 142 mmol/L (136-145) Potassium Level 4.2 mmol/L (3.5-5.1) Chloride Level 110 mmol/L (98-107) Carbon Dioxide Level 23 mmol/L (21-32) Anion Gap 9 (6-14) Blood Urea Nitrogen 21 mg/dL (8-26) Creatinine 0.7 mg/dL (0.7-1.3) Estimated GFR (Cockcroft-Gault) 136.9 Glucose Level 131 mg/dL (70-99) Calcium Level 8.4 mg/dL (8.5-10.1) Magnesium Level 1.8 mg/dL (1.8-2.4) Vancomycin Level Trough 10.6 mcg/mL (10.0-20.0) Vancomycin Last Dose Date 09/13/17 Vancomycin Last Dose Time 1200 Objective Assessment Fever Leukocytosis Respiratory failure Likely aspiration Sepsis Left foot wound Persistent veg state Plan Plan of Care vanc and meropenem and diflucan check cultures supportive care fluids d/w in detail about the wound and how far she want us to go, she does not want surgery, debridement or iv antibiotics, happy with ointment /enzymatic debridement and oral antibiotics ( understands can be osteo ). CATHY ELIAS MD Sep 14, 2017 10:52
[2017-09-14 11:00] VITALS: BP 100/65
--- NOTE | 2017-09-14 12:57 | PDOC ---
PROGRESS NOTES Subjective Subjective has a low grade fever. blood culture 1/2 GNR. wbc lower 16K. cxr with left lower lobe consolidation infiltrate Objective Objective Vital Signs Date Time Temp Pulse Resp B/P (MAP) Pulse Ox O2 Delivery O2 Flow Rate FiO2 09/14/17 11:00 99.7 87 30 100/65 (77) 98 Nasal Cannula 2.0 99.7 Intake and Output 09/14/17 07:00 Intake Total 4060 ml Output Total 1100 ml Balance 2960 ml Intake IV Total 720 ml Tube Feeding 1820 ml Other 1520 ml Output Stool Total 1100 ml # Voids 3 Physical Exam Abdomen: Soft, Other (g tube and ileostomy) Heart: Regular rate, Normal S1, Normal S2 Extremities: No edema, Other (right aka) General: Other (eyes closed) HEENT: Atraumatic Lungs: Clear to auscultation Neuro: Other (aphasic with spastic quadriparesis) Psych/Mental Status: Mood NL Skin: No rashes, Other (dry dressing left heel) Assessment Assessment Problems1.GNR bacteremia sepsis 2. Leukocytosis 3. Left foot wound. 4. Spastic quadriplegia. 5. Anoxic encephalopathy. 6. Oropharyngeal dysphagia, maintained on gastrostomy tube feedings. 7. Short gut syndrome. 8. Ileostomy. 9. Right above-knee amputation. pyuria left lower lobe pneumonia Medical Problems: (1) Infected pressure ulcer Status: Acute (2) Pressure ulcer of left ankle Status: Acute (3) Urinary tract infection Status: Acute Plan Plan of Care continue iv zyvox and meropenem and diflucan continue wound care continue iv fluids and tube feeding lab tomorrow discussed with Comment Review of Relevant I have reviewed the following items ramon (where applicable) has been applied. Labs Laboratory Tests Test 09/12/17 15:35 09/12/17 16:10 09/13/17 05:37 09/13/17 11:10 Urine Collection Type U cath Urine Color Yellow Urine Clarity Clear Urine pH 6.5 Urine Specific [place] 1.015 Urine Protein Negative mg/dL (NEG-TRACE) Urine Glucose (UA) Negative mg/dL (NEG) Urine Ketones (Stick) Negative mg/dL (NEG) Urine Blood Large (NEG) Urine Nitrite Positive (NEG) Urine Bilirubin Negative (NEG) Urine Urobilinogen Dipstick 0.2 mg/dL (0.2 mg/dL) Urine Leukocyte Esterase Large (NEG) Urine RBC 1-2 /HPF (0-2) Urine WBC 5-10 /HPF (0-4) Urine Squamous Epithelial Cells None /LPF Urine Amorphous Sediment Present /HPF Urine Bacteria Few /HPF (0-FEW) White Blood Count 17.6 x10^3/uL (4.0-11.0) 18.3 x10^3/uL (4.0-11.0) Red Blood Count 4.19 x10^6/uL (4.30-5.70) 3.91 x10^6/uL (4.30-5.70) Hemoglobin 11.3 g/dL (13.0-17.5) 10.7 g/dL (13.0-17.5) Hematocrit 36.2 % (39.0-53.0) 33.5 % (39.0-53.0) Mean Corpuscular Volume 86 fL (79-100) 86 fL (79-100) Mean Corpuscular Hemoglobin 27 pg (25-35) 28 pg (25-35) Mean Corpuscular Hemoglobin Concent 31 g/dL (31-37) 32 g/dL (31-37) Red Cell Distribution Width 16.3 % (11.5-14.5) 16.6 % (11.5-14.5) Platelet Count 359 x10^3/uL (140-400) 363 x10^3/uL (140-400) Neutrophils (%) (Auto) 84 % (31-73) 87 % (31-73) Lymphocytes (%) (Auto) 8 % (24-48) 5 % (24-48) Monocytes (%) (Auto) 7 % (0-9) 5 % (0-9) Eosinophils (%) (Auto) 1 % (0-3) 2 % (0-3) Basophils (%) (Auto) 0 % (0-3) 0 % (0-3) Neutrophils # (Auto) 14.8 x10^3uL (1.8-7.7) 15.9 x10^3uL (1.8-7.7) Lymphocytes # (Auto) 1.3 x10^3/uL (1.0-4.8) 1.0 x10^3/uL (1.0-4.8) Monocytes # (Auto) 1.3 x10^3/uL (0.0-1.1) 0.9 x10^3/uL (0.0-1.1) Eosinophils # (Auto) 0.2 x10^3/uL (0.0-0.7) 0.4 x10^3/uL (0.0-0.7) Basophils # (Auto) 0.0 x10^3/uL (0.0-0.2) 0.0 x10^3/uL (0.0-0.2) Segmented Neutrophils % 75 % (35-66) Band Neutrophils % 6 % (0-9) Lymphocytes % 9 % (24-48) Monocytes % 6 % (0-10) Eosinophils % 3 % (0-5) Basophils % 1 % (0-3) Toxic Granulation Slight Platelet Estimate Adequate (ADEQUATE) Polychromasia Slight Sodium Level 142 mmol/L (136-145) 144 mmol/L (136-145) Potassium Level 4.5 mmol/L (3.5-5.1) 4.4 mmol/L (3.5-5.1) Chloride Level 105 mmol/L (98-107) 109 mmol/L (98-107) Carbon Dioxide Level 24 mmol/L (21-32) 22 mmol/L (21-32) Anion Gap 13 (6-14) 13 (6-14) Blood Urea Nitrogen 38 mg/dL (8-26) 36 mg/dL (8-26) Creatinine 0.9 mg/dL (0.7-1.3) 1.0 mg/dL (0.7-1.3) Estimated GFR (Cockcroft-Gault) 102.5 90.7 BUN/Creatinine Ratio 42 (6-20) Glucose Level 113 mg/dL (70-99) 157 mg/dL (70-99) Lactic Acid Level 1.9 mmol/L (0.4-2.0) 2.2 mmol/L (0.4-2.0) Calcium Level 9.1 mg/dL (8.5-10.1) 8.5 mg/dL (8.5-10.1) Total Bilirubin 0.5 mg/dL (0.2-1.0) Aspartate Amino Transf (AST/SGOT) 72 U/L (15-37) Alanine Aminotransferase (ALT/SGPT) 61 U/L (16-63) Alkaline Phosphatase 139 U/L (46-116) Total Protein 8.9 g/dL (6.4-8.2) Albumin 2.5 g/dL (3.4-5.0) Albumin/Globulin Ratio 0.4 (1.0-1.7) Test 09/13/17 12:23 09/14/17 05:35 O2 Saturation 93 % (92-99) Arterial Blood pH 7.43 (7.35-7.45) Arterial Blood pCO2 at Patient Temp 29 mmHg (35-46) Arterial Blood pO2 at Patient Temp 69 mmHg (65-108) Arterial Blood HCO3 19 mmol/L (21-28) Arterial Blood Base Excess -4 mmol/L (-3-3) FiO2 21.0 White Blood Count 16.5 x10^3/uL (4.0-11.0) Red Blood Count 3.66 x10^6/uL (4.30-5.70) Hemoglobin 9.7 g/dL (13.0-17.5) Hematocrit 31.9 % (39.0-53.0) Mean Corpuscular Volume 87 fL (79-100) Mean Corpuscular Hemoglobin 27 pg (25-35) Mean Corpuscular Hemoglobin Concent 30 g/dL (31-37) Red Cell Distribution Width 16.4 % (11.5-14.5) Platelet Count 364 x10^3/uL (140-400) Neutrophils (%) (Auto) 75 % (31-73) Lymphocytes (%) (Auto) 9 % (24-48) Monocytes (%) (Auto) 9 % (0-9) Eosinophils (%) (Auto) 6 % (0-3) Basophils (%) (Auto) 0 % (0-3) Neutrophils # (Auto) 12.4 x10^3uL (1.8-7.7) Lymphocytes # (Auto) 1.6 x10^3/uL (1.0-4.8) Monocytes # (Auto) 1.5 x10^3/uL (0.0-1.1) Eosinophils # (Auto) 1.0 x10^3/uL (0.0-0.7) Basophils # (Auto) 0.1 x10^3/uL (0.0-0.2) Sodium Level 142 mmol/L (136-145) Potassium Level 4.2 mmol/L (3.5-5.1) Chloride Level 110 mmol/L (98-107) Carbon Dioxide Level 23 mmol/L (21-32) Anion Gap 9 (6-14) Blood Urea Nitrogen 21 mg/dL (8-26) Creatinine 0.7 mg/dL (0.7-1.3) Estimated GFR (Cockcroft-Gault) 136.9 Glucose Level 131 mg/dL (70-99) Calcium Level 8.4 mg/dL (8.5-10.1) Magnesium Level 1.8 mg/dL (1.8-2.4) Vancomycin Level Trough 10.6 mcg/mL (10.0-20.0) Vancomycin Last Dose Date 09/13/17 Vancomycin Last Dose Time 1200 Laboratory Tests Test 09/14/17 05:35 White Blood Count 16.5 x10^3/uL (4.0-11.0) Red Blood Count 3.66 x10^6/uL (4.30-5.70) Hemoglobin 9.7 g/dL (13.0-17.5) Hematocrit 31.9 % (39.0-53.0) Mean Corpuscular Volume 87 fL (79-100) Mean Corpuscular Hemoglobin 27 pg (25-35) Mean Corpuscular Hemoglobin Concent 30 g/dL (31-37) Red Cell Distribution Width 16.4 % (11.5-14.5) Platelet Count 364 x10^3/uL (140-400) Neutrophils (%) (Auto) 75 % (31-73) Lymphocytes (%) (Auto) 9 % (24-48) Monocytes (%) (Auto) 9 % (0-9) Eosinophils (%) (Auto) 6 % (0-3) Basophils (%) (Auto) 0 % (0-3) Neutrophils # (Auto) 12.4 x10^3uL (1.8-7.7) Lymphocytes # (Auto) 1.6 x10^3/uL (1.0-4.8) Monocytes # (Auto) 1.5 x10^3/uL (0.0-1.1) Eosinophils # (Auto) 1.0 x10^3/uL (0.0-0.7) Basophils # (Auto) 0.1 x10^3/uL (0.0-0.2) Sodium Level 142 mmol/L (136-145) Potassium Level 4.2 mmol/L (3.5-5.1) Chloride Level 110 mmol/L (98-107) Carbon Dioxide Level 23 mmol/L (21-32) Anion Gap 9 (6-14) Blood Urea Nitrogen 21 mg/dL (8-26) Creatinine 0.7 mg/dL (0.7-1.3) Estimated GFR (Cockcroft-Gault) 136.9 Glucose Level 131 mg/dL (70-99) Calcium Level 8.4 mg/dL (8.5-10.1) Magnesium Level 1.8 mg/dL (1.8-2.4) Vancomycin Level Trough 10.6 mcg/mL (10.0-20.0) Vancomycin Last Dose Date 09/13/17 Vancomycin Last Dose Time 1200 Microbiology 09/12/17 Blood Culture - Final, Complete 09/12/17 Gram Stain - Final, Complete Medications Current Medications Sodium Chloride 500 ml @ 500 mls/hr 1X ONCE IV Last administered on t 16:24; Start 09/12/17 at 15:30; Stop 09/12/17 at 16:29; Status DC Sodium Chloride (NORMAL SALINE FLUSH for STERILE FIELD) 10 ml STK-MED ONCE .ROUTE ; Start 09/12/17 at 15:56; Stop 09/12/17 at 15:57; Status DC Vancomycin HCl 1.75 gm/Sodium Chloride 500 ml @ 250 mls/hr 1X ONCE IV ; Start 09/12/17 at 17:15; Stop 09/12/17 at 19:14; Status UNV Cefepime HCl 1 gm/ Dextrose 50 ml @ 100 mls/hr Q8HRS IV ; Start 09/12/17 at 22 :00; Status UNV Ondansetron HCl (Zofran) 4 mg PRN Q8HRS PRN IV NAUSEA/VOMITING; Start at 17:15; Stop 09/13/17 at 17:14; Status DC Morphine Sulfate 2 mg PRN Q2HR PRN IV PAIN; Start 09/12/17 at 17:15; Stop at 17:14; Status DC Cefepime HCl (Maxipime) 1 gm 1X ONCE IVP Last administered on 09/12/17 17:41 ; Start 09/12/17 at 17:30; Stop 09/12/17 at 17:31; Status DC Vancomycin HCl 1 gm/Sodium Chloride 250 ml @ 250 mls/hr 1X ONCE IV Last administered on 09/12/17 17:49; Start 09/12/17 at 18:00; Stop 09/12/17 at 18 :59; Status DC Cefepime HCl (Maxipime) 1 gm Q12HR IVP ; Start 09/13/17 at 09:00; Stop at 10:31; Status DC Vancomycin HCl (Vanco Per Pharmacy) 1 each PRN DAILY PRN MC SEE COMMENTS Last administered on 09/14/17 06:39; Start 09/12/17 at 18:00 Acetaminophen (Tylenol) 650 mg PRN Q4HRS PRN PEG MILD PAIN / TEMP Last administered on 09/14/17 09:41; Start 09/12/17 at 18:00 Aspirin (Laura Aspirin) 325 mg DAILY GT Last administered on 09/14/17 09:41; Start 09/13/17 at 09:00 Baclofen (Lioresal) 10 mg TID GT Last administered on 09/14/17 09:41; Start 09/12/17 at 21:00 Multivitamins (Thera M Plus) 1 tab DAILY PO Last administered on 09/14/17 09: 41; Start 09/13/17 at 09:00 Acetaminophen/ Hydrocodone Bitart (Lortab 10/325) 1 tab PRN Q6HRS PRN GT SEVERE PAIN; Start 09/12/17 at 18:00 Pantoprazole Sodium (Protonix) 40 mg DAILYAC PO Last administered on 09:41; Start 09/13/17 at 07:30 Quetiapine Fumarate (SEROquel) 37.5 mg QHS GT Last administered on 09/13/17 21:42; Start 09/12/17 at 21:00 Quetiapine Fumarate (SEROquel) 12.5 mg PRN Q8HRS PRN PEG AGITATION; Start 09/17 at 18:00 Temazepam (Restoril) 30 mg QHS PO ; Start 09/12/17 at 21:00; Stop 09/12/17 at 21:00; Status DC Sodium Chloride 1,000 ml @ 60 mls/hr [id number] IV Last administered on 06:08; Start 09/12/17 at 18:30 Temazepam (Restoril) 45 mg QHS PO Last administered on 09/13/17 21:41; Start 09/12/17 at 21:00 Vancomycin HCl 750 mg/Dextrose/ Sodium Chloride 250 ml @ 250 mls/hr Q18H IV Last administered on 09/14/17 07:15; Start 09/13/17 at 12:00 Vancomycin HCl 1 each 1X ONCE MC Last administered on 09/14/17 05:30; Start 09/14/17 at 05:30; Stop 09/14/17 at 05:31; Status DC Ascorbic Acid (Vitamin C) 500 mg BID PO Last administered on 09/14/17 09:41; Start 09/13/17 at 10:15 Meropenem 500 mg/ Sodium Chloride 50 ml @ 100 mls/hr Q8HRS IV ; Start at 14:00; Status UNV Fluconazole/ Sodium Chloride 100 ml @ 100 mls/hr Q24H IV Last administered on 09/14/17 10:11; Start 09/13/17 at 11:00 Meropenem (Merrem) 500 mg Q8HRS IVP Last administered on 09/14/17 06:00; Start 09/13/17 at 14:00 Active Scripts Active Protonix (Pantoprazole Sodium) 40 Mg Tablet.dr 40 Mg PO DAILY 30 Days Quetiapine Fumarate 25 Mg Tablet 37.5 Mg PEG QHS 30 Days Hydrocodone-Apap 10-325 (Hydrocodone Bit/Acetaminophen) 1 Each Tablet 1 Tab PO PRN Q6HRS PRN 30 Days Baclofen 10 Mg Tablet 10 Mg GT TID 30 Days Reported Temazepam 30 Mg Capsule 30 Mg GT HS PRN Multivitamins (Multivitamin) 1 Each Capsule 1 Each GT DAILY Temazepam 15 Mg Capsule 1 Cap GT QHS Tylenol (Acetaminophen) 325 Mg Tablet 650 Mg PO Q4HRS PRN Aspirin 325 Mg Tablet 325 Mg GT DAILY Vitals/I & O Vital Sign - Last 24 Hours 09/13/17 09/13/17 09/13/17 09/13/17 15:09 19:00 20:10 23:00 Temp 97.5 97.9 98.1 97.5 97.9 98.1 Pulse 91 95 102 Resp 18 28 24 B/P (MAP) 105/65 (78) 111/79 (90) 96/66 (76) Pulse Ox 97 93 93 O2 Delivery Nasal Cannula Nasal Cannula Nasal Cannula Nasal Cannula O2 Flow Rate 2.0 2.0 2.0 2.0 09/14/17 09/14/17 09/14/17 09/14/17 03:00 07:00 08:00 11:00 Temp 99.0 99.5 99.7 99.0 99.5 99.7 Pulse 94 92 87 Resp 28 32 30 B/P (MAP) 101/71 (81) 99/68 (78) 100/65 (77) Pulse Ox 97 98 98 O2 Delivery Nasal Cannula Nasal Cannula Nasal Cannula Nasal Cannula O2 Flow Rate 2.0 2.0 2.0 2.0 Intake and Output 09/13/17 09/13/17 09/14/17 15:00 23:00 07:00 Intake Total 250 ml 250 ml 3560 ml Output Total 200 ml 900 ml Balance 250 ml 50 ml 2660 ml Nutrition Consultation Dietary Evaluation: Comments: continue TF regemin mvi and vit c per wound protocal re wt requested Expected Outcomes/Goals: wt maintanence, wound improvement Malnutrition Findings: Body Fat Depletion (Non Severe: Mod to Severe Weight Status: Underweight ADRIANE ALAN MD Sep 14, 2017 12:57
--- NOTE | 2017-09-14 13:50 | PDOC ---
PULMONARY PROGRESS NOTES Subjective NO SOA Vitals Vital Signs Date Time Temp Pulse Resp B/P (MAP) Pulse Ox O2 Delivery O2 Flow Rate FiO2 09/14/17 11:00 99.7 87 30 100/65 (77) 98 Nasal Cannula 2.0 99.7 General: No acute distress Lungs: Other (decrease bs) Cardiovascular: S1 Abdomen: Soft Extremities: No Edema, Other (contracted) Labs Laboratory Tests Test 09/12/17 15:35 09/12/17 16:10 09/13/17 05:37 09/13/17 11:10 Urine Collection Type U cath Urine Color Yellow Urine Clarity Clear Urine pH 6.5 Urine Specific [place] 1.015 Urine Protein Negative mg/dL (NEG-TRACE) Urine Glucose (UA) Negative mg/dL (NEG) Urine Ketones (Stick) Negative mg/dL (NEG) Urine Blood Large (NEG) Urine Nitrite Positive (NEG) Urine Bilirubin Negative (NEG) Urine Urobilinogen Dipstick 0.2 mg/dL (0.2 mg/dL) Urine Leukocyte Esterase Large (NEG) Urine RBC 1-2 /HPF (0-2) Urine WBC 5-10 /HPF (0-4) Urine Squamous Epithelial Cells None /LPF Urine Amorphous Sediment Present /HPF Urine Bacteria Few /HPF (0-FEW) White Blood Count 17.6 x10^3/uL (4.0-11.0) 18.3 x10^3/uL (4.0-11.0) Red Blood Count 4.19 x10^6/uL (4.30-5.70) 3.91 x10^6/uL (4.30-5.70) Hemoglobin 11.3 g/dL (13.0-17.5) 10.7 g/dL (13.0-17.5) Hematocrit 36.2 % (39.0-53.0) 33.5 % (39.0-53.0) Mean Corpuscular Volume 86 fL (79-100) 86 fL (79-100) Mean Corpuscular Hemoglobin 27 pg (25-35) 28 pg (25-35) Mean Corpuscular Hemoglobin Concent 31 g/dL (31-37) 32 g/dL (31-37) Red Cell Distribution Width 16.3 % (11.5-14.5) 16.6 % (11.5-14.5) Platelet Count 359 x10^3/uL (140-400) 363 x10^3/uL (140-400) Neutrophils (%) (Auto) 84 % (31-73) 87 % (31-73) Lymphocytes (%) (Auto) 8 % (24-48) 5 % (24-48) Monocytes (%) (Auto) 7 % (0-9) 5 % (0-9) Eosinophils (%) (Auto) 1 % (0-3) 2 % (0-3) Basophils (%) (Auto) 0 % (0-3) 0 % (0-3) Neutrophils # (Auto) 14.8 x10^3uL (1.8-7.7) 15.9 x10^3uL (1.8-7.7) Lymphocytes # (Auto) 1.3 x10^3/uL (1.0-4.8) 1.0 x10^3/uL (1.0-4.8) Monocytes # (Auto) 1.3 x10^3/uL (0.0-1.1) 0.9 x10^3/uL (0.0-1.1) Eosinophils # (Auto) 0.2 x10^3/uL (0.0-0.7) 0.4 x10^3/uL (0.0-0.7) Basophils # (Auto) 0.0 x10^3/uL (0.0-0.2) 0.0 x10^3/uL (0.0-0.2) Segmented Neutrophils % 75 % (35-66) Band Neutrophils % 6 % (0-9) Lymphocytes % 9 % (24-48) Monocytes % 6 % (0-10) Eosinophils % 3 % (0-5) Basophils % 1 % (0-3) Toxic Granulation Slight Platelet Estimate Adequate (ADEQUATE) Polychromasia Slight Sodium Level 142 mmol/L (136-145) 144 mmol/L (136-145) Potassium Level 4.5 mmol/L (3.5-5.1) 4.4 mmol/L (3.5-5.1) Chloride Level 105 mmol/L (98-107) 109 mmol/L (98-107) Carbon Dioxide Level 24 mmol/L (21-32) 22 mmol/L (21-32) Anion Gap 13 (6-14) 13 (6-14) Blood Urea Nitrogen 38 mg/dL (8-26) 36 mg/dL (8-26) Creatinine 0.9 mg/dL (0.7-1.3) 1.0 mg/dL (0.7-1.3) Estimated GFR (Cockcroft-Gault) 102.5 90.7 BUN/Creatinine Ratio 42 (6-20) Glucose Level 113 mg/dL (70-99) 157 mg/dL (70-99) Lactic Acid Level 1.9 mmol/L (0.4-2.0) 2.2 mmol/L (0.4-2.0) Calcium Level 9.1 mg/dL (8.5-10.1) 8.5 mg/dL (8.5-10.1) Total Bilirubin 0.5 mg/dL (0.2-1.0) Aspartate Amino Transf (AST/SGOT) 72 U/L (15-37) Alanine Aminotransferase (ALT/SGPT) 61 U/L (16-63) Alkaline Phosphatase 139 U/L (46-116) Total Protein 8.9 g/dL (6.4-8.2) Albumin 2.5 g/dL (3.4-5.0) Albumin/Globulin Ratio 0.4 (1.0-1.7) Test 09/13/17 12:23 09/14/17 05:35 O2 Saturation 93 % (92-99) Arterial Blood pH 7.43 (7.35-7.45) Arterial Blood pCO2 at Patient Temp 29 mmHg (35-46) Arterial Blood pO2 at Patient Temp 69 mmHg (65-108) Arterial Blood HCO3 19 mmol/L (21-28) Arterial Blood Base Excess -4 mmol/L (-3-3) FiO2 21.0 White Blood Count 16.5 x10^3/uL (4.0-11.0) Red Blood Count 3.66 x10^6/uL (4.30-5.70) Hemoglobin 9.7 g/dL (13.0-17.5) Hematocrit 31.9 % (39.0-53.0) Mean Corpuscular Volume 87 fL (79-100) Mean Corpuscular Hemoglobin 27 pg (25-35) Mean Corpuscular Hemoglobin Concent 30 g/dL (31-37) Red Cell Distribution Width 16.4 % (11.5-14.5) Platelet Count 364 x10^3/uL (140-400) Neutrophils (%) (Auto) 75 % (31-73) Lymphocytes (%) (Auto) 9 % (24-48) Monocytes (%) (Auto) 9 % (0-9) Eosinophils (%) (Auto) 6 % (0-3) Basophils (%) (Auto) 0 % (0-3) Neutrophils # (Auto) 12.4 x10^3uL (1.8-7.7) Lymphocytes # (Auto) 1.6 x10^3/uL (1.0-4.8) Monocytes # (Auto) 1.5 x10^3/uL (0.0-1.1) Eosinophils # (Auto) 1.0 x10^3/uL (0.0-0.7) Basophils # (Auto) 0.1 x10^3/uL (0.0-0.2) Sodium Level 142 mmol/L (136-145) Potassium Level 4.2 mmol/L (3.5-5.1) Chloride Level 110 mmol/L (98-107) Carbon Dioxide Level 23 mmol/L (21-32) Anion Gap 9 (6-14) Blood Urea Nitrogen 21 mg/dL (8-26) Creatinine 0.7 mg/dL (0.7-1.3) Estimated GFR (Cockcroft-Gault) 136.9 Glucose Level 131 mg/dL (70-99) Calcium Level 8.4 mg/dL (8.5-10.1) Magnesium Level 1.8 mg/dL (1.8-2.4) Vancomycin Level Trough 10.6 mcg/mL (10.0-20.0) Vancomycin Last Dose Date 09/13/17 Vancomycin Last Dose Time 1200 Laboratory Tests Test 09/14/17 05:35 White Blood Count 16.5 x10^3/uL (4.0-11.0) Red Blood Count 3.66 x10^6/uL (4.30-5.70) Hemoglobin 9.7 g/dL (13.0-17.5) Hematocrit 31.9 % (39.0-53.0) Mean Corpuscular Volume 87 fL (79-100) Mean Corpuscular Hemoglobin 27 pg (25-35) Mean Corpuscular Hemoglobin Concent 30 g/dL (31-37) Red Cell Distribution Width 16.4 % (11.5-14.5) Platelet Count 364 x10^3/uL (140-400) Neutrophils (%) (Auto) 75 % (31-73) Lymphocytes (%) (Auto) 9 % (24-48) Monocytes (%) (Auto) 9 % (0-9) Eosinophils (%) (Auto) 6 % (0-3) Basophils (%) (Auto) 0 % (0-3) Neutrophils # (Auto) 12.4 x10^3uL (1.8-7.7) Lymphocytes # (Auto) 1.6 x10^3/uL (1.0-4.8) Monocytes # (Auto) 1.5 x10^3/uL (0.0-1.1) Eosinophils # (Auto) 1.0 x10^3/uL (0.0-0.7) Basophils # (Auto) 0.1 x10^3/uL (0.0-0.2) Sodium Level 142 mmol/L (136-145) Potassium Level 4.2 mmol/L (3.5-5.1) Chloride Level 110 mmol/L (98-107) Carbon Dioxide Level 23 mmol/L (21-32) Anion Gap 9 (6-14) Blood Urea Nitrogen 21 mg/dL (8-26) Creatinine 0.7 mg/dL (0.7-1.3) Estimated GFR (Cockcroft-Gault) 136.9 Glucose Level 131 mg/dL (70-99) Calcium Level 8.4 mg/dL (8.5-10.1) Magnesium Level 1.8 mg/dL (1.8-2.4) Vancomycin Level Trough 10.6 mcg/mL (10.0-20.0) Vancomycin Last Dose Date 09/13/17 Vancomycin Last Dose Time 1200 Medications Active Scripts Medications Dose Route/Sig Max Daily Dose Days Date Category Protonix (Pantoprazole Sodium) 40 Mg Tablet.dr 40 Mg PO DAILY 30 07/28/17 Rx Quetiapine Fumarate 25 Mg Tablet 37.5 Mg PEG QHS 30 06/30/17 Rx Hydrocodone-Apap 10-325 (Hydrocodone Bit/Acetaminophen) 1 Each Tablet 1 Tab PO PRN Q6HRS PRN 30 04/27/17 Rx Baclofen 10 Mg Tablet 10 Mg GT TID 30 04/27/17 Rx Temazepam 30 Mg Capsule 30 Mg GT HS PRN 10/12/16 Reported Multivitamins (Multivitamin) 1 Each Capsule 1 Each GT DAILY 10/12/16 Reported Temazepam 15 Mg Capsule 1 Cap GT QHS 10/12/16 Reported Tylenol (Acetaminophen) 325 Mg Tablet 650 Mg PO Q4HRS PRN 06/27/14 Reported Aspirin 325 Mg Tablet 325 Mg GT DAILY 04/25/14 Reported Impression . 1. Sepsis syndrome, sources are multifactorial and suspect a combination of heel ulcer, possible urinary tract infection and suspected aspiration pneumonia. He did vomit last week. 2. History of anoxic encephalopathy with spastic quadriplegia. 3. History of dysphagia, status post PEG tube placement. 4. Short gut syndrome, history of ileostomy for ischemic bowel. 5. Previous multiple hospitalizations for infectious etiologies. 6. History of cerebrovascular accident. Plan . 1. Discussed with Infectious Disease. Will continue with broad-spectrum antibiotics. 2. Follow all cultures. 3. Repeat chest x-ray post-IV hydration unchanged 4. Sepsis protocol 5. Follow BUN and creatinine. improving 6. Follow the fever pattern. 7. Continue enteral nutrition. 8. Discussed with the patient's . JUANITO TORRES MD Sep 14, 2017 13:49
[2017-09-14 15:00] VITALS: BP 125/85
[2017-09-14 19:15] VITALS: BP 105/76
[2017-09-14] MEDS: TEMAZEPAM 15 MG CAPSULE PO SCH (21:21)
[2017-09-14] MEDS: QUEtiapine 25 MG TABLET. GT SCH (21:22)
[2017-09-14 23:16] VITALS: BP 106/72
[2017-09-15 02:51] VITALS: BP 116/72
[2017-09-15] MEDS: MEROPENEM IV Push 500 MG VIAL. IVP SCH ×3 (05:23→21:52)
[2017-09-15 05:35] LABS: BASO % 0 % (0-3); EOS % 7 % (0-3); HEMATOCRIT 31.4 % (39.0-53.0); HEMOGLOBIN 9.8 g/dL (13.0-17.5); LYMPH # 1.6 x10^3/uL (1.0-4.8); LYMPH % 10 % (24-48); MEAN CORPUSCULAR HEMOGLOBIN 27 pg (25-35); MEAN CORPUSCULAR HGB CONC 31 g/dL (31-37); MEAN CORPUSCULAR VOLUME 87 fL (79-100); MONO % 8 % (0-9); NEUT % 75 % (31-73); PLATELET COUNT 418 x10^3/uL (140-400); RED BLOOD COUNT 3.61 x10^6/uL (4.30-5.70); RED CELL DISTRIBUTION WIDTH 16.8 % (11.5-14.5); WHITE BLOOD COUNT 16.1 x10^3/uL (4.0-11.0)
[2017-09-15 06:07] LABS: CALCIUM 8.6 mg/dL (8.5-10.1); CREATININE 0.6 mg/dL (0.7-1.3); GFR 163.6; POTASSIUM 4.4 mmol/L (3.5-5.1)
[2017-09-15 07:00] VITALS: BP 98/69
[2017-09-15] MEDS: MULTIVITAMIN with MINERAL TABLET. PO SCH (09:23)
[2017-09-15] MEDS: PANTOPRAZOLE 40 MG TABLET.DR. PO SCH (09:23)
[2017-09-15] MEDS: BACLOFEN 10 MG TABLET. GT SCH ×3 (09:23→21:50)
[2017-09-15] MEDS: ASCORBIC ACID 500 MG TABLET PO SCH ×2 (09:23→21:50)
[2017-09-15] MEDS: ASPIRIN 325 MG TABLET GT SCH (09:23)
--- NOTE | 2017-09-15 09:26 | PDOC ---
Infectious Disease Note Subjective Subjective pt unchanged,, though breathing back to his normal ROS ROS GEN: Denies fevers, chills, sweats HEENT: Denies blurred vision, sore throat CV: Denies chest pain RESP: Denies shortness of air, cough GI: Denies n/v/d NEURO: Denies confusion, dizziness MSK: Denies weakness, joint pain/swelling Vital Sign Vital Signs Vital Signs Date Time Temp Pulse Resp B/P (MAP) Pulse Ox O2 Delivery O2 Flow Rate FiO2 09/15/17 07:00 97.5 94 24 98/69 (79) 97 Nasal Cannula 2.0 97.5 Physical Exam PHYSICAL EXAM GENERAL: NAD, HEENT: PERRL, OC/OP NECK: Supple, no JVD, no LN LUNGS: Clear HEART: S1S2, no gallop, no murmur ABD: Soft, NT, no organomegaly, no rebound EXT: No edema, no cyanosis [employer]: unresponsive SKIN: No rash,,, ankle wound IV: ok Labs Lab Laboratory Tests Test 09/15/17 05:14 White Blood Count 16.1 x10^3/uL (4.0-11.0) Red Blood Count 3.61 x10^6/uL (4.30-5.70) Hemoglobin 9.8 g/dL (13.0-17.5) Hematocrit 31.4 % (39.0-53.0) Mean Corpuscular Volume 87 fL (79-100) Mean Corpuscular Hemoglobin 27 pg (25-35) Mean Corpuscular Hemoglobin Concent 31 g/dL (31-37) Red Cell Distribution Width 16.8 % (11.5-14.5) Platelet Count 418 x10^3/uL (140-400) Neutrophils (%) (Auto) 75 % (31-73) Lymphocytes (%) (Auto) 10 % (24-48) Monocytes (%) (Auto) 8 % (0-9) Eosinophils (%) (Auto) 7 % (0-3) Basophils (%) (Auto) 0 % (0-3) Neutrophils # (Auto) 12.1 x10^3uL (1.8-7.7) Lymphocytes # (Auto) 1.6 x10^3/uL (1.0-4.8) Monocytes # (Auto) 1.3 x10^3/uL (0.0-1.1) Eosinophils # (Auto) 1.1 x10^3/uL (0.0-0.7) Basophils # (Auto) 0.0 x10^3/uL (0.0-0.2) Sodium Level 141 mmol/L (136-145) Potassium Level 4.4 mmol/L (3.5-5.1) Chloride Level 108 mmol/L (98-107) Carbon Dioxide Level 22 mmol/L (21-32) Anion Gap 11 (6-14) Blood Urea Nitrogen 18 mg/dL (8-26) Creatinine 0.6 mg/dL (0.7-1.3) Estimated GFR (Cockcroft-Gault) 163.6 Glucose Level 122 mg/dL (70-99) Calcium Level 8.6 mg/dL (8.5-10.1) Micro G neg viktoria id pending Objective Assessment Fever Leukocytosis Respiratory failure Likely aspiration Sepsis with G neg viktoria, POA Left foot wound Persistent veg state Plan Plan of Care vanc and meropenem and diflucan check cultures supportive care fluids d/w in detail about the wound and how far she want us to go, she does not want surgery, debridement or iv antibiotics, happy with ointment /enzymatic debridement and oral antibiotics ( understands can be osteo ). CATHY ELIAS MD Sep 15, 2017 09:26
[2017-09-15] MEDS: HYDROcodone/APAP 10/325 1 TAB TABLET GT PRN ×2 (09:29→15:37)
[2017-09-15 10:34] LABS: % EOS 7 % (0-5)
--- NOTE | 2017-09-15 10:50 | PDOC ---
PULMONARY PROGRESS NOTES Subjective NO SOA Vitals Vital Signs Date Time Temp Pulse Resp B/P (MAP) Pulse Ox O2 Delivery O2 Flow Rate FiO2 09/15/17 09:29 Nasal Cannula 2.0 09/15/17 07:00 97.5 94 24 98/69 (79) 97 97.5 General: No acute distress Lungs: Other (decrease bs) Cardiovascular: S1 Abdomen: Soft Extremities: No Edema, Other (contracted) Labs Laboratory Tests Test 09/13/17 11:10 09/13/17 12:23 09/14/17 05:35 09/15/17 05:14 Lactic Acid Level 2.2 mmol/L (0.4-2.0) O2 Saturation 93 % (92-99) Arterial Blood pH 7.43 (7.35-7.45) Arterial Blood pCO2 at Patient Temp 29 mmHg (35-46) Arterial Blood pO2 at Patient Temp 69 mmHg (65-108) Arterial Blood HCO3 19 mmol/L (21-28) Arterial Blood Base Excess -4 mmol/L (-3-3) FiO2 21.0 White Blood Count 16.5 x10^3/uL (4.0-11.0) 16.1 x10^3/uL (4.0-11.0) Red Blood Count 3.66 x10^6/uL (4.30-5.70) 3.61 x10^6/uL (4.30-5.70) Hemoglobin 9.7 g/dL (13.0-17.5) 9.8 g/dL (13.0-17.5) Hematocrit 31.9 % (39.0-53.0) 31.4 % (39.0-53.0) Mean Corpuscular Volume 87 fL (79-100) 87 fL (79-100) Mean Corpuscular Hemoglobin 27 pg (25-35) 27 pg (25-35) Mean Corpuscular Hemoglobin Concent 30 g/dL (31-37) 31 g/dL (31-37) Red Cell Distribution Width 16.4 % (11.5-14.5) 16.8 % (11.5-14.5) Platelet Count 364 x10^3/uL (140-400) 418 x10^3/uL (140-400) Neutrophils (%) (Auto) 75 % (31-73) 75 % (31-73) Lymphocytes (%) (Auto) 9 % (24-48) 10 % (24-48) Monocytes (%) (Auto) 9 % (0-9) 8 % (0-9) Eosinophils (%) (Auto) 6 % (0-3) 7 % (0-3) Basophils (%) (Auto) 0 % (0-3) 0 % (0-3) Neutrophils # (Auto) 12.4 x10^3uL (1.8-7.7) 12.1 x10^3uL (1.8-7.7) Lymphocytes # (Auto) 1.6 x10^3/uL (1.0-4.8) 1.6 x10^3/uL (1.0-4.8) Monocytes # (Auto) 1.5 x10^3/uL (0.0-1.1) 1.3 x10^3/uL (0.0-1.1) Eosinophils # (Auto) 1.0 x10^3/uL (0.0-0.7) 1.1 x10^3/uL (0.0-0.7) Basophils # (Auto) 0.1 x10^3/uL (0.0-0.2) 0.0 x10^3/uL (0.0-0.2) Sodium Level 142 mmol/L (136-145) 141 mmol/L (136-145) Potassium Level 4.2 mmol/L (3.5-5.1) 4.4 mmol/L (3.5-5.1) Chloride Level 110 mmol/L (98-107) 108 mmol/L (98-107) Carbon Dioxide Level 23 mmol/L (21-32) 22 mmol/L (21-32) Anion Gap 9 (6-14) 11 (6-14) Blood Urea Nitrogen 21 mg/dL (8-26) 18 mg/dL (8-26) Creatinine 0.7 mg/dL (0.7-1.3) 0.6 mg/dL (0.7-1.3) Estimated GFR (Cockcroft-Gault) 136.9 163.6 Glucose Level 131 mg/dL (70-99) 122 mg/dL (70-99) Calcium Level 8.4 mg/dL (8.5-10.1) 8.6 mg/dL (8.5-10.1) Magnesium Level 1.8 mg/dL (1.8-2.4) Vancomycin Level Trough 10.6 mcg/mL (10.0-20.0) Vancomycin Last Dose Date 09/13/17 Vancomycin Last Dose Time 1200 Laboratory Tests Test 09/15/17 05:14 White Blood Count 16.1 x10^3/uL (4.0-11.0) Red Blood Count 3.61 x10^6/uL (4.30-5.70) Hemoglobin 9.8 g/dL (13.0-17.5) Hematocrit 31.4 % (39.0-53.0) Mean Corpuscular Volume 87 fL (79-100) Mean Corpuscular Hemoglobin 27 pg (25-35) Mean Corpuscular Hemoglobin Concent 31 g/dL (31-37) Red Cell Distribution Width 16.8 % (11.5-14.5) Platelet Count 418 x10^3/uL (140-400) Neutrophils (%) (Auto) 75 % (31-73) Lymphocytes (%) (Auto) 10 % (24-48) Monocytes (%) (Auto) 8 % (0-9) Eosinophils (%) (Auto) 7 % (0-3) Basophils (%) (Auto) 0 % (0-3) Neutrophils # (Auto) 12.1 x10^3uL (1.8-7.7) Lymphocytes # (Auto) 1.6 x10^3/uL (1.0-4.8) Monocytes # (Auto) 1.3 x10^3/uL (0.0-1.1) Eosinophils # (Auto) 1.1 x10^3/uL (0.0-0.7) Basophils # (Auto) 0.0 x10^3/uL (0.0-0.2) Sodium Level 141 mmol/L (136-145) Potassium Level 4.4 mmol/L (3.5-5.1) Chloride Level 108 mmol/L (98-107) Carbon Dioxide Level 22 mmol/L (21-32) Anion Gap 11 (6-14) Blood Urea Nitrogen 18 mg/dL (8-26) Creatinine 0.6 mg/dL (0.7-1.3) Estimated GFR (Cockcroft-Gault) 163.6 Glucose Level 122 mg/dL (70-99) Calcium Level 8.6 mg/dL (8.5-10.1) Medications Active Scripts Medications Dose Route/Sig Max Daily Dose Days Date Category Protonix (Pantoprazole Sodium) 40 Mg Tablet.dr 40 Mg PO DAILY 30 07/28/17 Rx Quetiapine Fumarate 25 Mg Tablet 37.5 Mg PEG QHS 30 06/30/17 Rx Hydrocodone-Apap 10-325 (Hydrocodone Bit/Acetaminophen) 1 Each Tablet 1 Tab PO PRN Q6HRS PRN 30 04/27/17 Rx Baclofen 10 Mg Tablet 10 Mg GT TID 30 04/27/17 Rx Temazepam 30 Mg Capsule 30 Mg GT HS PRN 10/12/16 Reported Multivitamins (Multivitamin) 1 Each Capsule 1 Each GT DAILY 10/12/16 Reported Temazepam 15 Mg Capsule 1 Cap GT QHS 10/12/16 Reported Tylenol (Acetaminophen) 325 Mg Tablet 650 Mg PO Q4HRS PRN 06/27/14 Reported Aspirin 325 Mg Tablet 325 Mg GT DAILY 04/25/14 Reported Impression . 1. Sepsis syndrome with gram neg rods in blood,MRSA in urine, MSSA from heel ulcer and suspected aspiration pneumonia. 2. History of anoxic encephalopathy with spastic quadriplegia. 3. History of dysphagia, status post PEG tube placement. 4. Short gut syndrome, history of ileostomy for ischemic bowel. 5. Previous multiple hospitalizations for infectious etiologies. 6. History of cerebrovascular accident. Plan . 1. broad-spectrum antibiotics. 2. Follow all final blood cultures. 3. Repeat chest x-ray post-IV hydration unchanged 4. Sepsis protocol 5. Follow BUN and creatinine. improving 6. Follow the fever pattern. 7. Continue enteral nutrition. 8. Discussed with the patient's .advance directives. she will think about DNR JUANITO TORRES MD Sep 15, 2017 10:50
[2017-09-15 10:56] LABS: ANISOCYTOSIS SLIGHT; PLT ESTIMATE INCREASED (ADEQUATE); POLYCHROMASIA SLIGHT
[2017-09-15 11:00] VITALS: BP 142/93
[2017-09-15] MEDS: LINEZOLID 600 MG TABLET PO SCH ×2 (11:36→21:49)
[2017-09-15] MEDS: IV 1/2 NORMAL SALINE 1,000 ML IV SCH (11:36)
[2017-09-15] MEDS: FLUCONAZOLE 200MG/100ML PREMIX 100 ML IV SCH (11:36)
[2017-09-15 15:00] VITALS: BP 103/73
--- NOTE | 2017-09-15 15:45 | PDOC ---
PROGRESS NOTES Subjective Subjective seen earlier today. discussed with . he is better,. afebrile. blood culture growing GNR. urine culture grew MRSA. lab reviewed. Objective Objective Vital Signs Date Time Temp Pulse Resp B/P (MAP) Pulse Ox O2 Delivery O2 Flow Rate FiO2 09/15/17 15:37 Nasal Cannula 2.0 09/15/17 11:00 98.3 92 24 142/93 (109) 98 98.3 Intake and Output 09/15/17 07:00 Intake Total 4103.7 ml Output Total 3300 ml Balance 803.7 ml Intake Oral 0 ml IV Total 1142.7 ml Tube Feeding 2436 ml Blood Product IV Normal Saline Flush 525 ml Output Stool Total 2950 ml Gastric Drainage Total 350 ml # Voids 3 Physical Exam Abdomen: Soft, Other (g tube and ileostomy) Heart: Regular rate, Normal S1, Normal S2 Extremities: No edema, Other (right aka) General: Alert HEENT: Atraumatic Neuro: Other (aphasic with spastic quadriplegia) Psych/Mental Status: Mood NL Skin: Other (left foot wound) Assessment Assessment Problems1.GNR bacteremia with sepsis. sepsis resolved 2. Leukocytosis 3. Left foot wound. 4. Spastic quadriplegia. 5. Anoxic encephalopathy. 6. Oropharyngeal dysphagia, maintained on gastrostomy tube feedings. 7. Short gut syndrome. 8. Ileostomy. 9. Right above-knee amputation. MRSA uti left lower lobe pneumonia Medical Problems: (1) Infected pressure ulcer Status: Acute (2) Pressure ulcer of left ankle Status: Acute (3) Urinary tract infection Status: Acute Plan Plan of Care continue iv vancomycin and meropenem and diflucan await final blood culture results continue tube feeding and iv fluids lab tomorrow Comment Review of Relevant I have reviewed the following items ramon (where applicable) has been applied. Labs Laboratory Tests Test 09/14/17 05:35 09/15/17 05:14 White Blood Count 16.5 x10^3/uL (4.0-11.0) 16.1 x10^3/uL (4.0-11.0) Red Blood Count 3.66 x10^6/uL (4.30-5.70) 3.61 x10^6/uL (4.30-5.70) Hemoglobin 9.7 g/dL (13.0-17.5) 9.8 g/dL (13.0-17.5) Hematocrit 31.9 % (39.0-53.0) 31.4 % (39.0-53.0) Mean Corpuscular Volume 87 fL (79-100) 87 fL (79-100) Mean Corpuscular Hemoglobin 27 pg (25-35) 27 pg (25-35) Mean Corpuscular Hemoglobin Concent 30 g/dL (31-37) 31 g/dL (31-37) Red Cell Distribution Width 16.4 % (11.5-14.5) 16.8 % (11.5-14.5) Platelet Count 364 x10^3/uL (140-400) 418 x10^3/uL (140-400) Neutrophils (%) (Auto) 75 % (31-73) 75 % (31-73) Lymphocytes (%) (Auto) 9 % (24-48) 10 % (24-48) Monocytes (%) (Auto) 9 % (0-9) 8 % (0-9) Eosinophils (%) (Auto) 6 % (0-3) 7 % (0-3) Basophils (%) (Auto) 0 % (0-3) 0 % (0-3) Neutrophils # (Auto) 12.4 x10^3uL (1.8-7.7) 12.1 x10^3uL (1.8-7.7) Lymphocytes # (Auto) 1.6 x10^3/uL (1.0-4.8) 1.6 x10^3/uL (1.0-4.8) Monocytes # (Auto) 1.5 x10^3/uL (0.0-1.1) 1.3 x10^3/uL (0.0-1.1) Eosinophils # (Auto) 1.0 x10^3/uL (0.0-0.7) 1.1 x10^3/uL (0.0-0.7) Basophils # (Auto) 0.1 x10^3/uL (0.0-0.2) 0.0 x10^3/uL (0.0-0.2) Sodium Level 142 mmol/L (136-145) 141 mmol/L (136-145) Potassium Level 4.2 mmol/L (3.5-5.1) 4.4 mmol/L (3.5-5.1) Chloride Level 110 mmol/L (98-107) 108 mmol/L (98-107) Carbon Dioxide Level 23 mmol/L (21-32) 22 mmol/L (21-32) Anion Gap 9 (6-14) 11 (6-14) Blood Urea Nitrogen 21 mg/dL (8-26) 18 mg/dL (8-26) Creatinine 0.7 mg/dL (0.7-1.3) 0.6 mg/dL (0.7-1.3) Estimated GFR (Cockcroft-Gault) 136.9 163.6 Glucose Level 131 mg/dL (70-99) 122 mg/dL (70-99) Calcium Level 8.4 mg/dL (8.5-10.1) 8.6 mg/dL (8.5-10.1) Magnesium Level 1.8 mg/dL (1.8-2.4) Vancomycin Level Trough 10.6 mcg/mL (10.0-20.0) Vancomycin Last Dose Date 09/13/17 Vancomycin Last Dose Time 1200 Segmented Neutrophils % 74 % (35-66) Band Neutrophils % 2 % (0-9) Lymphocytes % 10 % (24-48) Monocytes % 7 % (0-10) Eosinophils % 7 % (0-5) Platelet Estimate Increased (ADEQUATE) Polychromasia Slight Anisocytosis Slight Laboratory Tests Test 09/15/17 05:14 White Blood Count 16.1 x10^3/uL (4.0-11.0) Red Blood Count 3.61 x10^6/uL (4.30-5.70) Hemoglobin 9.8 g/dL (13.0-17.5) Hematocrit 31.4 % (39.0-53.0) Mean Corpuscular Volume 87 fL (79-100) Mean Corpuscular Hemoglobin 27 pg (25-35) Mean Corpuscular Hemoglobin Concent 31 g/dL (31-37) Red Cell Distribution Width 16.8 % (11.5-14.5) Platelet Count 418 x10^3/uL (140-400) Neutrophils (%) (Auto) 75 % (31-73) Lymphocytes (%) (Auto) 10 % (24-48) Monocytes (%) (Auto) 8 % (0-9) Eosinophils (%) (Auto) 7 % (0-3) Basophils (%) (Auto) 0 % (0-3) Neutrophils # (Auto) 12.1 x10^3uL (1.8-7.7) Lymphocytes # (Auto) 1.6 x10^3/uL (1.0-4.8) Monocytes # (Auto) 1.3 x10^3/uL (0.0-1.1) Eosinophils # (Auto) 1.1 x10^3/uL (0.0-0.7) Basophils # (Auto) 0.0 x10^3/uL (0.0-0.2) Segmented Neutrophils % 74 % (35-66) Band Neutrophils % 2 % (0-9) Lymphocytes % 10 % (24-48) Monocytes % 7 % (0-10) Eosinophils % 7 % (0-5) Platelet Estimate Increased (ADEQUATE) Polychromasia Slight Anisocytosis Slight Sodium Level 141 mmol/L (136-145) Potassium Level 4.4 mmol/L (3.5-5.1) Chloride Level 108 mmol/L (98-107) Carbon Dioxide Level 22 mmol/L (21-32) Anion Gap 11 (6-14) Blood Urea Nitrogen 18 mg/dL (8-26) Creatinine 0.6 mg/dL (0.7-1.3) Estimated GFR (Cockcroft-Gault) 163.6 Glucose Level 122 mg/dL (70-99) Calcium Level 8.6 mg/dL (8.5-10.1) Microbiology 09/12/17 Blood Culture - Preliminary, Resulted 09/12/17 Blood Culture Result 1 (JAMISON) - Preliminary, Resulted 09/12/17 Urine Culture - Final, Complete 09/12/17 Urine Culture Result 1 (JAMISON) - Final, Complete 09/12/17 Antimicrobic Susceptibility - Final, Complete 09/12/17 Gram Stain - Final, Complete Medications Current Medications Sodium Chloride 500 ml @ 500 mls/hr 1X ONCE IV Last administered on t 16:24; Start 09/12/17 at 15:30; Stop 09/12/17 at 16:29; Status DC Sodium Chloride (NORMAL SALINE FLUSH for STERILE FIELD) 10 ml [employer]-MED ONCE .ROUTE ; Start 09/12/17 at 15:56; Stop 09/12/17 at 15:57; Status DC Vancomycin HCl 1.75 gm/Sodium Chloride 500 ml @ 250 mls/hr 1X ONCE IV ; Start 09/12/17 at 17:15; Stop 09/12/17 at 19:14; Status UNV Cefepime HCl 1 gm/ Dextrose 50 ml @ 100 mls/hr Q8HRS IV ; Start 09/12/17 at 22 :00; Status UNV Ondansetron HCl (Zofran) 4 mg PRN Q8HRS PRN IV NAUSEA/VOMITING; Start at 17:15; Stop 09/13/17 at 17:14; Status DC Morphine Sulfate 2 mg PRN Q2HR PRN IV PAIN; Start 09/12/17 at 17:15; Stop at 17:14; Status DC Cefepime HCl (Maxipime) 1 gm 1X ONCE IVP Last administered on 09/12/17 17:41 ; Start 09/12/17 at 17:30; Stop 09/12/17 at 17:31; Status DC Vancomycin HCl 1 gm/Sodium Chloride 250 ml @ 250 mls/hr 1X ONCE IV Last administered on 09/12/17 17:49; Start 09/12/17 at 18:00; Stop 09/12/17 at 18 :59; Status DC Cefepime HCl (Maxipime) 1 gm Q12HR IVP ; Start 09/13/17 at 09:00; Stop at 10:31; Status DC Vancomycin HCl (Vanco Per Pharmacy) 1 each PRN DAILY PRN MC SEE COMMENTS Last administered on 09/14/17 06:39; Start 09/12/17 at 18:00; Stop 09/14/17 at 12 :54; Status DC Acetaminophen (Tylenol) 650 mg PRN Q4HRS PRN PEG MILD PAIN / TEMP Last administered on 09/14/17 18:35; Start 09/12/17 at 18:00 Aspirin (Laura Aspirin) 325 mg DAILY GT Last administered on 09/15/17 09:23; Start 09/13/17 at 09:00 Baclofen (Lioresal) 10 mg TID GT Last administered on 09/15/17 14:53; Start 09/12/17 at 21:00 Multivitamins (Thera M Plus) 1 tab DAILY PO Last administered on 09/15/17 09: 23; Start 09/13/17 at 09:00 Acetaminophen/ Hydrocodone Bitart (Lortab 10/325) 1 tab PRN Q6HRS PRN GT SEVERE PAIN Last administered on 09/15/17 15:37; Start 09/12/17 at 18:00 Pantoprazole Sodium (Protonix) 40 mg DAILYAC PO Last administered on 09:23; Start 09/13/17 at 07:30 Quetiapine Fumarate (SEROquel) 37.5 mg QHS GT Last administered on 09/14/17 21:22; Start 09/12/17 at 21:00 Quetiapine Fumarate (SEROquel) 12.5 mg PRN Q8HRS PRN PEG AGITATION; Start 09/17 at 18:00 Temazepam (Restoril) 30 mg QHS PO ; Start 09/12/17 at 21:00; Stop 09/12/17 at 21:00; Status DC Sodium Chloride 1,000 ml @ 60 mls/hr [id number] IV Last administered on 11:36; Start 09/12/17 at 18:30 Temazepam (Restoril) 45 mg QHS PO Last administered on 09/14/17 21:21; Start 09/12/17 at 21:00 Vancomycin HCl 750 mg/Dextrose/ Sodium Chloride 250 ml @ 250 mls/hr Q18H IV Last administered on 09/14/17 07:15; Start 09/13/17 at 12:00; Stop 09/14/17 at 12:53; Status DC Vancomycin HCl 1 each 1X ONCE MC Last administered on 09/14/17 05:30; Start 09/14/17 at 05:30; Stop 09/14/17 at 05:31; Status DC Ascorbic Acid (Vitamin C) 500 mg BID PO Last administered on 09/15/17 09:23; Start 09/13/17 at 10:15 Meropenem 500 mg/ Sodium Chloride 50 ml @ 100 mls/hr Q8HRS IV ; Start at 14:00; Status UNV Fluconazole/ Sodium Chloride 100 ml @ 100 mls/hr Q24H IV Last administered on 09/15/17 11:36; Start 09/13/17 at 11:00 Meropenem (Merrem) 500 mg Q8HRS IVP Last administered on 09/15/17 14:53; Start 09/13/17 at 14:00 Linezolid (Zyvox) 600 mg BID PO Last administered on 09/15/17 11:36; Start 09/15/17 at 10:00 Active Scripts Active Protonix (Pantoprazole Sodium) 40 Mg Tablet.dr 40 Mg PO DAILY 30 Days Quetiapine Fumarate 25 Mg Tablet 37.5 Mg PEG QHS 30 Days Hydrocodone-Apap 10-325 (Hydrocodone Bit/Acetaminophen) 1 Each Tablet 1 Tab PO PRN Q6HRS PRN 30 Days Baclofen 10 Mg Tablet 10 Mg GT TID 30 Days Reported Temazepam 30 Mg Capsule 30 Mg GT HS PRN Multivitamins (Multivitamin) 1 Each Capsule 1 Each GT DAILY Temazepam 15 Mg Capsule 1 Cap GT QHS Tylenol (Acetaminophen) 325 Mg Tablet 650 Mg PO Q4HRS PRN Aspirin 325 Mg Tablet 325 Mg GT DAILY Vitals/I & O Vital Sign - Last 24 Hours 09/14/17 09/14/17 09/14/17 09/15/17 19:15 19:20 23:16 02:51 Temp 98.2 98.3 97.6 98.2 98.3 97.6 Pulse 94 90 86 Resp 22 20 18 B/P (MAP) 105/76 (86) 106/72 (83) 116/72 (87) Pulse Ox 98 98 97 O2 Delivery Nasal Cannula Nasal Cannula Nasal Cannula Nasal Cannula O2 Flow Rate 2.0 2.0 2.0 2.0 09/15/17 09/15/17 09/15/17 09/15/17 07:00 08:20 09:29 10:30 Temp 97.5 97.5 Pulse 94 Resp 24 B/P (MAP) 98/69 (79) Pulse Ox 97 O2 Delivery Nasal Cannula Nasal Cannula Nasal Cannula Nasal Cannula O2 Flow Rate 2.0 2.0 2.0 2.0 09/15/17 09/15/17 11:00 15:37 Temp 98.3 98.3 Pulse 92 Resp 24 B/P (MAP) 142/93 (109) Pulse Ox 98 O2 Delivery Nasal Cannula O2 Flow Rate 2.0 Intake and Output 09/14/17 09/14/17 09/15/17 15:00 23:00 07:00 Intake Total 250 ml 250 ml 3603.7 ml Output Total 2950 ml 350 ml Balance 250 ml -2700 ml 3253.7 ml Nutrition Consultation Dietary Evaluation: Comments: continue TF regemin mvi and vit c per wound protocal re wt requested Expected Outcomes/Goals: wt maintanence, wound improvement Malnutrition Findings: Body Fat Depletion (Non Severe: Mod to Severe Weight Status: Underweight ADRIANE ALAN MD Sep 15, 2017 15:45
--- NOTE | 2017-09-15 15:51 | PDOC2 ---
PALLIATIVE CARE Palliative Care Note Palliative Care Consult requested by Dr. Hoskins to address goals of care. Diagnosis: Sepsis multifactorial--heel ulcer, UTI, suspected aspiration pneumonia; anoxic encephalopathy with spastic quadriplegia; dysphagia--feeding tube, short gut syndrome/ileostomy/ischemic bowel; multiple infections, CVA Patient unable to participate in conversation; Met with . They have 3 daughters. shared that patient is visited by [facility] 1/week; has strong support from community and am[place]. 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 Has been in multiple rehabilitation units. At one time was able to walk. Has had many "set-backs" and multiple wounds. Now has amputee. Discussed Code Status: states he is full code now but if he did code and they could b ring him back she would probably not leave him on life support for a long period of time. She would not want any other limitations in his care for now. tearful, pleasant and appreciative of conversation. Will meet again on Monday. HORACE GALINDO Sep 15, 2017 15:51
[2017-09-15 19:00] VITALS: BP 145/74
[2017-09-15] MEDS: QUEtiapine 25 MG TABLET. GT SCH (21:48)
[2017-09-15] MEDS: TEMAZEPAM 15 MG CAPSULE PO SCH (21:51)
[2017-09-15 23:00] VITALS: BP 100/74
[2017-09-16 03:00] VITALS: BP 97/65
[2017-09-16] MEDS: IV 1/2 NORMAL SALINE 1,000 ML IV SCH (06:25)
[2017-09-16] MEDS: MEROPENEM IV Push 500 MG VIAL. IVP SCH ×3 (06:25→22:17)
[2017-09-16 06:44] LABS: BASO % 0 % (0-3); EOS % 6 % (0-3); HEMATOCRIT 28.4 % (39.0-53.0); HEMOGLOBIN 8.8 g/dL (13.0-17.5); LYMPH # 1.8 x10^3/uL (1.0-4.8); LYMPH % 13 % (24-48); MEAN CORPUSCULAR HEMOGLOBIN 27 pg (25-35); MEAN CORPUSCULAR HGB CONC 31 g/dL (31-37); MEAN CORPUSCULAR VOLUME 87 fL (79-100); MONO % 8 % (0-9); NEUT % 73 % (31-73); PLATELET COUNT 385 x10^3/uL (140-400); RED BLOOD COUNT 3.28 x10^6/uL (4.30-5.70); RED CELL DISTRIBUTION WIDTH 16.3 % (11.5-14.5); WHITE BLOOD COUNT 13.5 x10^3/uL (4.0-11.0)
[2017-09-16 06:48] LABS: CREATININE 0.6 mg/dL (0.7-1.3); GFR 163.6; POTASSIUM 4.4 mmol/L (3.5-5.1)
[2017-09-16 07:00] VITALS: BP 109/71
[2017-09-16] MEDS: ACETAMINOPHEN 650 MG/20.3 ML SOLUTION. PEG PRN (09:41)
[2017-09-16] MEDS: ASPIRIN 325 MG TABLET GT SCH (09:41)
[2017-09-16] MEDS: MULTIVITAMIN with MINERAL TABLET. PO SCH (09:41)
[2017-09-16] MEDS: LINEZOLID 600 MG TABLET PO SCH ×2 (09:42→22:15)
[2017-09-16] MEDS: ASCORBIC ACID 500 MG TABLET PO SCH ×2 (09:42→22:15)
[2017-09-16] MEDS: BACLOFEN 10 MG TABLET. GT SCH ×3 (09:42→22:16)
[2017-09-16] MEDS: PANTOPRAZOLE 40 MG TABLET.DR. PO SCH (09:42)
[2017-09-16] MEDS: FLUCONAZOLE 200MG/100ML PREMIX 100 ML IV SCH (09:50)
[2017-09-16] MEDS: HYDROcodone/APAP 10/325 1 TAB TABLET GT PRN ×2 (09:51→15:24)
[2017-09-16 11:00] VITALS: BP 109/72
--- NOTE | 2017-09-16 12:04 | PDOC ---
PULMONARY PROGRESS NOTES Subjective NO SOA Vitals Vital Signs Date Time Temp Pulse Resp B/P (MAP) Pulse Ox O2 Delivery O2 Flow Rate FiO2 09/16/17 10:50 95 Nasal Cannula 2.0 09/16/17 07:00 99.1 89 109/71 (84) 99.1 09/16/17 03:00 18 General: No acute distress Lungs: Other (decrease bs) Cardiovascular: S1 Abdomen: Soft Extremities: No Edema, Other (contracted) Labs Laboratory Tests Test 09/15/17 05:14 09/16/17 06:00 White Blood Count 16.1 x10^3/uL (4.0-11.0) 13.5 x10^3/uL (4.0-11.0) Red Blood Count 3.61 x10^6/uL (4.30-5.70) 3.28 x10^6/uL (4.30-5.70) Hemoglobin 9.8 g/dL (13.0-17.5) 8.8 g/dL (13.0-17.5) Hematocrit 31.4 % (39.0-53.0) 28.4 % (39.0-53.0) Mean Corpuscular Volume 87 fL (79-100) 87 fL (79-100) Mean Corpuscular Hemoglobin 27 pg (25-35) 27 pg (25-35) Mean Corpuscular Hemoglobin Concent 31 g/dL (31-37) 31 g/dL (31-37) Red Cell Distribution Width 16.8 % (11.5-14.5) 16.3 % (11.5-14.5) Platelet Count 418 x10^3/uL (140-400) 385 x10^3/uL (140-400) Neutrophils (%) (Auto) 75 % (31-73) 73 % (31-73) Lymphocytes (%) (Auto) 10 % (24-48) 13 % (24-48) Monocytes (%) (Auto) 8 % (0-9) 8 % (0-9) Eosinophils (%) (Auto) 7 % (0-3) 6 % (0-3) Basophils (%) (Auto) 0 % (0-3) 0 % (0-3) Neutrophils # (Auto) 12.1 x10^3uL (1.8-7.7) 9.8 x10^3uL (1.8-7.7) Lymphocytes # (Auto) 1.6 x10^3/uL (1.0-4.8) 1.8 x10^3/uL (1.0-4.8) Monocytes # (Auto) 1.3 x10^3/uL (0.0-1.1) 1.1 x10^3/uL (0.0-1.1) Eosinophils # (Auto) 1.1 x10^3/uL (0.0-0.7) 0.8 x10^3/uL (0.0-0.7) Basophils # (Auto) 0.0 x10^3/uL (0.0-0.2) 0.0 x10^3/uL (0.0-0.2) Segmented Neutrophils % 74 % (35-66) Band Neutrophils % 2 % (0-9) Lymphocytes % 10 % (24-48) Monocytes % 7 % (0-10) Eosinophils % 7 % (0-5) Platelet Estimate Increased (ADEQUATE) Polychromasia Slight Anisocytosis Slight Sodium Level 141 mmol/L (136-145) 140 mmol/L (136-145) Potassium Level 4.4 mmol/L (3.5-5.1) 4.4 mmol/L (3.5-5.1) Chloride Level 108 mmol/L (98-107) 107 mmol/L (98-107) Carbon Dioxide Level 22 mmol/L (21-32) 25 mmol/L (21-32) Anion Gap 11 (6-14) 8 (6-14) Blood Urea Nitrogen 18 mg/dL (8-26) 16 mg/dL (8-26) Creatinine 0.6 mg/dL (0.7-1.3) 0.6 mg/dL (0.7-1.3) Estimated GFR (Cockcroft-Gault) 163.6 163.6 Glucose Level 122 mg/dL (70-99) 125 mg/dL (70-99) Calcium Level 8.6 mg/dL (8.5-10.1) 8.0 mg/dL (8.5-10.1) Laboratory Tests Test 09/16/17 06:00 White Blood Count 13.5 x10^3/uL (4.0-11.0) Red Blood Count 3.28 x10^6/uL (4.30-5.70) Hemoglobin 8.8 g/dL (13.0-17.5) Hematocrit 28.4 % (39.0-53.0) Mean Corpuscular Volume 87 fL (79-100) Mean Corpuscular Hemoglobin 27 pg (25-35) Mean Corpuscular Hemoglobin Concent 31 g/dL (31-37) Red Cell Distribution Width 16.3 % (11.5-14.5) Platelet Count 385 x10^3/uL (140-400) Neutrophils (%) (Auto) 73 % (31-73) Lymphocytes (%) (Auto) 13 % (24-48) Monocytes (%) (Auto) 8 % (0-9) Eosinophils (%) (Auto) 6 % (0-3) Basophils (%) (Auto) 0 % (0-3) Neutrophils # (Auto) 9.8 x10^3uL (1.8-7.7) Lymphocytes # (Auto) 1.8 x10^3/uL (1.0-4.8) Monocytes # (Auto) 1.1 x10^3/uL (0.0-1.1) Eosinophils # (Auto) 0.8 x10^3/uL (0.0-0.7) Basophils # (Auto) 0.0 x10^3/uL (0.0-0.2) Sodium Level 140 mmol/L (136-145) Potassium Level 4.4 mmol/L (3.5-5.1) Chloride Level 107 mmol/L (98-107) Carbon Dioxide Level 25 mmol/L (21-32) Anion Gap 8 (6-14) Blood Urea Nitrogen 16 mg/dL (8-26) Creatinine 0.6 mg/dL (0.7-1.3) Estimated GFR (Cockcroft-Gault) 163.6 Glucose Level 125 mg/dL (70-99) Calcium Level 8.0 mg/dL (8.5-10.1) Medications Active Scripts Medications Dose Route/Sig Max Daily Dose Days Date Category Protonix (Pantoprazole Sodium) 40 Mg Tablet.dr 40 Mg PO DAILY 30 07/28/17 Rx Quetiapine Fumarate 25 Mg Tablet 37.5 Mg PEG QHS 30 06/30/17 Rx Hydrocodone-Apap 10-325 (Hydrocodone Bit/Acetaminophen) 1 Each Tablet 1 Tab PO PRN Q6HRS PRN 30 04/27/17 Rx Baclofen 10 Mg Tablet 10 Mg GT TID 30 04/27/17 Rx Temazepam 30 Mg Capsule 30 Mg GT HS PRN 10/12/16 Reported Multivitamins (Multivitamin) 1 Each Capsule 1 Each GT DAILY 10/12/16 Reported Temazepam 15 Mg Capsule 1 Cap GT QHS 10/12/16 Reported Tylenol (Acetaminophen) 325 Mg Tablet 650 Mg PO Q4HRS PRN 06/27/14 Reported Aspirin 325 Mg Tablet 325 Mg GT DAILY 04/25/14 Reported Impression . 1. Sepsis syndrome with gram neg rods in blood,MRSA in urine, MSSA from heel ulcer and suspected aspiration pneumonia. 2. History of anoxic encephalopathy with spastic quadriplegia. 3. History of dysphagia, status post PEG tube placement. 4. Short gut syndrome, history of ileostomy for ischemic bowel. 5. Previous multiple hospitalizations for infectious etiologies. 6. History of cerebrovascular accident. Plan . 1. broad-spectrum antibiotics. 2. Follow all final blood cultures. 3. Repeat chest x-ray post-IV hydration unchanged 4. Sepsis protocol 5. Follow BUN and creatinine. improving 6. Follow the fever pattern. 7. Continue enteral nutrition. 8. Discussed with the patient's .advance directives. she will think about DNR JUANITO TORRES MD Sep 16, 2017 12:04
--- NOTE | 2017-09-16 12:40 | PDOC ---
PROGRESS NOTES Subjective Subjective has a low grade fever. discussed with . lab reviewed. Objective Objective Vital Signs Date Time Temp Pulse Resp B/P (MAP) Pulse Ox O2 Delivery O2 Flow Rate FiO2 09/16/17 10:50 95 Nasal Cannula 2.0 09/16/17 07:00 99.1 89 109/71 (84) 99.1 09/16/17 03:00 18 Intake and Output 09/16/17 07:00 Intake Total 500 ml Output Total 1825 ml Balance -1325 ml Intake Oral 0 ml Tube Feeding 500 ml Output Stool Total 1825 ml # Voids 4 Physical Exam Abdomen: Soft, Other (g tube and ileostomy) Heart: Regular rate, Normal S1, Normal S2 Extremities: No edema, Other (right aka) General: Alert Lungs: Clear to auscultation Neuro: Other (aphasic with spastic quadriplegia) Psych/Mental Status: Mood NL Skin: No rashes Assessment Assessment Problems1.GNR bacteremia with sepsis. sepsis resolved 2. Leukocytosis better 3. Left foot wound. 4. Spastic quadriplegia. 5. Anoxic encephalopathy. 6. Oropharyngeal dysphagia, maintained on gastrostomy tube feedings. 7. Short gut syndrome. 8. Ileostomy. 9. Right above-knee amputation. MRSA uti Medical Problems: (1) Infected pressure ulcer Status: Acute (2) Pressure ulcer of left ankle Status: Acute (3) Urinary tract infection Status: Acute Plan Plan of Care continue iv diflucan and zyvox and metoprenem await final blood culture results continue tube feeding and iv fluids Comment Review of Relevant I have reviewed the following items ramon (where applicable) has been applied. Labs Laboratory Tests Test 09/15/17 05:14 09/16/17 06:00 White Blood Count 16.1 x10^3/uL (4.0-11.0) 13.5 x10^3/uL (4.0-11.0) Red Blood Count 3.61 x10^6/uL (4.30-5.70) 3.28 x10^6/uL (4.30-5.70) Hemoglobin 9.8 g/dL (13.0-17.5) 8.8 g/dL (13.0-17.5) Hematocrit 31.4 % (39.0-53.0) 28.4 % (39.0-53.0) Mean Corpuscular Volume 87 fL (79-100) 87 fL (79-100) Mean Corpuscular Hemoglobin 27 pg (25-35) 27 pg (25-35) Mean Corpuscular Hemoglobin Concent 31 g/dL (31-37) 31 g/dL (31-37) Red Cell Distribution Width 16.8 % (11.5-14.5) 16.3 % (11.5-14.5) Platelet Count 418 x10^3/uL (140-400) 385 x10^3/uL (140-400) Neutrophils (%) (Auto) 75 % (31-73) 73 % (31-73) Lymphocytes (%) (Auto) 10 % (24-48) 13 % (24-48) Monocytes (%) (Auto) 8 % (0-9) 8 % (0-9) Eosinophils (%) (Auto) 7 % (0-3) 6 % (0-3) Basophils (%) (Auto) 0 % (0-3) 0 % (0-3) Neutrophils # (Auto) 12.1 x10^3uL (1.8-7.7) 9.8 x10^3uL (1.8-7.7) Lymphocytes # (Auto) 1.6 x10^3/uL (1.0-4.8) 1.8 x10^3/uL (1.0-4.8) Monocytes # (Auto) 1.3 x10^3/uL (0.0-1.1) 1.1 x10^3/uL (0.0-1.1) Eosinophils # (Auto) 1.1 x10^3/uL (0.0-0.7) 0.8 x10^3/uL (0.0-0.7) Basophils # (Auto) 0.0 x10^3/uL (0.0-0.2) 0.0 x10^3/uL (0.0-0.2) Segmented Neutrophils % 74 % (35-66) Band Neutrophils % 2 % (0-9) Lymphocytes % 10 % (24-48) Monocytes % 7 % (0-10) Eosinophils % 7 % (0-5) Platelet Estimate Increased (ADEQUATE) Polychromasia Slight Anisocytosis Slight Sodium Level 141 mmol/L (136-145) 140 mmol/L (136-145) Potassium Level 4.4 mmol/L (3.5-5.1) 4.4 mmol/L (3.5-5.1) Chloride Level 108 mmol/L (98-107) 107 mmol/L (98-107) Carbon Dioxide Level 22 mmol/L (21-32) 25 mmol/L (21-32) Anion Gap 11 (6-14) 8 (6-14) Blood Urea Nitrogen 18 mg/dL (8-26) 16 mg/dL (8-26) Creatinine 0.6 mg/dL (0.7-1.3) 0.6 mg/dL (0.7-1.3) Estimated GFR (Cockcroft-Gault) 163.6 163.6 Glucose Level 122 mg/dL (70-99) 125 mg/dL (70-99) Calcium Level 8.6 mg/dL (8.5-10.1) 8.0 mg/dL (8.5-10.1) Laboratory Tests Test 09/16/17 06:00 White Blood Count 13.5 x10^3/uL (4.0-11.0) Red Blood Count 3.28 x10^6/uL (4.30-5.70) Hemoglobin 8.8 g/dL (13.0-17.5) Hematocrit 28.4 % (39.0-53.0) Mean Corpuscular Volume 87 fL (79-100) Mean Corpuscular Hemoglobin 27 pg (25-35) Mean Corpuscular Hemoglobin Concent 31 g/dL (31-37) Red Cell Distribution Width 16.3 % (11.5-14.5) Platelet Count 385 x10^3/uL (140-400) Neutrophils (%) (Auto) 73 % (31-73) Lymphocytes (%) (Auto) 13 % (24-48) Monocytes (%) (Auto) 8 % (0-9) Eosinophils (%) (Auto) 6 % (0-3) Basophils (%) (Auto) 0 % (0-3) Neutrophils # (Auto) 9.8 x10^3uL (1.8-7.7) Lymphocytes # (Auto) 1.8 x10^3/uL (1.0-4.8) Monocytes # (Auto) 1.1 x10^3/uL (0.0-1.1) Eosinophils # (Auto) 0.8 x10^3/uL (0.0-0.7) Basophils # (Auto) 0.0 x10^3/uL (0.0-0.2) Sodium Level 140 mmol/L (136-145) Potassium Level 4.4 mmol/L (3.5-5.1) Chloride Level 107 mmol/L (98-107) Carbon Dioxide Level 25 mmol/L (21-32) Anion Gap 8 (6-14) Blood Urea Nitrogen 16 mg/dL (8-26) Creatinine 0.6 mg/dL (0.7-1.3) Estimated GFR (Cockcroft-Gault) 163.6 Glucose Level 125 mg/dL (70-99) Calcium Level 8.0 mg/dL (8.5-10.1) Microbiology 09/12/17 Blood Culture - Preliminary, Resulted 09/12/17 Blood Culture Result 1 (JAMISON) - Preliminary, Resulted 09/12/17 Urine Culture - Final, Complete 09/12/17 Urine Culture Result 1 (JAMISON) - Final, Complete 09/12/17 Antimicrobic Susceptibility - Final, Complete 09/12/17 Gram Stain - Final, Complete Medications Current Medications Sodium Chloride 500 ml @ 500 mls/hr 1X ONCE IV Last administered on t 16:24; Start 09/12/17 at 15:30; Stop 09/12/17 at 16:29; Status DC Sodium Chloride (NORMAL SALINE FLUSH for STERILE FIELD) 10 ml STK-MED ONCE .ROUTE ; Start 09/12/17 at 15:56; Stop 09/12/17 at 15:57; Status DC Vancomycin HCl 1.75 gm/Sodium Chloride 500 ml @ 250 mls/hr 1X ONCE IV ; Start 09/12/17 at 17:15; Stop 09/12/17 at 19:14; Status UNV Cefepime HCl 1 gm/ Dextrose 50 ml @ 100 mls/hr Q8HRS IV ; Start 09/12/17 at 22 :00; Status UNV Ondansetron HCl (Zofran) 4 mg PRN Q8HRS PRN IV NAUSEA/VOMITING; Start at 17:15; Stop 09/13/17 at 17:14; Status DC Morphine Sulfate 2 mg PRN Q2HR PRN IV PAIN; Start 09/12/17 at 17:15; Stop at 17:14; Status DC Cefepime HCl (Maxipime) 1 gm 1X ONCE IVP Last administered on 09/12/17 17:41 ; Start 09/12/17 at 17:30; Stop 09/12/17 at 17:31; Status DC Vancomycin HCl 1 gm/Sodium Chloride 250 ml @ 250 mls/hr 1X ONCE IV Last administered on 09/12/17 17:49; Start 09/12/17 at 18:00; Stop 09/12/17 at 18 :59; Status DC Cefepime HCl (Maxipime) 1 gm Q12HR IVP ; Start 09/13/17 at 09:00; Stop at 10:31; Status DC Vancomycin HCl (Vanco Per Pharmacy) 1 each PRN DAILY PRN MC SEE COMMENTS Last administered on 09/14/17 06:39; Start 09/12/17 at 18:00; Stop 09/14/17 at 12 :54; Status DC Acetaminophen (Tylenol) 650 mg PRN Q4HRS PRN PEG MILD PAIN / TEMP Last administered on 09/16/17 09:41; Start 09/12/17 at 18:00 Aspirin (Home Chef Aspirin) 325 mg DAILY GT Last administered on 09/16/17 09:41; Start 09/13/17 at 09:00 Baclofen (Lioresal) 10 mg TID GT Last administered on 09/16/17 09:42; Start 09/12/17 at 21:00 Multivitamins (Thera M Plus) 1 tab DAILY PO Last administered on 09/16/17 09: 41; Start 09/13/17 at 09:00 Acetaminophen/ Hydrocodone Bitart (Lortab 10/325) 1 tab PRN Q6HRS PRN GT SEVERE PAIN Last administered on 09/16/17 09:51; Start 09/12/17 at 18:00 Pantoprazole Sodium (Protonix) 40 mg DAILYAC PO Last administered on 09:42; Start 09/13/17 at 07:30 Quetiapine Fumarate (SEROquel) 37.5 mg QHS GT Last administered on 09/15/17 21:48; Start 09/12/17 at 21:00 Quetiapine Fumarate (SEROquel) 12.5 mg PRN Q8HRS PRN PEG AGITATION; Start 09/17 at 18:00 Temazepam (Restoril) 30 mg QHS PO ; Start 09/12/17 at 21:00; Stop 09/12/17 at 21:00; Status DC Sodium Chloride 1,000 ml @ 60 mls/hr [id number] IV Last administered on 06:25; Start 09/12/17 at 18:30 Temazepam (Restoril) 45 mg QHS PO Last administered on 09/15/17 21:51; Start 09/12/17 at 21:00 Vancomycin HCl 750 mg/Dextrose/ Sodium Chloride 250 ml @ 250 mls/hr Q18H IV Last administered on 09/14/17 07:15; Start 09/13/17 at 12:00; Stop 09/14/17 at 12:53; Status DC Vancomycin HCl 1 each 1X ONCE MC Last administered on 09/14/17 05:30; Start 09/14/17 at 05:30; Stop 09/14/17 at 05:31; Status DC Ascorbic Acid (Vitamin C) 500 mg BID PO Last administered on 09/16/17 09:42; Start 09/13/17 at 10:15 Meropenem 500 mg/ Sodium Chloride 50 ml @ 100 mls/hr Q8HRS IV ; Start at 14:00; Status UNV Fluconazole/ Sodium Chloride 100 ml @ 100 mls/hr Q24H IV Last administered on 09/16/17 09:50; Start 09/13/17 at 11:00 Meropenem (Merrem) 500 mg Q8HRS IVP Last administered on 09/16/17 06:25; Start 09/13/17 at 14:00 Linezolid (Zyvox) 600 mg BID PO Last administered on 09/16/17 09:42; Start 09/15/17 at 10:00 Active Scripts Active Protonix (Pantoprazole Sodium) 40 Mg Tablet.dr 40 Mg PO DAILY 30 Days Quetiapine Fumarate 25 Mg Tablet 37.5 Mg PEG QHS 30 Days Hydrocodone-Apap 10-325 (Hydrocodone Bit/Acetaminophen) 1 Each Tablet 1 Tab PO PRN Q6HRS PRN 30 Days Baclofen 10 Mg Tablet 10 Mg GT TID 30 Days Reported Temazepam 30 Mg Capsule 30 Mg GT HS PRN Multivitamins (Multivitamin) 1 Each Capsule 1 Each GT DAILY Temazepam 15 Mg Capsule 1 Cap GT QHS Tylenol (Acetaminophen) 325 Mg Tablet 650 Mg PO Q4HRS PRN Aspirin 325 Mg Tablet 325 Mg GT DAILY Vitals/I & O Vital Sign - Last 24 Hours 09/15/17 09/15/17 09/15/17 09/15/17 15:00 15:37 19:00 20:00 Temp 99.1 99.1 Pulse 89 91 Resp 24 20 B/P (MAP) 103/73 (83) 145/74 (97) Pulse Ox 97 100 O2 Delivery Room Air Nasal Cannula Room Air Nasal Cannula O2 Flow Rate 2.0 2.0 09/15/17 09/16/17 09/16/17 09/16/17 23:00 03:00 07:00 08:00 Temp 99.1 99.3 99.1 99.1 99.3 99.1 Pulse 86 93 89 Resp 18 18 B/P (MAP) 100/74 (83) 97/65 (76) 109/71 (84) Pulse Ox 95 99 95 O2 Delivery Room Air Room Air Room Air Nasal Cannula O2 Flow Rate 2.0 09/16/17 09/16/17 09:51 10:50 Pulse Ox 95 95 O2 Delivery Nasal Cannula Nasal Cannula O2 Flow Rate 2.0 2.0 Intake and Output 09/15/17 09/15/17 09/16/17 15:00 23:00 07:00 Intake Total 250 ml 250 ml 0 ml Output Total 225 ml 1600 ml Balance 25 ml 250 ml -1600 ml Nutrition Consultation Dietary Evaluation: Comments: continue TF regemin mvi and vit c per wound protocal re wt requested Expected Outcomes/Goals: wt maintanence, wound improvement Malnutrition Findings: Body Fat Depletion (Non Severe: Mod to Severe Weight Status: Underweight ADRIANE ALAN MD Sep 16, 2017 12:40
[2017-09-16 15:00] VITALS: BP 110/75
--- NOTE | 2017-09-16 15:04 | PDOC ---
Infectious Disease Note Subjective Subjective Moaning No fever last 24 hours No increase ostomy output ROS ROS noncommunicative Vital Sign Vital Signs Vital Signs Date Time Temp Pulse Resp B/P (MAP) Pulse Ox O2 Delivery O2 Flow Rate FiO2 09/16/17 11:00 97.8 77 14 109/72 (84) 99 Room Air 97.8 09/16/17 10:50 2.0 Physical Exam PHYSICAL EXAM GENERAL: Lying down, moaning LUNGS: Clear anteriorly, nonlabored HEART: S1S2 ABD: Nondistended, Soft, ostomy : No Llamas EXT: No edema, no cyanosis. Left foot bandaged. TAX CLERK: Eyes open, noncommunicative, no follow commands SKIN: No rash Left-sided port. clean Labs Lab Laboratory Tests Test 09/16/17 06:00 White Blood Count 13.5 x10^3/uL (4.0-11.0) Red Blood Count 3.28 x10^6/uL (4.30-5.70) Hemoglobin 8.8 g/dL (13.0-17.5) Hematocrit 28.4 % (39.0-53.0) Mean Corpuscular Volume 87 fL (79-100) Mean Corpuscular Hemoglobin 27 pg (25-35) Mean Corpuscular Hemoglobin Concent 31 g/dL (31-37) Red Cell Distribution Width 16.3 % (11.5-14.5) Platelet Count 385 x10^3/uL (140-400) Neutrophils (%) (Auto) 73 % (31-73) Lymphocytes (%) (Auto) 13 % (24-48) Monocytes (%) (Auto) 8 % (0-9) Eosinophils (%) (Auto) 6 % (0-3) Basophils (%) (Auto) 0 % (0-3) Neutrophils # (Auto) 9.8 x10^3uL (1.8-7.7) Lymphocytes # (Auto) 1.8 x10^3/uL (1.0-4.8) Monocytes # (Auto) 1.1 x10^3/uL (0.0-1.1) Eosinophils # (Auto) 0.8 x10^3/uL (0.0-0.7) Basophils # (Auto) 0.0 x10^3/uL (0.0-0.2) Sodium Level 140 mmol/L (136-145) Potassium Level 4.4 mmol/L (3.5-5.1) Chloride Level 107 mmol/L (98-107) Carbon Dioxide Level 25 mmol/L (21-32) Anion Gap 8 (6-14) Blood Urea Nitrogen 16 mg/dL (8-26) Creatinine 0.6 mg/dL (0.7-1.3) Estimated GFR (Cockcroft-Gault) 163.6 Glucose Level 125 mg/dL (70-99) Calcium Level 8.0 mg/dL (8.5-10.1) Micro BLD CULT RESULT 1 Preliminary Gram negative rods ANAEROBIC RES 1 Preliminary No anaerobes recovered in 48 hours. AEROBIC RES 1 Final Proteus mirabilis AEROBIC RES 2 Final Methicillin - resistant Staphylococcus aureus Antibiotic RSLT#1 RSLT#2 Amoxicillin/Clavulanic Acid S Ampicillin S Cefepime S Ceftriaxone S Cefuroxime S Ciprofloxacin S R Clindamycin S Ertapenem S Erythromycin S Gentamicin S S Levofloxacin S I Linezolid S Oxacillin R Penicillin R Piperacillin S Rifampin S Tetracycline R S Tobramycin S Trimethoprim/Sulfa S S Vancomycin S Objective Assessment Fever - better Leukocytosis - trending down Respiratory failure, likely aspiration Sepsis with G neg viktoria, POA Left foot wound infection w/ MRSA & proteus Persistent veg state Plan Plan of Care vanc, meropenem and Diflucan Await GNR ID d/w in detail about the wound and how far she want us to go, she does not want surgery, debridement or iv antibiotics, happy with ointment /enzymatic debridement and oral antibiotics ( understands can be osteo ). 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
[2017-09-16] MEDS: TEMAZEPAM 15 MG CAPSULE PO SCH (22:16)
[2017-09-16] MEDS: QUEtiapine 25 MG TABLET. GT SCH (22:16)
[2017-09-16 23:00] VITALS: BP 144/88
[2017-09-17] MEDS: IV 1/2 NORMAL SALINE 1,000 ML IV SCH ×2 (01:12→15:10)
[2017-09-17 03:00] VITALS: BP 115/84
[2017-09-17] MEDS: MEROPENEM IV Push 500 MG VIAL. IVP SCH ×3 (05:20→23:03)
[2017-09-17] MEDS: PANTOPRAZOLE 40 MG TABLET.DR. PO SCH ×2 (05:21→09:41)
[2017-09-17 06:33] LABS: BASO % 0 % (0-3); EOS % 5 % (0-3); HEMATOCRIT 29.7 % (39.0-53.0); HEMOGLOBIN 9.5 g/dL (13.0-17.5); LYMPH # 2.2 x10^3/uL (1.0-4.8); LYMPH % 17 % (24-48); MEAN CORPUSCULAR HEMOGLOBIN 28 pg (25-35); MEAN CORPUSCULAR HGB CONC 32 g/dL (31-37); MEAN CORPUSCULAR VOLUME 86 fL (79-100); MONO % 7 % (0-9); NEUT % 70 % (31-73); PLATELET COUNT 467 x10^3/uL (140-400); RED BLOOD COUNT 3.46 x10^6/uL (4.30-5.70); RED CELL DISTRIBUTION WIDTH 16.2 % (11.5-14.5); WHITE BLOOD COUNT 12.5 x10^3/uL (4.0-11.0)
[2017-09-17 06:39] LABS: CALCIUM 8.3 mg/dL (8.5-10.1); CREATININE 0.6 mg/dL (0.7-1.3); GFR 163.6; POTASSIUM 4.4 mmol/L (3.5-5.1)
[2017-09-17 07:00] VITALS: BP 133/90
[2017-09-17] MEDS: ACETAMINOPHEN 650 MG/20.3 ML SOLUTION. PEG PRN (09:40)
[2017-09-17] MEDS: BACLOFEN 10 MG TABLET. GT SCH ×3 (09:41→22:54)
[2017-09-17] MEDS: HYDROcodone/APAP 10/325 1 TAB TABLET GT PRN (09:41)
[2017-09-17] MEDS: MULTIVITAMIN with MINERAL TABLET. PO SCH (09:41)
[2017-09-17] MEDS: LINEZOLID 600 MG TABLET PO SCH ×2 (09:41→22:54)
[2017-09-17] MEDS: ASCORBIC ACID 500 MG TABLET PO SCH ×2 (09:41→22:54)
[2017-09-17] MEDS: ASPIRIN 325 MG TABLET GT SCH (09:41)
--- NOTE | 2017-09-17 10:37 | PDOC ---
Infectious Disease Note Subjective Subjective Moaning No fever last 24 hours No increase ostomy output Vital Sign Vital Signs Vital Signs Date Time Temp Pulse Resp B/P (MAP) Pulse Ox O2 Delivery O2 Flow Rate FiO2 09/17/17 09:41 97 Nasal Cannula 2.0 09/17/17 07:00 98.9 85 18 133/90 (104) 98.9 Physical Exam PHYSICAL EXAM GENERAL: Lying down, softly moaning LUNGS: Clear anteriorly, nonlabored HEART: S1S2 ABD: Nondistended, Soft, ostomy : No Llamas EXT: No edema, no cyanosis. Left foot bandaged. 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 clean Labs Lab Laboratory Tests Test 09/17/17 06:05 White Blood Count 12.5 x10^3/uL (4.0-11.0) Red Blood Count 3.46 x10^6/uL (4.30-5.70) Hemoglobin 9.5 g/dL (13.0-17.5) Hematocrit 29.7 % (39.0-53.0) Mean Corpuscular Volume 86 fL (79-100) Mean Corpuscular Hemoglobin 28 pg (25-35) Mean Corpuscular Hemoglobin Concent 32 g/dL (31-37) Red Cell Distribution Width 16.2 % (11.5-14.5) Platelet Count 467 x10^3/uL (140-400) Neutrophils (%) (Auto) 70 % (31-73) Lymphocytes (%) (Auto) 17 % (24-48) Monocytes (%) (Auto) 7 % (0-9) Eosinophils (%) (Auto) 5 % (0-3) Basophils (%) (Auto) 0 % (0-3) Neutrophils # (Auto) 8.8 x10^3uL (1.8-7.7) Lymphocytes # (Auto) 2.2 x10^3/uL (1.0-4.8) Monocytes # (Auto) 0.9 x10^3/uL (0.0-1.1) Eosinophils # (Auto) 0.6 x10^3/uL (0.0-0.7) Basophils # (Auto) 0.0 x10^3/uL (0.0-0.2) Sodium Level 139 mmol/L (136-145) Potassium Level 4.4 mmol/L (3.5-5.1) Chloride Level 104 mmol/L (98-107) Carbon Dioxide Level 27 mmol/L (21-32) Anion Gap 8 (6-14) Blood Urea Nitrogen 18 mg/dL (8-26) Creatinine 0.6 mg/dL (0.7-1.3) Estimated GFR (Cockcroft-Gault) 163.6 Glucose Level 102 mg/dL (70-99) Calcium Level 8.3 mg/dL (8.5-10.1) Micro BLD CULT RESULT 1 Final Nonfermenting gram negative bacilli Recovered from aerobic bottle only. GROWTH IN 1 OF 1 SET Antibiotic RSLT#1 Amikacin S Cefepime S Cefotaxime S Ceftazidime S Ceftriaxone S Ciprofloxacin R Gentamicin S Imipenem S Levofloxacin S Tetracycline S Tobramycin S Trimethoprim/Sulfa S FOOT AEROBIC RES 1 Final Proteus mirabilis AEROBIC RES 2 Final Methicillin - resistant Staphylococcus aureus Antibiotic RSLT#1 RSLT#2 Amoxicillin/Clavulanic Acid S Ampicillin S Cefepime S Ceftriaxone S Cefuroxime S Ciprofloxacin S R Clindamycin S Ertapenem S Erythromycin S Gentamicin S S Levofloxacin S I Linezolid S Oxacillin R Penicillin R Piperacillin S Rifampin S Tetracycline R S Tobramycin S Trimethoprim/Sulfa S S Vancomycin S Objective Assessment Fever - better Leukocytosis - trending down Respiratory failure, likely aspiration Sepsis with G neg viktoria, POA. Nonfermenting gram negative bacilli Left foot wound infection w/ MRSA & proteus Persistent veg state Plan Plan of Care vanc, meropenem and Diflucan D/w micro, waiting further ID repeat BC pending d/w in detail about the wound and how far she want us to go, she does not want surgery, debridement or iv antibiotics, happy with ointment /enzymatic debridement and oral antibiotics ( understands can be osteo ). CATY JO SECOND RIGGER Sep 17, 2017 10:37
[2017-09-17 11:00] VITALS: BP 104/75
--- NOTE | 2017-09-17 11:16 | PDOC ---
PROGRESS NOTES Subjective Subjective afebrile. doing okay. discussed with . blood cultures grew non -fermenting GNR sensitive to everything tested but cipro. urine culture grew MRSA and foot wound grew proteus and MRSA. wbc lower. lab reviewed. Objective Objective Vital Signs Date Time Temp Pulse Resp B/P (MAP) Pulse Ox O2 Delivery O2 Flow Rate FiO2 09/17/17 09:41 97 Nasal Cannula 2.0 09/17/17 07:00 98.9 85 18 133/90 (104) 98.9 Intake and Output 09/17/17 07:00 Intake Total 500 ml Output Total 800 ml Balance -300 ml Intake Oral 0 ml Tube Feeding 500 ml Stool Total 800 ml # Voids 1 # Bowel Movements 1 Physical Exam Abdomen: Soft, Other (g tube with ileostomy) Heart: Regular rate, Normal S1, Normal S2 Extremities: No edema, Other (right AKA) General: Alert HEENT: Atraumatic Lungs: Clear to auscultation Neuro: Other (spastic quadriparesis and aphasic) Psych/Mental Status: Mood NL Skin: No rashes Assessment Assessment Problems1 non-fermenting.GNR bacteremia with sepsis. sepsis resolved 2. Leukocytosis better 3. MRSA and proteus foot wound infection 4. Spastic quadriplegia. 5. Anoxic encephalopathy. 6. Oropharyngeal dysphagia, maintained on gastrostomy tube feedings. 7. Short gut syndrome. 8. Ileostomy. 9. Right above-knee amputation. MRSA uti Medical Problems: (1) Infected pressure ulcer Status: Acute (2) Pressure ulcer of left ankle Status: Acute (3) Urinary tract infection Status: Acute Plan Plan of Care continue zyvox and meropenem and diflucan continue tube feeding and iv fluids lab tomorrow Comment Review of Relevant I have reviewed the following items ramon (where applicable) has been applied. Labs Laboratory Tests Test 09/16/17 06:00 09/17/17 06:05 White Blood Count 13.5 x10^3/uL (4.0-11.0) 12.5 x10^3/uL (4.0-11.0) Red Blood Count 3.28 x10^6/uL (4.30-5.70) 3.46 x10^6/uL (4.30-5.70) Hemoglobin 8.8 g/dL (13.0-17.5) 9.5 g/dL (13.0-17.5) Hematocrit 28.4 % (39.0-53.0) 29.7 % (39.0-53.0) Mean Corpuscular Volume 87 fL (79-100) 86 fL (79-100) Mean Corpuscular Hemoglobin 27 pg (25-35) 28 pg (25-35) Mean Corpuscular Hemoglobin Concent 31 g/dL (31-37) 32 g/dL (31-37) Red Cell Distribution Width 16.3 % (11.5-14.5) 16.2 % (11.5-14.5) Platelet Count 385 x10^3/uL (140-400) 467 x10^3/uL (140-400) Neutrophils (%) (Auto) 73 % (31-73) 70 % (31-73) Lymphocytes (%) (Auto) 13 % (24-48) 17 % (24-48) Monocytes (%) (Auto) 8 % (0-9) 7 % (0-9) Eosinophils (%) (Auto) 6 % (0-3) 5 % (0-3) Basophils (%) (Auto) 0 % (0-3) 0 % (0-3) Neutrophils # (Auto) 9.8 x10^3uL (1.8-7.7) 8.8 x10^3uL (1.8-7.7) Lymphocytes # (Auto) 1.8 x10^3/uL (1.0-4.8) 2.2 x10^3/uL (1.0-4.8) Monocytes # (Auto) 1.1 x10^3/uL (0.0-1.1) 0.9 x10^3/uL (0.0-1.1) Eosinophils # (Auto) 0.8 x10^3/uL (0.0-0.7) 0.6 x10^3/uL (0.0-0.7) Basophils # (Auto) 0.0 x10^3/uL (0.0-0.2) 0.0 x10^3/uL (0.0-0.2) Sodium Level 140 mmol/L (136-145) 139 mmol/L (136-145) Potassium Level 4.4 mmol/L (3.5-5.1) 4.4 mmol/L (3.5-5.1) Chloride Level 107 mmol/L (98-107) 104 mmol/L (98-107) Carbon Dioxide Level 25 mmol/L (21-32) 27 mmol/L (21-32) Anion Gap 8 (6-14) 8 (6-14) Blood Urea Nitrogen 16 mg/dL (8-26) 18 mg/dL (8-26) Creatinine 0.6 mg/dL (0.7-1.3) 0.6 mg/dL (0.7-1.3) Estimated GFR (Cockcroft-Gault) 163.6 163.6 Glucose Level 125 mg/dL (70-99) 102 mg/dL (70-99) Calcium Level 8.0 mg/dL (8.5-10.1) 8.3 mg/dL (8.5-10.1) Laboratory Tests Test 09/17/17 06:05 White Blood Count 12.5 x10^3/uL (4.0-11.0) Red Blood Count 3.46 x10^6/uL (4.30-5.70) Hemoglobin 9.5 g/dL (13.0-17.5) Hematocrit 29.7 % (39.0-53.0) Mean Corpuscular Volume 86 fL (79-100) Mean Corpuscular Hemoglobin 28 pg (25-35) Mean Corpuscular Hemoglobin Concent 32 g/dL (31-37) Red Cell Distribution Width 16.2 % (11.5-14.5) Platelet Count 467 x10^3/uL (140-400) Neutrophils (%) (Auto) 70 % (31-73) Lymphocytes (%) (Auto) 17 % (24-48) Monocytes (%) (Auto) 7 % (0-9) Eosinophils (%) (Auto) 5 % (0-3) Basophils (%) (Auto) 0 % (0-3) Neutrophils # (Auto) 8.8 x10^3uL (1.8-7.7) Lymphocytes # (Auto) 2.2 x10^3/uL (1.0-4.8) Monocytes # (Auto) 0.9 x10^3/uL (0.0-1.1) Eosinophils # (Auto) 0.6 x10^3/uL (0.0-0.7) Basophils # (Auto) 0.0 x10^3/uL (0.0-0.2) Sodium Level 139 mmol/L (136-145) Potassium Level 4.4 mmol/L (3.5-5.1) Chloride Level 104 mmol/L (98-107) Carbon Dioxide Level 27 mmol/L (21-32) Anion Gap 8 (6-14) Blood Urea Nitrogen 18 mg/dL (8-26) Creatinine 0.6 mg/dL (0.7-1.3) Estimated GFR (Cockcroft-Gault) 163.6 Glucose Level 102 mg/dL (70-99) Calcium Level 8.3 mg/dL (8.5-10.1) Microbiology 09/12/17 Blood Culture - Final, Complete 09/12/17 Blood Culture Result 1 (JAMISON) - Final, Complete 09/12/17 Antimicrobic Susceptibility - Final, Complete 09/12/17 Urine Culture - Final, Complete 09/12/17 Urine Culture Result 1 (JAMISON) - Final, Complete 09/12/17 Antimicrobic Susceptibility - Final, Complete 09/12/17 Gram Stain - Final, Complete Medications Current Medications Sodium Chloride 500 ml @ 500 mls/hr 1X ONCE IV Last administered on t 16:24; Start 09/12/17 at 15:30; Stop 09/12/17 at 16:29; Status DC Sodium Chloride (NORMAL SALINE FLUSH for STERILE FIELD) 10 ml STK-MED ONCE .ROUTE ; Start 09/12/17 at 15:56; Stop 09/12/17 at 15:57; Status DC Vancomycin HCl 1.75 gm/Sodium Chloride 500 ml @ 250 mls/hr 1X ONCE IV ; Start 09/12/17 at 17:15; Stop 09/12/17 at 19:14; Status UNV Cefepime HCl 1 gm/ Dextrose 50 ml @ 100 mls/hr Q8HRS IV ; Start 09/12/17 at 22 :00; Status UNV Ondansetron HCl (Zofran) 4 mg PRN Q8HRS PRN IV NAUSEA/VOMITING; Start at 17:15; Stop 09/13/17 at 17:14; Status DC Morphine Sulfate 2 mg PRN Q2HR PRN IV PAIN; Start 09/12/17 at 17:15; Stop at 17:14; Status DC Cefepime HCl (Maxipime) 1 gm 1X ONCE IVP Last administered on 09/12/17 17:41 ; Start 09/12/17 at 17:30; Stop 09/12/17 at 17:31; Status DC Vancomycin HCl 1 gm/Sodium Chloride 250 ml @ 250 mls/hr 1X ONCE IV Last administered on 09/12/17 17:49; Start 09/12/17 at 18:00; Stop 09/12/17 at 18 :59; Status DC Cefepime HCl (Maxipime) 1 gm Q12HR IVP ; Start 09/13/17 at 09:00; Stop at 10:31; Status DC Vancomycin HCl (Vanco Per Pharmacy) 1 each PRN DAILY PRN MC SEE COMMENTS Last administered on 09/14/17 06:39; Start 09/12/17 at 18:00; Stop 09/14/17 at 12 :54; Status DC Acetaminophen (Tylenol) 650 mg PRN Q4HRS PRN PEG MILD PAIN / TEMP Last administered on 09/17/17 09:40; Start 09/12/17 at 18:00 Aspirin (Laura Aspirin) 325 mg DAILY GT Last administered on 09/17/17 09:41; Start 09/13/17 at 09:00 Baclofen (Lioresal) 10 mg TID GT Last administered on 09/17/17 09:41; Start 09/12/17 at 21:00 Multivitamins (Thera M Plus) 1 tab DAILY PO Last administered on 09/17/17 09: 41; Start 09/13/17 at 09:00 Acetaminophen/ Hydrocodone Bitart (Lortab 10/325) 1 tab PRN Q6HRS PRN GT SEVERE PAIN Last administered on 09/17/17 09:41; Start 09/12/17 at 18:00 Pantoprazole Sodium (Protonix) 40 mg DAILYAC PO Last administered on 09:41; Start 09/13/17 at 07:30 Quetiapine Fumarate (SEROquel) 37.5 mg QHS GT Last administered on 09/16/17 22:16; Start 09/12/17 at 21:00 Quetiapine Fumarate (SEROquel) 12.5 mg PRN Q8HRS PRN PEG AGITATION; Start 09/17 at 18:00 Temazepam (Restoril) 30 mg QHS PO ; Start 09/12/17 at 21:00; Stop 09/12/17 at 21:00; Status DC Sodium Chloride 1,000 ml @ 60 mls/hr [id number] IV Last administered on 01:12; Start 09/12/17 at 18:30 Temazepam (Restoril) 45 mg QHS PO Last administered on 09/16/17 22:16; Start 09/12/17 at 21:00 Vancomycin HCl 750 mg/Dextrose/ Sodium Chloride 250 ml @ 250 mls/hr Q18H IV Last administered on 09/14/17 07:15; Start 09/13/17 at 12:00; Stop 09/14/17 at 12:53; Status DC Vancomycin HCl 1 each 1X ONCE MC Last administered on 09/14/17 05:30; Start 09/14/17 at 05:30; Stop 09/14/17 at 05:31; Status DC Ascorbic Acid (Vitamin C) 500 mg BID PO Last administered on 09/17/17 09:41; Start 09/13/17 at 10:15 Meropenem 500 mg/ Sodium Chloride 50 ml @ 100 mls/hr Q8HRS IV ; Start at 14:00; Status UNV Fluconazole/ Sodium Chloride 100 ml @ 100 mls/hr Q24H IV Last administered on 09/16/17 09:50; Start 09/13/17 at 11:00 Meropenem (Merrem) 500 mg Q8HRS IVP Last administered on 09/17/17 05:20; Start 09/13/17 at 14:00 Linezolid (Zyvox) 600 mg BID PO Last administered on 09/17/17 09:41; Start 09/15/17 at 10:00 Active Scripts Active Protonix (Pantoprazole Sodium) 40 Mg Tablet.dr 40 Mg PO DAILY 30 Days Quetiapine Fumarate 25 Mg Tablet 37.5 Mg PEG QHS 30 Days Hydrocodone-Apap 10-325 (Hydrocodone Bit/Acetaminophen) 1 Each Tablet 1 Tab PO PRN Q6HRS PRN 30 Days Baclofen 10 Mg Tablet 10 Mg GT TID 30 Days Reported Temazepam 30 Mg Capsule 30 Mg GT HS PRN Multivitamins (Multivitamin) 1 Each Capsule 1 Each GT DAILY Temazepam 15 Mg Capsule 1 Cap GT QHS Tylenol (Acetaminophen) 325 Mg Tablet 650 Mg PO Q4HRS PRN Aspirin 325 Mg Tablet 325 Mg GT DAILY Vitals/I & O Vital Sign - Last 24 Hours 09/16/17 09/16/17 09/16/17 09/16/17 15:00 15:24 16:30 20:00 Temp 97.6 97.6 Pulse 78 Resp 16 B/P (MAP) 110/75 (87) Pulse Ox 97 99 99 O2 Delivery Nasal Cannula Nasal Cannula Nasal Cannula Nasal Cannula O2 Flow Rate 2.0 2.0 2.0 2.0 09/16/17 09/17/17 09/17/17 09/17/17 23:00 03:00 07:00 09:41 Temp 98.3 99.0 98.9 98.3 99.0 98.9 Pulse 91 91 85 Resp 18 18 18 B/P (MAP) 144/88 (106) 115/84 (94) 133/90 (104) Pulse Ox 98 94 97 97 O2 Delivery Room Air Room Air Room Air Nasal Cannula O2 Flow Rate 2.0 Intake and Output 09/16/17 09/16/17 09/17/17 15:00 23:00 07:00 Intake Total 250 ml 250 ml Output Total 800 ml Balance 250 ml 250 ml -800 ml Nutrition Consultation Dietary Evaluation: Comments: continue TF regemin mvi and vit c per wound protocal re wt requested Expected Outcomes/Goals: wt maintanence, wound improvement Malnutrition Findings: Body Fat Depletion (Non Severe: Mod to Severe Weight Status: Underweight ADRIANE ALAN MD Sep 17, 2017 11:16
[2017-09-17] MEDS: FLUCONAZOLE 200MG/100ML PREMIX 100 ML IV SCH (13:57)
[2017-09-17 15:00] VITALS: BP 140/89
[2017-09-17 19:00] VITALS: BP 157/89
[2017-09-17] MEDS: TEMAZEPAM 15 MG CAPSULE PO SCH (22:54)
[2017-09-17] MEDS: QUEtiapine 25 MG TABLET. GT SCH (22:55)
[2017-09-17 23:00] VITALS: BP 115/82
[2017-09-18] MEDS: MEROPENEM IV Push 500 MG VIAL. IVP SCH ×3 (06:08→21:36)
[2017-09-18 06:44] LABS: BASO % 0 % (0-3); EOS % 4 % (0-3); HEMATOCRIT 30.3 % (39.0-53.0); HEMOGLOBIN 9.6 g/dL (13.0-17.5); LYMPH # 1.6 x10^3/uL (1.0-4.8); LYMPH % 14 % (24-48); MEAN CORPUSCULAR HEMOGLOBIN 27 pg (25-35); MEAN CORPUSCULAR HGB CONC 32 g/dL (31-37); MEAN CORPUSCULAR VOLUME 85 fL (79-100); MONO % 6 % (0-9); NEUT % 76 % (31-73); PLATELET COUNT 497 x10^3/uL (140-400); RED BLOOD COUNT 3.57 x10^6/uL (4.30-5.70); RED CELL DISTRIBUTION WIDTH 16.1 % (11.5-14.5); WHITE BLOOD COUNT 11.9 x10^3/uL (4.0-11.0)
[2017-09-18 06:45] LABS: CALCIUM 8.5 mg/dL (8.5-10.1); CREATININE 0.7 mg/dL (0.7-1.3); GFR 136.9; POTASSIUM 4.5 mmol/L (3.5-5.1)
[2017-09-18 07:00] VITALS: BP 110/83
--- NOTE | 2017-09-18 08:02 | PDOC ---
PULMONARY PROGRESS NOTES Subjective NO SOA Vitals Vital Signs Date Time Temp Pulse Resp B/P (MAP) Pulse Ox O2 Delivery O2 Flow Rate FiO2 09/17/17 23:00 97.9 95 20 115/82 (93) 97 Room Air 97.9 09/17/17 20:00 2.0 General: No acute distress Lungs: Other (decrease bs) Cardiovascular: S1 Abdomen: Soft Extremities: No Edema, Other (contracted) Labs Laboratory Tests Test 09/17/17 06:05 09/18/17 05:45 White Blood Count 12.5 x10^3/uL (4.0-11.0) 11.9 x10^3/uL (4.0-11.0) Red Blood Count 3.46 x10^6/uL (4.30-5.70) 3.57 x10^6/uL (4.30-5.70) Hemoglobin 9.5 g/dL (13.0-17.5) 9.6 g/dL (13.0-17.5) Hematocrit 29.7 % (39.0-53.0) 30.3 % (39.0-53.0) Mean Corpuscular Volume 86 fL (79-100) 85 fL (79-100) Mean Corpuscular Hemoglobin 28 pg (25-35) 27 pg (25-35) Mean Corpuscular Hemoglobin Concent 32 g/dL (31-37) 32 g/dL (31-37) Red Cell Distribution Width 16.2 % (11.5-14.5) 16.1 % (11.5-14.5) Platelet Count 467 x10^3/uL (140-400) 497 x10^3/uL (140-400) Neutrophils (%) (Auto) 70 % (31-73) 76 % (31-73) Lymphocytes (%) (Auto) 17 % (24-48) 14 % (24-48) Monocytes (%) (Auto) 7 % (0-9) 6 % (0-9) Eosinophils (%) (Auto) 5 % (0-3) 4 % (0-3) Basophils (%) (Auto) 0 % (0-3) 0 % (0-3) Neutrophils # (Auto) 8.8 x10^3uL (1.8-7.7) 9.0 x10^3uL (1.8-7.7) Lymphocytes # (Auto) 2.2 x10^3/uL (1.0-4.8) 1.6 x10^3/uL (1.0-4.8) Monocytes # (Auto) 0.9 x10^3/uL (0.0-1.1) 0.7 x10^3/uL (0.0-1.1) Eosinophils # (Auto) 0.6 x10^3/uL (0.0-0.7) 0.5 x10^3/uL (0.0-0.7) Basophils # (Auto) 0.0 x10^3/uL (0.0-0.2) 0.0 x10^3/uL (0.0-0.2) Sodium Level 139 mmol/L (136-145) 137 mmol/L (136-145) Potassium Level 4.4 mmol/L (3.5-5.1) 4.5 mmol/L (3.5-5.1) Chloride Level 104 mmol/L (98-107) 102 mmol/L (98-107) Carbon Dioxide Level 27 mmol/L (21-32) 27 mmol/L (21-32) Anion Gap 8 (6-14) 8 (6-14) Blood Urea Nitrogen 18 mg/dL (8-26) 18 mg/dL (8-26) Creatinine 0.6 mg/dL (0.7-1.3) 0.7 mg/dL (0.7-1.3) Estimated GFR (Cockcroft-Gault) 163.6 136.9 Glucose Level 102 mg/dL (70-99) 157 mg/dL (70-99) Calcium Level 8.3 mg/dL (8.5-10.1) 8.5 mg/dL (8.5-10.1) Laboratory Tests Test 09/18/17 05:45 White Blood Count 11.9 x10^3/uL (4.0-11.0) Red Blood Count 3.57 x10^6/uL (4.30-5.70) Hemoglobin 9.6 g/dL (13.0-17.5) Hematocrit 30.3 % (39.0-53.0) Mean Corpuscular Volume 85 fL (79-100) Mean Corpuscular Hemoglobin 27 pg (25-35) Mean Corpuscular Hemoglobin Concent 32 g/dL (31-37) Red Cell Distribution Width 16.1 % (11.5-14.5) Platelet Count 497 x10^3/uL (140-400) Neutrophils (%) (Auto) 76 % (31-73) Lymphocytes (%) (Auto) 14 % (24-48) Monocytes (%) (Auto) 6 % (0-9) Eosinophils (%) (Auto) 4 % (0-3) Basophils (%) (Auto) 0 % (0-3) Neutrophils # (Auto) 9.0 x10^3uL (1.8-7.7) Lymphocytes # (Auto) 1.6 x10^3/uL (1.0-4.8) Monocytes # (Auto) 0.7 x10^3/uL (0.0-1.1) Eosinophils # (Auto) 0.5 x10^3/uL (0.0-0.7) Basophils # (Auto) 0.0 x10^3/uL (0.0-0.2) Sodium Level 137 mmol/L (136-145) Potassium Level 4.5 mmol/L (3.5-5.1) Chloride Level 102 mmol/L (98-107) Carbon Dioxide Level 27 mmol/L (21-32) Anion Gap 8 (6-14) Blood Urea Nitrogen 18 mg/dL (8-26) Creatinine 0.7 mg/dL (0.7-1.3) Estimated GFR (Cockcroft-Gault) 136.9 Glucose Level 157 mg/dL (70-99) Calcium Level 8.5 mg/dL (8.5-10.1) Medications Active Scripts Medications Dose Route/Sig Max Daily Dose Days Date Category Protonix (Pantoprazole Sodium) 40 Mg Tablet.dr 40 Mg PO DAILY 30 07/28/17 Rx Quetiapine Fumarate 25 Mg Tablet 37.5 Mg PEG QHS 06/30/17 Rx Hydrocodone-Apap 10-325 (Hydrocodone Bit/Acetaminophen) 1 Each Tablet 1 Tab PO PRN Q6HRS PRN 30 04/27/17 Rx Baclofen 10 Mg Tablet 10 Mg GT TID 04/27/17 Rx Temazepam 30 Mg Capsule 30 Mg GT HS PRN 10/12/16 Reported Multivitamins (Multivitamin) 1 Each Capsule 1 Each GT DAILY 10/12/16 Reported Temazepam 15 Mg Capsule 1 Cap GT QHS 10/12/16 Reported Tylenol (Acetaminophen) 325 Mg Tablet 650 Mg PO Q4HRS PRN 06/27/14 Reported Aspirin 325 Mg Tablet 325 Mg GT DAILY 04/25/14 Reported Impression . 1. Sepsis syndrome with gram neg rods in blood,MRSA in urine, MSSA from heel ulcer and suspected aspiration pneumonia. 2. History of anoxic encephalopathy with spastic quadriplegia. 3. History of dysphagia, status post PEG tube placement. 4. Short gut syndrome, history of ileostomy for ischemic bowel. 5. Previous multiple hospitalizations for infectious etiologies. 6. History of cerebrovascular accident. Plan . 1. broad-spectrum antibiotics per ID 2. Follow all final blood cultures. 3. Repeat chest x-ray post-IV hydration unchanged 4. Sepsis protocol 5. Follow BUN and creatinine. improving 6. Follow the fever pattern. 7. Continue enteral nutrition. 8. Discussed with the patient's .she wants to take him home. JUANITO TORRES MD Sep 18, 2017 08:02
--- NOTE | 2017-09-18 08:48 | PDOC ---
PROGRESS NOTES Subjective Subjective doing well. wants to take him home but still on iv antibiotics. lab reviewed. Objective Objective Vital Signs Date Time Temp Pulse Resp B/P (MAP) Pulse Ox O2 Delivery O2 Flow Rate FiO2 09/17/17 23:00 97.9 95 20 115/82 (93) 97 Room Air 97.9 09/17/17 20:00 2.0 Intake and Output 09/18/17 07:00 Intake Total 1417 ml Output Total 700 ml Balance 717 ml Tube Feeding 1417 ml Output Urine Total 0 ml Stool Total 700 ml # Voids 8 Physical Exam Abdomen: Soft, Other (g tube with ileostomy) Heart: Regular rate, Normal S1, Normal S2 Extremities: No edema, Other (right AKA) General: Alert HEENT: Atraumatic Lungs: Clear to auscultation Neuro: Other (aphasic with spastic quadriparesis) Psych/Mental Status: Mood NL Skin: No rashes Assessment Assessment Problems1 non-fermenting.GNR bacteremia with sepsis. sepsis resolved 2. Leukocytosis better 3. MRSA and proteus foot wound infection 4. Spastic quadriplegia. 5. Anoxic encephalopathy. 6. Oropharyngeal dysphagia, maintained on gastrostomy tube feedings. 7. Short gut syndrome. 8. Ileostomy. 9. Right above-knee amputation. MRSA uti Medical Problems: (1) Infected pressure ulcer Status: Acute (2) Pressure ulcer of left ankle Status: Acute (3) Urinary tract infection Status: Acute Plan Plan of Care continue zyvox and iv meropenem and iv diflucan continue tube feeding and iv fluids Comment Review of Relevant I have reviewed the following items ramon (where applicable) has been applied. Labs Laboratory Tests Test 09/17/17 06:05 09/18/17 05:45 White Blood Count 12.5 x10^3/uL (4.0-11.0) 11.9 x10^3/uL (4.0-11.0) Red Blood Count 3.46 x10^6/uL (4.30-5.70) 3.57 x10^6/uL (4.30-5.70) Hemoglobin 9.5 g/dL (13.0-17.5) 9.6 g/dL (13.0-17.5) Hematocrit 29.7 % (39.0-53.0) 30.3 % (39.0-53.0) Mean Corpuscular Volume 86 fL (79-100) 85 fL (79-100) Mean Corpuscular Hemoglobin 28 pg (25-35) 27 pg (25-35) Mean Corpuscular Hemoglobin Concent 32 g/dL (31-37) 32 g/dL (31-37) Red Cell Distribution Width 16.2 % (11.5-14.5) 16.1 % (11.5-14.5) Platelet Count 467 x10^3/uL (140-400) 497 x10^3/uL (140-400) Neutrophils (%) (Auto) 70 % (31-73) 76 % (31-73) Lymphocytes (%) (Auto) 17 % (24-48) 14 % (24-48) Monocytes (%) (Auto) 7 % (0-9) 6 % (0-9) Eosinophils (%) (Auto) 5 % (0-3) 4 % (0-3) Basophils (%) (Auto) 0 % (0-3) 0 % (0-3) Neutrophils # (Auto) 8.8 x10^3uL (1.8-7.7) 9.0 x10^3uL (1.8-7.7) Lymphocytes # (Auto) 2.2 x10^3/uL (1.0-4.8) 1.6 x10^3/uL (1.0-4.8) Monocytes # (Auto) 0.9 x10^3/uL (0.0-1.1) 0.7 x10^3/uL (0.0-1.1) Eosinophils # (Auto) 0.6 x10^3/uL (0.0-0.7) 0.5 x10^3/uL (0.0-0.7) Basophils # (Auto) 0.0 x10^3/uL (0.0-0.2) 0.0 x10^3/uL (0.0-0.2) Sodium Level 139 mmol/L (136-145) 137 mmol/L (136-145) Potassium Level 4.4 mmol/L (3.5-5.1) 4.5 mmol/L (3.5-5.1) Chloride Level 104 mmol/L (98-107) 102 mmol/L (98-107) Carbon Dioxide Level 27 mmol/L (21-32) 27 mmol/L (21-32) Anion Gap 8 (6-14) 8 (6-14) Blood Urea Nitrogen 18 mg/dL (8-26) 18 mg/dL (8-26) Creatinine 0.6 mg/dL (0.7-1.3) 0.7 mg/dL (0.7-1.3) Estimated GFR (Cockcroft-Gault) 163.6 136.9 Glucose Level 102 mg/dL (70-99) 157 mg/dL (70-99) Calcium Level 8.3 mg/dL (8.5-10.1) 8.5 mg/dL (8.5-10.1) Laboratory Tests Test 09/18/17 05:45 White Blood Count 11.9 x10^3/uL (4.0-11.0) Red Blood Count 3.57 x10^6/uL (4.30-5.70) Hemoglobin 9.6 g/dL (13.0-17.5) Hematocrit 30.3 % (39.0-53.0) Mean Corpuscular Volume 85 fL (79-100) Mean Corpuscular Hemoglobin 27 pg (25-35) Mean Corpuscular Hemoglobin Concent 32 g/dL (31-37) Red Cell Distribution Width 16.1 % (11.5-14.5) Platelet Count 497 x10^3/uL (140-400) Neutrophils (%) (Auto) 76 % (31-73) Lymphocytes (%) (Auto) 14 % (24-48) Monocytes (%) (Auto) 6 % (0-9) Eosinophils (%) (Auto) 4 % (0-3) Basophils (%) (Auto) 0 % (0-3) Neutrophils # (Auto) 9.0 x10^3uL (1.8-7.7) Lymphocytes # (Auto) 1.6 x10^3/uL (1.0-4.8) Monocytes # (Auto) 0.7 x10^3/uL (0.0-1.1) Eosinophils # (Auto) 0.5 x10^3/uL (0.0-0.7) Basophils # (Auto) 0.0 x10^3/uL (0.0-0.2) Sodium Level 137 mmol/L (136-145) Potassium Level 4.5 mmol/L (3.5-5.1) Chloride Level 102 mmol/L (98-107) Carbon Dioxide Level 27 mmol/L (21-32) Anion Gap 8 (6-14) Blood Urea Nitrogen 18 mg/dL (8-26) Creatinine 0.7 mg/dL (0.7-1.3) Estimated GFR (Cockcroft-Gault) 136.9 Glucose Level 157 mg/dL (70-99) Calcium Level 8.5 mg/dL (8.5-10.1) Microbiology 09/16/17 Blood Culture - Final, Complete 09/12/17 Urine Culture - Final, Complete 09/12/17 Urine Culture Result 1 (JAMISON) - Final, Complete 09/12/17 Antimicrobic Susceptibility - Final, Complete 09/12/17 Gram Stain - Final, Complete Medications Current Medications Sodium Chloride 500 ml @ 500 mls/hr 1X ONCE IV Last administered on 16:24; Start 09/12/17 at 15:30; Stop 09/12/17 at 16:29; Status DC Sodium Chloride (NORMAL SALINE FLUSH for STERILE FIELD) 10 ml FanbaseK-MED ONCE .ROUTE ; Start 09/12/17 at 15:56; Stop 09/12/17 at 15:57; Status DC Vancomycin HCl 1.75 gm/Sodium Chloride 500 ml @ 250 mls/hr 1X ONCE IV ; Start 09/12/17 at 17:15; Stop 09/12/17 at 19:14; Status UNV Cefepime HCl 1 gm/ Dextrose 50 ml @ 100 mls/hr Q8HRS IV ; Start 09/12/17 at 22 :00; Status UNV Ondansetron HCl (Zofran) 4 mg PRN Q8HRS PRN IV NAUSEA/VOMITING; Start at 17:15; Stop 09/13/17 at 17:14; Status DC Morphine Sulfate 2 mg PRN Q2HR PRN IV PAIN; Start 09/12/17 at 17:15; Stop at 17:14; Status DC Cefepime HCl (Maxipime) 1 gm 1X ONCE IVP Last administered on 09/12/17t 17:41 ; Start 09/12/17 at 17:30; Stop 09/12/17 at 17:31; Status DC Vancomycin HCl 1 gm/Sodium Chloride 250 ml @ 250 mls/hr 1X ONCE IV Last administered on 09/12/17 17:49; Start 09/12/17 at 18:00; Stop 09/12/17 at 18 :59; Status DC Cefepime HCl (Maxipime) 1 gm Q12HR IVP ; Start 09/13/17 at 09:00; Stop at 10:31; Status DC Vancomycin HCl (Vanco Per Pharmacy) 1 each PRN DAILY PRN MC SEE COMMENTS Last administered on 09/14/17 06:39; Start 09/12/17 at 18:00; Stop 09/14/17 at 12 :54; Status DC Acetaminophen (Tylenol) 650 mg PRN Q4HRS PRN PEG MILD PAIN / TEMP Last administered on 09/17/17 09:40; Start 09/12/17 at 18:00 Aspirin (Laura Aspirin) 325 mg DAILY GT Last administered on 09/17/17 09:41; Start 09/13/17 at 09:00 Baclofen (Lioresal) 10 mg TID GT Last administered on 09/17/17 22:54; Start 09/12/17 at 21:00 Multivitamins (Thera M Plus) 1 tab DAILY PO Last administered on 09/17/17 09: 41; Start 09/13/17 at 09:00 Acetaminophen/ Hydrocodone Bitart (Lortab 10/325) 1 tab PRN Q6HRS PRN GT SEVERE PAIN Last administered on 09/17/17 09:41; Start 09/12/17 at 18:00 Pantoprazole Sodium (Protonix) 40 mg DAILYAC PO Last administered on 09:41; Start 09/13/17 at 07:30 Quetiapine Fumarate (SEROquel) 37.5 mg QHS GT Last administered on 09/17/17 22:55; Start 09/12/17 at 21:00 Quetiapine Fumarate (SEROquel) 12.5 mg PRN Q8HRS PRN PEG AGITATION; Start 09/17 at 18:00 Temazepam (Restoril) 30 mg QHS PO ; Start 09/12/17 at 21:00; Stop 09/12/17 at 21:00; Status DC Sodium Chloride 1,000 ml @ 60 mls/hr [id number] IV Last administered on 15:10; Start 09/12/17 at 18:30 Temazepam (Restoril) 45 mg QHS PO Last administered on 09/17/17 22:54; Start 09/12/17 at 21:00 Vancomycin HCl 750 mg/Dextrose/ Sodium Chloride 250 ml @ 250 mls/hr Q18H IV Last administered on 09/14/17 07:15; Start 09/13/17 at 12:00; Stop 09/14/17 at 12:53; Status DC Vancomycin HCl 1 each 1X ONCE MC Last administered on 09/14/17 05:30; Start 09/14/17 at 05:30; Stop 09/14/17 at 05:31; Status DC Ascorbic Acid (Vitamin C) 500 mg BID PO Last administered on 09/17/17 22:54; Start 09/13/17 at 10:15 Meropenem 500 mg/ Sodium Chloride 50 ml @ 100 mls/hr Q8HRS IV ; Start at 14:00; Status UNV Fluconazole/ Sodium Chloride 100 ml @ 100 mls/hr Q24H IV Last administered on 09/17/17 13:57; Start 09/13/17 at 11:00 Meropenem (Merrem) 500 mg Q8HRS IVP Last administered on 09/18/17 06:08; Start 09/13/17 at 14:00 Linezolid (Zyvox) 600 mg BID PO Last administered on 09/17/17 22:54; Start 09/15/17 at 10:00 Active Scripts Active Protonix (Pantoprazole Sodium) 40 Mg Tablet.dr 40 Mg PO DAILY 30 Days Quetiapine Fumarate 25 Mg Tablet 37.5 Mg PEG QHS 30 Days Hydrocodone-Apap 10-325 (Hydrocodone Bit/Acetaminophen) 1 Each Tablet 1 Tab PO PRN Q6HRS PRN 30 Days Baclofen 10 Mg Tablet 10 Mg GT TID 30 Days Reported Temazepam 30 Mg Capsule 30 Mg GT HS PRN Multivitamins (Multivitamin) 1 Each Capsule 1 Each GT DAILY Temazepam 15 Mg Capsule 1 Cap GT QHS Tylenol (Acetaminophen) 325 Mg Tablet 650 Mg PO Q4HRS PRN Aspirin 325 Mg Tablet 325 Mg GT DAILY Vitals/I & O Vital Sign - Last 24 Hours 09/17/17 09/17/17 09/17/17 09/17/17 09:41 10:35 11:00 15:00 Temp 98.5 98.6 98.5 98.6 Pulse 82 82 Resp 16 16 B/P (MAP) 104/75 (85) 140/89 (106) Pulse Ox 97 96 96 93 O2 Delivery Nasal Cannula Nasal Cannula Room Air Room Air O2 Flow Rate 2.0 2.0 09/17/17 09/17/17 09/17/17 19:00 20:00 23:00 Temp 98.1 97.9 98.1 97.9 Pulse 90 95 Resp 28 20 B/P (MAP) 157/89 (111) 115/82 (93) Pulse Ox 96 97 O2 Delivery Room Air Nasal Cannula Room Air O2 Flow Rate 2.0 Intake and Output 09/17/17 09/17/17 09/18/17 15:00 23:00 07:00 Intake Total 250 ml 1167 ml Output Total 700 ml 0 ml Balance 250 ml 467 ml 0 ml Nutrition Consultation Dietary Evaluation: Comments: continue TF regemin mvi and vit c per wound protocal re wt requested Expected Outcomes/Goals: wt maintanence, wound improvement Malnutrition Findings: Body Fat Depletion (Non Severe: Mod to Severe Weight Status: Underweight ADRIANE ALAN MD Sep 18, 2017 08:48
--- NOTE | 2017-09-18 10:16 | PDOC ---
Infectious Disease Note Subjective Subjective Moaning No fever last 24 hours No increase ostomy output ROS ROS unable to give any details d/w and nurse Vital Sign Vital Signs Vital Signs Date Time Temp Pulse Resp B/P (MAP) Pulse Ox O2 Delivery O2 Flow Rate FiO2 09/18/17 07:00 98.5 91 16 110/83 (92) 96 Room Air 98.5 09/17/17 20:00 2.0 Physical Exam PHYSICAL EXAM GENERAL: Lying down, softly moaning LUNGS: Clear anteriorly, nonlabored HEART: S1S2 ABD: Nondistended, Soft, ostomy : No Llamas EXT: No edema, no cyanosis. Left foot bandaged. 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 clean Labs Lab Laboratory Tests Test 09/18/17 05:45 White Blood Count 11.9 x10^3/uL (4.0-11.0) Red Blood Count 3.57 x10^6/uL (4.30-5.70) Hemoglobin 9.6 g/dL (13.0-17.5) Hematocrit 30.3 % (39.0-53.0) Mean Corpuscular Volume 85 fL (79-100) Mean Corpuscular Hemoglobin 27 pg (25-35) Mean Corpuscular Hemoglobin Concent 32 g/dL (31-37) Red Cell Distribution Width 16.1 % (11.5-14.5) Platelet Count 497 x10^3/uL (140-400) Neutrophils (%) (Auto) 76 % (31-73) Lymphocytes (%) (Auto) 14 % (24-48) Monocytes (%) (Auto) 6 % (0-9) Eosinophils (%) (Auto) 4 % (0-3) Basophils (%) (Auto) 0 % (0-3) Neutrophils # (Auto) 9.0 x10^3uL (1.8-7.7) Lymphocytes # (Auto) 1.6 x10^3/uL (1.0-4.8) Monocytes # (Auto) 0.7 x10^3/uL (0.0-1.1) Eosinophils # (Auto) 0.5 x10^3/uL (0.0-0.7) Basophils # (Auto) 0.0 x10^3/uL (0.0-0.2) Sodium Level 137 mmol/L (136-145) Potassium Level 4.5 mmol/L (3.5-5.1) Chloride Level 102 mmol/L (98-107) Carbon Dioxide Level 27 mmol/L (21-32) Anion Gap 8 (6-14) Blood Urea Nitrogen 18 mg/dL (8-26) Creatinine 0.7 mg/dL (0.7-1.3) Estimated GFR (Cockcroft-Gault) 136.9 Glucose Level 157 mg/dL (70-99) Calcium Level 8.5 mg/dL (8.5-10.1) Micro Micro BLD CULT RESULT 1 Final Nonfermenting gram negative bacilli Recovered from aerobic bottle only. GROWTH IN 1 OF 1 SET Antibiotic RSLT#1 Amikacin S Cefepime S Cefotaxime S Ceftazidime S Ceftriaxone S Ciprofloxacin R Gentamicin S Imipenem S Levofloxacin S Tetracycline S Tobramycin S Trimethoprim/Sulfa S D/W Micro lab will send out FOOT AEROBIC RES 1 Final Proteus mirabilis AEROBIC RES 2 Final Methicillin - resistant Staphylococcus aureus Antibiotic RSLT#1 RSLT#2 Amoxicillin/Clavulanic Acid S Ampicillin S Cefepime S Ceftriaxone S Cefuroxime S Ciprofloxacin S R Clindamycin S Ertapenem S Erythromycin S Gentamicin S S Levofloxacin S I Linezolid S Oxacillin R Penicillin R Piperacillin S Rifampin S Tetracycline R S Tobramycin S Trimethoprim/Sulfa S S Vancomycin S Objective Assessment bacteremia GPC IN CLUSTERS 09/16 BOTH BOTTLES,LIKELY STAPH AUREUS, SOURCE LIKELY FOOT Fever - better Leukocytosis - trending down Respiratory failure, likely aspiration Sepsis with G neg viktoria, POA. Nonfermenting gram negative bacilli Left foot wound infection w/ MRSA & proteus Persistent veg state Plan Plan of Care vanc, meropenem and Diflucan REPEAT BC FROM DEMARIO CATH AND PERIPHERY FOOT C/S PROTEUS,BC GNR ID PENDING,SUSCEP SAME FROM FOOT Await GNR ID,D/W Micro will send out d/w in detail about the wound and how far she want us to go, she does not want surgery, debridement or iv antibiotics, happy with ointment /enzymatic debridement and oral antibiotics ( understands can be osteo ). TIFFANIE ELIAS MD Sep 18, 2017 10:16
[2017-09-18] MEDS: IV 1/2 NORMAL SALINE 1,000 ML IV SCH ×2 (10:49→21:46)
[2017-09-18] MEDS: MULTIVITAMIN with MINERAL TABLET. PO SCH (10:51)
[2017-09-18] MEDS: BACLOFEN 10 MG TABLET. GT SCH ×3 (10:51→21:36)
[2017-09-18] MEDS: ASCORBIC ACID 500 MG TABLET PO SCH ×2 (10:51→21:36)
[2017-09-18] MEDS: ASPIRIN 325 MG TABLET GT SCH (10:51)
[2017-09-18] MEDS: LINEZOLID 600 MG TABLET PO SCH ×2 (10:51→21:36)
[2017-09-18 11:00] VITALS: BP 139/96
[2017-09-18] MEDS: FLUCONAZOLE 200MG/100ML PREMIX 100 ML IV SCH (11:35)
[2017-09-18 15:00] VITALS: BP 126/86
--- NOTE | 2017-09-18 17:27 | PDOC2 ---
PALLIATIVE CARE Palliative Care Note Palliative Care Spoke with --follow-up of conversation on Monday. wants to continue current treatment plan---no interested in comfort care. Would like to take him home when discharged. HORACE GALINDO Sep 18, 2017 17:26
[2017-09-18 19:00] VITALS: BP 137/85
[2017-09-18] MEDS: QUEtiapine 25 MG TABLET. GT SCH (21:37)
[2017-09-18] MEDS: TEMAZEPAM 15 MG CAPSULE PO SCH (21:38)
[2017-09-18 23:00] VITALS: BP 138/86
[2017-09-19] MEDS: MEROPENEM IV Push 500 MG VIAL. IVP SCH ×3 (06:00→23:41)
[2017-09-19 06:37] LABS: BASO % 0 % (0-3); EOS % 5 % (0-3); HEMATOCRIT 36.4 % (39.0-53.0); HEMOGLOBIN 11.6 g/dL (13.0-17.5); LYMPH # 1.8 x10^3/uL (1.0-4.8); LYMPH % 18 % (24-48); MEAN CORPUSCULAR HEMOGLOBIN 27 pg (25-35); MEAN CORPUSCULAR HGB CONC 32 g/dL (31-37); MEAN CORPUSCULAR VOLUME 85 fL (79-100); MONO % 6 % (0-9); NEUT % 71 % (31-73); PLATELET COUNT 453 x10^3/uL (140-400); RED BLOOD COUNT 4.28 x10^6/uL (4.30-5.70); RED CELL DISTRIBUTION WIDTH 16.3 % (11.5-14.5)
[2017-09-19 06:49] LABS: CREATININE 0.7 mg/dL (0.7-1.3); GFR 136.9; POTASSIUM 4.3 mmol/L (3.5-5.1)
[2017-09-19 07:00] VITALS: BP 118/80
[2017-09-19] MEDS: ASPIRIN 325 MG TABLET GT SCH (08:19)
[2017-09-19] MEDS: LANSOPRAZOLE 30 MG TAB.RAP.DR FT SCH (08:19)
[2017-09-19] MEDS: LINEZOLID 600 MG TABLET PO SCH ×2 (08:19→21:40)
[2017-09-19] MEDS: MULTIVITAMIN with MINERAL TABLET. PO SCH (08:20)
[2017-09-19] MEDS: BACLOFEN 10 MG TABLET. GT SCH ×3 (08:20→21:40)
[2017-09-19] MEDS: ASCORBIC ACID 500 MG TABLET PO SCH ×2 (08:20→21:40)
--- NOTE | 2017-09-19 09:14 | PDOC ---
PROGRESS NOTES Subjective Subjective alert. afebrile. blood culture 2/2 coag neg staph. afebrile. wbc okay. lab reviewed. discussed with . Objective Objective Vital Signs Date Time Temp Pulse Resp B/P (MAP) Pulse Ox O2 Delivery O2 Flow Rate FiO2 09/19/17 07:00 97.2 88 20 118/80 (93) 93 Room Air 97.2 09/17/17 20:00 2.0 Intake and Output 09/19/17 07:00 Intake Total 2387 ml Output Total 1700 ml Balance 687 ml IV Total 1887 ml Tube Feeding 500 ml Stool Total 1000 ml Urine/Stool Mix 700 ml # Voids 4 Physical Exam Abdomen: Soft Heart: Regular rate, Normal S1, Normal S2 Extremities: No edema General: Alert HEENT: Atraumatic Lungs: Clear to auscultation Neuro: Normal speech Psych/Mental Status: Mental status NL Skin: No rashes Assessment Assessment Problems1 non-fermenting.GNR bacteremia with sepsis. sepsis resolved 2. Leukocytosis resolved 3. MRSA and proteus foot wound infection 4. Spastic quadriplegia. 5. Anoxic encephalopathy. 6. Oropharyngeal dysphagia, maintained on gastrostomy tube feedings. 7. Short gut syndrome. 8. Ileostomy. 9. Right above-knee amputation. MRSA uti coag neg staph bacteremia Medical Problems: (1) Infected pressure ulcer Status: Acute (2) Pressure ulcer of left ankle Status: Acute (3) Urinary tract infection Status: Acute Plan Plan of Care continue zyvox and meropenem and diflucan antibiotics per ID continue tube feeding and iv fluids continue wound care Comment Review of Relevant I have reviewed the following items ramon (where applicable) has been applied. Labs Laboratory Tests Test 09/18/17 05:45 09/19/17 06:20 White Blood Count 11.9 x10^3/uL (4.0-11.0) 10.0 x10^3/uL (4.0-11.0) Red Blood Count 3.57 x10^6/uL (4.30-5.70) 4.28 x10^6/uL (4.30-5.70) Hemoglobin 9.6 g/dL (13.0-17.5) 11.6 g/dL (13.0-17.5) Hematocrit 30.3 % (39.0-53.0) 36.4 % (39.0-53.0) Mean Corpuscular Volume 85 fL (79-100) 85 fL (79-100) Mean Corpuscular Hemoglobin 27 pg (25-35) 27 pg (25-35) Mean Corpuscular Hemoglobin Concent 32 g/dL (31-37) 32 g/dL (31-37) Red Cell Distribution Width 16.1 % (11.5-14.5) 16.3 % (11.5-14.5) Platelet Count 497 x10^3/uL (140-400) 453 x10^3/uL (140-400) Neutrophils (%) (Auto) 76 % (31-73) 71 % (31-73) Lymphocytes (%) (Auto) 14 % (24-48) 18 % (24-48) Monocytes (%) (Auto) 6 % (0-9) 6 % (0-9) Eosinophils (%) (Auto) 4 % (0-3) 5 % (0-3) Basophils (%) (Auto) 0 % (0-3) 0 % (0-3) Neutrophils # (Auto) 9.0 x10^3uL (1.8-7.7) 7.1 x10^3uL (1.8-7.7) Lymphocytes # (Auto) 1.6 x10^3/uL (1.0-4.8) 1.8 x10^3/uL (1.0-4.8) Monocytes # (Auto) 0.7 x10^3/uL (0.0-1.1) 0.6 x10^3/uL (0.0-1.1) Eosinophils # (Auto) 0.5 x10^3/uL (0.0-0.7) 0.5 x10^3/uL (0.0-0.7) Basophils # (Auto) 0.0 x10^3/uL (0.0-0.2) 0.0 x10^3/uL (0.0-0.2) Sodium Level 137 mmol/L (136-145) 141 mmol/L (136-145) Potassium Level 4.5 mmol/L (3.5-5.1) 4.3 mmol/L (3.5-5.1) Chloride Level 102 mmol/L (98-107) 104 mmol/L (98-107) Carbon Dioxide Level 27 mmol/L (21-32) 28 mmol/L (21-32) Anion Gap 8 (6-14) 9 (6-14) Blood Urea Nitrogen 18 mg/dL (8-26) 14 mg/dL (8-26) Creatinine 0.7 mg/dL (0.7-1.3) 0.7 mg/dL (0.7-1.3) Estimated GFR (Cockcroft-Gault) 136.9 136.9 Glucose Level 157 mg/dL (70-99) 121 mg/dL (70-99) Calcium Level 8.5 mg/dL (8.5-10.1) 9.0 mg/dL (8.5-10.1) Laboratory Tests Test 09/19/17 06:20 White Blood Count 10.0 x10^3/uL (4.0-11.0) Red Blood Count 4.28 x10^6/uL (4.30-5.70) Hemoglobin 11.6 g/dL (13.0-17.5) Hematocrit 36.4 % (39.0-53.0) Mean Corpuscular Volume 85 fL (79-100) Mean Corpuscular Hemoglobin 27 pg (25-35) Mean Corpuscular Hemoglobin Concent 32 g/dL (31-37) Red Cell Distribution Width 16.3 % (11.5-14.5) Platelet Count 453 x10^3/uL (140-400) Neutrophils (%) (Auto) 71 % (31-73) Lymphocytes (%) (Auto) 18 % (24-48) Monocytes (%) (Auto) 6 % (0-9) Eosinophils (%) (Auto) 5 % (0-3) Basophils (%) (Auto) 0 % (0-3) Neutrophils # (Auto) 7.1 x10^3uL (1.8-7.7) Lymphocytes # (Auto) 1.8 x10^3/uL (1.0-4.8) Monocytes # (Auto) 0.6 x10^3/uL (0.0-1.1) Eosinophils # (Auto) 0.5 x10^3/uL (0.0-0.7) Basophils # (Auto) 0.0 x10^3/uL (0.0-0.2) Sodium Level 141 mmol/L (136-145) Potassium Level 4.3 mmol/L (3.5-5.1) Chloride Level 104 mmol/L (98-107) Carbon Dioxide Level 28 mmol/L (21-32) Anion Gap 9 (6-14) Blood Urea Nitrogen 14 mg/dL (8-26) Creatinine 0.7 mg/dL (0.7-1.3) Estimated GFR (Cockcroft-Gault) 136.9 Glucose Level 121 mg/dL (70-99) Calcium Level 9.0 mg/dL (8.5-10.1) Microbiology 09/16/17 Blood Culture - Preliminary, Resulted 09/16/17 Blood Culture Result 1 (JAMISON) - Preliminary, Resulted 09/12/17 Urine Culture - Final, Complete 09/12/17 Urine Culture Result 1 (JAMISON) - Final, Complete 09/12/17 Antimicrobic Susceptibility - Final, Complete 09/12/17 Gram Stain - Final, Complete Medications Current Medications Sodium Chloride 500 ml @ 500 mls/hr 1X ONCE IV Last administered on t 16:24; Start 09/12/17 at 15:30; Stop 09/12/17 at 16:29; Status DC Sodium Chloride (NORMAL SALINE FLUSH for STERILE FIELD) 10 ml [employer]-MED ONCE .ROUTE ; Start 09/12/17 at 15:56; Stop 09/12/17 at 15:57; Status DC Vancomycin HCl 1.75 gm/Sodium Chloride 500 ml @ 250 mls/hr 1X ONCE IV ; Start 09/12/17 at 17:15; Stop 09/12/17 at 19:14; Status UNV Cefepime HCl 1 gm/ Dextrose 50 ml @ 100 mls/hr Q8HRS IV ; Start 09/12/17 at 22 :00; Status UNV Ondansetron HCl (Zofran) 4 mg PRN Q8HRS PRN IV NAUSEA/VOMITING; Start at 17:15; Stop 09/13/17 at 17:14; Status DC Morphine Sulfate 2 mg PRN Q2HR PRN IV PAIN; Start 09/12/17 at 17:15; Stop at 17:14; Status DC Cefepime HCl (Maxipime) 1 gm 1X ONCE IVP Last administered on 09/12/17 17:41 ; Start 09/12/17 at 17:30; Stop 09/12/17 at 17:31; Status DC Vancomycin HCl 1 gm/Sodium Chloride 250 ml @ 250 mls/hr 1X ONCE IV Last administered on 09/12/17 17:49; Start 09/12/17 at 18:00; Stop 09/12/17 at 18 :59; Status DC Cefepime HCl (Maxipime) 1 gm Q12HR IVP ; Start 09/13/17 at 09:00; Stop at 10:31; Status DC Vancomycin HCl (Vanco Per Pharmacy) 1 each PRN DAILY PRN MC SEE COMMENTS Last administered on 09/14/17 06:39; Start 09/12/17 at 18:00; Stop 09/14/17 at 12 :54; Status DC Acetaminophen (Tylenol) 650 mg PRN Q4HRS PRN PEG MILD PAIN / TEMP Last administered on 09/17/17 09:40; Start 09/12/17 at 18:00 Aspirin (Laura Aspirin) 325 mg DAILY GT Last administered on 09/19/17 08:19; Start 09/13/17 at 09:00 Baclofen (Lioresal) 10 mg TID GT Last administered on 09/19/17 08:20; Start 09/12/17 at 21:00 Multivitamins (Thera M Plus) 1 tab DAILY PO Last administered on 09/19/17 08: 20; Start 09/13/17 at 09:00 Acetaminophen/ Hydrocodone Bitart (Lortab 10/325) 1 tab PRN Q6HRS PRN GT SEVERE PAIN Last administered on 09/17/17 09:41; Start 09/12/17 at 18:00 Pantoprazole Sodium (Protonix) 40 mg DAILYAC PO Last administered on 09:41; Start 09/13/17 at 07:30; Stop 09/19/17 at 07:22; Status DC Quetiapine Fumarate (SEROquel) 37.5 mg QHS GT Last administered on 09/18/17 21:37; Start 09/12/17 at 21:00 Quetiapine Fumarate (SEROquel) 12.5 mg PRN Q8HRS PRN PEG AGITATION; Start 09/17 at 18:00 Temazepam (Restoril) 30 mg QHS PO ; Start 09/12/17 at 21:00; Stop 09/12/17 at 21:00; Status DC Sodium Chloride 1,000 ml @ 60 mls/hr [id number] IV Last administered on 21:46; Start 09/12/17 at 18:30 Temazepam (Restoril) 45 mg QHS PO Last administered on 09/18/17 21:38; Start 09/12/17 at 21:00 Vancomycin HCl 750 mg/Dextrose/ Sodium Chloride 250 ml @ 250 mls/hr Q18H IV Last administered on 09/14/17 07:15; Start 09/13/17 at 12:00; Stop 09/14/17 at 12:53; Status DC Vancomycin HCl 1 each 1X ONCE MC Last administered on 09/14/17 05:30; Start 09/14/17 at 05:30; Stop 09/14/17 at 05:31; Status DC Ascorbic Acid (Vitamin C) 500 mg BID PO Last administered on 09/19/17 08:20; Start 09/13/17 at 10:15 Meropenem 500 mg/ Sodium Chloride 50 ml @ 100 mls/hr Q8HRS IV ; Start at 14:00; Status UNV Fluconazole/ Sodium Chloride 100 ml @ 100 mls/hr Q24H IV Last administered on 09/18/17 11:35; Start 09/13/17 at 11:00 Meropenem (Merrem) 500 mg Q8HRS IVP Last administered on 09/19/17 06:00; Start 09/13/17 at 14:00 Linezolid (Zyvox) 600 mg BID PO Last administered on 09/19/17 08:19; Start 09/15/17 at 10:00 Lansoprazole (Prevacid) 30 mg DAILYAC FT Last administered on 09/19/17 08:19 ; Start 09/19/17 at 08:00 Active Scripts Active Protonix (Pantoprazole Sodium) 40 Mg Tablet.dr 40 Mg PO DAILY 30 Days Quetiapine Fumarate 25 Mg Tablet 37.5 Mg PEG QHS 30 Days Hydrocodone-Apap 10-325 (Hydrocodone Bit/Acetaminophen) 1 Each Tablet 1 Tab PO PRN Q6HRS PRN 30 Days Baclofen 10 Mg Tablet 10 Mg GT TID 30 Days Reported Temazepam 30 Mg Capsule 30 Mg GT HS PRN Multivitamins (Multivitamin) 1 Each Capsule 1 Each GT DAILY Temazepam 15 Mg Capsule 1 Cap GT QHS Tylenol (Acetaminophen) 325 Mg Tablet 650 Mg PO Q4HRS PRN Aspirin 325 Mg Tablet 325 Mg GT DAILY Vitals/I & O Vital Sign - Last 24 Hours 09/18/17 09/18/17 09/18/17 09/18/17 11:00 15:00 19:00 20:00 Temp 97.5 97.5 98.3 97.5 97.5 98.3 Pulse 89 83 90 Resp 16 16 20 B/P (MAP) 139/96 (110) 126/86 (99) 137/85 (102) Pulse Ox 98 95 96 O2 Delivery Room Air Room Air Room Air Room Air 09/18/17 09/19/17 23:00 07:00 Temp 97.5 97.2 97.5 97.2 Pulse 97 88 Resp 18 20 B/P (MAP) 138/86 (103) 118/80 (93) Pulse Ox 97 93 O2 Delivery Room Air Room Air Intake and Output 09/18/17 09/18/17 09/19/17 15:00 23:00 07:00 Intake Total 250 ml 250 ml 1887 ml Output Total 1700 ml Balance 250 ml 250 ml 187 ml Nutrition Consultation Dietary Evaluation: Comments: continue TF regemin mvi and vit c per wound protocal re wt requested Expected Outcomes/Goals: wt maintanence, wound improvement Malnutrition Findings: Body Fat Depletion (Non Severe: Mod to Severe Weight Status: Underweight ADRIANE ALAN MD Sep 19, 2017 09:14
--- NOTE | 2017-09-19 10:01 | PDOC ---
Infectious Disease Note Subjective Subjective Moaning No fever last 24 hours No increase ostomy output per pulled out line at [facility] much calm today ROS ROS unobtainable from nursing and Vital Sign Vital Signs Vital Signs Date Time Temp Pulse Resp B/P (MAP) Pulse Ox O2 Delivery O2 Flow Rate FiO2 09/19/17 07:00 97.2 88 20 118/80 (93) 93 Room Air 97.2 Physical Exam PHYSICAL EXAM GENERAL: Lying down, softly moaning LUNGS: Clear anteriorly, nonlabored HEART: S1S2 ABD: Nondistended, Soft, ostomy : No Llamas EXT: No edema, no cyanosis. Left foot bandaged. 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 clean Labs Lab Laboratory Tests Test 09/19/17 06:20 White Blood Count 10.0 x10^3/uL (4.0-11.0) Red Blood Count 4.28 x10^6/uL (4.30-5.70) Hemoglobin 11.6 g/dL (13.0-17.5) Hematocrit 36.4 % (39.0-53.0) Mean Corpuscular Volume 85 fL (79-100) Mean Corpuscular Hemoglobin 27 pg (25-35) Mean Corpuscular Hemoglobin Concent 32 g/dL (31-37) Red Cell Distribution Width 16.3 % (11.5-14.5) Platelet Count 453 x10^3/uL (140-400) Neutrophils (%) (Auto) 71 % (31-73) Lymphocytes (%) (Auto) 18 % (24-48) Monocytes (%) (Auto) 6 % (0-9) Eosinophils (%) (Auto) 5 % (0-3) Basophils (%) (Auto) 0 % (0-3) Neutrophils # (Auto) 7.1 x10^3uL (1.8-7.7) Lymphocytes # (Auto) 1.8 x10^3/uL (1.0-4.8) Monocytes # (Auto) 0.6 x10^3/uL (0.0-1.1) Eosinophils # (Auto) 0.5 x10^3/uL (0.0-0.7) Basophils # (Auto) 0.0 x10^3/uL (0.0-0.2) Sodium Level 141 mmol/L (136-145) Potassium Level 4.3 mmol/L (3.5-5.1) Chloride Level 104 mmol/L (98-107) Carbon Dioxide Level 28 mmol/L (21-32) Anion Gap 9 (6-14) Blood Urea Nitrogen 14 mg/dL (8-26) Creatinine 0.7 mg/dL (0.7-1.3) Estimated GFR (Cockcroft-Gault) 136.9 Glucose Level 121 mg/dL (70-99) Calcium Level 9.0 mg/dL (8.5-10.1) Micro Micro PATIENT: TENA SCHAFFER V ACCT: [id number] LOC: [address] [place] [address] U : [id number] AGE/SX: 67/M ROOM: 404 REG : 09/12/[address]: ADRIANE ALAN MD : 1950 BED: 1 DIS : STATUS: ADM IN TLOC: SPEC #: [id number] ANTONIO: 09/16/17 STATUS: RES REQ #: [id number] RECD: 09/18/[address] [facility] DR: TIFFANIE ELIAS MD SOURCE: BLOOD ENTR: 09/18/17 [facility] DR: CATHY ELIAS MD SPDESC: ADRIANE ALAN MD, AMAN U MD ORDERED: BLD CULT - LC Procedure Result BLOOD CULTURE PRL Preliminary Preliminary report BLD CULT RESULT 1 Preliminary Comment Coagulase negative Staphylococcus species. Recovered from aerobic and anaerobic bottles. Performed at: [address] [id number] Textbook Associate: Kathleen Boyer MD, Phone: [phone] BLD CULT RESULT 1 Final Nonfermenting gram negative bacilli Recovered from aerobic bottle only. GROWTH IN 1 OF 1 SET Antibiotic RSLT#1 Amikacin S Cefepime S Cefotaxime S Ceftazidime S Ceftriaxone S Ciprofloxacin R Gentamicin S Imipenem S Levofloxacin S Tetracycline S Tobramycin S Trimethoprim/Sulfa S D/W Micro lab will send out FOOT AEROBIC RES 1 Final Proteus mirabilis AEROBIC RES 2 Final Methicillin - resistant Staphylococcus aureus Antibiotic RSLT#1 RSLT#2 Amoxicillin/Clavulanic Acid S Ampicillin S Cefepime S Ceftriaxone S Cefuroxime S Ciprofloxacin S R Clindamycin S Ertapenem S Erythromycin S Gentamicin S S Levofloxacin S I Linezolid S Oxacillin R Penicillin R Piperacillin S Rifampin S Tetracycline R S Tobramycin S Trimethoprim/Sulfa S S Vancomycin S Objective Assessment coag neg bacteremia likely contaminant Fever - better Leukocytosis - trending down Respiratory failure, likely aspiration Sepsis with G neg viktoria, POA. Nonfermenting gram negative bacilli Left foot wound infection w/ MRSA & proteus Persistent veg state Plan Plan of Care continue zyvox,meropenem and Diflucan f/u bc results FOOT C/S PROTEUS,BC GNR ID PENDING,SUSCEP SAME FROM FOOT Await GNR ID,D/W Micro will send out d/w in detail about the wound and how far she want us to go, she does not want surgery, debridement or iv antibiotics, happy with ointment /enzymatic debridement and oral antibiotics ( understands can be osteo ). TIFFANIE ELIAS MD Sep 19, 2017 10:01
[2017-09-19] MEDS: FLUCONAZOLE 200MG/100ML PREMIX 100 ML IV SCH (10:39)
[2017-09-19 11:18] VITALS: BP 121/77
[2017-09-19 15:25] VITALS: BP 114/78
--- NOTE | 2017-09-19 19:14 | PDOC ---
PULMONARY PROGRESS NOTES Subjective NO SOA Vitals Vital Signs Date Time Temp Pulse Resp B/P (MAP) Pulse Ox O2 Delivery O2 Flow Rate FiO2 09/19/17 15:25 97.9 94 18 114/78 (90) 96 Room Air 97.9 General: No acute distress Lungs: Other (decrease bs) Cardiovascular: S1 Abdomen: Soft Extremities: No Edema, Other (contracted) Labs Laboratory Tests Test 09/18/17 05:45 09/19/17 06:20 White Blood Count 11.9 x10^3/uL (4.0-11.0) 10.0 x10^3/uL (4.0-11.0) Red Blood Count 3.57 x10^6/uL (4.30-5.70) 4.28 x10^6/uL (4.30-5.70) Hemoglobin 9.6 g/dL (13.0-17.5) 11.6 g/dL (13.0-17.5) Hematocrit 30.3 % (39.0-53.0) 36.4 % (39.0-53.0) Mean Corpuscular Volume 85 fL (79-100) 85 fL (79-100) Mean Corpuscular Hemoglobin 27 pg (25-35) 27 pg (25-35) Mean Corpuscular Hemoglobin Concent 32 g/dL (31-37) 32 g/dL (31-37) Red Cell Distribution Width 16.1 % (11.5-14.5) 16.3 % (11.5-14.5) Platelet Count 497 x10^3/uL (140-400) 453 x10^3/uL (140-400) Neutrophils (%) (Auto) 76 % (31-73) 71 % (31-73) Lymphocytes (%) (Auto) 14 % (24-48) 18 % (24-48) Monocytes (%) (Auto) 6 % (0-9) 6 % (0-9) Eosinophils (%) (Auto) 4 % (0-3) 5 % (0-3) Basophils (%) (Auto) 0 % (0-3) 0 % (0-3) Neutrophils # (Auto) 9.0 x10^3uL (1.8-7.7) 7.1 x10^3uL (1.8-7.7) Lymphocytes # (Auto) 1.6 x10^3/uL (1.0-4.8) 1.8 x10^3/uL (1.0-4.8) Monocytes # (Auto) 0.7 x10^3/uL (0.0-1.1) 0.6 x10^3/uL (0.0-1.1) Eosinophils # (Auto) 0.5 x10^3/uL (0.0-0.7) 0.5 x10^3/uL (0.0-0.7) Basophils # (Auto) 0.0 x10^3/uL (0.0-0.2) 0.0 x10^3/uL (0.0-0.2) Sodium Level 137 mmol/L (136-145) 141 mmol/L (136-145) Potassium Level 4.5 mmol/L (3.5-5.1) 4.3 mmol/L (3.5-5.1) Chloride Level 102 mmol/L (98-107) 104 mmol/L (98-107) Carbon Dioxide Level 27 mmol/L (21-32) 28 mmol/L (21-32) Anion Gap 8 (6-14) 9 (6-14) Blood Urea Nitrogen 18 mg/dL (8-26) 14 mg/dL (8-26) Creatinine 0.7 mg/dL (0.7-1.3) 0.7 mg/dL (0.7-1.3) Estimated GFR (Cockcroft-Gault) 136.9 136.9 Glucose Level 157 mg/dL (70-99) 121 mg/dL (70-99) Calcium Level 8.5 mg/dL (8.5-10.1) 9.0 mg/dL (8.5-10.1) Laboratory Tests Test 09/19/17 06:20 White Blood Count 10.0 x10^3/uL (4.0-11.0) Red Blood Count 4.28 x10^6/uL (4.30-5.70) Hemoglobin 11.6 g/dL (13.0-17.5) Hematocrit 36.4 % (39.0-53.0) Mean Corpuscular Volume 85 fL (79-100) Mean Corpuscular Hemoglobin 27 pg (25-35) Mean Corpuscular Hemoglobin Concent 32 g/dL (31-37) Red Cell Distribution Width 16.3 % (11.5-14.5) Platelet Count 453 x10^3/uL (140-400) Neutrophils (%) (Auto) 71 % (31-73) Lymphocytes (%) (Auto) 18 % (24-48) Monocytes (%) (Auto) 6 % (0-9) Eosinophils (%) (Auto) 5 % (0-3) Basophils (%) (Auto) 0 % (0-3) Neutrophils # (Auto) 7.1 x10^3uL (1.8-7.7) Lymphocytes # (Auto) 1.8 x10^3/uL (1.0-4.8) Monocytes # (Auto) 0.6 x10^3/uL (0.0-1.1) Eosinophils # (Auto) 0.5 x10^3/uL (0.0-0.7) Basophils # (Auto) 0.0 x10^3/uL (0.0-0.2) Sodium Level 141 mmol/L (136-145) Potassium Level 4.3 mmol/L (3.5-5.1) Chloride Level 104 mmol/L (98-107) Carbon Dioxide Level 28 mmol/L (21-32) Anion Gap 9 (6-14) Blood Urea Nitrogen 14 mg/dL (8-26) Creatinine 0.7 mg/dL (0.7-1.3) Estimated GFR (Cockcroft-Gault) 136.9 Glucose Level 121 mg/dL (70-99) Calcium Level 9.0 mg/dL (8.5-10.1) Medications Active Scripts Medications Dose Route/Sig Max Daily Dose Days Date Category Protonix (Pantoprazole Sodium) 40 Mg Tablet.dr 40 Mg PO DAILY 30 07/28/17 Rx Quetiapine Fumarate 25 Mg Tablet 37.5 Mg PEG QHS 30 06/30/17 Rx Hydrocodone-Apap 10-325 (Hydrocodone Bit/Acetaminophen) 1 Each Tablet 1 Tab PO PRN Q6HRS PRN 30 04/27/17 Rx Baclofen 10 Mg Tablet 10 Mg GT TID 30 04/27/17 Rx Temazepam 30 Mg Capsule 30 Mg GT HS PRN 10/12/16 Reported Multivitamins (Multivitamin) 1 Each Capsule 1 Each GT DAILY 10/12/16 Reported Temazepam 15 Mg Capsule 1 Cap GT QHS 10/12/16 Reported Tylenol (Acetaminophen) 325 Mg Tablet 650 Mg PO Q4HRS PRN 06/27/14 Reported Aspirin 325 Mg Tablet 325 Mg GT DAILY 04/25/14 Reported Impression . 1. Sepsis syndrome with gram neg rods in blood,MRSA in urine, MSSA from heel ulcer and suspected aspiration pneumonia. 2. History of anoxic encephalopathy with spastic quadriplegia. 3. History of dysphagia, status post PEG tube placement. 4. Short gut syndrome, history of ileostomy for ischemic bowel. 5. Previous multiple hospitalizations for infectious etiologies. 6. History of cerebrovascular accident. Plan . ANTIBX PER ID HOME SOON OK BY ME D/W RYANNE ALEJO MD Sep 19, 2017 19:14
[2017-09-19 19:20] VITALS: BP 122/82
[2017-09-19] MEDS: IV 1/2 NORMAL SALINE 1,000 ML IV SCH (21:36)
[2017-09-19] MEDS: TEMAZEPAM 15 MG CAPSULE PO SCH (21:39)
[2017-09-19] MEDS: LACTOBACILLUS RHAMNOSUS GG 1 CAPSULE. PO SCH (21:39)
[2017-09-19] MEDS: QUEtiapine 25 MG TABLET. GT SCH (21:40)
[2017-09-19 23:00] VITALS: BP 105/70
[2017-09-20] MEDS: MEROPENEM IV Push 500 MG VIAL. IVP SCH (05:33)
[2017-09-20 07:00] VITALS: BP 120/84
[2017-09-20] MEDS: LINEZOLID 600 MG TABLET PO SCH (08:55)
[2017-09-20] MEDS: LACTOBACILLUS RHAMNOSUS GG 1 CAPSULE. PO SCH (08:55)
[2017-09-20] MEDS: MULTIVITAMIN with MINERAL TABLET. PO SCH (08:55)
[2017-09-20] MEDS: BACLOFEN 10 MG TABLET. GT SCH ×2 (08:55→15:09)
[2017-09-20] MEDS: IV 1/2 NORMAL SALINE 1,000 ML IV SCH (08:55)
[2017-09-20] MEDS: ASPIRIN 325 MG TABLET GT SCH (08:55)
[2017-09-20] MEDS: ASCORBIC ACID 500 MG TABLET PO SCH (08:55)
[2017-09-20] MEDS: LANSOPRAZOLE 30 MG TAB.RAP.DR FT SCH (08:56)
--- NOTE | 2017-09-20 11:04 | PDOC ---
PROGRESS NOTES Subjective Subjective afebrile. discussed with . blood cultures neg since 09/28 Objective Objective Vital Signs Date Time Temp Pulse Resp B/P (MAP) Pulse Ox O2 Delivery O2 Flow Rate FiO2 09/20/17 07:00 97.9 90 18 120/84 (96) 95 Room Air 97.9 09/17/17 20:00 2.0 Intake and Output 09/20/17 06:59 Intake Total 750 ml Output Total 900 ml Balance -150 ml Intake Oral 0 ml Tube Feeding 750 ml Stool Total 400 ml Gastric Drainage Total 500 ml # Voids 7 Physical Exam Abdomen: Soft, Other (g tube and ileostomy) Heart: Regular rate, Normal S1, Normal S2 Extremities: No edema, Other (right aka) General: Alert HEENT: Atraumatic Lungs: Clear to auscultation Neuro: Other (aphasic with spastic quadriparesis) Psych/Mental Status: Mood NL Skin: No rashes Assessment Assessment Problems1 non-fermenting.GNR bacteremia with sepsis. sepsis resolved 2. Leukocytosis resolved 3. MRSA and proteus foot wound infection 4. Spastic quadriplegia. 5. Anoxic encephalopathy. 6. Oropharyngeal dysphagia, maintained on gastrostomy tube feedings. 7. Short gut syndrome. 8. Ileostomy. 9. Right above-knee amputation. MRSA uti coag neg staph bacteremia. contaminant Medical Problems: (1) Infected pressure ulcer Status: Acute (2) Pressure ulcer of left ankle Status: Acute (3) Urinary tract infection Status: Acute Plan Plan of Care continue antibiotics per ID disposition per ID continue tube feedings and iv fluids Comment Review of Relevant I have reviewed the following items ramon (where applicable) has been applied. Labs Laboratory Tests Test 09/19/17 06:20 White Blood Count 10.0 x10^3/uL (4.0-11.0) Red Blood Count 4.28 x10^6/uL (4.30-5.70) Hemoglobin 11.6 g/dL (13.0-17.5) Hematocrit 36.4 % (39.0-53.0) Mean Corpuscular Volume 85 fL (79-100) Mean Corpuscular Hemoglobin 27 pg (25-35) Mean Corpuscular Hemoglobin Concent 32 g/dL (31-37) Red Cell Distribution Width 16.3 % (11.5-14.5) Platelet Count 453 x10^3/uL (140-400) Neutrophils (%) (Auto) 71 % (31-73) Lymphocytes (%) (Auto) 18 % (24-48) Monocytes (%) (Auto) 6 % (0-9) Eosinophils (%) (Auto) 5 % (0-3) Basophils (%) (Auto) 0 % (0-3) Neutrophils # (Auto) 7.1 x10^3uL (1.8-7.7) Lymphocytes # (Auto) 1.8 x10^3/uL (1.0-4.8) Monocytes # (Auto) 0.6 x10^3/uL (0.0-1.1) Eosinophils # (Auto) 0.5 x10^3/uL (0.0-0.7) Basophils # (Auto) 0.0 x10^3/uL (0.0-0.2) Sodium Level 141 mmol/L (136-145) Potassium Level 4.3 mmol/L (3.5-5.1) Chloride Level 104 mmol/L (98-107) Carbon Dioxide Level 28 mmol/L (21-32) Anion Gap 9 (6-14) Blood Urea Nitrogen 14 mg/dL (8-26) Creatinine 0.7 mg/dL (0.7-1.3) Estimated GFR (Cockcroft-Gault) 136.9 Glucose Level 121 mg/dL (70-99) Calcium Level 9.0 mg/dL (8.5-10.1) Microbiology 09/18/17 Blood Culture - Preliminary, Resulted NO GROWTH AFTER 1 DAY 09/12/17 Urine Culture - Final, Complete 09/12/17 Urine Culture Result 1 (JAMISON) - Final, Complete 09/12/17 Antimicrobic Susceptibility - Final, Complete 09/12/17 Gram Stain - Final, Complete Medications Current Medications Sodium Chloride 500 ml @ 500 mls/hr 1X ONCE IV Last administered on t 16:24; Start 09/12/17 at 15:30; Stop 09/12/17 at 16:29; Status DC Sodium Chloride (NORMAL SALINE FLUSH for STERILE FIELD) 10 ml STK-MED ONCE .ROUTE ; Start 09/12/17 at 15:56; Stop 09/12/17 at 15:57; Status DC Vancomycin HCl 1.75 gm/Sodium Chloride 500 ml @ 250 mls/hr 1X ONCE IV ; Start 09/12/17 at 17:15; Stop 09/12/17 at 19:14; Status UNV Cefepime HCl 1 gm/ Dextrose 50 ml @ 100 mls/hr Q8HRS IV ; Start 09/12/17 at 22 :00; Status UNV Ondansetron HCl (Zofran) 4 mg PRN Q8HRS PRN IV NAUSEA/VOMITING; Start at 17:15; Stop 09/13/17 at 17:14; Status DC Morphine Sulfate 2 mg PRN Q2HR PRN IV PAIN; Start 09/12/17 at 17:15; Stop at 17:14; Status DC Cefepime HCl (Maxipime) 1 gm 1X ONCE IVP Last administered on 09/12/17 17:41 ; Start 09/12/17 at 17:30; Stop 09/12/17 at 17:31; Status DC Vancomycin HCl 1 gm/Sodium Chloride 250 ml @ 250 mls/hr 1X ONCE IV Last administered on 09/12/17 17:49; Start 09/12/17 at 18:00; Stop 09/12/17 at 18 :59; Status DC Cefepime HCl (Maxipime) 1 gm Q12HR IVP ; Start 09/13/17 at 09:00; Stop at 10:31; Status DC Vancomycin HCl (Vanco Per Pharmacy) 1 each PRN DAILY PRN MC SEE COMMENTS Last administered on 09/14/17 06:39; Start 09/12/17 at 18:00; Stop 09/14/17 at 12 :54; Status DC Acetaminophen (Tylenol) 650 mg PRN Q4HRS PRN PEG MILD PAIN / TEMP Last administered on 09/17/17 09:40; Start 09/12/17 at 18:00 Aspirin (Laura Aspirin) 325 mg DAILY GT Last administered on 09/20/17 08:55; Start 09/13/17 at 09:00 Baclofen (Lioresal) 10 mg TID GT Last administered on 09/20/17 08:55; Start 09/12/17 at 21:00 Multivitamins (Thera M Plus) 1 tab DAILY PO Last administered on 09/20/17 08: 55; Start 09/13/17 at 09:00 Acetaminophen/ Hydrocodone Bitart (Lortab 10/325) 1 tab PRN Q6HRS PRN GT SEVERE PAIN Last administered on 09/17/17 09:41; Start 09/12/17 at 18:00 Pantoprazole Sodium (Protonix) 40 mg DAILYAC PO Last administered on 09:41; Start 09/13/17 at 07:30; Stop 09/19/17 at 07:22; Status DC Quetiapine Fumarate (SEROquel) 37.5 mg QHS GT Last administered on 09/19/17 21:40; Start 09/12/17 at 21:00 Quetiapine Fumarate (SEROquel) 12.5 mg PRN Q8HRS PRN PEG AGITATION; Start 09/17 at 18:00 Temazepam (Restoril) 30 mg QHS PO ; Start 09/12/17 at 21:00; Stop 09/12/17 at 21:00; Status DC Sodium Chloride 1,000 ml @ 60 mls/hr [id number] IV Last administered on 08:55; Start 09/12/17 at 18:30 Temazepam (Restoril) 45 mg QHS PO Last administered on 09/19/17 21:39; Start 09/12/17 at 21:00 Vancomycin HCl 750 mg/Dextrose/ Sodium Chloride 250 ml @ 250 mls/hr Q18H IV Last administered on 09/14/17 07:15; Start 09/13/17 at 12:00; Stop 09/14/17 at 12:53; Status DC Vancomycin HCl 1 each 1X ONCE MC Last administered on 09/14/17 05:30; Start 09/14/17 at 05:30; Stop 09/14/17 at 05:31; Status DC Ascorbic Acid (Vitamin C) 500 mg BID PO Last administered on 09/20/17 08:55; Start 09/13/17 at 10:15 Meropenem 500 mg/ Sodium Chloride 50 ml @ 100 mls/hr Q8HRS IV ; Start at 14:00; Status UNV Fluconazole/ Sodium Chloride 100 ml @ 100 mls/hr Q24H IV Last administered on 09/19/17 10:39; Start 09/13/17 at 11:00 Meropenem (Merrem) 500 mg Q8HRS IVP Last administered on 09/20/17 05:33; Start 09/13/17 at 14:00 Linezolid (Zyvox) 600 mg BID PO Last administered on 09/20/17 08:55; Start 09/15/17 at 10:00 Lansoprazole (Prevacid) 30 mg DAILYAC FT Last administered on 09/20/17 08:56 ; Start 09/19/17 at 08:00 Lactobacillus Rhamnosus (Culturelle) 1 cap BID PO Last administered on 08:55; Start 09/19/17 at 21:00 Active Scripts Active Protonix (Pantoprazole Sodium) 40 Mg Tablet.dr 40 Mg PO DAILY 30 Days Quetiapine Fumarate 25 Mg Tablet 37.5 Mg PEG QHS 30 Days Hydrocodone-Apap 10-325 (Hydrocodone Bit/Acetaminophen) 1 Each Tablet 1 Tab PO PRN Q6HRS PRN 30 Days Baclofen 10 Mg Tablet 10 Mg GT TID 30 Days Reported Temazepam 30 Mg Capsule 30 Mg GT HS PRN Multivitamins (Multivitamin) 1 Each Capsule 1 Each GT DAILY Temazepam 15 Mg Capsule 1 Cap GT QHS Tylenol (Acetaminophen) 325 Mg Tablet 650 Mg PO Q4HRS PRN Aspirin 325 Mg Tablet 325 Mg GT DAILY Vitals/I & O Vital Sign - Last 24 Hours 09/19/17 09/19/17 09/19/17 09/19/17 11:18 15:25 19:20 20:00 Temp 98.8 97.9 99.3 98.8 97.9 99.3 Pulse 95 94 97 Resp 18 B/P (MAP) 121/77 (92) 114/78 (90) 122/82 (95) Pulse Ox 96 96 97 O2 Delivery Room Air Room Air Room Air Room Air 09/19/17 09/20/17 23:00 07:00 Temp 98.6 97.9 98.6 97.9 Pulse 109 90 Resp 18 18 B/P (MAP) 105/70 (82) 120/84 (96) Pulse Ox 94 95 O2 Delivery Room Air Room Air Intake and Output 09/19/17 09/19/17 09/20/17 14:59 22:59 06:59 Intake Total 250 ml 250 ml 250 ml Output Total 400 ml 500 ml Balance 250 ml -150 ml -250 ml Nutrition Consultation Dietary Evaluation: Comments: continue TF regemin mvi and vit c per wound protocal re wt requested Expected Outcomes/Goals: wt maintanence, wound improvement Malnutrition Findings: Body Fat Depletion (Non Severe: Mod to Severe Weight Status: Underweight ADRIANE ALAN MD Sep 20, 2017 11:04
[2017-09-20 11:15] VITALS: BP 127/85
[2017-09-20] MEDS: FLUCONAZOLE 200MG/100ML PREMIX 100 ML IV SCH (11:40)
--- NOTE | 2017-09-20 14:01 | PDOC ---
Infectious Disease Note Subjective Subjective Moaning No fever last 24 hours No increase ostomy output much calm today ROS ROS neg per and rn Vital Sign Vital Signs Vital Signs Date Time Temp Pulse Resp B/P (MAP) Pulse Ox O2 Delivery O2 Flow Rate FiO2 09/20/17 11:15 97.9 91 18 127/85 (99) 97 Room Air 97.9 Physical Exam PHYSICAL EXAM GENERAL: Lying down, softly moaning LUNGS: Clear anteriorly, nonlabored HEART: S1S2 ABD: Nondistended, Soft, ostomy : No Llamas EXT: No edema, no cyanosis. Left foot bandaged. PEANUT SHAKER: Eyes closed, noncommunicative, no follow commands ,contractures SKIN: No rash Left-sided port. clean Labs Micro Micro PATIENT: TENA SCHAFFER V ACCT: [id number] LOC: [address] [place] [address] U : [id number] AGE/SX: 67/M ROOM: 404 REG : 09/12/[address]: ADRIANE ALAN MD : 1950 BED: 1 DIS : STATUS: ADM IN TLOC: SPEC #: [id number] ANTONIO: 09/16/17 STATUS: RES REQ #: [id number] RECD: 09/18/[address]: TIFFANIE ELIAS MD SOURCE: BLOOD ENTR: 09/18/17 [facility] DR: CATHY ELIAS MD SPDESC: ADRIANE ALAN MD, AMAN U MD ORDERED: BLD CULT - LC Procedure Result BLOOD CULTURE PRL Preliminary Preliminary report BLD CULT RESULT 1 Preliminary Comment Coagulase negative Staphylococcus species. Recovered from aerobic and anaerobic bottles. Performed at: [address] [id number] Manager Radiation: Kathleen Boyer MD, Phone: [phone] BLD CULT RESULT 1 Final Nonfermenting gram negative bacilli Recovered from aerobic bottle only. GROWTH IN 1 OF 1 SET Antibiotic RSLT#1 Amikacin S Cefepime S Cefotaxime S Ceftazidime S Ceftriaxone S Ciprofloxacin R Gentamicin S Imipenem S Levofloxacin S Tetracycline S Tobramycin S Trimethoprim/Sulfa S D/W Micro lab will send out FOOT AEROBIC RES 1 Final Proteus mirabilis AEROBIC RES 2 Final Methicillin - resistant Staphylococcus aureus Antibiotic RSLT#1 RSLT#2 Amoxicillin/Clavulanic Acid S Ampicillin S Cefepime S Ceftriaxone S Cefuroxime S Ciprofloxacin S R Clindamycin S Ertapenem S Erythromycin S Gentamicin S S Levofloxacin S I Linezolid S Oxacillin R Penicillin R Piperacillin S Rifampin S Tetracycline R S Tobramycin S Trimethoprim/Sulfa S S Vancomycin S Objective Assessment coag neg bacteremia likely contaminant Fever resolved Leukocytosis - trending down Respiratory failure, likely aspiration Sepsis with G neg viktoria, POA. Nonfermenting gram negative bacilli ,same suscep with GNR in wound Left foot wound infection w/ MRSA & proteus Persistent veg state Plan Plan of Care DC merrem start cefepime 2 gm IV q12 Continue zyvox change fluconazole to po FOOT C/S PROTEUS,BC GNR ID PENDING,SUSCEP SAME FROM FOOT Await GNR ID,D/W Micro send it out Duration 2 weeks RTC 2 weeks in our office OCT 04 2017 , 3;15 PM WEEKLY LABS ON DC CBC, LFT, CREAT, BUN ph [phone] d/w in detail about the wound and how far she want us to go, she does not want surgery, debridement or iv antibiotics, happy with ointment /enzymatic debridement and oral antibiotics ( understands can be osteo ). TIFFANIE ELIAS MD Sep 20, 2017 14:01
[2017-09-20] MEDS ORDERED: CEFEPIME HCL IV Push 2 GM VIAL. IVP SCH (14:30)
[2017-09-20] MEDS ORDERED: CEFEPIME HCL 2 GM in IV DEXTROSE 5% 100 ML IV SCH (21:00)
[2017-09-21] MEDS ORDERED: FLUCONAZOLE 100 MG TABLET. PO SCH (09:00)
--- NOTE | 2017-09-21 13:18 | PDOC ---
Provider Note Provider Note discharge summary dictated # [id number] ADRIANE ALNA MD Sep 21, 2017 13:18
--- NOTE | 2017-09-21 18:55 | DS ---
DATE OF DISCHARGE: 09/20/2017 CONSULTANTS: Dr. Markel Aburto, Dr. Bennett and Dr. Hoskins. FINAL DIAGNOSES: 1. Gram-negative viktoria bacteremia with sepsis. 2. Leukocytosis. 3. Methicillin-resistant Staphylococcus aureus and Proteus foot wound infection. 4. Spastic quadriplegia. 5. Anoxic encephalopathy. 6. Oropharyngeal dysphagia, maintaining gastrostomy tube feeding. 7. Short gut syndrome, treated with IV fluids at home as well as tube feeding. 8. Ileostomy. 9. Right above-knee amputation. 10. Methicillin-resistant Staphylococcus aureus urinary tract infection. 11. Suspected aspiration pneumonia. HOSPITAL COURSE: The patient is a 67-year-old male with a history of anoxic encephalopathy from an out of hospital cardiopulmonary arrest years ago who has spastic quadriplegia and oropharyngeal dysphagia, maintained on gastrostomy tube feedings as well as a short gut syndrome, maintained on IV fluids at home who has a port and has a history of an ileostomy and a right above-knee amputation, who was noted to have a white count of 25,000 on weekly laboratory test done as an outpatient. The patient had a fever of 103 degrees 2 days prior to admission and an occasional cough. He does not have a Llamas catheter. His was told to take him to the [facility] Emergency Room where he had a foul smelling left foot wound. Blood and urine cultures were ordered and a chest x-ray showed a possible left lower lobe atelectasis versus infiltrate and it was thought he might have had aspiration pneumonia. He was treated with IV vancomycin and cefepime. He is a full code. The patient was seen by Dr. Markel Aburto and Dr. Bennett for Infectious Disease and Dr. Das and Dr. Hoskins for Pulmonary. The patient was noted to have a Gram-negative viktoria in the blood culture, but identification could not be found, but the sensitivities were the same as the Proteus that was in the foot wound and also had methicillin-resistant Staphylococcus aureus and Proteus in the foot wound consistent with a wound infection. The did not want anything done in terms of investigation for possible osteomyelitis and wanted to treat the wound topically. In addition, the patient had a methicillin-resistant Staphylococcus aureus urinary tract infection and also had the gram-negative viktoria in the blood culture. The patient's antibiotics were eventually switched to IV cefepime 2 g IV every 12 hours, Zyvox 600 mg b.i.d. through the PEG and fluconazole 200 mg every day through the PEG. The patient was dismissed to home on 09/20/2017 on those 3 antibiotics and will have weekly CBC, BMP and liver function tests sent to the Infectious Disease doctor as he will be on these antibiotics for 2 more weeks. In addition, he will be dismissed on his Fibersource HN tube feeding at 110 mL an hour with 250 mL of water flushes every 6 hours through the gastrostomy tube and also receive IV one-half normal saline at 125 mL an hour from 7:00 p.m. to 7:00 a.m. daily. Also, he was dismissed on aspirin 325 mg every day, baclofen 10 mg t.i.d., Protonix 40 mg every day, Seroquel 37.5 mg at bedtime with 12.5 mg every 8 hours p.r.n. for agitation and temazepam 45 mg at bedtime. He will make an appointment to see Dr. Black in the office in 1 week. ADRIANE BLACK MD DR: MARILY/abram JOB#: [id number] / [id number]
== END 2017-09-20 17:00 | disposition home health service (06) | DRG 871 ==
LOC: ER 14:48 → 4 NORTH 17:16
PROVIDERS: ADMIT Internal Medicine; ATTEND Internal Medicine
DX: A41.50 Gram-negative sepsis, unspecified (principal); G82.50 Quadriplegia, unspecified; J96.90 Respiratory failure, unspecified, unspecified whether with hypoxia or hypercapnia; J69.0 Pneumonitis due to inhalation of food and vomit; G93.1 Anoxic brain damage, not elsewhere classified; R40.3 Persistent vegetative state; K91.2 Postsurgical malabsorption, not elsewhere classified; L97.409 Non-pressure chronic ulcer of unspecified heel and midfoot with unspecified severity; N39.0 Urinary tract infection, site not specified; R13.12 Dysphagia, oropharyngeal phase; B95.62 Methicillin resistant Staphylococcus aureus infection as the cause of diseases classified elsewhere; B96.89 Other specified bacterial agents as the cause of diseases classified elsewhere; E78.5 Hyperlipidemia, unspecified; E86.0 Dehydration; I10 Essential (primary) hypertension; L89.529 Pressure ulcer of left ankle, unspecified stage; S91.302A Unspecified open wound, left foot, initial encounter; Z51.5 Encounter for palliative care; Z79.82 Long term (current) use of aspirin; Z79.899 Other long term (current) drug therapy; Z86.74 Personal history of sudden cardiac arrest; Z88.0 Allergy status to penicillin; Z89.611 Acquired absence of right leg above knee; Z90.49 Acquired absence of other specified parts of digestive tract; Z93.1 Gastrostomy status; Z93.2 Ileostomy status; Z93.3 Colostomy status; Z88.8 Allergy status to other drugs, medicaments and biological substances; Z91.041 Radiographic dye allergy status
CPT/HCPCS: 36415; 36600; 71010; 73610; 80048; 80053; 80202; 81001; 82805; 83605; 83735; 85007; 85025; 87040; 87071; 87075; 87086; 87186; 87205; 93005; 96361; 96365; 96375; J0692; J1450; J2185; J3370; J7040; J7050; P9612; 99285-25; J7030

== ENCOUNTER 2017-10-30 14:49 | Inpatient (IN) | payer MEDICARE, BC ==
[2017-10-30] MEDS: IV NORMAL SALINE 1000ML BAG 1,000 ML IV ×5 (04:15→20:20)
[2017-10-30] MEDS ORDERED: VANCOMYCIN PER PHARMACY MC (15:45)
[2017-10-30 15:58] LABS: BASO # 0.1 x10^3/uL (0.0-0.2); BASO % 0 % (0-3); EOS % 0 % (0-3); HEMATOCRIT 37.4 % (39.0-53.0); LYMPH # 0.7 x10^3/uL (1.0-4.8); LYMPH % 5 % (24-48); MEAN CORPUSCULAR HEMOGLOBIN 27 pg (25-35); MEAN CORPUSCULAR HGB CONC 32 g/dL (31-37); MEAN CORPUSCULAR VOLUME 85 fL (79-100); MONO # 0.5 x10^3/uL (0.0-1.1); MONO % 4 % (0-9); NEUT # 12.1 x10^3uL (1.8-7.7); NEUT % 90 % (31-73); PLATELET COUNT 272 x10^3/uL (140-400); RED BLOOD COUNT 4.42 x10^6/uL (4.30-5.70); RED CELL DISTRIBUTION WIDTH 17.5 % (11.5-14.5); WHITE BLOOD COUNT 13.4 x10^3/uL (4.0-11.0)
[2017-10-30 16:06] LABS: ADD MAN DIFF? YES
[2017-10-30] MEDS: CEFEPIME HCL IV Push 1 GM VIAL. IVP (16:14)
[2017-10-30] MEDS: VANCOMYCIN 1 GM in IV DEXTROSE 5% 250 ML IV (16:15)
[2017-10-30 16:23] LABS: ANION GAP 13 (6-14); BILIRUBIN,URINE NEGATIVE (NEG); BLOOD UREA NITROGEN 57 mg/dL (8-26); BUN/CREATININE RATIO 25 (6-20); CALCIUM 9.6 mg/dL (8.5-10.1); CARBON DIOXIDE 23 mmol/L (21-32); CHLORIDE 116 mmol/L (98-107); CLARITY,URINE CLOUDY; COLOR,URINE AMBER; CREATININE 2.3 mg/dL (0.7-1.3); GFR 34.7; GLUCOSE 156 mg/dL (70-99); GLUCOSE,URINE NEGATIVE (NEG); NITRITE,URINE NEGATIVE (NEG); PH,URINE 5.5; POTASSIUM 4.4 mmol/L (3.5-5.1); PROTEIN,URINE 30 mg/dL (NEG-TRACE); SODIUM 152 mmol/L (136-145); UROBILINOGEN,URINE 0.2 mg/dL (0.2 mg/dL)
[2017-10-30 16:24] LABS: INFLUENZA A PATIENT NEGATIVE (NEGATIVE); INFLUENZA B PATIENT NEGATIVE (NEGATIVE); OBC FLU VALID
[2017-10-30 16:29] LABS: ALBUMIN 2.5 g/dL (3.4-5.0); ALBUMIN/GLOBULIN RATIO 0.4 (1.0-1.7); ALK PHOS 73 U/L (46-116); ALT (SGPT) 33 U/L (16-63); AST (SGOT) 36 U/L (15-37); TOTAL BILIRUBIN 0.5 mg/dL (0.2-1.0); TOTAL PROTEIN 8.4 g/dL (6.4-8.2)
[2017-10-30 16:31] LABS: LACTIC ACID 3.7 mmol/L (0.4-2.0)
[2017-10-30 16:33] LABS: TROPONINI < 0.017 ng/mL (0.000-0.055)
[2017-10-30] MEDS ORDERED: fentaNYL PF VIAL 100 MCG/2 ML VIAL IV (17:15)
[2017-10-30] MEDS ORDERED: ONDANSETRON PF 4 MG/2 ML VIAL. IV (17:15)
[2017-10-30 17:18] LABS: RBC,URINE 20-40 /HPF (0-2)
[2017-10-30 17:19] LABS: BACTERIA,URINE FEW /HPF (0-FEW)
[2017-10-30] MEDS ORDERED: IV NORMAL SALINE 1000ML BAG 1,000 ML IV (17:30)
[2017-10-30 18:31] LABS: % BANDS 37 % (0-9); % LYMPHS 7 % (24-48); % MONOS 3 % (0-10); % SEGS 53 % (35-66); PLT ESTIMATE ADEQUATE (ADEQUATE)
[2017-10-30 19:34] LABS: LACTIC ACID 3.9 mmol/L (0.4-2.0)
[2017-10-30] MEDS: FAMOTIDINE 20 MG/2 ML VIAL IVP (20:30)
[2017-10-30] MEDS: MEROPENEM IV Push 500 MG VIAL. IVP (22:00)
[2017-10-30] MEDS ORDERED: CEFEPIME HCL 1 GM in IV DEXTROSE 5% 50 ML IV (22:00)
[2017-10-30] MEDS ORDERED: MEROPENEM 500 MG in IV NORMAL SALINE 50ML 50 ML IV (22:00)
[2017-10-31] MEDS: MEROPENEM IV Push 500 MG VIAL. IVP ×3 (05:17→20:55)
[2017-10-31 05:36] LABS: ADD MAN DIFF? NO
[2017-10-31 05:40] LABS: BASO % 0 % (0-3); EOS % 0 % (0-3); HEMATOCRIT 33.1 % (39.0-53.0); HEMOGLOBIN 10.5 g/dL (13.0-17.5); LYMPH # 0.7 x10^3/uL (1.0-4.8); LYMPH % 5 % (24-48); MEAN CORPUSCULAR HEMOGLOBIN 27 pg (25-35); MEAN CORPUSCULAR HGB CONC 32 g/dL (31-37); MEAN CORPUSCULAR VOLUME 85 fL (79-100); MONO # 0.8 x10^3/uL (0.0-1.1); MONO % 6 % (0-9); NEUT # 11.9 x10^3uL (1.8-7.7); NEUT % 89 % (31-73); PLATELET COUNT 212 x10^3/uL (140-400); RED BLOOD COUNT 3.87 x10^6/uL (4.30-5.70); RED CELL DISTRIBUTION WIDTH 17.5 % (11.5-14.5); WHITE BLOOD COUNT 13.4 x10^3/uL (4.0-11.0)
[2017-10-31 06:00] LABS: ANION GAP 15 (6-14); BLOOD UREA NITROGEN 50 mg/dL (8-26); CALCIUM 7.8 mg/dL (8.5-10.1); CARBON DIOXIDE 18 mmol/L (21-32); CHLORIDE 124 mmol/L (98-107); CREATININE 1.7 mg/dL (0.7-1.3); GFR 49.2; GLUCOSE 119 mg/dL (70-99); SODIUM 157 mmol/L (136-145)
[2017-10-31 06:58] LABS: LACTIC ACID 2.5 mmol/L (0.4-2.0)
[2017-10-31] MEDS: IV 1/2 NORMAL SALINE 1,000 ML IV (07:13)
[2017-10-31] MEDS: FAMOTIDINE 20 MG/2 ML VIAL IVP (08:00)
[2017-10-31] MEDS ORDERED: MAGNESIUM SULFATE 2GM 50 ML IV (08:30)
[2017-10-31] MEDS: SODIUM BICARBONATE VIAL 50 MEQ in IV DEXTROSE 5% 1,000 ML IV ×2 (08:42→23:01)
[2017-10-31] MEDS: ASCORBIC ACID 500 MG TABLET PO (10:55)
[2017-10-31] MEDS: IV NORMAL SALINE 1000ML BAG 1,000 ML IV (12:00)
[2017-10-31] MEDS ORDERED: METOPROLOL TARTRATE 5 MG/5 ML VIAL. IVP (15:45)
[2017-10-31] MEDS: ASPIRIN CHEWABLE 81 MG TABLET. PO (16:30)
[2017-10-31] MEDS: NOREPINEPHRIN PREMIX 250 ML IV (17:57)
[2017-10-31 21:11] LABS: MRSA BY PCR Negative (Negative)
[2017-11-01] MEDS: SODIUM BICARBONATE VIAL 50 MEQ in IV DEXTROSE 5% 1,000 ML IV (04:12)
[2017-11-01] MEDS: MEROPENEM IV Push 500 MG VIAL. IVP ×3 (05:45→22:37)
[2017-11-01 05:48] LABS: ADD MAN DIFF? NO
[2017-11-01 05:56] LABS: BASO % 0 % (0-3); EOS # 0.1 x10^3/uL (0.0-0.7); EOS % 1 % (0-3); HEMATOCRIT 30.9 % (39.0-53.0); HEMOGLOBIN 9.7 g/dL (13.0-17.5); LYMPH # 0.8 x10^3/uL (1.0-4.8); LYMPH % 9 % (24-48); MEAN CORPUSCULAR HEMOGLOBIN 27 pg (25-35); MEAN CORPUSCULAR HGB CONC 31 g/dL (31-37); MEAN CORPUSCULAR VOLUME 85 fL (79-100); MONO # 0.8 x10^3/uL (0.0-1.1); MONO % 10 % (0-9); NEUT # 6.9 x10^3uL (1.8-7.7); NEUT % 80 % (31-73); PLATELET COUNT 191 x10^3/uL (140-400); RED BLOOD COUNT 3.64 x10^6/uL (4.30-5.70); RED CELL DISTRIBUTION WIDTH 17.5 % (11.5-14.5); WHITE BLOOD COUNT 8.7 x10^3/uL (4.0-11.0)
[2017-11-01 06:20] LABS: ALBUMIN 1.5 g/dL (3.4-5.0); ANION GAP 12 (6-14); BLOOD UREA NITROGEN 31 mg/dL (8-26); CALCIUM 7.8 mg/dL (8.5-10.1); CARBON DIOXIDE 21 mmol/L (21-32); CHLORIDE 116 mmol/L (98-107); CREATININE 1.2 mg/dL (0.7-1.3); GFR 73.5; GLUCOSE 171 mg/dL (70-99); MAGNESIUM 1.4 mg/dL (1.8-2.4); PHOSPHORUS 1.4 mg/dL (2.6-4.7); SODIUM 149 mmol/L (136-145)
[2017-11-01 06:22] LABS: POTASSIUM 2.9 mmol/L (3.5-5.1)
[2017-11-01] MEDS: ASPIRIN CHEWABLE 81 MG TABLET. PO (07:50)
[2017-11-01] MEDS: MAGNESIUM SULFATE 2GM 50 ML IV (07:50)
[2017-11-01] MEDS: FAMOTIDINE 20 MG/2 ML VIAL IVP (07:50)
[2017-11-01] MEDS: ACETAMINOPHEN 650 MG/20.3 ML SOLUTION. PEG (07:51)
[2017-11-01] MEDS: ASCORBIC ACID 500 MG TABLET PO (07:57)
[2017-11-01] MEDS: POTASSIUM CHLORIDE 20MEQ 50 ML IV ×2 (09:14→10:06)
[2017-11-01] MEDS ORDERED: MAGNESIUM SULFATE 2GM 50 ML IV (15:00)
[2017-11-01] MEDS ORDERED: POTASSIUM CHLORIDE 20MEQ 50 ML IV ×2 (15:00)
[2017-11-01] MEDS: IV DEXTROSE 5% 1,000 ML IV (15:36)
[2017-11-01 15:55] LABS: ALBUMIN 1.5 g/dL (3.4-5.0); ALBUMIN/GLOBULIN RATIO 0.3 (1.0-1.7); ALK PHOS 54 U/L (46-116); ALT (SGPT) 16 U/L (16-63); ANION GAP 9 (6-14); AST (SGOT) 14 U/L (15-37); BLOOD UREA NITROGEN 25 mg/dL (8-26); BUN/CREATININE RATIO 21 (6-20); CALCIUM 7.4 mg/dL (8.5-10.1); CARBON DIOXIDE 24 mmol/L (21-32); CHLORIDE 111 mmol/L (98-107); CREATININE 1.2 mg/dL (0.7-1.3); GFR 73.5; GLUCOSE 165 mg/dL (70-99); POTASSIUM 3.4 mmol/L (3.5-5.1); SODIUM 144 mmol/L (136-145); TOTAL BILIRUBIN 0.3 mg/dL (0.2-1.0); TOTAL PROTEIN 5.8 g/dL (6.4-8.2)
[2017-11-01] MEDS: POTASSIUM PHOSPHATE DIBASIC 13.6 MMOL in IV NORMAL SALINE 100ML 100 ML IV ×3 (16:01→20:43)
[2017-11-01] MEDS: NOREPINEPHRIN PREMIX 250 ML IV (18:27)
[2017-11-02] MEDS: IV DEXTROSE 5% 1,000 ML IV (01:05)
[2017-11-02 01:35] LABS: POTASSIUM 3.8 mmol/L (3.5-5.1)
[2017-11-02 05:10] LABS: ADD MAN DIFF? NO
[2017-11-02 05:19] LABS: BASO % 0 % (0-3); EOS # 0.2 x10^3/uL (0.0-0.7); EOS % 2 % (0-3); HEMATOCRIT 30.7 % (39.0-53.0); HEMOGLOBIN 9.8 g/dL (13.0-17.5); LYMPH # 1.3 x10^3/uL (1.0-4.8); LYMPH % 11 % (24-48); MEAN CORPUSCULAR HEMOGLOBIN 27 pg (25-35); MEAN CORPUSCULAR HGB CONC 32 g/dL (31-37); MEAN CORPUSCULAR VOLUME 84 fL (79-100); MONO # 1.1 x10^3/uL (0.0-1.1); MONO % 9 % (0-9); NEUT # 9.6 x10^3uL (1.8-7.7); NEUT % 79 % (31-73); PLATELET COUNT 189 x10^3/uL (140-400); RED BLOOD COUNT 3.64 x10^6/uL (4.30-5.70); RED CELL DISTRIBUTION WIDTH 16.8 % (11.5-14.5); WHITE BLOOD COUNT 12.2 x10^3/uL (4.0-11.0)
[2017-11-02 05:33] LABS: ALBUMIN 1.5 g/dL (3.4-5.0); ANION GAP 11 (6-14); BLOOD UREA NITROGEN 21 mg/dL (8-26); CALCIUM 7.8 mg/dL (8.5-10.1); CARBON DIOXIDE 21 mmol/L (21-32); CHLORIDE 110 mmol/L (98-107); CREATININE 1.2 mg/dL (0.7-1.3); GFR 73.5; GLUCOSE 142 mg/dL (70-99); MAGNESIUM 1.8 mg/dL (1.8-2.4); PHOSPHORUS 2.6 mg/dL (2.6-4.7); POTASSIUM 3.9 mmol/L (3.5-5.1); SODIUM 142 mmol/L (136-145)
[2017-11-02] MEDS: MEROPENEM IV Push 500 MG VIAL. IVP ×3 (05:37→22:28)
[2017-11-02] MEDS: FAMOTIDINE 20 MG/2 ML VIAL IVP (10:06)
[2017-11-02] MEDS: ASCORBIC ACID 500 MG TABLET PO (10:06)
[2017-11-02] MEDS: ASPIRIN CHEWABLE 81 MG TABLET. PO (10:06)
[2017-11-02] MEDS ORDERED: DEXTROSE 50% 25 GM / 50ML DISP.SYRIN. IV ×2 (10:18→10:30)
[2017-11-02 12:35] LABS: POTASSIUM 3.8 mmol/L (3.5-5.1)
[2017-11-02] MEDS: IV 1/2 NORMAL SALINE 1,000 ML IV (15:55)
[2017-11-02] MEDS: ACETAMINOPHEN 650 MG/20.3 ML SOLUTION. PEG (21:14)
[2017-11-02] MEDS: FAMOTIDINE 20 MG TABLET. PEG (21:14)
[2017-11-03] MEDS: IV 1/2 NORMAL SALINE 1,000 ML IV ×2 (01:41→16:10)
[2017-11-03] MEDS: MEROPENEM IV Push 500 MG VIAL. IVP ×3 (05:27→22:32)
[2017-11-03] MEDS: ACETAMINOPHEN 650 MG/20.3 ML SOLUTION. PEG ×2 (05:27→20:19)
[2017-11-03 06:51] LABS: ADD MAN DIFF? NO
[2017-11-03 07:01] LABS: POTASSIUM 3.8 mmol/L (3.5-5.1)
[2017-11-03 07:06] LABS: MAGNESIUM 1.6 mg/dL (1.8-2.4)
[2017-11-03 07:10] LABS: ALBUMIN 1.4 g/dL (3.4-5.0); ANION GAP 7 (6-14); BLOOD UREA NITROGEN 18 mg/dL (8-26); CALCIUM 7.1 mg/dL (8.5-10.1); CARBON DIOXIDE 24 mmol/L (21-32); CHLORIDE 109 mmol/L (98-107); GFR 90.7; GLUCOSE 125 mg/dL (70-99); PHOSPHORUS 1.9 mg/dL (2.6-4.7); POTASSIUM 3.9 mmol/L (3.5-5.1); SODIUM 140 mmol/L (136-145)
[2017-11-03 07:12] LABS: BASO % 0 % (0-3); EOS # 0.3 x10^3/uL (0.0-0.7); EOS % 2 % (0-3); HEMOGLOBIN 8.9 g/dL (13.0-17.5); LYMPH # 1.2 x10^3/uL (1.0-4.8); LYMPH % 9 % (24-48); MEAN CORPUSCULAR HEMOGLOBIN 27 pg (25-35); MEAN CORPUSCULAR HGB CONC 32 g/dL (31-37); MEAN CORPUSCULAR VOLUME 84 fL (79-100); MONO # 1.4 x10^3/uL (0.0-1.1); MONO % 10 % (0-9); NEUT # 10.5 x10^3uL (1.8-7.7); NEUT % 79 % (31-73); PLATELET COUNT 164 x10^3/uL (140-400); RED BLOOD COUNT 3.32 x10^6/uL (4.30-5.70); RED CELL DISTRIBUTION WIDTH 16.9 % (11.5-14.5); WHITE BLOOD COUNT 13.3 x10^3/uL (4.0-11.0)
[2017-11-03] MEDS: ASCORBIC ACID 500 MG TABLET PO (09:03)
[2017-11-03] MEDS: FAMOTIDINE 20 MG TABLET. PEG ×2 (09:03→22:30)
[2017-11-03] MEDS: ASPIRIN CHEWABLE 81 MG TABLET. PO (09:03)
[2017-11-03] MEDS: MAGNESIUM SULFATE 2GM 50 ML IV (11:00)
[2017-11-03] MEDS: ONDANSETRON PF 4 MG/2 ML VIAL. IV (16:11)
[2017-11-03] MEDS: BACLOFEN 10 MG TABLET. GT ×2 (16:11→22:30)
[2017-11-03 19:13] LABS: C DIFF BY PCR Negative (Negative)
[2017-11-04] MEDS: IV 1/2 NORMAL SALINE 1,000 ML IV (02:27)
[2017-11-04 05:08] LABS: ADD MAN DIFF? NO
[2017-11-04 05:20] LABS: BASO % 0 % (0-3); EOS # 0.3 x10^3/uL (0.0-0.7); EOS % 3 % (0-3); HEMATOCRIT 27.1 % (39.0-53.0); HEMOGLOBIN 8.6 g/dL (13.0-17.5); LYMPH # 1.2 x10^3/uL (1.0-4.8); LYMPH % 9 % (24-48); MEAN CORPUSCULAR HEMOGLOBIN 27 pg (25-35); MEAN CORPUSCULAR HGB CONC 32 g/dL (31-37); MEAN CORPUSCULAR VOLUME 84 fL (79-100); MONO # 1.4 x10^3/uL (0.0-1.1); MONO % 11 % (0-9); NEUT # 9.8 x10^3uL (1.8-7.7); NEUT % 77 % (31-73); PLATELET COUNT 175 x10^3/uL (140-400); RED BLOOD COUNT 3.21 x10^6/uL (4.30-5.70); RED CELL DISTRIBUTION WIDTH 16.6 % (11.5-14.5); WHITE BLOOD COUNT 12.7 x10^3/uL (4.0-11.0)
[2017-11-04 05:32] LABS: ALBUMIN 1.4 g/dL (3.4-5.0); ANION GAP 6 (6-14); BLOOD UREA NITROGEN 17 mg/dL (8-26); CALCIUM 7.3 mg/dL (8.5-10.1); CARBON DIOXIDE 25 mmol/L (21-32); CHLORIDE 107 mmol/L (98-107); CREATININE 0.9 mg/dL (0.7-1.3); GFR 102.5; GLUCOSE 115 mg/dL (70-99); PHOSPHORUS 2.3 mg/dL (2.6-4.7); POTASSIUM 4.2 mmol/L (3.5-5.1); SODIUM 138 mmol/L (136-145)
[2017-11-04] MEDS: MEROPENEM IV Push 500 MG VIAL. IVP ×3 (06:00→23:04)
[2017-11-04] MEDS: ASPIRIN CHEWABLE 81 MG TABLET. PO (10:03)
[2017-11-04] MEDS: BACLOFEN 10 MG TABLET. GT ×3 (10:03→23:03)
[2017-11-04] MEDS: FAMOTIDINE 20 MG TABLET. PEG ×2 (10:03→21:00)
[2017-11-04] MEDS: ACETAMINOPHEN 650 MG/20.3 ML SOLUTION. PEG (10:03)
[2017-11-04] MEDS: ASCORBIC ACID 500 MG TABLET PO (10:03)
[2017-11-04] MEDS: VANCOMYCIN 1 GM in IV DEXTROSE 5% 250 ML IV (15:34)
[2017-11-05] MEDS: IV 1/2 NORMAL SALINE 1,000 ML IV ×2 (03:27→22:33)
[2017-11-05] MEDS: MEROPENEM IV Push 500 MG VIAL. IVP ×3 (05:04→22:13)
[2017-11-05 05:57] LABS: ADD MAN DIFF? NO
[2017-11-05 06:25] LABS: BASO % 0 % (0-3); EOS # 0.5 x10^3/uL (0.0-0.7); EOS % 3 % (0-3); HEMOGLOBIN 7.4 g/dL (13.0-17.5); LYMPH # 1.6 x10^3/uL (1.0-4.8); LYMPH % 12 % (24-48); MEAN CORPUSCULAR HEMOGLOBIN 27 pg (25-35); MEAN CORPUSCULAR HGB CONC 32 g/dL (31-37); MEAN CORPUSCULAR VOLUME 85 fL (79-100); MONO # 1.1 x10^3/uL (0.0-1.1); MONO % 8 % (0-9); NEUT # 10.4 x10^3uL (1.8-7.7); NEUT % 77 % (31-73); PLATELET COUNT 223 x10^3/uL (140-400); RED BLOOD COUNT 2.72 x10^6/uL (4.30-5.70); RED CELL DISTRIBUTION WIDTH 16.6 % (11.5-14.5); WHITE BLOOD COUNT 13.4 x10^3/uL (4.0-11.0)
[2017-11-05 06:46] LABS: ALBUMIN 1.4 g/dL (3.4-5.0); ANION GAP 7 (6-14); BLOOD UREA NITROGEN 16 mg/dL (8-26); CALCIUM 8.3 mg/dL (8.5-10.1); CARBON DIOXIDE 24 mmol/L (21-32); CHLORIDE 109 mmol/L (98-107); CREATININE 0.9 mg/dL (0.7-1.3); GFR 102.5; GLUCOSE 113 mg/dL (70-99); PHOSPHORUS 2.5 mg/dL (2.6-4.7); POTASSIUM 4.3 mmol/L (3.5-5.1); SODIUM 140 mmol/L (136-145)
[2017-11-05 06:47] LABS: MAGNESIUM 1.9 mg/dL (1.8-2.4)
[2017-11-05] MEDS: FAMOTIDINE 20 MG TABLET. PEG ×2 (10:02→22:11)
[2017-11-05] MEDS: ASPIRIN CHEWABLE 81 MG TABLET. PO (10:03)
[2017-11-05] MEDS: ACETAMINOPHEN 650 MG/20.3 ML SOLUTION. PEG (10:03)
[2017-11-05] MEDS: BACLOFEN 10 MG TABLET. GT ×3 (10:03→22:11)
[2017-11-05] MEDS: ASCORBIC ACID 500 MG TABLET PO (10:03)
[2017-11-05] MEDS: VITS A & D/LANOLIN TOPICAL OINTMENT 56GM TUBE. TP ×2 (16:54→22:12)
[2017-11-05] MEDS: QUEtiapine 25 MG TABLET. GT (22:11)
[2017-11-05] MEDS: TEMAZEPAM 15 MG CAPSULE PO (22:11)
[2017-11-06 04:41] LABS: ADD MAN DIFF? NO
[2017-11-06 04:50] LABS: BASO % 0 % (0-3); EOS # 0.5 x10^3/uL (0.0-0.7); EOS % 4 % (0-3); HEMATOCRIT 27.9 % (39.0-53.0); HEMOGLOBIN 9.1 g/dL (13.0-17.5); LYMPH # 1.7 x10^3/uL (1.0-4.8); LYMPH % 16 % (24-48); MEAN CORPUSCULAR HEMOGLOBIN 27 pg (25-35); MEAN CORPUSCULAR HGB CONC 33 g/dL (31-37); MEAN CORPUSCULAR VOLUME 84 fL (79-100); MONO # 0.8 x10^3/uL (0.0-1.1); MONO % 7 % (0-9); NEUT # 7.7 x10^3uL (1.8-7.7); NEUT % 72 % (31-73); PLATELET COUNT 290 x10^3/uL (140-400); RED BLOOD COUNT 3.31 x10^6/uL (4.30-5.70); RED CELL DISTRIBUTION WIDTH 16.3 % (11.5-14.5); WHITE BLOOD COUNT 10.7 x10^3/uL (4.0-11.0)
[2017-11-06 05:09] LABS: ALBUMIN 1.5 g/dL (3.4-5.0); ANION GAP 7 (6-14); BLOOD UREA NITROGEN 15 mg/dL (8-26); CALCIUM 8.1 mg/dL (8.5-10.1); CARBON DIOXIDE 28 mmol/L (21-32); CHLORIDE 108 mmol/L (98-107); CREATININE 0.8 mg/dL (0.7-1.3); GFR 117.4; GLUCOSE 124 mg/dL (70-99); MAGNESIUM 1.7 mg/dL (1.8-2.4); PHOSPHORUS 3.2 mg/dL (2.6-4.7); SODIUM 143 mmol/L (136-145)
[2017-11-06] MEDS: MEROPENEM IV Push 500 MG VIAL. IVP ×3 (06:13→22:31)
[2017-11-06] MEDS: ASCORBIC ACID 500 MG TABLET PO (09:00)
[2017-11-06] MEDS: BACLOFEN 10 MG TABLET. GT ×3 (09:00→22:11)
[2017-11-06] MEDS: FAMOTIDINE 20 MG TABLET. PEG ×2 (09:00→22:11)
[2017-11-06] MEDS: ASPIRIN CHEWABLE 81 MG TABLET. PO (09:00)
[2017-11-06] MEDS: VITS A & D/LANOLIN TOPICAL OINTMENT 56GM TUBE. TP ×2 (09:00→22:12)
[2017-11-06] MEDS: MAGNESIUM SULFATE 2GM 50 ML IV (11:08)
[2017-11-06] MEDS: IV 1/2 NORMAL SALINE 1,000 ML IV ×2 (12:47→14:23)
[2017-11-06] MEDS: QUEtiapine 25 MG TABLET. GT (22:11)
[2017-11-06] MEDS: TEMAZEPAM 15 MG CAPSULE PO (22:11)
[2017-11-07 05:39] LABS: ADD MAN DIFF? NO
[2017-11-07 05:45] LABS: BASO % 0 % (0-3); EOS # 0.4 x10^3/uL (0.0-0.7); EOS % 4 % (0-3); HEMATOCRIT 27.6 % (39.0-53.0); HEMOGLOBIN 8.7 g/dL (13.0-17.5); LYMPH # 1.5 x10^3/uL (1.0-4.8); LYMPH % 14 % (24-48); MEAN CORPUSCULAR HEMOGLOBIN 27 pg (25-35); MEAN CORPUSCULAR HGB CONC 32 g/dL (31-37); MEAN CORPUSCULAR VOLUME 85 fL (79-100); MONO # 0.7 x10^3/uL (0.0-1.1); MONO % 7 % (0-9); NEUT # 8.2 x10^3uL (1.8-7.7); NEUT % 75 % (31-73); PLATELET COUNT 357 x10^3/uL (140-400); RED BLOOD COUNT 3.26 x10^6/uL (4.30-5.70); RED CELL DISTRIBUTION WIDTH 16.4 % (11.5-14.5); WHITE BLOOD COUNT 10.9 x10^3/uL (4.0-11.0)
[2017-11-07 06:13] LABS: ALBUMIN 1.6 g/dL (3.4-5.0); ANION GAP 5 (6-14); BLOOD UREA NITROGEN 13 mg/dL (8-26); CALCIUM 8.1 mg/dL (8.5-10.1); CARBON DIOXIDE 30 mmol/L (21-32); CHLORIDE 106 mmol/L (98-107); CREATININE 0.8 mg/dL (0.7-1.3); GFR 117.4; GLUCOSE 90 mg/dL (70-99); MAGNESIUM 2.2 mg/dL (1.8-2.4); PHOSPHORUS 3.5 mg/dL (2.6-4.7); POTASSIUM 4.3 mmol/L (3.5-5.1); SODIUM 141 mmol/L (136-145)
[2017-11-07] MEDS: MEROPENEM IV Push 500 MG VIAL. IVP (06:39)
[2017-11-07] MEDS: IV 1/2 NORMAL SALINE 1,000 ML IV ×2 (06:40→09:10)
[2017-11-07] MEDS: BACLOFEN 10 MG TABLET. GT ×3 (09:09→22:16)
[2017-11-07] MEDS: ASCORBIC ACID 500 MG TABLET PO ×2 (09:09→22:15)
[2017-11-07] MEDS: FAMOTIDINE 20 MG TABLET. PEG ×2 (09:09→22:15)
[2017-11-07] MEDS: ASPIRIN CHEWABLE 81 MG TABLET. PO (09:09)
[2017-11-07] MEDS: VITS A & D/LANOLIN TOPICAL OINTMENT 56GM TUBE. TP ×2 (09:10→21:00)
[2017-11-07] MEDS: MULTIVITAMINS,THERAPEUTIC 5 ML ORAL LIQUID. PEG (12:40)
[2017-11-07] MEDS ORDERED: cefTRIAXone SODIUM 2 GM in IV DEXTROSE 5% 100 ML IV (15:00)
[2017-11-07] MEDS: cefTRIAXone IV Push 2 GM VIAL. IVP (17:26)
[2017-11-07] MEDS: TEMAZEPAM 15 MG CAPSULE PO (22:15)
[2017-11-07] MEDS: QUEtiapine 25 MG TABLET. GT (22:16)
[2017-11-08] MEDS: IV 1/2 NORMAL SALINE 1,000 ML IV ×2 (04:21→20:18)
[2017-11-08 05:25] LABS: ADD MAN DIFF? NO
[2017-11-08 05:58] LABS: ANION GAP 8 (6-14); BLOOD UREA NITROGEN 16 mg/dL (8-26); CALCIUM 8.5 mg/dL (8.5-10.1); CARBON DIOXIDE 27 mmol/L (21-32); CHLORIDE 105 mmol/L (98-107); CREATININE 0.9 mg/dL (0.7-1.3); GFR 102.5; GLUCOSE 112 mg/dL (70-99); MAGNESIUM 1.9 mg/dL (1.8-2.4); POTASSIUM 4.5 mmol/L (3.5-5.1); SODIUM 140 mmol/L (136-145)
[2017-11-08 06:00] LABS: BASO % 0 % (0-3); EOS # 0.3 x10^3/uL (0.0-0.7); EOS % 2 % (0-3); HEMATOCRIT 27.8 % (39.0-53.0); HEMOGLOBIN 9.1 g/dL (13.0-17.5); LYMPH # 1.8 x10^3/uL (1.0-4.8); LYMPH % 15 % (24-48); MEAN CORPUSCULAR HEMOGLOBIN 28 pg (25-35); MEAN CORPUSCULAR HGB CONC 33 g/dL (31-37); MEAN CORPUSCULAR VOLUME 84 fL (79-100); MONO # 0.6 x10^3/uL (0.0-1.1); MONO % 5 % (0-9); NEUT # 8.9 x10^3uL (1.8-7.7); NEUT % 77 % (31-73); PLATELET COUNT 405 x10^3/uL (140-400); RED BLOOD COUNT 3.31 x10^6/uL (4.30-5.70); RED CELL DISTRIBUTION WIDTH 16.4 % (11.5-14.5); WHITE BLOOD COUNT 11.5 x10^3/uL (4.0-11.0)
[2017-11-08] MEDS: BACLOFEN 10 MG TABLET. GT ×3 (08:42→21:04)
[2017-11-08] MEDS: ASPIRIN CHEWABLE 81 MG TABLET. PO (08:42)
[2017-11-08] MEDS: ASCORBIC ACID 500 MG TABLET PO ×2 (08:42→21:04)
[2017-11-08] MEDS: MULTIVITAMINS,THERAPEUTIC 5 ML ORAL LIQUID. PEG (08:42)
[2017-11-08] MEDS: FAMOTIDINE 20 MG TABLET. PEG ×2 (08:50→21:05)
[2017-11-08] MEDS: VITS A & D/LANOLIN TOPICAL OINTMENT 56GM TUBE. TP ×2 (08:52→21:05)
[2017-11-08] MEDS: cefTRIAXone IV Push 2 GM VIAL. IVP (16:36)
[2017-11-08] MEDS: TEMAZEPAM 15 MG CAPSULE PO (21:04)
[2017-11-08] MEDS: QUEtiapine 25 MG TABLET. GT (21:04)
[2017-11-08] MEDS: LACTOBACILLUS RHAMNOSUS GG 1 CAPSULE. PO (21:05)
[2017-11-09 06:08] LABS: ADD MAN DIFF? NO
[2017-11-09 06:18] LABS: BASO % 0 % (0-3); EOS # 0.4 x10^3/uL (0.0-0.7); EOS % 3 % (0-3); HEMATOCRIT 29.3 % (39.0-53.0); HEMOGLOBIN 9.3 g/dL (13.0-17.5); LYMPH # 1.7 x10^3/uL (1.0-4.8); LYMPH % 16 % (24-48); MEAN CORPUSCULAR HEMOGLOBIN 27 pg (25-35); MEAN CORPUSCULAR HGB CONC 32 g/dL (31-37); MEAN CORPUSCULAR VOLUME 85 fL (79-100); MONO # 0.6 x10^3/uL (0.0-1.1); MONO % 5 % (0-9); NEUT # 7.8 x10^3uL (1.8-7.7); NEUT % 75 % (31-73); PLATELET COUNT 402 x10^3/uL (140-400); RED BLOOD COUNT 3.46 x10^6/uL (4.30-5.70); RED CELL DISTRIBUTION WIDTH 16.4 % (11.5-14.5); WHITE BLOOD COUNT 10.4 x10^3/uL (4.0-11.0)
[2017-11-09 06:46] LABS: ANION GAP 7 (6-14); BLOOD UREA NITROGEN 18 mg/dL (8-26); CARBON DIOXIDE 29 mmol/L (21-32); CHLORIDE 106 mmol/L (98-107); CREATININE 0.9 mg/dL (0.7-1.3); GFR 102.5; GLUCOSE 104 mg/dL (70-99); POTASSIUM 4.3 mmol/L (3.5-5.1); SODIUM 142 mmol/L (136-145)
[2017-11-09] MEDS: ASCORBIC ACID 500 MG TABLET PO (09:02)
[2017-11-09] MEDS: LACTOBACILLUS RHAMNOSUS GG 1 CAPSULE. PO (09:02)
[2017-11-09] MEDS: MULTIVITAMINS,THERAPEUTIC 5 ML ORAL LIQUID. PEG (09:02)
[2017-11-09] MEDS: FAMOTIDINE 20 MG TABLET. PEG (09:02)
[2017-11-09] MEDS: ASPIRIN CHEWABLE 81 MG TABLET. PO (09:02)
[2017-11-09] MEDS: BACLOFEN 10 MG TABLET. GT ×2 (09:02→16:29)
[2017-11-09] MEDS: VITS A & D/LANOLIN TOPICAL OINTMENT 56GM TUBE. TP (09:17)
[2017-11-09] MEDS: cefTRIAXone IV Push 2 GM VIAL. IVP (16:30)
== END 2017-11-09 18:30 | disposition home health service (06) | DRG 871 ==
LOC: 5 SOUTH 11-03 13:02 → ER 14:49 → 1 WEST ICU 16:56
DX: A41.59 Other Gram-negative sepsis (principal); R65.21 Severe sepsis with septic shock; J69.0 Pneumonitis due to inhalation of food and vomit; E43 Unspecified severe protein-calorie malnutrition; G82.50 Quadriplegia, unspecified; G93.41 Metabolic encephalopathy; K91.2 Postsurgical malabsorption, not elsewhere classified; L89.523 Pressure ulcer of left ankle, stage 3; L89.623 Pressure ulcer of left heel, stage 3; E87.0 Hyperosmolality and hypernatremia; I48.92 Unspecified atrial flutter; R47.01 Aphasia; I69.351 Hemiplegia and hemiparesis following cerebral infarction affecting right dominant side; E87.1 Hypo-osmolality and hyponatremia; Z68.1 Body mass index [BMI] 19.9 or less, adult; N17.9 Acute kidney failure, unspecified; L89.152 Pressure ulcer of sacral region, stage 2; E11.622 Type 2 diabetes mellitus with other skin ulcer; R13.12 Dysphagia, oropharyngeal phase; I10 Essential (primary) hypertension; M19.90 Unspecified osteoarthritis, unspecified site; I25.10 Atherosclerotic heart disease of native coronary artery without angina pectoris; E87.8 Other disorders of electrolyte and fluid balance, not elsewhere classified; E78.5 Hyperlipidemia, unspecified; B95.62 Methicillin resistant Staphylococcus aureus infection as the cause of diseases classified elsewhere; D64.9 Anemia, unspecified; E83.42 Hypomagnesemia; B95.7 Other staphylococcus as the cause of diseases classified elsewhere; B96.1 Klebsiella pneumoniae [K. pneumoniae] as the cause of diseases classified elsewhere; E87.6 Hypokalemia; I48.0 Paroxysmal atrial fibrillation; N40.0 Benign prostatic hyperplasia without lower urinary tract symptoms; I25.2 Old myocardial infarction; Z88.0 Allergy status to penicillin; Z88.8 Allergy status to other drugs, medicaments and biological substances; Z91.041 Radiographic dye allergy status; Z86.74 Personal history of sudden cardiac arrest; Z90.49 Acquired absence of other specified parts of digestive tract; Z83.3 Family history of diabetes mellitus; Z89.611 Acquired absence of right leg above knee; Z93.1 Gastrostomy status; Z86.14 Personal history of Methicillin resistant Staphylococcus aureus infection; Z79.82 Long term (current) use of aspirin; Z79.899 Other long term (current) drug therapy
CPT/HCPCS: 36415; 71045; 73620; 76770; 80048; 80053; 80069; 81001; 83605; 83735; 84132; 84484; 85007; 85025; 87040; 87086; 87205; 87324; 87641; 87804; 87804-59; 93005; 93306; 96361; 96365; 96375; 99285; 99285-25; J0692; J0696; J2020; J2185; J2405; J3370; J3480; J7030; J7042; J7060; S0028